=== PATIENT | male | born 1985 ===

== ENCOUNTER 2016-08-29 18:16 | Inpatient (IN) | payer OTHER ==
[2016-08-29 20:20] LABS: BASO % 0.2 % (0.0-2.0); EOS % 0.4 % (0.0-4.0); HEMATOCRIT 25.4 % (35.0-51.0); LYMPH # 1.7 K/uL (1.0-4.3); LYMPH % 28.3 % (20.0-40.0); MEAN CELL VOLUME 81.8 fL (80.0-94.0); MEAN CORPUSCULAR HEMOGLOBIN 28.4 pg (27.0-31.0); MEAN CORPUSCULAR HGB CONC 34.7 g/dL (33.0-37.0); MONO # 0.5 K/uL (0.0-0.8); MONO % 8.2 % (0.0-10.0); NRBC % 0.1 % (0.0-2.0); RED CELL DISTRIBUTION WIDTH 20.9 % (11.5-14.5); WHITE BLOOD COUNT 5.9 K/uL (4.8-10.8)
[2016-08-29 20:27] LABS: CHLORIDE 88 mmol/L (98-107); SODIUM 129 mmol/L (132-148)
[2016-08-29 20:30] LABS: ALB/GLOB RATIO 1.2 (1.0-2.1); ALKALINE PHOSPHATASE 67 U/L (38-126); AST/SGOT 24 U/L (17-59); BILIRUBIN,TOTAL 0.8 mg/dL (0.2-1.3); BLOOD UREA NITROGEN 15 mg/dL (9-20); CARBON DIOXIDE 28 mmol/L (22-30); GFR AFRICAN-AMERICAN > 60
[2016-08-29 20:31] LABS: ALT/SGPT 24 U/L (21-72); CALCIUM 7.4 mg/dl (8.6-10.4); GLUCOSE,RANDOM 86 mg/dL (75-110)
[2016-08-29 20:45] LABS: RBC URINE 2 /hpf (0-3); URINE BACTERIA RARE (<OCC); URINE BILIRUBIN NEGATIVE (NEGATIVE); URINE BLOOD NEGATIVE (NEGATIVE); URINE COLOR Yellow (YELLOW); URINE GLUCOSE (UA) 1+ mg/dL (Normal); URINE KETONE 1+ mg/dL (NEGATIVE); URINE LEUKOCYTE ESTERASE NEG Leu/uL (Negative); URINE PROTEIN 2+ mg/dL (NEGATIVE); WBC URINE 5 /hpf (0-5)
[2016-08-29] MEDS ORDERED: Sodium Chloride 0.9% 1,000 ML IV ONE ×2 (20:55→23:51)
--- NOTE | 2016-08-29 21:01 | C.PDOC ---
History Of Present Illness 31 y/o male, recently arrived [place] this country from [facility] 2 days ago, reports he is undergoing chemotherapy for metastatic stomach cancer which was diagnosed in April. Patient brings CT scan and upper endoscopy reports from [facility]. Patient reports significant weight loss from 195 to 130 lbs over the last 5 months. He states that he has been unable to eat or hold down any fluids/ foods, noting he also has difficulty speaking because it makes him nauseated. Patient states he was never offered surgery in [facility]. Denies fever, chills, chest pain, SOB, vomiting, or diarrhea. Time Seen by Provider: 08/29/16 20:44 Chief Complaint (Nursing): GI Problem History Per: Patient History/Exam Limitations: no limitations Onset/Duration Of Symptoms: Days, Persistent Current Symptoms Are (Timing): Still Present Reports Recently: Treated By A Physician (in [facility]) Recent travel outside of the [place]: Yes Additional History Per: Prior Records (brought by patient, records of diagnostic studies from [facility]) Past Medical History Reviewed: Historical Data, Nursing Documentation, Vital Signs Vital Signs: Last Vital Signs Temp 98.2 F 08/29/16 22:16 Pulse 87 08/29/16 22:16 Resp 20 08/29/16 22:16 BP 113/76 08/29/16 22:16 Pulse Ox 99 08/30/16 00:03 - Medical History PMH: Malignancy (metastatic stomach cancer) Family History: States: Unknown Family Hx - Social History Hx Alcohol Use: No Hx Substance Use: No - Immunization History Hx Tetanus Toxoid Vaccination: No Hx Influenza Vaccination: No Hx Pneumococcal Vaccination: No Review Of Systems Except As Marked, All Systems Reviewed And Found Negative. Constitutional: Positive for: Weight loss, Other (decreaed appetite). Negative for: Fever, Chills Cardiovascular: Negative for: Chest Pain Respiratory: Negative for: Cough, Shortness of Breath, Wheezing Gastrointestinal: Positive for: Nausea. Negative for: Vomiting, Abdominal Pain , Diarrhea Skin: Negative for: Rash Neurological: Negative for: Headache, Dizziness Physical Exam - Physical Exam Appears: Chronically Ill, Other (emaciated, pallid, bitemporal wasting, thin) Skin: Warm, Dry Head: Atraumatic, Normacephalic Eye(s): bilateral: Normal Inspection Oral Mucosa: Moist Throat: Normal, No Erythema, No Exudate, No Drooling Neck: Normal ROM, Supple Chest: Symmetrical Cardiovascular: Rhythm Regular Respiratory: No Rales, No Rhonchi, No Wheezing Gastrointestinal/Abdominal: Soft, No Tenderness, No Distention, No Guarding, No Rebound Back: No CVA Tenderness Extremity: Normal ROM, Capillary Refill (< 2 sec. ) Neurological/Psych: Oriented x3, Normal Speech, Normal Cognition ED Course And Treatment - Laboratory Results Result Diagrams: 08/29/16 20:11 08/29/16 20:11 Lab Interpretation: Abnormal (anemia, hypokalemia, hyponatremia, hypochloremia) ECG: Interpreted By Sc ECG Rhythm: Sinus Rhythm ECG Interpretation: Normal Rate From EC O2 Sat by Pulse Oximetry: 99 (RA) Pulse Ox Interpretation: Normal - Radiology CXR: Interpreted by Sc CXR Interpretation: Yes: No Acute Disease - CT Scan/US CT Chest Abd Pelvis Other Rad Studies (CT/US): Read By Radiologist, Radiology Report Reviewed CT/US Interpretation: IMPRESSION: 1. There is extensive mucosal thickening in the appendix which measures 1.1 cm in diameter. Findings are worrisome for acute appendicitis. 2. Mediastinal and hilar lymphadenopathy which is worrisome for metastatic disease. 3. Free fluid in the abdomen and pelvis. There is some encapsulation of the fluid in the pelvis which. is worrisome for abscess. 4. There is extensive mucosal thickening in the stomach with an area of thickened mucosa along the. minor curvature. 5. Lymphadenopathy in the gastrohepatic and retroperitoneal chains which may be reactive or due to. metastatic disease. Progress Note: CT Angio chest/abdomen, EKG, bloodwork ordered. Treated with Pepcid, Toradol, Zofran, and IVFs. Reevaluation Time: 23:39 Reassessment Condition: Improved (re-eval of abd; NO tenderness to RLQ, NEGATIVE MCBURNEY'S SIGN) - Physician Consult Information Outcome Of Conversation: [id number]: d/w Hospitalists- Elda Moser- ok to med/surg obs. 233: d/w Dr. Garcia- Surgeon Cloth Finisher- will eval for ? AP noted on CT. Surg Tono paged. Medical Decision Making Medical Decision Making: Widely metastatic gastric CA with ANTONIO in Mediastinum and Abd/retroperitoneal spaces GI and Oncology Consults in AM Dehydration: prob due to poor PO intake chronically normal BUN/Creat Continue hydration PPI/Zofran HGB 8.8 Anemia ? of chronic dz vs chronic GI bleeding from stomach CA guaiac exam pending by Surgery blood transfusions ordered follow CBC K+ 3.0 Hypokalemia, chronic loss: normal EKG without flattened T^'s repleat and follow EKG Avoid aggressive K+ repleation as K+ tends to rise naturally in blood Tx's. LOW susp of AP as noted on CT: normal wbc count and no RLQ pain- Surgical consult pending and probably NOT surgical now. Consider loculated fluid in pelvis- Zosyn started empirically Consier laparascopic exploration when pt stabilized. Disposition Doctor Will See Patient In The: Hospital Counseled Patient/Family Regarding: Studies Performed, Diagnosis - Disposition Disposition: HOSPITALIZED Disposition Time: 23:46 Condition: GOOD - Clinical Impression Clinical Impression: Late gastric cancer, Anemia, Dehydration, Hypokalemia - Scribe Statement The provider has reviewed the documentation as recorded by the Troy Hua Provider Scribe Attestation: All medical record entries made by the Troy were at my direction and personally dictated by me. I have reviewed the chart and agree that the record accurately reflects my personal performance of the history, physical exam, medical decision making, and the department course for this patient. I have also personally directed, reviewed, and agree with the discharge instructions and disposition.
[2016-08-29 21:34] LABS: INR 1.4
[2016-08-29] MEDS ORDERED: Iohexol 300 100 ML IJ ONE (21:43)
[2016-08-29] MEDS ORDERED: Piperacillin/Tazobact 3.375 gm 100 ML IV STA (23:52)
[2016-08-30] MEDS ORDERED: Sodium Chloride 0.9% 1,000 ML ONE (00:15)
--- NOTE | 2016-08-30 00:40 | CP.PCM.HP ---
<Miles Malik - Last Filed: 08/30/16 01:30> History of Present Illness - History of Present Illness History of Present Illness: CC: "Abdominal pain, nausea/vomiting" 31 M with PMH of gastric adenocarcinoma presents to [facility] ED for complaint of abdominal pain and nausea/vomiting. Patient was diagnosed with gastric CA in [facility], April 2016. He has been receiving chemotherapy every 21 days since the diagnosis. Patient states that he has had these symptoms intermittently throughout his treatment. The symptoms have been worse the last few days. He has been vomiting 4-5 times per day, normally non-bilious but occasionally are dark. He rates the abdominal pain as 4/10 in severity. He described it as constant and sharp, located on the left side of his abdomen without radiation. Patient denies any exacerbating or alleviating factors. During this same period, he admits to decreased appetite and weight loss. He is able to tolerate small amounts of liquid and bread at times. He also admits to having dark stool, numbness/tingling, weakness, and fatigue. Denies Headache, blurred vision, CP, SOB, palpitations, cough, incontinence, syncope, dizziness/ lightheadedness, urinary symptoms. PMD: NONE PMH: Gastric CA Meds: chemotherapy Allergy: NKDA PSH: Left knee surgery Hosp: denies FH: denies Social: denies ETOH/tobacco/illicit drug use Present on Admission - Present on Admission Any Indicators Present on Admission: No History of DVT/PE: No History of Uncontrolled Diabetes: No Urinary Catheter: No Decubitus Ulcer Present: No Review of Systems - Constitutional Constitutional: Anorexia, Weight Loss, Weakness. absent: Chills, Fever, Headache, Increased Appetite - EENT Eyes: absent: Blurred Vision, Change in Vision, Discharge Nose/Mouth/Throat: absent: Nasal Congestion, Nasal Discharge, Nasal Trauma, Post Nasal Drip, Sinus Pressure - Cardiovascular Cardiovascular: absent: Acrocyanosis, Chest Pain, Chest Pain at Rest, Chest Pain with Activity, Claudication, Diaphoresis, Dyspnea, Dyspnea on Exertion, Palpitations, Syncope - Respiratory Respiratory: absent: Dyspnea, Hemoptysis, Dyspnea on Exertion - Gastrointestinal Gastrointestinal: Abdominal Pain, Nausea, Vomiting. absent: Constipation, Diarrhea, Fecal Incontinence - Genitourinary Genitourinary: absent: Change in Urinary Stream, Difficulty Urinating, Dysuria, Urinary Incontinence - Musculoskeletal Musculoskeletal: absent: Abnormal Gait, Arthralgias, Atrophy, Back Pain - Integumentary Integumentary: absent: Change in Hair, Lesions, New Lesions - Neurological Neurological: Numbness, Paresthesias, Tingling, Weakness. absent: Dizziness, Headaches, Syncope - Psychiatric Psychiatric: absent: Homicidal Ideation, Suicidal Ideation - Endocrine Endocrine: Fatigue. absent: Palpitations, Polydipsia, Polyphagia, Polyuria - Hematologic/Lymphatic Hematologic: absent: Easy Bleeding, Easy Bruising, Lymphadenopathy Past Patient History - Past Social History Smoking Status: Never Smoked - HEMATOLOGICAL/ONCOLOGICAL Hx Cancer: Yes (Stomach) - PSYCHIATRIC Hx Substance Use: No Meds Allergies/Adverse Reactions: Allergies Allergy/AdvReac Type Severity Reaction Status Date / Time No Known Allergies Allergy Verified 08/29/16 19:45 Physical Exam - Constitutional Appears: No Acute Distress, Older Than Stated Age, Cachectic - Head Exam Head Exam: ATRAUMATIC, NORMOCEPHALIC - Eye Exam Eye Exam: EOMI, Normal appearance Pupil Exam: PERRL - ENT Exam ENT Exam: Mucous Membranes Dry - Neck Exam Neck exam: Positive for: Normal Inspection - Respiratory Exam Respiratory Exam: Clear to Auscultation Bilateral, NORMAL BREATHING PATTERN - Cardiovascular Exam Cardiovascular Exam: REGULAR RHYTHM, +S1, +S2 - GI/Abdominal Exam GI & Abdominal Exam: Normal Bowel Sounds, Soft. absent: Distended, Firm, Guarding, Rebound, Tenderness - Extremities Exam Extremities exam: Positive for: normal capillary refill, pedal pulses present. Negative for: calf tenderness, tenderness - Back Exam Back exam: absent: CVA tenderness (L), CVA tenderness (R) - Neurological Exam Neurological exam: Alert, CN II-XII Intact, Motor Sensory Deficit (unable to dorsiflex either foot), Oriented x3 - Psychiatric Exam Psychiatric exam: Normal Affect, Normal Mood - Skin Skin Exam: Dry, Intact, Pallor Results - Vital Signs Recent Vital Signs: Last Vital Signs Temp 98.2 F 08/29/16 22:16 Pulse 87 08/29/16 22:16 Resp 20 08/29/16 22:16 BP 113/76 08/29/16 22:16 Pulse Ox 99 08/30/16 00:05 - Labs Result Diagrams: 08/29/16 20:11 08/29/16 20:11 Assessment & Plan - Assessment and Plan (Free Text) Plan: 1. Gastric CA Telemetry General surgery consult, Dr. Ham, helpappreciated GI consult, Dr. Mares, help appreciated Heme/Onc consult, Dr. Mesa, help appreciated CT chest/abd/pelvis: (preliminary read) mucosal thickening of appendix, mediastinal and hilar lymphadenopathy, free fluid in abdomen and pelvis - worrisome for abscess, extensive mucosal thickening in stomach, lymphadenopathy in gastrohepatic and retroperitoneal chains (see full report) Morphine 1 mg Q4H PRN NPO D5NS 100 cc/hr Zofran 4 mg IVP Q6H PRN Zosyn 3.375 gm IVPB Q8H Consider IR consult for possible abscess drainage Stool occult positive 2. Nausea/vomiting NPO GI consult, Dr. Mares, help appreciated D5NS 100 cc/hr Zofran 4 mg IVP Q6H PRN 3. Anemia hgb 8.8 Heme/Onc consult, Dr. Mesa, help appreciated Monitor Hgb 4. Hyponatremia Na 129 D5NS 100 cc/hr Monitor Na 5. Prophylactic measures Chemical anticoagulation contraindicated due to Anemia SCDs Protonix 40 mg IVP daily PT/OT <Chad Schroeder - Last Filed: 08/30/16 06:03> Results - Vital Signs Recent Vital Signs: Last Vital Signs Temp 98.3 F 08/30/16 04:31 Pulse 74 08/30/16 04:31 Resp 20 08/30/16 04:31 BP 111/77 08/30/16 04:31 Pulse Ox 100 08/30/16 01:36 - Labs Result Diagrams: 08/29/16 20:11 08/29/16 20:11 Labs: Laboratory Results - last 24 hr 08/30/16 08/30/16 00:24 00:43 Stool Occult Blood Positive H Blood Type B POSITIVE Blood Type Confirm B POSITIVE Antibody Screen Negative Assessment & Plan - Date & Time Date: 08/30/16 (I have seen and examined the patient. I agree with the findings and plan of care as documented by Dr. Malik. Patient with gastric cancer and nausea/vomiting. Follow up official CT read. Consult to surgery. Consult to GI and heme/onc. Symptomatic treatment. Also with anemia. Denies GI bleed. Continue to monitor H/H. Also with hyponatremia. D5 NS IVF. Monitor BMP. Monitor for acute changes.) Time: 06:01 Attending/Attestation - Attestation I have personally seen and examined this patient.: Yes I have fully participated in the care of the patient.: Yes I have reviewed all pertinent clinical information: Yes
[2016-08-30] MEDS ORDERED: Piperacillin/Tazobact 3.375 gm 100 ML IVPB ONE (00:43)
--- NOTE | 2016-08-30 00:58 | CP.PCM.CON ---
<Crow Montgomery - Last Filed: 08/30/16 00:49> History of Present Illness - History of Present Illness History of Present Illness: Surgery: Dr. Ham CC: Abd pain HPI: 31M recently dx w. gastric adenocarcinoma in [facility] back in April 2016 , presents to ED w. abd pain. Pt has been receiving chemo in [facility] since April every 21 days. Pt states that his abd pain is constant, described as poking sensation, most prominent on L side. Pt denies any alleviating or aggravating factors. Pt states that he has decreased appetite and has been eating very little. He is able to tolerate small amounts of broth and toast. He has frequent nausea and vomiting. Occasionally vomit is coffee ground/black. Pt states that he is having BM which are at times black as well. Pt denies DORSEY/ blurred vision, no CP/palpitiations, no SOB/cough, he does have decreased sensation over the distal anterior aspect of his legs B/L. He states that he is unable to dorsiflex and has difficulty walking 2/[address] was done in ED which showed gastric mass w. mets, questionable appendicitis, and questionable fluid collection in pelvis for which surgery has been consulted PMH: Gastric CA PSH: none Meds: chemo NKDA Social: No ETOH/tobacco/drugs Fhx: No family hx gastric CA Review of Systems - Review of Systems All systems: reviewed and no additional remarkable complaints except (HPI) Past Patient History - Past Social History Smoking Status: Never Smoked - HEMATOLOGICAL/ONCOLOGICAL Hx Cancer: Yes (Stomach) - PSYCHIATRIC Hx Substance Use: No Meds Allergies/Adverse Reactions: Allergies Allergy/AdvReac Type Severity Reaction Status Date / Time No Known Allergies Allergy Verified 08/29/16 19:45 - Medications Medications: Current Medications Potassium Chloride (Potassium Chloride 20 Meq/100 Ml) 20 meq in 100 mls @ 50 mls/hr IVPB ONCE ONE Stop: 08/30/16 01:49 Last Admin: 08/30/16 00:20 Dose: 50 mls/hr Sodium Chloride (Sodium Chloride 0.9%) 1,000 mls @ 1,000 mls/hr IV .Q1H ONE Stop: 08/30/16 00:50 Last Admin: 08/30/16 00:19 Dose: 1,000 mls/hr Physical Exam - Constitutional Appears: Non-toxic, No Acute Distress, Cachectic - Head Exam Head Exam: ATRAUMATIC, NORMOCEPHALIC - Eye Exam Eye Exam: EOMI - ENT Exam ENT Exam: Mucous Membranes Dry, Normal External Ear Exam - Neck Exam Neck exam: Positive for: Full Rom - Respiratory Exam Respiratory Exam: NORMAL BREATHING PATTERN. absent: Accessory Muscle Use, Respiratory Distress - GI/Abdominal Exam GI & Abdominal Exam: Soft. absent: Distended, Firm, Guarding, Rebound, Rigid, Tenderness Additional comments: no psoas or obturator sign - Rectal Exam Rectal Exam: NORMAL INSPECTION. absent: Black Stool, Bloody Stool, Hemorrhoids , Fecal Impaction - Extremities Exam Extremities exam: Negative for: calf tenderness, pedal edema Additional comments: plantar felxion 5/5 B/L, 0/5 dorsiflexion B/L - Neurological Exam Neurological exam: Alert, Oriented x3 - Psychiatric Exam Psychiatric exam: Normal Affect, Normal Mood - Skin Skin Exam: Dry, Normal Color, Warm Results - Vital Signs Recent Vital Signs: Last Vital Signs Temp 98.2 F 08/29/16 22:16 Pulse 87 08/29/16 22:16 Resp 20 08/29/16 22:16 BP 113/76 08/29/16 22:16 Pulse Ox 99 08/30/16 00:05 - Labs Result Diagrams: 08/29/16 20:11 08/29/16 20:11 - Imaging and Cardiology CT scan - abdomen Status: Image reviewed by me, Report reviewed by me Assessment & Plan - Assessment and Plan (Free Text) Assessment: 31M w. gastric CA and R/O appendicitis -appendicitis unlikely, pt does not have exam findings consistent w. appendicitis -abx and recommend IR consult for abscess/fluid collection in pelvis -f/u stool guiac -f/u on GI -decreased sensation and motor fxn LE likely 2/2 peripheral neuropathy from inadequate nutritional intake -recommend dietary consult for poor nutritional status -will continue to follow -d/w attending Ulises PGY2 <Moisés Ham - Last Filed: 08/31/16 22:06> Meds - Medications Medications: Current Medications Piperacillin Sod/Tazobactam (Sod 3.375 gm/ Sodium Chloride) 100 mls @ 200 mls/ hr IVPB Q8H [facility] Last Admin: 08/31/16 17:31 Dose: 200 mls/hr Sodium Chloride (Sodium Chloride 0.9%) 1,000 mls @ 100 mls/hr IV .Q10H [facility] Last Admin: 08/31/16 13:54 Dose: 100 mls/hr Magnesium Sulfate/Dextrose (Magnesium Sulfate 1 Gm/100 Ml D5w) 1 gm in 100 mls @ 200 mls/hr IVPB ONCE ONE Stop: 08/31/16 22:26 Morphine Sulfate (Morphine) 1 mg IVP Q4H PRN PRN Reason: Pain, moderate (4-7) Ondansetron HCl (Zofran Inj) 4 mg IVP Q6 PRN PRN Reason: Nausea/Vomiting Last Admin: 08/31/16 07:52 Dose: 4 mg Pantoprazole Sodium (Protonix Inj) 40 mg IVP DAILY [facility] Last Admin: 08/31/16 09:11 Dose: 40 mg Pneumococcal Polyvalent Vaccine (Pneumovax 23 Vaccine) 0.5 ml IM .ONCE ONE Stop: 09/02/16 14:01 Results - Vital Signs Recent Vital Signs: Last Vital Signs Temp 98.1 F 08/31/16 15:13 Pulse 76 08/31/16 16:00 Resp 20 08/31/16 15:13 BP 125/86 08/31/16 15:13 Pulse Ox 100 08/31/16 15:13 - Labs Result Diagrams: 08/31/16 06:25 08/31/16 06:25 Labs: Laboratory Results - last 24 hr 08/30/16 08/31/16 08/31/16 11:56 06:25 06:25 WBC 5.1 RBC 3.27 L Hgb 9.2 L Hct 27.0 L MCV 82.6 MCH 28.1 MCHC 34.0 RDW 20.5 H Plt Count 116 L MPV 7.1 L Neut % (Auto) 68.3 Lymph % (Auto) 24.7 [place] % (Auto) 6.2 Eos % (Auto) 0.7 Baso % (Auto) 0.1 Neut # 3.5 Lymph # 1.3 [place] # 0.3 Eos # 0.0 Baso # 0.0 PT INR Sodium 128 L Potassium 3.1 L Chloride 95 L Carbon Dioxide 25 Anion Gap 11 BUN 6 L Creatinine 1.0 Est GFR ( Amer) > 60 Est GFR (Non-Af Amer) > 60 Random Glucose 74 L Calcium 6.4 L Phosphorus 3.6 Magnesium 0.4 L* Iron TIBC % Saturation Transferrin Ferritin 181.0 Total Bilirubin 0.5 AST 21 ALT 27 Alkaline Phosphatase 54 Total Protein 5.6 L Albumin 2.6 L Globulin 3.0 Albumin/Globulin Ratio 0.9 L Carcinoembryonic Ag 0.9 Vitamin B12 439 Folate 8.8 HIV 1&2 Ag/Ab, 4th Gen Nonreactive 08/31/16 08/31/16 08/31/16 06:25 06:25 06:25 WBC RBC Hgb Hct MCV MCH MCHC RDW Plt Count MPV Neut % (Auto) Lymph % (Auto) [place] % (Auto) Eos % (Auto) Baso % (Auto) Neut # Lymph # [place] # Eos # Baso # PT 16.3 H INR 1.4 Sodium Potassium Chloride Carbon Dioxide Anion Gap BUN Creatinine Est GFR ( Amer) Est GFR (Non-Af Amer) Random Glucose Calcium Phosphorus Magnesium Iron 39 L TIBC 232 L % Saturation 17 L Transferrin 172.14 L Ferritin Total Bilirubin AST ALT Alkaline Phosphatase Total Protein Albumin Globulin Albumin/Globulin Ratio Carcinoembryonic Ag Vitamin B12 Folate HIV 1&2 Ag/Ab, 4th Gen Attending/Attestation - Attestation I have personally seen and examined this patient.: Yes I have fully participated in the care of the patient.: Yes I have reviewed all pertinent clinical information: Yes Notes (Text): 08/31/16 22:04 Pt was seen and examined at bedside on 08/30/16 Agree with above note and assessment. Pt with Stage 4 Gastric CA No evidence of appendicitis Pt has no abdominal pain and Pt is tolerating diet Oncology referral No acute surgical intervention required at present. We will f.u
[2016-08-30] MEDS ORDERED: Dextrose 5%/0.9% NS 1,000 ML IV SCH (01:00)
[2016-08-30] MEDS ORDERED: Sodium Chloride 0.9% 1,000 ML IV SCH (01:00)
[2016-08-30] MEDS: Piperacillin/Tazobact 3.375 GM in Sodium Chloride 100 ML IVPB SCH ×2 (08:01→16:13)
--- NOTE | 2016-08-30 09:29 | CP.PCM.CON ---
<Hortencia Del Cid - Last Filed: 08/30/16 09:19> History of Present Illness - History of Present Illness History of Present Illness: Gastroenterology Fellow/PGY4 Consult Note 31 year old male with history of Gastric cancer diagnosed in [facility] 04/2016 on chemotherapy every twenty-one days presenting with nausea and vomiting. Patient and family at bedside describe history prior to gastric cancer diagnosis of abdominal pain, unintentional weight loss (195 lbs to 130lbs) leading to endoscopic evaluation and diagnosis of gastric cancer. Since April , the patient notes continued weight loss, dehydration, nausea, recurrent vomiting, loss of appetite, decreased ability to move his feet and sensation of ankles to feet. It was decided by his family [place] the [place] past [place] for further care. He is currently residing with his sister with note of four to five episodes of dark vomitus on Monday followed by clear vomitus on Monday. Patient notes he ate a salad with salmon yesterday without nausea or vomiting. At present denies abdominal pain, nausea, vomiting, dysphagia, odynophagia, heartburn, indigestion, bloating, heartburn, acid reflux, food/ liquid regurgitation, diarrhea, contipation, hematemesis, melena, hematochezia. Notes since admission, improvement in dehydration, weakness, and mobility of arms and legs. Prior EGD with gastric cancer diagnosis. No prior colonoscopy. Plans to stay in the [place] available [place] 10 years with re-evaluation in February on clearance for continued extension per family. Family in process of establishing health insurance and establish care. Family- mother and maternal grandmother- breast cancer; denies stomach or colon cancer Social- denies tobacco, alcohol, or illicit drug use Surgery-none Review of Systems - Review of Systems Review of Systems: A 12-point review of systems negative except for as above Past Patient History - Past Medical History & Family History Past Medical History?: Yes - Past Social History Smoking Status: Never Smoked - CARDIAC Hx Cardiac Disorders: No - PULMONARY Hx Respiratory Disorders: No - NEUROLOGICAL Hx Neurological Disorder: No - HEENT Hx HEENT Problems: No - RENAL Hx Chronic Kidney Disease: No - ENDOCRINE/METABOLIC Hx Endocrine Disorders: No - HEMATOLOGICAL/ONCOLOGICAL Hx Cancer: Yes (Stomach) - INTEGUMENTARY Hx Dermatological Problems: No - MUSCULOSKELETAL/RHEUMATOLOGICAL Hx Musculoskeletal Disorders: Yes Hx Falls: Yes - GASTROINTESTINAL Hx Gastrointestinal Disorders: No - GENITOURINARY/GYNECOLOGICAL Hx Genitourinary Disorders: No - PSYCHIATRIC Hx Substance Use: No - SURGICAL HISTORY Hx Surgeries: Yes Other/Comment: L Knee surgery after a fall - ANESTHESIA Hx Anesthesia: Yes Hx Anesthesia Reactions: No Hx Malignant Hyperthermia: No Has any member of the family had a problem w/ anesthesia?: No Meds Allergies/Adverse Reactions: Allergies Allergy/AdvReac Type Severity Reaction Status Date / Time No Known Allergies Allergy Verified 08/29/16 19:45 - Medications Medications: Current Medications Dextrose/Sodium Chloride (Dextrose 5%/0.9% Ns 1000 Ml) 1,000 mls @ 100 mls/hr IV CONT [facility] Piperacillin Sod/Tazobactam (Sod 3.375 gm/ Sodium Chloride) 100 mls @ 200 mls/ hr IVPB Q8H [facility] Last Admin: 08/30/16 08:01 Dose: 200 mls/hr Morphine Sulfate (Morphine) 1 mg IVP Q4H PRN PRN Reason: Pain, moderate (4-7) Ondansetron HCl (Zofran Inj) 4 mg IVP Q6 PRN PRN Reason: Nausea/Vomiting Pantoprazole Sodium (Protonix Inj) 40 mg IVP DAILY [facility] Pneumococcal Polyvalent Vaccine (Pneumovax 23 Vaccine) 0.5 ml IM .ONCE ONE Stop: 09/02/16 14:01 Physical Exam - Constitutional Appears: Non-toxic, No Acute Distress, Cachectic, Chronically Ill - Head Exam Head Exam: ATRAUMATIC, NORMOCEPHALIC - Eye Exam Eye Exam: EOMI, PERRL Pupil Exam: PERRL. absent: Miosis, Mydriatic - ENT Exam ENT Exam: Mucous Membranes Moist, Normal Oropharynx - Neck Exam Neck exam: Positive for: Full Rom, Normal Inspection - Respiratory Exam Respiratory Exam: Clear to Auscultation Bilateral. absent: Rales, Rhonchi, Wheezes - Cardiovascular Exam Cardiovascular Exam: RRR, +S1, +S2. absent: Gallop, Rubs - GI/Abdominal Exam GI & Abdominal Exam: Normal Bowel Sounds, Soft. absent: Distended, Firm, Guarding, Organomegaly, Rebound, Rigid, Tenderness - Extremities Exam Extremities exam: Positive for: normal inspection. Negative for: pedal edema - Neurological Exam Neurological exam: Alert, Motor Sensory Deficit Additional comments: motor sensory deficit B/L ankle to feet - Psychiatric Exam Psychiatric exam: Normal Affect, Normal Mood - Skin Skin Exam: Dry, Intact, Normal Color, Warm Results - Vital Signs Recent Vital Signs: Last Vital Signs Temp 97.6 F 08/30/16 07:09 Pulse 69 08/30/16 07:09 Resp 100 H 08/30/16 07:09 BP 110/74 08/30/16 07:09 Pulse Ox 100 08/30/16 01:36 - Labs Result Diagrams: 08/29/16 20:11 08/29/16 20:11 Labs: Laboratory Results - last 24 hr 08/30/16 08/30/16 00:24 00:43 Stool Occult Blood Positive H Blood Type B POSITIVE Blood Type Confirm B POSITIVE Antibody Screen Negative Assessment & Plan - Assessment and Plan (Free Text) Assessment: 31 year old male with history of Gastric cancer diagnosed in [facility] 04/2016 on chemotherapy every twenty-one days presenting with poor appetite, nausea, and vomiting. Prior EGD with gastric cancer diagnosis. No prior colonoscopy. Plan: >tolerated regular diet at home prior to ER presentation >advance to clear liquids >supportive care: antiemetics, PPI, IVFs >pending final read of CT chest/abdomen/pelvis >evaluate extent of disease with concern for metastases on imaging to delineate further intervention >Hem/Onc consulted- appreciate recommendations >surgery managing- abdominopelvic fluid collection, on Zosyn, appreciate recommendation >evaluate fluid collection for possible infection prior to consideration of endoscopic evaluation >patient and family discussion required once clinical workup and staging of disease established to delineate further care >review prior medical records >will require establishing health insurance for ongoing care outpatient >family in process of establishing health insurance >further recommendations based on clinical course <Anthony Mares Y - Last Filed: 08/30/16 09:49> Meds - Medications Medications: Current Medications Dextrose/Sodium Chloride (Dextrose 5%/0.9% Ns 1000 Ml) 1,000 mls @ 100 mls/hr IV CONT [facility] Piperacillin Sod/Tazobactam (Sod 3.375 gm/ Sodium Chloride) 100 mls @ 200 mls/ hr IVPB Q8H [facility] Last Admin: 08/30/16 08:01 Dose: 200 mls/hr Morphine Sulfate (Morphine) 1 mg IVP Q4H PRN PRN Reason: Pain, moderate (4-7) Ondansetron HCl (Zofran Inj) 4 mg IVP Q6 PRN PRN Reason: Nausea/Vomiting Pantoprazole Sodium (Protonix Inj) 40 mg IVP DAILY [facility] Last Admin: 08/30/16 09:41 Dose: 40 mg Pneumococcal Polyvalent Vaccine (Pneumovax 23 Vaccine) 0.5 ml IM .ONCE ONE Stop: 09/02/16 14:01 Results - Vital Signs Recent Vital Signs: Last Vital Signs Temp 97.6 F 08/30/16 07:09 Pulse 69 08/30/16 07:09 Resp 100 H 08/30/16 07:09 BP 110/74 08/30/16 07:09 Pulse Ox 100 08/30/16 01:36 - Labs Result Diagrams: 08/29/16 20:11 08/29/16 20:11 Labs: Laboratory Results - last 24 hr 08/30/16 08/30/16 08/30/16 00:24 00:43 09:20 Stool Occult Blood Positive H Influenza Typ A,B (EIA) Negative for flu a/b Blood Type B POSITIVE Blood Type Confirm B POSITIVE Antibody Screen Negative Attending/Attestation - Attestation I have personally seen and examined this patient.: Yes I have fully participated in the care of the patient.: Yes I have reviewed all pertinent clinical information: Yes Notes (Text): 08/30/16 09:43 I have seen and examined patient with GI fellow. Agree with above documentation with the following additions. In brief, this is a 31 year old male with history of recently diagnosed gastric cancer in April 2016 while in [facility]. His initial presentation leading to diagnosis was abdominal pain with unexplained weight loss. He was initiated chemotherapy (regimen unknown) which he completed for 3 weeks, though he decided to come to the [place] for ongoing medical care since he felt that therapy in [facility] was not effective. Since arriving 4 days ago he describes ongoing nausea with intermittent vomiting, though he was able to tolerate a salad with salmon pieces for lunch yesterday. He is currently seen resting in bed and appears comfortable. He denies abdominal pain, recurrent vomiting, fever/chills, or change in bowel habits. Unexplained weight loss, recently diagnosed gastric cancer in [facility] - Clear liquid diet as tolerated - CT imaging of chest/abdomen/pelvis taken, awaiting results - Oncology and surgical evaluations requested, follow up recommendations - Further management including potential endoscopy for tissue diagnosis pending results of imaging - Review prior medical records - Will continue to monitor patient clinical course
[2016-08-30] MEDS: Sodium Chloride 0.9% 1,000 ML IV SCH ×2 (10:15→22:16)
--- NOTE | 2016-08-30 11:47 | CP.PCM.PN ---
<UmeshkelyBobo mauricio - Last Filed: 08/30/16 18:53> Subjective - Date & Time of Evaluation Date of Evaluation: 08/30/16 Time of Evaluation: 10:24 - Subjective Subjective: Pt seen and examined. Pt reports that he is feeling better today and his abdominal pain has resolved. Pt reports that his appetite has improved. Pt denies fever, chills, chest pain, shortness of breath, nausea, and vomiting. Objective - Vital Signs/Intake and Output Vital Signs (last 24 hours): Temp Pulse Resp BP Pulse Ox 97.6 F 69 100 H 110/74 100 08/30/16 07:09 08/30/16 07:09 08/30/16 07:09 08/30/16 07:09 08/30/16 01:36 Intake and Output: 08/30/16 08/30/16 06:59 18:59 Intake Total 100 Balance 100 - Medications Medications: Current Medications Piperacillin Sod/Tazobactam (Sod 3.375 gm/ Sodium Chloride) 100 mls @ 200 mls/ hr IVPB Q8H [facility] Last Admin: 08/30/16 08:01 Dose: 200 mls/hr Sodium Chloride (Sodium Chloride 0.9%) 1,000 mls @ 100 mls/hr IV .Q10H [facility] Last Admin: 08/30/16 10:15 Dose: 100 mls/hr Morphine Sulfate (Morphine) 1 mg IVP Q4H PRN PRN Reason: Pain, moderate (4-7) Ondansetron HCl (Zofran Inj) 4 mg IVP Q6 PRN PRN Reason: Nausea/Vomiting Pantoprazole Sodium (Protonix Inj) 40 mg IVP DAILY [facility] Last Admin: 08/30/16 09:41 Dose: 40 mg Pneumococcal Polyvalent Vaccine (Pneumovax 23 Vaccine) 0.5 ml IM .ONCE ONE Stop: 09/02/16 14:01 - Labs Labs: PT 16.0 SECONDS (9.7-12.2) H 08/29/16 21:20 INR 1.4 08/29/16 21:20 APTT 26 SECONDS (21-34) 08/29/16 21:20 - Constitutional Appears: Cachectic - Head Exam Head Exam: ATRAUMATIC, NORMOCEPHALIC - Eye Exam Eye Exam: EOMI, PERRL - ENT Exam ENT Exam: Mucous Membranes Moist. absent: Mucous Membranes Dry - Respiratory Exam Respiratory Exam: Clear to Ausculation Bilateral. absent: Rales, Rhonchi, Wheezes - Cardiovascular Exam Cardiovascular Exam: +S1, +S2. absent: Gallop, Rubs - GI/Abdominal Exam GI & Abdominal Exam: Soft. absent: Distended, Tenderness - Extremities Exam Extremities Exam: Full ROM. absent: Pedal Edema - Neurological Exam Neurological Exam: Alert, Awake, Oriented x3 - Psychiatric Exam Psychiatric exam: Normal Affect, Normal Mood - Skin Skin Exam: Pallor, Warm Assessment and Plan - Assessment and Plan (Free Text) Assessment: Gastric Cancer: Stool occult blood positive GI, Dr. Mares, consulted. Help appreciated. Pt likely will need endoscopic evaluation. CT Chest/Abd/Pelvis - extensive mucosal thickening of the stomach; free fluid in the abdomen and pelvis; enapsulation of fluid in the pelvis which is worrisome for abscess; sclerotic lesion within left pelvis, metastatic disease not excluded; enlarged prostate gland, mediastinal and hilar adenopathy; mucosal thickening of the appendix (please see full report) General surgery, Dr. Ham, consulted. Help appreciated. Heme/onc, Dr. Mckoy, consulted. Help appreciated. Zosyn 3.375 gm IV q8h Morphine prn for pain Zofran prn for nausea Electrolyte Imbalance: K+ 3.2 Na+ 129 NS IVF 100 cc/hr KCl given in ED Anemia: H/H: 8.4/24.8 Iron, folate B12 studies pending NS IVF 100 cc/hr Prophylactic Measures: DVT: SCDs, chemical anticoagulation held due to anemia and positive stool occult blood GI: Protonix 40 mg IV qd <Beto Sage - Last Filed: 08/31/16 16:50> Objective - Vital Signs/Intake and Output Vital Signs (last 24 hours): Temp Pulse Resp BP Pulse Ox 98.1 F 83 20 125/86 100 08/31/16 15:13 08/31/16 15:13 08/31/16 15:13 08/31/16 15:13 08/31/16 15:13 Intake and Output: 08/31/16 08/31/16 06:59 18:59 Intake Total 800 1200 Balance 800 1200 - Medications Medications: Current Medications Piperacillin Sod/Tazobactam (Sod 3.375 gm/ Sodium Chloride) 100 mls @ 200 mls/ hr IVPB Q8H [facility] Last Admin: 08/31/16 07:52 Dose: 200 mls/hr Sodium Chloride (Sodium Chloride 0.9%) 1,000 mls @ 100 mls/hr IV .Q10H [facility] Last Admin: 08/31/16 13:54 Dose: 100 mls/hr Morphine Sulfate (Morphine) 1 mg IVP Q4H PRN PRN Reason: Pain, moderate (4-7) Ondansetron HCl (Zofran Inj) 4 mg IVP Q6 PRN PRN Reason: Nausea/Vomiting Last Admin: 08/31/16 07:52 Dose: 4 mg Pantoprazole Sodium (Protonix Inj) 40 mg IVP DAILY [facility] Last Admin: 08/31/16 09:11 Dose: 40 mg Pneumococcal Polyvalent Vaccine (Pneumovax 23 Vaccine) 0.5 ml IM .ONCE ONE Stop: 09/02/16 14:01 - Labs Labs: 08/31/16 06:25 08/31/16 06:25 PT 16.3 SECONDS (9.7-12.2) H 08/31/16 06:25 INR 1.4 08/31/16 06:25 APTT 26 SECONDS (21-34) 08/29/16 21:20 Attending/Attestation - Attestation I have personally seen and examined this patient.: Yes I have fully participated in the care of the patient.: Yes I have reviewed all pertinent clinical information, including history, physical exam and plan: Yes Notes (Text): 08/31/16 16:49 Patient was seen and examined at bedside with the resident and patient appears comfortable Continue current management Follow-up recommendations of GI and hematology/oncology I discussed the plan of care with the resident and agree with the above history and physical and assessment/plan by the resident.
--- NOTE | 2016-08-30 13:07 | CT ---
CT chest, abdomen, and pelvis with IV contrast Indication: Gastric cancer,? Mets Technique: Contiguous axial images of the chest, abdomen, and pelvis. Coronal and Sagittal reformats generated and reviewed. This CT exam was performed using 1 or more of the following dose reduction techniques: Automated exposure control, adjustment of the MAA and/or kV according to patient size, and/or use of iterative reconstruction technique. Oral contrast was not administered. 75 mL Omnipaque 300 administered intravenously. Radiation dose: Total exam DLP = 383.37 MGy-cm. Comparison: None available Findings: Visualized portions of the inferior thyroid gland appear unremarkable. Heart size appears within normal limits. No significant pericardial effusion. Mediastinal and hilar adenopathy. Sub cm mediastinal lymph nodes. 10 mm precarinal lymph node. Prevascular lymph node measures approximately 8 mm in short axis. Trace bilateral pleural effusions. Minimal basilar atelectasis. No focal consolidation. No pneumothorax. No suspicious pulmonary nodules measuring greater than 5 mm. Hypoattenuation of the liver compatible with hepatic steatosis. The spleen, kidneys, pancreas, adrenal glands, and gallbladder appear unremarkable. Gastrohepatic and hilar lymphadenopathy may be reactive, however metastatic disease must be considered. The stomach is nondistended. Extensive mucosal thickening of the stomach with the region of thickened mucosa along the minor curvature. Lack of oral contrast limits evaluation for bowel pathology. The bowel loops appear within normal limits of caliber without evidence of intestinal obstruction. There is no definite free air. Extensive mucosal thickening of the appendix which measures approximately 1.1 cm in diameter. The prostate gland measures approximately 3.4 x 5.2 cm. The urinary bladder appears unremarkable. Free fluid in the abdomen and pelvis. Encapsulation of the fluid in the pelvis which is worrisome for abscess. 12 mm sclerotic left ilium. Degenerative changes. Impression: Extensive mucosal thickening of the stomach with the region of thickened mucosa along the minor curvature. Extensive mucosal thickening of the appendix which measures approximately 1.1 cm in diameter. Appearance concerning for acute appendicitis. Correlate clinically. Free fluid in the abdomen and pelvis. Encapsulation of the fluid in the pelvis which is worrisome for abscess. 12 mm sclerotic lesion within the left ilium; metastatic disease is not excluded. Additional follow-up as warranted. Enlarged prostate gland. Recommend correlation with PSA. Mediastinal and hilar adenopathy. Sub cm mediastinal lymph nodes. 10 mm precarinal lymph node. Prevascular lymph node measures approximately 8 mm in short axis. Gastrohepatic and hilar lymphadenopathy may be reactive, however metastatic disease must be considered. Trace bilateral pleural effusions. Minimal basilar atelectasis. Hepatic steatosis. Preliminary impression was provided by virtual radiologic. Study has been marked for PA review.
[2016-08-30 13:09] LABS: BASO % 0.2 % (0.0-2.0); EOS % 0.5 % (0.0-4.0); HEMATOCRIT 24.8 % (35.0-51.0); LYMPH % 21.4 % (20.0-40.0); MEAN CELL VOLUME 82.8 fL (80.0-94.0); MEAN CORPUSCULAR HGB CONC 33.8 g/dL (33.0-37.0); MEAN PLATELET VOLUME 7.1 fL (7.2-11.7); MONO # 0.3 K/uL (0.0-0.8); MONO % 6.7 % (0.0-10.0); RED CELL DISTRIBUTION WIDTH 19.5 % (11.5-14.5); WHITE BLOOD COUNT 4.8 K/uL (4.8-10.8)
[2016-08-30 13:28] LABS: CHLORIDE 97 mmol/L (98-107); POTASSIUM 3.2 mmol/L (3.6-5.2); SODIUM 129 mmol/L (132-148)
[2016-08-30 13:30] LABS: GFR AFRICAN-AMERICAN > 60
[2016-08-30 13:31] LABS: ALB/GLOB RATIO 0.9 (1.0-2.1); ALKALINE PHOSPHATASE 54 U/L (38-126); ALT/SGPT 29 U/L (21-72); AST/SGOT 20 U/L (17-59); BILIRUBIN,TOTAL 0.6 mg/dL (0.2-1.3); BLOOD UREA NITROGEN 11 mg/dL (9-20); CALCIUM 6.3 mg/dl (8.6-10.4); CARBON DIOXIDE 25 mmol/L (22-30); GLUCOSE,RANDOM 71 mg/dL (75-110); TOTAL PROTEIN 5.5 g/dL (6.3-8.3)
[2016-08-30] MEDS ORDERED: Potassium Chloride 10 mEq ER Tab PO ONE (13:52)
[2016-08-31] MEDS: Piperacillin/Tazobact 3.375 GM in Sodium Chloride 100 ML IVPB SCH ×3 (00:24→17:31)
[2016-08-31 06:39] LABS: BASO % 0.1 % (0.0-2.0); EOS % 0.7 % (0.0-4.0); LYMPH # 1.3 K/uL (1.0-4.3); LYMPH % 24.7 % (20.0-40.0); MEAN CELL VOLUME 82.6 fL (80.0-94.0); MEAN CORPUSCULAR HEMOGLOBIN 28.1 pg (27.0-31.0); MEAN PLATELET VOLUME 7.1 fL (7.2-11.7); MONO # 0.3 K/uL (0.0-0.8); MONO % 6.2 % (0.0-10.0); NRBC % 0.1 % (0.0-2.0); RED CELL DISTRIBUTION WIDTH 20.5 % (11.5-14.5); WHITE BLOOD COUNT 5.1 K/uL (4.8-10.8)
[2016-08-31 06:43] LABS: INR 1.4
[2016-08-31 07:23] LABS: CHLORIDE 95 mmol/L (98-107); POTASSIUM 3.1 mmol/L (3.6-5.2); SODIUM 128 mmol/L (132-148)
[2016-08-31 07:24] LABS: IRON 39 ug/dL (49-181)
[2016-08-31 07:25] LABS: AST/SGOT 21 U/L (17-59); BILIRUBIN,TOTAL 0.5 mg/dL (0.2-1.3); CARBON DIOXIDE 25 mmol/L (22-30); GFR AFRICAN-AMERICAN > 60; TOTAL PROTEIN 5.6 g/dL (6.3-8.3)
[2016-08-31 07:26] LABS: ALKALINE PHOSPHATASE 54 U/L (38-126); ALT/SGPT 27 U/L (21-72); BLOOD UREA NITROGEN 6 mg/dL (9-20); CALCIUM 6.4 mg/dl (8.6-10.4); GLUCOSE,RANDOM 74 mg/dL (75-110); PHOSPHOROUS 3.6 mg/dL (2.5-4.5)
[2016-08-31 07:30] LABS: ALB/GLOB RATIO 0.9 (1.0-2.1)
[2016-08-31 08:28] LABS: MAGNESIUM 0.4 mg/dL (1.6-2.3)
[2016-08-31] MEDS: Magnesium Sulfate 1 gm in D5W 1 GM/100 ML BAG IVPB SCH ×4 (09:11→13:55)
[2016-08-31 09:38] LABS: CARCINOEMBRYONIC ANTIGEN 0.9 ng/mL (0-3.0); FOLATE 8.8 ng/mL
[2016-08-31] MEDS ORDERED: Potassium Chloride 20 mEq ER Tab PO STA ×2 (09:56→22:17)
--- NOTE | 2016-08-31 11:55 | CP.PCM.PN ---
<NehemiasHortencia - Last Filed: 08/31/16 11:52> Subjective - Date & Time of Evaluation Date of Evaluation: 08/31/16 Time of Evaluation: 11:52 - Subjective Subjective: Gastroenterology Fellow/PGY4 Progress Note Patient feels much better today. He states his energy level is better and notes improved sensation and movement of his feet. He tolerated clear liquids. States he had small amount of nausea and liquid reflux yesterday and this morning. Notes one formed bowel movement today. A 12-point review of systems negative except for as above. Objective - Vital Signs/Intake and Output Vital Signs (last 24 hours): Temp Pulse Resp BP Pulse Ox 98.4 F 79 20 116/77 100 08/31/16 07:00 08/31/16 07:00 08/31/16 07:00 08/31/16 07:00 08/31/16 07:00 Intake and Output: 08/31/16 08/31/16 06:59 18:59 Intake Total 800 Balance 800 - Medications Medications: Current Medications Piperacillin Sod/Tazobactam (Sod 3.375 gm/ Sodium Chloride) 100 mls @ 200 mls/ hr IVPB Q8H [facility] Last Admin: 08/31/16 07:52 Dose: 200 mls/hr Sodium Chloride (Sodium Chloride 0.9%) 1,000 mls @ 100 mls/hr IV .Q10H [facility] Last Admin: 08/30/16 22:16 Dose: 100 mls/hr Magnesium Sulfate/Dextrose (Magnesium Sulfate 1 Gm/100 Ml D5w) 1 gm in 100 mls @ 100 mls/hr IVPB Q1H [facility] Stop: 08/31/16 11:59 Morphine Sulfate (Morphine) 1 mg IVP Q4H PRN PRN Reason: Pain, moderate (4-7) Ondansetron HCl (Zofran Inj) 4 mg IVP Q6 PRN PRN Reason: Nausea/Vomiting Last Admin: 08/31/16 07:52 Dose: 4 mg Pantoprazole Sodium (Protonix Inj) 40 mg IVP DAILY [facility] Last Admin: 08/31/16 09:11 Dose: 40 mg Pneumococcal Polyvalent Vaccine (Pneumovax 23 Vaccine) 0.5 ml IM .ONCE ONE Stop: 09/02/16 14:01 - Labs Labs: 08/31/16 06:25 08/31/16 06:25 PT 16.3 SECONDS (9.7-12.2) H 08/31/16 06:25 INR 1.4 08/31/16 06:25 APTT 26 SECONDS (21-34) 08/29/16 21:20 - Constitutional Appears: Non-toxic, No Acute Distress - Head Exam Head Exam: ATRAUMATIC, NORMOCEPHALIC - Eye Exam Eye Exam: EOMI, PERRL Pupil Exam: PERRL. absent: Miosis, Mydriatic - ENT Exam ENT Exam: Mucous Membranes Moist, Normal Oropharynx - Neck Exam Neck Exam: Full ROM, Normal Inspection - Respiratory Exam Respiratory Exam: Clear to Ausculation Bilateral. absent: Rales, Rhonchi, Wheezes - Cardiovascular Exam Cardiovascular Exam: RRR, +S1, +S2. absent: Gallop, Rubs - GI/Abdominal Exam GI & Abdominal Exam: Soft, Normal Bowel Sounds. absent: Distended, Firm, Guarding, Rigid, Tenderness, Organomegaly, Rebound - Extremities Exam Extremities Exam: Normal Inspection. absent: Pedal Edema - Neurological Exam Neurological Exam: Alert, Awake - Psychiatric Exam Psychiatric exam: Normal Affect, Normal Mood - Skin Skin Exam: Dry, Intact, Normal Color, Warm Assessment and Plan - Assessment and Plan (Free Text) Assessment: 31 year old male with history of Gastric cancer diagnosed April 2016 in [facility] previously on chemotherapy every twenty-one days since diagnosis in [facility] presenting with poor appetite, nausea, and vomiting. Prior EGD with gastric carcinoma diagnosis. No prior colonoscopy. Plan: >tolerated regular diet at home prior to ER presentation >advance to full liquids >supportive care: antiemetics, PPI, IVFs > CT chest/abdomen/pelvis- thickened gastric wall, mediastinal/hilar/ gastrohepatic, retroperitoneal lymphadenopathy - pelvic encapsulated fluid collection >on Zosyn >IR consulted for fluid collection >family to bring in medical records today >follow up Surgery and Hem/Onc recommendations >potential endoscopic evaluation after fluid collection workup and multidisciplinary team recommendations >further recommendations based on clinical course <Star Gaona - Last Filed: 08/31/16 12:22> Objective - Vital Signs/Intake and Output Vital Signs (last 24 hours): Temp Pulse Resp BP Pulse Ox 98.4 F 79 20 116/77 100 08/31/16 07:00 08/31/16 07:00 08/31/16 07:00 08/31/16 07:00 08/31/16 07:00 Intake and Output: 08/31/16 08/31/16 06:59 18:59 Intake Total 800 Balance 800 - Medications Medications: Current Medications Piperacillin Sod/Tazobactam (Sod 3.375 gm/ Sodium Chloride) 100 mls @ 200 mls/ hr IVPB Q8H [facility] Last Admin: 08/31/16 07:52 Dose: 200 mls/hr Sodium Chloride (Sodium Chloride 0.9%) 1,000 mls @ 100 mls/hr IV .Q10H [facility] Last Admin: 08/30/16 22:16 Dose: 100 mls/hr Morphine Sulfate (Morphine) 1 mg IVP Q4H PRN PRN Reason: Pain, moderate (4-7) Ondansetron HCl (Zofran Inj) 4 mg IVP Q6 PRN PRN Reason: Nausea/Vomiting Last Admin: 08/31/16 07:52 Dose: 4 mg Pantoprazole Sodium (Protonix Inj) 40 mg IVP DAILY [facility] Last Admin: 08/31/16 09:11 Dose: 40 mg Pneumococcal Polyvalent Vaccine (Pneumovax 23 Vaccine) 0.5 ml IM .ONCE ONE Stop: 09/02/16 14:01 - Labs Labs: 08/31/16 06:25 08/31/16 06:25 PT 16.3 SECONDS (9.7-12.2) H 08/31/16 06:25 INR 1.4 08/31/16 06:25 APTT 26 SECONDS (21-34) 08/29/16 21:20 Attending/Attestation - Attestation I have personally seen and examined this patient.: Yes I have fully participated in the care of the patient.: Yes I have reviewed all pertinent clinical information, including history, physical exam and plan: Yes Notes (Text): Patient seen and examined with GI fellow. Agree with her note as documented above with the following additions/exceptions. This is a 31 year old male with recently diagnosed gastric ca on chemotherapy admitted with pain, nausea, and vomiting. CT with gastric wall thickening, thickened appendix and possible pelvic fluid collection. He reports mild nausea with small emesis this morning , but feels improved. Continue supportive care, follow up IR/hematology recommendations. Await prior medical records. Continue antibiotic therapy as per primary team. Continue pain control/antiemetic therapy as needed, advance diet slowly as tolerated. 08/31/16 12:20
--- NOTE | 2016-08-31 13:28 | PCM.SURG1 ---
Surgeon's Initial Post Op Note - Surgeon's Notes Surgeon: Cal Wang MD Political Science Professor: None Type of Anesthesia: Local Pre-Operative Diagnosis: Ascites, gastric cancer Operative Findings: US showed a small amount of ascites Post-Operative Diagnosis: Ascites, gastric cancer Operation Performed: US guided paracentesis Specimen/Specimens Removed: 800 cc of yellow fluid Estimated Blood Loss: EBL {In ML}: 0 Blood Products Given: N/A Drains Used: No Drains Post-Op Condition: Fair Date of Surgery/Procedure: 08/31/16 Time of Surgery/Procedure: 13:20
[2016-08-31] MEDS: Sodium Chloride 0.9% 1,000 ML IV SCH (13:54)
--- NOTE | 2016-08-31 14:42 | US ---
Date of Procedure: 08/31/2016 PROCEDURE: Ultrasound-guided paracentesis, CPT 93500 Medications:cc 1% Lidocaine HISTORY: Ascites, gastric cancer TECHNIQUE: Following informed consent , the patient was placed supine on the stretcher and the site was marked. A limited abdominal ultrasound was performed that showed a small amount of intra-abdominal fluid. Procedural time out was called and the Pt's abdomen was marked and prepped and draped in the usual sterile fashion. Ultrasound-guided large volume paracentesis performed. A total of 800 cc of straw colored fluid was removed without complication. Fluid specimen was sent for cytology. IMPRESSION: Ultrasound-guided paracentesis.
--- NOTE | 2016-08-31 17:04 | CP.PCM.CON ---
History of Present Illness - History of Present Illness History of Present Illness: Palliative consult requested by Chu RASHID Reason: Goals of care discussion Patient is a 31 yo male admitted with abdominal pain, nausea and vomiting 4-5 days a day. Pain was reported to Left lower quadrant, 08/01. Patient is S/P paracentesis today and reports improvement in pain level. The CT abdomen was significant for for possible pelvic abscess.Patient came from [facility] just last weekend and stays with his sister. Patient was diagnosed with gastric CA in April of this year and has been under the chemo therapy Q 21 days ever since. Patient reports weight loss of 70 lb/ 6 months. PMH: denied Soc. hx: , came to [facility] to get cure for his disease Fam. Hx: Unknown Review of Systems - Constitutional Constitutional: Weight Loss - EENT Eyes: absent: As Per HPI, Blind Spots, Blurred Vision, Change in Vision, Decreased Night Vision, Diplopia, Discharge, Dry Eye, Exophthalmos, Floaters, Irritation, Itchy Eyes, Loss of Peripheral Vision, Pain, Photophobia, Requires Corrective Lenses, Sees Flashes, Spots in Vision, Tunnel Vision, Other Visual Disturbances, Loss of Vision, Other Ears: absent: As Per HPI, Decreased Hearing, Ear Discharge, Ear Pain, Tinnitus, Abnormal Hearing, Disequilibrium, Dizziness, Other Nose/Mouth/Throat: absent: As Per HPI, Epistaxis, Nasal Congestion, Nasal Discharge, Nasal Obstruction, Nasal Trauma, Nose Pain, Post Nasal Drip, Sinus Pain, Sinus Pressure, Bleeding Gums, Change in Voice, Dental Pain, Dry Mouth, Dysphagia, Halitosis, Hoarsness, Lip Swelling, Mouth Lesions, Mouth Pain, Odynophagia, Sore Throat, Throat Swelling, Tongue Swelling, Facial Pain, Neck Pain, Neck Mass, Other - Cardiovascular Cardiovascular: absent: As Per HPI, Acrocyanosis, Chest Pain, Chest Pain at Rest , Chest Pain with Activity, Claudication, Diaphoresis, Dyspnea, Dyspnea on Exertion, Edema, Irregular Heart Rhythm, Pain Radiating to Arm/Neck/Jaw, Leg Edema, Leg Ulcers, Lightheadedness, Orthopnea, Palpitations, Paroxysmal Nocturnal Dyspnea, Pedal Edema, Radiating Pain, Rapid Heart Rate, Slow Heart Rate, Syncope, Other - Respiratory Respiratory: absent: As Per HPI, Cough, Dyspnea, Hemoptysis, Dyspnea on Exertion , Wheezing, Snoring, Stridor, Pain on Inspiration, Chest Congestion, Excessive Mucous Production, Change in Mucous Color, Pain with Coughing, Other - Gastrointestinal Gastrointestinal: Nausea, Vomiting - Genitourinary Genitourinary: absent: As Per HPI, Change in Urinary Stream, Difficulty Urinating, Dysuria, Flank Pain, Hematuria, Pyuria, Nocturia, Urinary Incontinence, Urinary Frequency, Urinary Hesitance, Urinary Urgency, Voiding Freq/Small Amts, Freq UTI, Hx Renal/Bladder Calculi, Hx /Renal Surgery, Bladder Distension, Other - Reproductive: Male Reproductive:Male: As Per HPI, Prepubesant, Dyspareunia, Genital Lesions, Genital Pruritis, Pelvic Pain, Sexual Dysfunction, Penile Discharge, Genital Odor, Impotence, On ED Medications, Penile Implant, Other - Musculoskeletal Musculoskeletal: absent: As Per HPI, Abnormal Gait, Arthralgias, Atrophy, Back Pain, Deformity, Joint Swelling, Limited Range of Motion, Loss of Height, Muscle Cramps, Muscle Weakness, Myalgias, Neck Pain, Numbness, Radiating Pain into Limb, Stiffness, Tingling, Other - Integumentary Integumentary: absent: As Per HPI, Acne, Alopecia, Bleeding Lesions, Change in Hair, Change in Nails, Change in Pigmentation, Changing Lesions, Dry Skin, Erythema, Furuncle, Hirsutism, Lesions, New Lesions, Non-Healing Lesions, Photosensitivity, Pruritus, Rash, Skin Pain, Skin Ulcer, Sores, Striae, Swelling , Unusual Bruising, Wounds, Jaundice, Other - Neurological Neurological: absent: As Per HPI, Abnormal Gait, Abnormal Hearing, Abnormal Movements, Abnormal Speech, Behavioral Changes, Burning Sensations, Confusion, Convulsions, Disequilibrium, Dizziness, Numbness, Focal Weakness, Frequent Falls , Headaches, Lack of Coordination, Loss of Vision, Memory Loss, Paresthesias, Radicular Pain, Restless Legs, Sensory Deficit, Syncope, Tingling, Tremor, Vertigo, Weakness, Other Visual Disturbances, Other - Psychiatric Psychiatric: absent: As Per HPI, Abnormal Sleep Pattern, Anhedonia, Anxiety, Auditory Hallucinations, Behavioral Changes, Change in Appetite, Change in Libido, Confusion, Depression, Difficulty Concentrating, Hallucinations, Homicidal Ideation, Hopelessness, Irritability, Memory Loss, Mood Swings, Panic Attacks, Paranoia, Suicidal Ideation, Visual Hallucinations, Tactile Hallucinations, Other - Endocrine Endocrine: absent: As Per HPI, Change in Body Appearance, Change in Libido, Cold Intolorance, Deepening of Voice, Excessive Sweating, Fatigue, Flushing, Heat Intolorance, Increase in Ring/Shoe/Hat Size, Palpitations, Polydipsia, Polyphagia, Polyuria, Other - Hematologic/Lymphatic Hematologic: absent: As Per HPI, Easy Bleeding, Easy Bruising, Lymphadenopathy, Other Past Patient History - Past Medical History & Family History Past Medical History?: Yes - Past Social History Smoking Status: Never Smoked - CARDIAC Hx Cardiac Disorders: No - PULMONARY Hx Respiratory Disorders: No - NEUROLOGICAL Hx Neurological Disorder: No - HEENT Hx HEENT Problems: No - RENAL Hx Chronic Kidney Disease: No - ENDOCRINE/METABOLIC Hx Endocrine Disorders: No - HEMATOLOGICAL/ONCOLOGICAL Hx Cancer: Yes (Stomach) - INTEGUMENTARY Hx Dermatological Problems: No - MUSCULOSKELETAL/RHEUMATOLOGICAL Hx Musculoskeletal Disorders: Yes Hx Falls: Yes - GASTROINTESTINAL Hx Gastrointestinal Disorders: No - GENITOURINARY/GYNECOLOGICAL Hx Genitourinary Disorders: No - PSYCHIATRIC Hx Substance Use: No - SURGICAL HISTORY Hx Surgeries: Yes Other/Comment: L Knee surgery after a fall - ANESTHESIA Hx Anesthesia: Yes Hx Anesthesia Reactions: No Hx Malignant Hyperthermia: No Has any member of the family had a problem w/ anesthesia?: No Meds Allergies/Adverse Reactions: Allergies Allergy/AdvReac Type Severity Reaction Status Date / Time No Known Allergies Allergy Verified 08/29/16 19:45 - Medications Medications: Current Medications Piperacillin Sod/Tazobactam (Sod 3.375 gm/ Sodium Chloride) 100 mls @ 200 mls/ hr IVPB Q8H [facility] Last Admin: 08/31/16 07:52 Dose: 200 mls/hr Sodium Chloride (Sodium Chloride 0.9%) 1,000 mls @ 100 mls/hr IV .Q10H [facility] Last Admin: 08/31/16 13:54 Dose: 100 mls/hr Morphine Sulfate (Morphine) 1 mg IVP Q4H PRN PRN Reason: Pain, moderate (4-7) Ondansetron HCl (Zofran Inj) 4 mg IVP Q6 PRN PRN Reason: Nausea/Vomiting Last Admin: 08/31/16 07:52 Dose: 4 mg Pantoprazole Sodium (Protonix Inj) 40 mg IVP DAILY [facility] Last Admin: 08/31/16 09:11 Dose: 40 mg Pneumococcal Polyvalent Vaccine (Pneumovax 23 Vaccine) 0.5 ml IM .ONCE ONE Stop: 09/02/16 14:01 Physical Exam - Constitutional Appears: Chronically Ill - Head Exam Head Exam: ATRAUMATIC, NORMAL INSPECTION, NORMOCEPHALIC - Eye Exam Eye Exam: EOMI, Normal appearance, PERRL Pupil Exam: NORMAL ACCOMODATION, PERRL - ENT Exam Additional comments: Excessive saliva production - Neck Exam Neck exam: Positive for: Normal Inspection - Respiratory Exam Respiratory Exam: Clear to Auscultation Bilateral, NORMAL BREATHING PATTERN - Cardiovascular Exam Cardiovascular Exam: REGULAR RHYTHM, +S1, +S2 - GI/Abdominal Exam GI & Abdominal Exam: Normal Bowel Sounds Additional comments: S/P paracentesis - Rectal Exam Rectal Exam: Deferred - Extremities Exam Extremities exam: Positive for: normal inspection - Back Exam Back exam: NORMAL INSPECTION - Neurological Exam Neurological exam: Alert, Oriented x3 - Psychiatric Exam Psychiatric exam: Normal Affect, Normal Mood - Skin Skin Exam: Normal Color, Warm Results - Vital Signs Recent Vital Signs: Last Vital Signs Temp 98.1 F 08/31/16 15:13 Pulse 83 08/31/16 15:13 Resp 20 08/31/16 15:13 BP 125/86 08/31/16 15:13 Pulse Ox 100 08/31/16 15:13 - Labs Result Diagrams: 08/31/16 06:25 08/31/16 06:25 Labs: Laboratory Results - last 24 hr 08/30/16 08/31/16 08/31/16 11:56 06:25 06:25 WBC 5.1 RBC 3.27 L Hgb 9.2 L Hct 27.0 L MCV 82.6 MCH 28.1 MCHC 34.0 RDW 20.5 H Plt Count 116 L MPV 7.1 L Neut % (Auto) 68.3 Lymph % (Auto) 24.7 [place] % (Auto) 6.2 Eos % (Auto) 0.7 Baso % (Auto) 0.1 Neut # 3.5 Lymph # 1.3 [place] # 0.3 Eos # 0.0 Baso # 0.0 PT INR Sodium 128 L Potassium 3.1 L Chloride 95 L Carbon Dioxide 25 Anion Gap 11 BUN 6 L Creatinine 1.0 Est GFR ( Amer) > 60 Est GFR (Non-Af Amer) > 60 Random Glucose 74 L Calcium 6.4 L Phosphorus 3.6 Magnesium 0.4 L* Iron TIBC % Saturation Transferrin Ferritin 181.0 Total Bilirubin 0.5 AST 21 ALT 27 Alkaline Phosphatase 54 Total Protein 5.6 L Albumin 2.6 L Globulin 3.0 Albumin/Globulin Ratio 0.9 L Carcinoembryonic Ag 0.9 Vitamin B12 439 Folate 8.8 HIV 1&2 Ag/Ab, 4th Gen Nonreactive 08/31/16 08/31/16 08/31/16 06:25 06:25 06:25 WBC RBC Hgb Hct MCV MCH MCHC RDW Plt Count MPV Neut % (Auto) Lymph % (Auto) [place] % (Auto) Eos % (Auto) Baso % (Auto) Neut # Lymph # [place] # Eos # Baso # PT 16.3 H INR 1.4 Sodium Potassium Chloride Carbon Dioxide Anion Gap BUN Creatinine Est GFR ( Amer) Est GFR (Non-Af Amer) Random Glucose Calcium Phosphorus Magnesium Iron 39 L TIBC 232 L % Saturation 17 L Transferrin 172.14 L Ferritin Total Bilirubin AST ALT Alkaline Phosphatase Total Protein Albumin Globulin Albumin/Globulin Ratio Carcinoembryonic Ag Vitamin B12 Folate HIV 1&2 Ag/Ab, 4th Gen Assessment & Plan - Assessment and Plan (Free Text) Assessment: Palliative consult Code status Full Code, no advance directive on the chart, PPS 70% Charts and diagnostic studies reviewed, patient examined in bed and interviewed using Joinery Machinist [employer] system. Goals of care discussed. Patient is alert, oriented X 3 , Bolivian speaking only in no acute distress. Patient is S/P paracentesis, denies abdominal pain and complains of excessive saliva production. Patient is spitting it up very often. Patient was given clear liquids diet and denied nausea/ vomiting. Patient was seen by Vishnu RASHID for GI and oncology consult was called. I discussed with the patient his expectations of this hospitalization. Patient is aware of gastric CA diagnosis . Patient is ready to undergo any necessary diagnostic or surgical procedure that is expected to assist him in cure of gastric cancer. Patient is looking forward continuing with Chemo if recommended by the Oncologist. If patient loses his ability to make health related medical decisions, patient would want his sister Elias Ramirez to be his decision making surrogate. I assisted him with completing the POLST assigning his sister as a surrogate. Impression * This is a patient newly diagnosed with gastric CA * Patient came from [facility] seeking the cure for his disease * Patient appears to be in good spirit and ready to fight the disease. * Patient named his sister Ashley Griffin a surrogate decision maker * Patient would of want all necessary interventions to be applied in supporting his recovery Suggestion * Full Code, POLST on chart * Fallow recommendations from GI and Onco * Patient is Bolivian speaking, use computational mathematician in communicating Palliative care will fallow up with patient on as needed basis. Thank you for consulting Palliative Care
[2016-08-31] MEDS ORDERED: Magnesium Sulfate 1 gm in D5W 1 GM/100 ML BAG IVPB ONE (21:57)
--- NOTE | 2016-08-31 22:08 | CP.PCM.PN ---
<Bobo Marie - Last Filed: 08/31/16 22:06> Subjective - Date & Time of Evaluation Date of Evaluation: 08/31/16 Time of Evaluation: 07:18 - Subjective Subjective: Pt seen and examined. Pt resting in bed comfortably. Pt reports that he is feeling well today. Pt denies abdominal pain, fever, chills, chest pain, shortness of breath, nausea, and vomiting. Objective - Vital Signs/Intake and Output Vital Signs (last 24 hours): Temp Pulse Resp BP Pulse Ox 98.1 F 76 20 125/86 100 08/31/16 15:13 08/31/16 16:00 08/31/16 15:13 08/31/16 15:13 08/31/16 15:13 Intake and Output: 08/31/16 09/01/16 18:59 06:59 Intake Total 1200 Balance 1200 - Medications Medications: Current Medications Piperacillin Sod/Tazobactam (Sod 3.375 gm/ Sodium Chloride) 100 mls @ 200 mls/ hr IVPB Q8H [facility] Last Admin: 08/31/16 17:31 Dose: 200 mls/hr Sodium Chloride (Sodium Chloride 0.9%) 1,000 mls @ 100 mls/hr IV .Q10H [facility] Last Admin: 08/31/16 13:54 Dose: 100 mls/hr Magnesium Sulfate/Dextrose (Magnesium Sulfate 1 Gm/100 Ml D5w) 1 gm in 100 mls @ 200 mls/hr IVPB ONCE ONE Stop: 08/31/16 22:26 Morphine Sulfate (Morphine) 1 mg IVP Q4H PRN PRN Reason: Pain, moderate (4-7) Multivitamins (Hexavitamin) 1 tab PO DAILY [facility] Ondansetron HCl (Zofran Inj) 4 mg IVP Q6 PRN PRN Reason: Nausea/Vomiting Last Admin: 08/31/16 07:52 Dose: 4 mg Pantoprazole Sodium (Protonix Inj) 40 mg IVP DAILY [facility] Last Admin: 08/31/16 09:11 Dose: 40 mg Pneumococcal Polyvalent Vaccine (Pneumovax 23 Vaccine) 0.5 ml IM .ONCE ONE Stop: 09/02/16 14:01 - Labs Labs: 08/31/16 06:25 08/31/16 06:25 PT 16.3 SECONDS (9.7-12.2) H 08/31/16 06:25 INR 1.4 08/31/16 06:25 APTT 26 SECONDS (21-34) 08/29/16 21:20 - Constitutional Appears: No Acute Distress, Cachectic, Chronically Ill - Head Exam Head Exam: NORMOCEPHALIC - Eye Exam Eye Exam: PERRL - ENT Exam ENT Exam: Mucous Membranes Moist. absent: Mucous Membranes Dry - Respiratory Exam Respiratory Exam: Clear to Ausculation Bilateral. absent: Rales, Rhonchi, Wheezes - Cardiovascular Exam Cardiovascular Exam: +S1, +S2 - GI/Abdominal Exam GI & Abdominal Exam: Soft. absent: Tenderness - Extremities Exam Extremities Exam: Full ROM. absent: Pedal Edema - Neurological Exam Neurological Exam: Alert, Awake, Oriented x3 - Psychiatric Exam Psychiatric exam: Normal Affect, Normal Mood - Skin Skin Exam: Pallor Assessment and Plan - Assessment and Plan (Free Text) Assessment: Gastric Cancer: Stool occult blood positive GI, Dr. Mares, consulted. Help appreciated. Pt likely will need endoscopic evaluation. CT Chest/Abd/Pelvis - extensive mucosal thickening of the stomach; free fluid in the abdomen and pelvis; enapsulation of fluid in the pelvis which is worrisome for abscess; sclerotic lesion within left pelvis, metastatic disease not excluded; enlarged prostate gland, mediastinal and hilar adenopathy; mucosal thickening of the appendix (please see full report) General surgery, Dr. Ham, consulted. Help appreciated. Heme/onc, Dr. Mckoy, consulted. Help appreciated. Zosyn 3.375 gm IV q8h Morphine prn for pain Zofran prn for nausea Pt to go for paracentesis today with IR, Dr. Wang. Fluid analysis to be sent. Pt to go for EGD in am NPO after midnight Electrolyte Imbalance: K+ 3.1 Na+ 128 Mg 0.4 NS IVF 100 cc/hr KCl given in ED 1 gm Mg x 3 bags given K-dur 60 meq total given Anemia: H/H stable Iron, TIBC low NS IVF 100 cc/hr Prophylactic Measures: DVT: SCDs, chemical anticoagulation held due to anemia and positive stool occult blood GI: Protonix 40 mg IV qd <Beto Sage - Last Filed: 09/01/16 14:56> Objective - Vital Signs/Intake and Output Vital Signs (last 24 hours): Temp Pulse Resp BP Pulse Ox 98.5 F 70 20 117/77 97 09/01/16 07:02 09/01/16 12:30 09/01/16 07:02 09/01/16 07:02 09/01/16 07:02 Intake and Output: 09/01/16 09/01/16 06:59 18:59 Intake Total 700 Balance 700 - Medications Medications: Current Medications Ferrous Sulfate (Feosol) 325 mg PO DAILY [facility] Piperacillin Sod/Tazobactam (Sod 3.375 gm/ Sodium Chloride) 100 mls @ 200 mls/ hr IVPB Q8H [facility] Last Admin: 09/01/16 09:20 Dose: 200 mls/hr Sodium Chloride (Sodium Chloride 0.9%) 1,000 mls @ 100 mls/hr IV .Q10H [facility] Last Admin: 09/01/16 12:57 Dose: Not Given Morphine Sulfate (Morphine) 1 mg IVP Q4H PRN PRN Reason: Pain, moderate (4-7) Multivitamins (Hexavitamin) 1 tab PO DAILY [facility] Last Admin: 09/01/16 10:11 Dose: 1 tab Ondansetron HCl (Zofran Inj) 4 mg IVP Q6 PRN PRN Reason: Nausea/Vomiting Last Admin: 09/01/16 07:48 Dose: 4 mg Pantoprazole Sodium (Protonix Inj) 40 mg IVP DAILY [facility] Last Admin: 09/01/16 10:11 Dose: 40 mg Pneumococcal Polyvalent Vaccine (Pneumovax 23 Vaccine) 0.5 ml IM .ONCE ONE Stop: 09/02/16 14:01 Potassium Chloride (Klor-Con 10) 40 meq PO BRK [facility] Last Admin: 09/01/16 07:46 Dose: 40 meq - Labs Labs: 09/01/16 08:09 09/01/16 08:09 PT 16.3 SECONDS (9.7-12.2) H 08/31/16 06:25 INR 1.4 08/31/16 06:25 APTT 26 SECONDS (21-34) 08/29/16 21:20 Attending/Attestation - Attestation I have personally seen and examined this patient.: Yes I have fully participated in the care of the patient.: Yes I have reviewed all pertinent clinical information, including history, physical exam and plan: Yes Notes (Text): 09/01/16 14:55 Patient was seen and examined at bedside States abdominal pain is improving Patient is able to tolerate some liquid diet Workup is in progress. Follow-up recommendations of GI and the oncology. I discussed the plan of care with the resident and agree with the above history and physical and assessment/plan by the resident.
[2016-08-31 22:56] LABS: CHLORIDE 94 mmol/L (98-107); SODIUM 128 mmol/L (132-148)
[2016-08-31 22:58] LABS: GFR AFRICAN-AMERICAN > 60
[2016-08-31 22:59] LABS: BLOOD UREA NITROGEN 5 mg/dL (9-20); CALCIUM 6.4 mg/dl (8.6-10.4); CARBON DIOXIDE 25 mmol/L (22-30); GLUCOSE,RANDOM 93 mg/dL (75-110); MAGNESIUM 1.2 mg/dL (1.6-2.3)
[2016-09-01] MEDS: Piperacillin/Tazobact 3.375 GM in Sodium Chloride 100 ML IVPB SCH ×3 (00:01→16:27)
[2016-09-01] MEDS: Sodium Chloride 0.9% 1,000 ML IV SCH ×3 (05:01→22:06)
[2016-09-01] MEDS ORDERED: Magnesium Sulfate 1 gm in D5W 1 GM/100 ML BAG IVPB SCH ×2 (06:30→09:15)
[2016-09-01] MEDS ORDERED: Potassium Chloride 20 mEq ER Tab PO STA (07:07)
[2016-09-01] MEDS: Potassium Chloride 10 mEq ER Tab PO SCH (07:46)
[2016-09-01] MEDS: Magnesium Sulfate 1 gm in D5W 1 GM/100 ML BAG IVPB SCH ×2 (07:48→08:33)
[2016-09-01 08:44] LABS: BASO % 0.1 % (0.0-2.0); EOS # 0.1 K/uL (0.0-0.7); HEMATOCRIT 29.3 % (35.0-51.0); LYMPH # 1.3 K/uL (1.0-4.3); LYMPH % 23.8 % (20.0-40.0); MEAN CELL VOLUME 82.3 fL (80.0-94.0); MEAN CORPUSCULAR HEMOGLOBIN 27.9 pg (27.0-31.0); MEAN CORPUSCULAR HGB CONC 33.9 g/dL (33.0-37.0); MONO # 0.3 K/uL (0.0-0.8); RED CELL DISTRIBUTION WIDTH 20.7 % (11.5-14.5); WHITE BLOOD COUNT 5.3 K/uL (4.8-10.8)
[2016-09-01 08:51] LABS: CHLORIDE 95 mmol/L (98-107); POTASSIUM 3.3 mmol/L (3.6-5.2); SODIUM 130 mmol/L (132-148)
[2016-09-01 08:52] LABS: BILIRUBIN,TOTAL 0.8 mg/dL (0.2-1.3); CARBON DIOXIDE 22 mmol/L (22-30); GFR AFRICAN-AMERICAN > 60
[2016-09-01 08:53] LABS: ALKALINE PHOSPHATASE 63 U/L (38-126); ALT/SGPT 17 U/L (21-72); AST/SGOT 22 U/L (17-59); BLOOD UREA NITROGEN 4 mg/dL (9-20); GLUCOSE,RANDOM 82 mg/dL (75-110); PHOSPHOROUS 3.1 mg/dL (2.5-4.5); TOTAL PROTEIN 6.1 g/dL (6.3-8.3)
[2016-09-01 08:54] LABS: CALCIUM 6.8 mg/dl (8.6-10.4); MAGNESIUM 1.1 mg/dL (1.6-2.3)
--- NOTE | 2016-09-01 09:28 | CP.PCM.PN ---
<NehemiasHortencia - Last Filed: 09/01/16 09:25> Subjective - Date & Time of Evaluation Date of Evaluation: 09/01/16 Time of Evaluation: 09:25 - Subjective Subjective: Gastroenterology Fellow/PGY4 Progress Note Patient sitting up in bed in good spirits. Denies nausea. Notes small amount of liquid vomitus and notes clear phlegm reflux. States he is hungry. Notes one formed bowel movement yesterday. A 12-point review of systems negative except for as above. Objective - Vital Signs/Intake and Output Vital Signs (last 24 hours): Temp Pulse Resp BP Pulse Ox 98.5 F 81 20 117/77 97 09/01/16 07:02 09/01/16 07:02 09/01/16 07:02 09/01/16 07:02 09/01/16 07:02 Intake and Output: 09/01/16 09/01/16 06:59 18:59 Intake Total 700 Balance 700 - Medications Medications: Current Medications Piperacillin Sod/Tazobactam (Sod 3.375 gm/ Sodium Chloride) 100 mls @ 200 mls/ hr IVPB Q8H [facility] Last Admin: 09/01/16 00:01 Dose: 200 mls/hr Sodium Chloride (Sodium Chloride 0.9%) 1,000 mls @ 100 mls/hr IV .Q10H [facility] Last Admin: 09/01/16 05:01 Dose: 100 mls/hr Morphine Sulfate (Morphine) 1 mg IVP Q4H PRN PRN Reason: Pain, moderate (4-7) Multivitamins (Hexavitamin) 1 tab PO DAILY [facility] Ondansetron HCl (Zofran Inj) 4 mg IVP Q6 PRN PRN Reason: Nausea/Vomiting Last Admin: 09/01/16 07:48 Dose: 4 mg Pantoprazole Sodium (Protonix Inj) 40 mg IVP DAILY [facility] Last Admin: 08/31/16 09:11 Dose: 40 mg Pneumococcal Polyvalent Vaccine (Pneumovax 23 Vaccine) 0.5 ml IM .ONCE ONE Stop: 09/02/16 14:01 Potassium Chloride (Klor-Con 10) 40 meq PO BRK [facility] Last Admin: 09/01/16 07:46 Dose: 40 meq - Labs Labs: 09/01/16 08:09 09/01/16 08:09 PT 16.3 SECONDS (9.7-12.2) H 08/31/16 06:25 INR 1.4 08/31/16 06:25 APTT 26 SECONDS (21-34) 08/29/16 21:20 - Constitutional Appears: Non-toxic, No Acute Distress - Head Exam Head Exam: ATRAUMATIC, NORMOCEPHALIC - Eye Exam Eye Exam: EOMI, PERRL Pupil Exam: PERRL. absent: Miosis, Mydriatic - ENT Exam ENT Exam: Mucous Membranes Moist, Normal Oropharynx - Neck Exam Neck Exam: Full ROM, Normal Inspection - Respiratory Exam Respiratory Exam: Clear to Ausculation Bilateral. absent: Rales, Rhonchi, Wheezes - Cardiovascular Exam Cardiovascular Exam: RRR, +S1, +S2. absent: Gallop, Rubs - GI/Abdominal Exam GI & Abdominal Exam: Soft, Normal Bowel Sounds. absent: Distended, Firm, Guarding, Rigid, Tenderness, Organomegaly, Rebound - Extremities Exam Extremities Exam: Full ROM. absent: Pedal Edema - Neurological Exam Neurological Exam: Alert, Awake - Psychiatric Exam Psychiatric exam: Normal Affect, Normal Mood - Skin Skin Exam: Dry, Intact, Normal Color, Warm Assessment and Plan - Assessment and Plan (Free Text) Assessment: 31 year old male with history of Gastric cancer diagnosed April 2016 in [facility] previously on chemotherapy every twenty-one days since diagnosis in [facility] presenting with poor appetite, nausea, and vomiting. CT chest/abdomen/ pelvis showed thickened gastric wall, mediastinal/hilar/gastrohepatic/ retroperitoneal lymphadenopathy, and pelvic encapsulated fluid collection. Prior EGD with gastric carcinoma diagnosis. No prior colonoscopy. Plan: >10 IR paracentesis- 800cc >cytology pending >on Zosyn >follow up Surgery and Hem/Onc recommendations >continue full liquids >supportive care: antiemetics, PPI >NPO after midnight >EGD Monday >if still inpatient, EUS at [facility] Monday >if discharged, EUS outpatient after establish [facility] <Anthony Mares - Last Filed: 09/01/16 11:44> Objective - Vital Signs/Intake and Output Vital Signs (last 24 hours): Temp Pulse Resp BP Pulse Ox 98.5 F 78 20 117/77 97 09/01/16 07:02 09/01/16 08:00 09/01/16 07:02 09/01/16 07:02 09/01/16 07:02 Intake and Output: 09/01/16 09/01/16 06:59 18:59 Intake Total 700 Balance 700 - Medications Medications: Current Medications Piperacillin Sod/Tazobactam (Sod 3.375 gm/ Sodium Chloride) 100 mls @ 200 mls/ hr IVPB Q8H [facility] Last Admin: 09/01/16 09:20 Dose: 200 mls/hr Sodium Chloride (Sodium Chloride 0.9%) 1,000 mls @ 100 mls/hr IV .Q10H [facility] Last Admin: 09/01/16 05:01 Dose: 100 mls/hr Morphine Sulfate (Morphine) 1 mg IVP Q4H PRN PRN Reason: Pain, moderate (4-7) Multivitamins (Hexavitamin) 1 tab PO DAILY [facility] Last Admin: 09/01/16 10:11 Dose: 1 tab Ondansetron HCl (Zofran Inj) 4 mg IVP Q6 PRN PRN Reason: Nausea/Vomiting Last Admin: 09/01/16 07:48 Dose: 4 mg Pantoprazole Sodium (Protonix Inj) 40 mg IVP DAILY [facility] Last Admin: 09/01/16 10:11 Dose: 40 mg Pneumococcal Polyvalent Vaccine (Pneumovax 23 Vaccine) 0.5 ml IM .ONCE ONE Stop: 09/02/16 14:01 Potassium Chloride (Klor-Con 10) 40 meq PO BRK [facility] Last Admin: 09/01/16 07:46 Dose: 40 meq - Labs Labs: 09/01/16 08:09 09/01/16 08:09 PT 16.3 SECONDS (9.7-12.2) H 08/31/16 06:25 INR 1.4 08/31/16 06:25 APTT 26 SECONDS (21-34) 08/29/16 21:20 Attending/Attestation - Attestation I have personally seen and examined this patient.: Yes I have fully participated in the care of the patient.: Yes I have reviewed all pertinent clinical information, including history, physical exam and plan: Yes Notes (Text): 09/01/16 11:41 I have seen and examined patient with GI fellow. No acute events overnight. He is seen sitting in bed, appears comfortable. He denies abdominal pain or vomiting. Tolerating PO liquids without difficulty, though endorses excessive salivation. Nausea, vomiting Recently diagnosed gastric cancer s/p initiation of chemotherapy in [facility] Weight loss - Liquid diet as tolerated - Follow up oncology and surgical recommendations - Will plan for EGD evaluation of gastric mass tomorrow. Depending on appearance, patient may require additional EUS examination for accurate staging. - Follow up ascitic fluid results, cytology - Will continue to monitor patient clinical course
[2016-09-01] MEDS: Multiple Vitamins Tab PO SCH (10:11)
--- NOTE | 2016-09-01 13:52 | CP.PCM.PN ---
<Tim Mariekan - Last Filed: 09/01/16 13:47> Subjective - Date & Time of Evaluation Date of Evaluation: 09/01/16 Time of Evaluation: 07:22 - Subjective Subjective: Pt seen and examined. Pt reports that he is producing copious amounts of saliva. Pt denies any abdominal pain, nausea, vomiting, diarrhea, fever, chills , chest pain, shortness of breath. Objective - Vital Signs/Intake and Output Vital Signs (last 24 hours): Temp Pulse Resp BP Pulse Ox 98.5 F 70 20 117/77 97 09/01/16 07:02 09/01/16 12:30 09/01/16 07:02 09/01/16 07:02 09/01/16 07:02 Intake and Output: 09/01/16 09/01/16 06:59 18:59 Intake Total 700 Balance 700 - Medications Medications: Current Medications Piperacillin Sod/Tazobactam (Sod 3.375 gm/ Sodium Chloride) 100 mls @ 200 mls/ hr IVPB Q8H [facility] Last Admin: 09/01/16 09:20 Dose: 200 mls/hr Sodium Chloride (Sodium Chloride 0.9%) 1,000 mls @ 100 mls/hr IV .Q10H [facility] Last Admin: 09/01/16 12:57 Dose: Not Given Morphine Sulfate (Morphine) 1 mg IVP Q4H PRN PRN Reason: Pain, moderate (4-7) Multivitamins (Hexavitamin) 1 tab PO DAILY [facility] Last Admin: 09/01/16 10:11 Dose: 1 tab Ondansetron HCl (Zofran Inj) 4 mg IVP Q6 PRN PRN Reason: Nausea/Vomiting Last Admin: 09/01/16 07:48 Dose: 4 mg Pantoprazole Sodium (Protonix Inj) 40 mg IVP DAILY [facility] Last Admin: 09/01/16 10:11 Dose: 40 mg Pneumococcal Polyvalent Vaccine (Pneumovax 23 Vaccine) 0.5 ml IM .ONCE ONE Stop: 09/02/16 14:01 Potassium Chloride (Klor-Con 10) 40 meq PO BRK [facility] Last Admin: 09/01/16 07:46 Dose: 40 meq - Labs Labs: 09/01/16 08:09 09/01/16 08:09 PT 16.3 SECONDS (9.7-12.2) H 08/31/16 06:25 INR 1.4 08/31/16 06:25 APTT 26 SECONDS (21-34) 08/29/16 21:20 - Constitutional Appears: No Acute Distress - Head Exam Head Exam: ATRAUMATIC, NORMOCEPHALIC - Eye Exam Eye Exam: EOMI, PERRL - ENT Exam ENT Exam: Mucous Membranes Moist. absent: Mucous Membranes Dry - Neck Exam Neck Exam: Full ROM. absent: Lymphadenopathy - Respiratory Exam Respiratory Exam: Clear to Ausculation Bilateral. absent: Rales, Rhonchi - Cardiovascular Exam Cardiovascular Exam: +S1, +S2. absent: Gallop, Rubs, Murmur - GI/Abdominal Exam GI & Abdominal Exam: Soft. absent: Distended, Rigid, Tenderness - Extremities Exam Extremities Exam: Full ROM. absent: Pedal Edema - Neurological Exam Neurological Exam: Alert, Awake, Oriented x3 - Psychiatric Exam Psychiatric exam: Normal Affect, Normal Mood - Skin Skin Exam: Pallor, Warm Assessment and Plan - Assessment and Plan (Free Text) Assessment: Gastric Cancer: Stool occult blood positive GI, Dr. Mares, consulted. Help appreciated. Pt likely will need endoscopic evaluation. CT Chest/Abd/Pelvis - extensive mucosal thickening of the stomach; free fluid in the abdomen and pelvis; enapsulation of fluid in the pelvis which is worrisome for abscess; sclerotic lesion within left pelvis, metastatic disease not excluded; enlarged prostate gland, mediastinal and hilar adenopathy; mucosal thickening of the appendix (please see full report) General surgery, Dr. Ham, consulted. Help appreciated. Heme/onc, Dr. Mckoy, consulted. Help appreciated. Zosyn 3.375 gm IV q8h Morphine prn for pain Zofran prn for nausea Pt day 1 s/p paracentesis with IR, Dr. Wang. Fluid cytology pending EGD rescheduled for oscar NPO after midnghit Electrolyte Imbalance: K+ 3.3 K-dur 40 meq Na+ 130 NS IVF 100 cc/hr Mg 1.1 1 gm MgS x 2 bags Anemia: H/H stable Iron, TIBC, %satuation, ferritin low Feosol 325 mg po qd Prophylactic Measures: DVT: SCDs, chemical anticoagulation held due to anemia and positive stool occult blood GI: Protonix 40 mg IV qd <Chu,Beto M - Last Filed: 09/01/16 17:15> Objective - Vital Signs/Intake and Output Vital Signs (last 24 hours): Temp Pulse Resp BP Pulse Ox 98.4 F 83 20 111/74 96 09/01/16 15:41 09/01/16 15:41 09/01/16 15:41 09/01/16 15:41 09/01/16 15:41 Intake and Output: 09/01/16 09/01/16 06:59 18:59 Intake Total 700 1100 Balance 700 1100 - Medications Medications: Current Medications Ferrous Sulfate (Feosol) 325 mg PO DAILY [facility] Piperacillin Sod/Tazobactam (Sod 3.375 gm/ Sodium Chloride) 100 mls @ 200 mls/ hr IVPB Q8H [facility] Last Admin: 09/01/16 16:27 Dose: 200 mls/hr Sodium Chloride (Sodium Chloride 0.9%) 1,000 mls @ 100 mls/hr IV .Q10H [facility] Last Admin: 09/01/16 12:57 Dose: Not Given Morphine Sulfate (Morphine) 1 mg IVP Q4H PRN PRN Reason: Pain, moderate (4-7) Multivitamins (Hexavitamin) 1 tab PO DAILY [facility] Last Admin: 09/01/16 10:11 Dose: 1 tab Ondansetron HCl (Zofran Inj) 4 mg IVP Q6 PRN PRN Reason: Nausea/Vomiting Last Admin: 09/01/16 07:48 Dose: 4 mg Pantoprazole Sodium (Protonix Inj) 40 mg IVP DAILY [facility] Last Admin: 09/01/16 10:11 Dose: 40 mg Pneumococcal Polyvalent Vaccine (Pneumovax 23 Vaccine) 0.5 ml IM .ONCE ONE Stop: 09/02/16 14:01 Potassium Chloride (Klor-Con 10) 40 meq PO BRK [facility] Last Admin: 09/01/16 07:46 Dose: 40 meq - Labs Labs: 09/01/16 08:09 09/01/16 08:09 PT 16.3 SECONDS (9.7-12.2) H 08/31/16 06:25 INR 1.4 08/31/16 06:25 APTT 26 SECONDS (21-34) 08/29/16 21:20 Attending/Attestation - Attestation I have personally seen and examined this patient.: Yes I have fully participated in the care of the patient.: Yes I have reviewed all pertinent clinical information, including history, physical exam and plan: Yes Notes (Text): 09/01/16 17:14 Patient was seen and examined at bedside with the resident Status post the paracentesis. Follow-up per cytology report Patient is scheduled for EGD tomorrow Follow-up recommendations of GI and oncology I discussed the plan of care with the resident and agree with the above history and physical and assessment/plan by the resident.
--- NOTE | 2016-09-01 17:40 | CP.PCM.CON ---
Past Patient History - Past Medical History & Family History Past Medical History?: Yes - Past Social History Smoking Status: Never Smoked - CARDIAC Hx Cardiac Disorders: No - PULMONARY Hx Respiratory Disorders: No - NEUROLOGICAL Hx Neurological Disorder: No - HEENT Hx HEENT Problems: No - RENAL Hx Chronic Kidney Disease: No - ENDOCRINE/METABOLIC Hx Endocrine Disorders: No - HEMATOLOGICAL/ONCOLOGICAL Hx Cancer: Yes (Stomach) - INTEGUMENTARY Hx Dermatological Problems: No - MUSCULOSKELETAL/RHEUMATOLOGICAL Hx Musculoskeletal Disorders: Yes Hx Falls: Yes - GASTROINTESTINAL Hx Gastrointestinal Disorders: No - GENITOURINARY/GYNECOLOGICAL Hx Genitourinary Disorders: No - PSYCHIATRIC Hx Substance Use: No - SURGICAL HISTORY Hx Surgeries: Yes Other/Comment: L Knee surgery after a fall - ANESTHESIA Hx Anesthesia: Yes Hx Anesthesia Reactions: No Hx Malignant Hyperthermia: No Has any member of the family had a problem w/ anesthesia?: No Meds Allergies/Adverse Reactions: Allergies Allergy/AdvReac Type Severity Reaction Status Date / Time No Known Allergies Allergy Verified 08/29/16 19:45 - Medications Medications: Current Medications Ferrous Sulfate (Feosol) 325 mg PO DAILY [facility] Piperacillin Sod/Tazobactam (Sod 3.375 gm/ Sodium Chloride) 100 mls @ 200 mls/ hr IVPB Q8H [facility] Last Admin: 09/01/16 16:27 Dose: 200 mls/hr Sodium Chloride (Sodium Chloride 0.9%) 1,000 mls @ 100 mls/hr IV .Q10H [facility] Last Admin: 09/01/16 12:57 Dose: Not Given Morphine Sulfate (Morphine) 1 mg IVP Q4H PRN PRN Reason: Pain, moderate (4-7) Multivitamins (Hexavitamin) 1 tab PO DAILY [facility] Last Admin: 09/01/16 10:11 Dose: 1 tab Ondansetron HCl (Zofran Inj) 4 mg IVP Q6 PRN PRN Reason: Nausea/Vomiting Last Admin: 09/01/16 07:48 Dose: 4 mg Pantoprazole Sodium (Protonix Inj) 40 mg IVP DAILY [facility] Last Admin: 09/01/16 10:11 Dose: 40 mg Pneumococcal Polyvalent Vaccine (Pneumovax 23 Vaccine) 0.5 ml IM .ONCE ONE Stop: 09/02/16 14:01 Potassium Chloride (Klor-Con 10) 40 meq PO BRK [facility] Last Admin: 09/01/16 07:46 Dose: 40 meq Results - Vital Signs Recent Vital Signs: Last Vital Signs Temp 98.4 F 09/01/16 15:41 Pulse 83 09/01/16 15:41 Resp 20 09/01/16 15:41 BP 111/74 09/01/16 15:41 Pulse Ox 96 09/01/16 15:41 - Labs Result Diagrams: 09/01/16 08:09 09/01/16 08:09 Labs: Laboratory Results - last 24 hr 08/31/16 09/01/16 09/01/16 22:40 08:09 08:09 WBC 5.3 RBC 3.56 L Hgb 9.9 L Hct 29.3 L MCV 82.3 MCH 27.9 MCHC 33.9 RDW 20.7 H Plt Count 139 MPV 7.0 L Neut % (Auto) 70.1 Lymph % (Auto) 23.8 [place] % (Auto) 5.0 Eos % (Auto) 1.0 Baso % (Auto) 0.1 Neut # 3.7 Lymph # 1.3 Ness # 0.3 Eos # 0.1 Baso # 0.0 Sodium 128 L 130 L Potassium 3.0 L 3.3 L Chloride 94 L 95 L Carbon Dioxide 25 22 Anion Gap 13 16 BUN 5 L 4 L Creatinine 0.9 0.9 Est GFR ( Amer) > 60 > 60 Est GFR (Non-Af Amer) > 60 > 60 Random Glucose 93 82 Calcium 6.4 L 6.8 L Phosphorus 3.1 Magnesium 1.2 L 1.1 L Total Bilirubin 0.8 AST 22 ALT 17 L D Alkaline Phosphatase 63 Total Protein 6.1 L Albumin 3.1 L Globulin 3.0 Albumin/Globulin Ratio 1.0
--- NOTE | 2016-09-01 17:52 | CP.PCM.CON ---
History of Present Illness - History of Present Illness History of Present Illness: 31 yo man admitted with generalized weakness, weight loss. He is from [facility], where he was diagnosed as per family with gastric cancer, was on chemo. He has continued to lose weight, with difficulty eating solid food, occasional vomiting and difficulty swaalowing saliva. He is extremely weak, is able to walk from the bed to the bathroom. C/O weight loss of around 70lbs in the past 6 months Past Patient History - Past Medical History & Family History Past Medical History?: Yes - Past Social History Smoking Status: Never Smoked - CARDIAC Hx Cardiac Disorders: No - PULMONARY Hx Respiratory Disorders: No - NEUROLOGICAL Hx Neurological Disorder: No - HEENT Hx HEENT Problems: No - RENAL Hx Chronic Kidney Disease: No - ENDOCRINE/METABOLIC Hx Endocrine Disorders: No - HEMATOLOGICAL/ONCOLOGICAL Hx Cancer: Yes (Stomach) - INTEGUMENTARY Hx Dermatological Problems: No - MUSCULOSKELETAL/RHEUMATOLOGICAL Hx Musculoskeletal Disorders: Yes Hx Falls: Yes - GASTROINTESTINAL Hx Gastrointestinal Disorders: No - GENITOURINARY/GYNECOLOGICAL Hx Genitourinary Disorders: No - PSYCHIATRIC Hx Substance Use: No - SURGICAL HISTORY Hx Surgeries: Yes Other/Comment: L Knee surgery after a fall - ANESTHESIA Hx Anesthesia: Yes Hx Anesthesia Reactions: No Hx Malignant Hyperthermia: No Has any member of the family had a problem w/ anesthesia?: No Meds Allergies/Adverse Reactions: Allergies Allergy/AdvReac Type Severity Reaction Status Date / Time No Known Allergies Allergy Verified 08/29/16 19:45 - Medications Medications: Current Medications Ferrous Sulfate (Feosol) 325 mg PO DAILY [facility] Piperacillin Sod/Tazobactam (Sod 3.375 gm/ Sodium Chloride) 100 mls @ 200 mls/ hr IVPB Q8H [facility] Last Admin: 09/01/16 16:27 Dose: 200 mls/hr Sodium Chloride (Sodium Chloride 0.9%) 1,000 mls @ 100 mls/hr IV .Q10H [facility] Last Admin: 09/01/16 12:57 Dose: Not Given Morphine Sulfate (Morphine) 1 mg IVP Q4H PRN PRN Reason: Pain, moderate (4-7) Multivitamins (Hexavitamin) 1 tab PO DAILY [facility] Last Admin: 09/01/16 10:11 Dose: 1 tab Ondansetron HCl (Zofran Inj) 4 mg IVP Q6 PRN PRN Reason: Nausea/Vomiting Last Admin: 09/01/16 07:48 Dose: 4 mg Pantoprazole Sodium (Protonix Inj) 40 mg IVP DAILY [facility] Last Admin: 09/01/16 10:11 Dose: 40 mg Pneumococcal Polyvalent Vaccine (Pneumovax 23 Vaccine) 0.5 ml IM .ONCE ONE Stop: 09/02/16 14:01 Potassium Chloride (Klor-Con 10) 40 meq PO BRK [facility] Last Admin: 09/01/16 07:46 Dose: 40 meq Results - Vital Signs Recent Vital Signs: Last Vital Signs Temp 98.4 F 09/01/16 15:41 Pulse 83 09/01/16 15:41 Resp 20 09/01/16 15:41 BP 111/74 09/01/16 15:41 Pulse Ox 96 09/01/16 15:41 - Labs Result Diagrams: 09/01/16 08:09 09/01/16 08:09 Labs: Laboratory Results - last 24 hr 08/31/16 09/01/16 09/01/16 22:40 08:09 08:09 WBC 5.3 RBC 3.56 L Hgb 9.9 L Hct 29.3 L MCV 82.3 MCH 27.9 MCHC 33.9 RDW 20.7 H Plt Count 139 MPV 7.0 L Neut % (Auto) 70.1 Lymph % (Auto) 23.8 [place] % (Auto) 5.0 Eos % (Auto) 1.0 Baso % (Auto) 0.1 Neut # 3.7 Lymph # 1.3 [place] # 0.3 Eos # 0.1 Baso # 0.0 Sodium 128 L 130 L Potassium 3.0 L 3.3 L Chloride 94 L 95 L Carbon Dioxide 25 22 Anion Gap 13 16 BUN 5 L 4 L Creatinine 0.9 0.9 Est GFR ( Amer) > 60 > 60 Est GFR (Non-Af Amer) > 60 > 60 Random Glucose 93 82 Calcium 6.4 L 6.8 L Phosphorus 3.1 Magnesium 1.2 L 1.1 L Total Bilirubin 0.8 AST 22 ALT 17 L D Alkaline Phosphatase 63 Total Protein 6.1 L Albumin 3.1 L Globulin 3.0 Albumin/Globulin Ratio 1.0 Assessment & Plan (1) Gastric malignant neoplasm Assessment and Plan: 31 yo man with history of ?? gastric malignancy..? adenoca ?GIST, ?carcinoid. Will need records from [facility]. Await results of ascitic fluid path, will need gastric biopsy with IHC stains to establish diagnosis and treatment plan. Have briefly discussed with family regarding possibilities, also the importance of making the diagnosis prior to treatment recommendations. Status: Acute
[2016-09-02] MEDS: Piperacillin/Tazobact 3.375 GM in Sodium Chloride 100 ML IVPB SCH ×4 (00:23→23:46)
[2016-09-02] MEDS: Magnesium Sulfate 1 gm in D5W 1 GM/100 ML BAG IVPB SCH ×2 (01:16→01:58)
[2016-09-02] MEDS ORDERED: Magnesium Sulfate 1 gm in D5W 1 GM/100 ML BAG IVPB ONE ×2 (01:49→09:11)
[2016-09-02 06:36] LABS: BASO % 0.1 % (0.0-2.0); EOS # 0.1 K/uL (0.0-0.7); EOS % 0.9 % (0.0-4.0); HEMATOCRIT 27.3 % (35.0-51.0); LYMPH # 1.6 K/uL (1.0-4.3); LYMPH % 24.9 % (20.0-40.0); MEAN CELL VOLUME 82.1 fL (80.0-94.0); MEAN CORPUSCULAR HGB CONC 34.1 g/dL (33.0-37.0); MEAN PLATELET VOLUME 7.1 fL (7.2-11.7); MONO # 0.4 K/uL (0.0-0.8); RED CELL DISTRIBUTION WIDTH 20.9 % (11.5-14.5); WHITE BLOOD COUNT 6.3 K/uL (4.8-10.8)
[2016-09-02 06:47] LABS: CHLORIDE 96 mmol/L (98-107); SODIUM 129 mmol/L (132-148)
[2016-09-02 06:48] LABS: POTASSIUM 3.3 mmol/L (3.6-5.2)
[2016-09-02 06:49] LABS: GFR AFRICAN-AMERICAN > 60
[2016-09-02 06:50] LABS: ALKALINE PHOSPHATASE 60 U/L (38-126); AST/SGOT 23 U/L (17-59); BILIRUBIN,TOTAL 0.7 mg/dL (0.2-1.3); BLOOD UREA NITROGEN 4 mg/dL (9-20); CARBON DIOXIDE 25 mmol/L (22-30); PHOSPHOROUS 3.1 mg/dL (2.5-4.5); TOTAL PROTEIN 5.8 g/dL (6.3-8.3)
[2016-09-02 06:51] LABS: CALCIUM 7.2 mg/dl (8.6-10.4); MAGNESIUM 1.5 mg/dL (1.6-2.3)
[2016-09-02 06:56] LABS: ALT/SGPT 22 U/L (21-72); GLUCOSE,RANDOM 81 mg/dL (75-110)
[2016-09-02] MEDS: Sodium Chloride 0.9% 1,000 ML IV SCH ×3 (08:00→22:22)
[2016-09-02] MEDS ORDERED: Potassium Chloride 20 mEq ER Tab PO ONE (09:15)
[2016-09-02] MEDS ORDERED: Lidocaine 4% (Laryng-O-Jet) Kit MM ONE ×2 (09:31→09:37)
[2016-09-02] MEDS: Potassium Chloride 10 mEq ER Tab PO SCH (11:00)
[2016-09-02] MEDS: Multiple Vitamins Tab PO SCH (11:00)
[2016-09-02] MEDS ORDERED: Pneumococcal 23-Valent Vaccine IM ONE (14:00)
--- NOTE | 2016-09-02 16:39 | CP.PCM.PN ---
<Bobo Marie - Last Filed: 09/02/16 18:09> Subjective - Date & Time of Evaluation Date of Evaluation: 09/02/16 Time of Evaluation: 08:14 - Subjective Subjective: Pt seen and examined. No acute events overnight reported. Pt resting comfortably. Pt denies fever, chills, chest pain, shortness of breath, nausea, and vomiting. Objective - Vital Signs/Intake and Output Vital Signs (last 24 hours): Temp Pulse Resp BP Pulse Ox 97.9 F 74 20 133/91 H 99 09/02/16 11:00 09/02/16 13:00 09/02/16 11:00 09/02/16 11:00 09/02/16 11:00 Intake and Output: 09/02/16 09/02/16 06:59 18:59 Intake Total 1550 650 Balance 1550 650 - Medications Medications: Current Medications Ferrous Sulfate (Feosol) 325 mg PO DAILY [facility] Last Admin: 09/02/16 11:00 Dose: 325 mg Piperacillin Sod/Tazobactam (Sod 3.375 gm/ Sodium Chloride) 100 mls @ 200 mls/ hr IVPB Q8H [facility] Last Admin: 09/02/16 08:35 Dose: 200 mls/hr Morphine Sulfate (Morphine) 1 mg IVP Q4H PRN PRN Reason: Pain, moderate (4-7) Multivitamins (Hexavitamin) 1 tab PO DAILY [facility] Last Admin: 09/02/16 11:00 Dose: 1 tab Ondansetron HCl (Zofran Inj) 4 mg IVP Q6 PRN PRN Reason: Nausea/Vomiting Last Admin: 09/02/16 14:53 Dose: 4 mg Pantoprazole Sodium (Protonix Inj) 40 mg IVP DAILY [facility] Last Admin: 09/02/16 11:00 Dose: 40 mg Pneumococcal Polyvalent Vaccine (Pneumovax 23 Vaccine) 0.5 ml IM .ONCE ONE Stop: 09/03/16 14:01 Potassium Chloride (Klor-Con 10) 40 meq PO BRK [facility] Last Admin: 09/02/16 11:00 Dose: 40 meq - Labs Labs: 09/02/16 06:23 09/02/16 06:23 PT 16.3 SECONDS (9.7-12.2) H 08/31/16 06:25 INR 1.4 08/31/16 06:25 APTT 26 SECONDS (21-34) 08/29/16 21:20 - Constitutional Appears: No Acute Distress, Older Than Stated Age, Cachectic - Head Exam Head Exam: ATRAUMATIC, NORMOCEPHALIC - Eye Exam Eye Exam: EOMI, PERRL - ENT Exam ENT Exam: Mucous Membranes Moist. absent: Mucous Membranes Dry - Respiratory Exam Respiratory Exam: Clear to Ausculation Bilateral. absent: Rales, Rhonchi, Wheezes - Cardiovascular Exam Cardiovascular Exam: +S1, +S2. absent: Gallop, Rubs - GI/Abdominal Exam GI & Abdominal Exam: Soft, Normal Bowel Sounds. absent: Distended, Rigid, Tenderness - Extremities Exam Extremities Exam: Full ROM. absent: Pedal Edema - Neurological Exam Neurological Exam: Alert, Awake, Oriented x3 - Psychiatric Exam Psychiatric exam: Normal Affect, Normal Mood - Skin Skin Exam: Pallor, Warm Assessment and Plan - Assessment and Plan (Free Text) Assessment: Gastric Cancer: Stool occult blood positive GI, Dr. Mares, consulted. Help appreciated. Pt likely will need endoscopic evaluation. CT Chest/Abd/Pelvis - extensive mucosal thickening of the stomach; free fluid in the abdomen and pelvis; enapsulation of fluid in the pelvis which is worrisome for abscess; sclerotic lesion within left pelvis, metastatic disease not excluded; enlarged prostate gland, mediastinal and hilar adenopathy; mucosal thickening of the appendix (please see full report) General surgery, Dr. Ham, consulted. Help appreciated. Heme/onc, Dr. Mckoy, consulted. Help appreciated. Zosyn 3.375 gm IV q8h Morphine prn for pain Zofran prn for nausea Pt day 2 s/p paracentesis with IR, Dr. Wang. Fluid cytology pending Day 0 s/p EGD with Dr. Cobian, EGD findings reveal malignant tumor on the gastric body (please see full report). As per heme/onc, gastric bx and fluid cytology needed to determine treatment plan Electrolyte Imbalance: K+ 3.3 K-dur 20 meq Na+ 130 NS IVF 100 cc/hr Mg 1.5 1 gm MgS x 1 bags Anemia: H/H stable Iron, TIBC, %satuation, ferritin low Feosol 325 mg po qd Prophylactic Measures: DVT: SCDs, chemical anticoagulation held due to anemia and positive stool occult blood GI: Protonix 40 mg IV q <Beto Sage - Last Filed: 09/03/16 16:06> Objective - Vital Signs/Intake and Output Vital Signs (last 24 hours): Temp Pulse Resp BP Pulse Ox 98.3 F 85 20 144/85 100 09/03/16 15:55 09/03/16 15:55 09/03/16 15:55 09/03/16 15:55 09/03/16 15:55 Intake and Output: 09/03/16 09/03/16 06:59 18:59 Intake Total 1820 Output Total 200 Balance 1620 - Medications Medications: Current Medications Ferrous Sulfate (Feosol) 325 mg PO DAILY [facility] Last Admin: 09/03/16 10:42 Dose: Not Given Piperacillin Sod/Tazobactam (Sod 3.375 gm/ Sodium Chloride) 100 mls @ 200 mls/ hr IVPB Q8H [facility] Last Admin: 09/03/16 06:59 Dose: 200 mls/hr Morphine Sulfate (Morphine) 2 mg IVP Q3H PRN PRN Reason: Pain, moderate (4-7) Multivitamins (Hexavitamin) 1 tab PO DAILY [facility] Last Admin: 09/03/16 10:04 Dose: 1 tab Ondansetron HCl (Zofran Inj) 4 mg IVP Q6 PRN PRN Reason: Nausea/Vomiting Last Admin: 09/03/16 03:02 Dose: 4 mg Pantoprazole Sodium (Protonix Inj) 40 mg IVP DAILY [facility] Last Admin: 09/03/16 09:55 Dose: 40 mg Potassium Chloride (Klor-Con 10) 40 meq PO BRK [facility] Last Admin: 09/03/16 08:30 Dose: Not Given - Labs Labs: 09/03/16 07:15 09/03/16 07:15 PT 16.3 SECONDS (9.7-12.2) H 08/31/16 06:25 INR 1.4 08/31/16 06:25 APTT 26 SECONDS (21-34) 08/29/16 21:20 Attending/Attestation - Attestation I have personally seen and examined this patient.: Yes I have fully participated in the care of the patient.: Yes I have reviewed all pertinent clinical information, including history, physical exam and plan: Yes Notes (Text): 09/03/16 16:04 Patient was seen and examined at bedside with the resident Status post EGD and paracentesis Results of pathology awaited Continue current management Discussed with gastroenterology I agree with the above history and physical and assessment/plan but the resident.
[2016-09-03] MEDS: Piperacillin/Tazobact 3.375 GM in Sodium Chloride 100 ML IVPB SCH ×3 (06:59→23:45)
[2016-09-03 07:29] LABS: BASO % 0.1 % (0.0-2.0); HEMATOCRIT 28.7 % (35.0-51.0); LYMPH # 1.1 K/uL (1.0-4.3); LYMPH % 15.6 % (20.0-40.0); MEAN CELL VOLUME 83.2 fL (80.0-94.0); MEAN CORPUSCULAR HEMOGLOBIN 28.2 pg (27.0-31.0); MEAN CORPUSCULAR HGB CONC 33.8 g/dL (33.0-37.0); MEAN PLATELET VOLUME 7.1 fL (7.2-11.7); MONO # 0.3 K/uL (0.0-0.8); MONO % 4.4 % (0.0-10.0); RED CELL DISTRIBUTION WIDTH 21.7 % (11.5-14.5)
--- NOTE | 2016-09-03 07:32 | CP.PCM.PN ---
<Hortencia Del Cid - Last Filed: 09/03/16 10:05> Subjective - Date & Time of Evaluation Date of Evaluation: 09/03/16 Time of Evaluation: 07:29 - Subjective Subjective: Gastroenterology Fellow/PGY4 Progress Note Patient denies abdominal pain. Tolerating soft diet. Denies nausea or vomiting. Nursing notes two episodes of vomiting overnight. One formed bowel movement yesterday. A 12-point review of systems negative except for as above. Objective - Vital Signs/Intake and Output Vital Signs (last 24 hours): Temp Pulse Resp BP Pulse Ox 99.3 F 85 20 128/83 96 09/03/16 07:12 09/03/16 07:12 09/03/16 07:12 09/03/16 07:12 09/03/16 07:12 Intake and Output: 09/03/16 09/03/16 06:59 18:59 Intake Total 1820 Output Total 200 Balance 1620 - Medications Medications: Current Medications Ferrous Sulfate (Feosol) 325 mg PO DAILY [facility] Last Admin: 09/02/16 11:00 Dose: 325 mg Piperacillin Sod/Tazobactam (Sod 3.375 gm/ Sodium Chloride) 100 mls @ 200 mls/ hr IVPB Q8H [facility] Last Admin: 09/03/16 06:59 Dose: 200 mls/hr Morphine Sulfate (Morphine) 1 mg IVP Q4H PRN PRN Reason: Pain, moderate (4-7) Multivitamins (Hexavitamin) 1 tab PO DAILY [facility] Last Admin: 09/02/16 11:00 Dose: 1 tab Ondansetron HCl (Zofran Inj) 4 mg IVP Q6 PRN PRN Reason: Nausea/Vomiting Last Admin: 09/03/16 03:02 Dose: 4 mg Pantoprazole Sodium (Protonix Inj) 40 mg IVP DAILY [facility] Last Admin: 09/02/16 11:00 Dose: 40 mg Pneumococcal Polyvalent Vaccine (Pneumovax 23 Vaccine) 0.5 ml IM .ONCE ONE Stop: 09/03/16 14:01 Potassium Chloride (Klor-Con 10) 40 meq PO BRK [facility] Last Admin: 09/02/16 11:00 Dose: 40 meq - Labs Labs: 09/02/16 06:23 09/02/16 06:23 PT 16.3 SECONDS (9.7-12.2) H 08/31/16 06:25 INR 1.4 08/31/16 06:25 APTT 26 SECONDS (21-34) 08/29/16 21:20 - Constitutional Appears: Non-toxic, No Acute Distress - Head Exam Head Exam: ATRAUMATIC, NORMOCEPHALIC - Eye Exam Eye Exam: EOMI, PERRL Pupil Exam: PERRL. absent: Miosis, Mydriatic - ENT Exam ENT Exam: Mucous Membranes Moist, Normal Oropharynx - Neck Exam Neck Exam: Full ROM, Normal Inspection - Respiratory Exam Respiratory Exam: Clear to Ausculation Bilateral. absent: Rales, Rhonchi, Wheezes - Cardiovascular Exam Cardiovascular Exam: RRR, +S1, +S2. absent: Gallop, Rubs - GI/Abdominal Exam GI & Abdominal Exam: Soft, Normal Bowel Sounds. absent: Distended, Firm, Guarding, Rigid, Tenderness, Organomegaly, Rebound - Extremities Exam Extremities Exam: Full ROM. absent: Pedal Edema - Neurological Exam Neurological Exam: Alert, Awake - Psychiatric Exam Psychiatric exam: Normal Affect, Normal Mood - Skin Skin Exam: Dry, Intact, Normal Color, Warm Assessment and Plan - Assessment and Plan (Free Text) Assessment: 31 year old male with history of Gastric cancer diagnosed April 2016 in [facility] previously on chemotherapy every twenty-one days since diagnosis in [facility] presenting with poor appetite, nausea, and vomiting. CT chest/abdomen/ pelvis showed thickened gastric wall, mediastinal/hilar/gastrohepatic/ retroperitoneal lymphadenopathy, and pelvic encapsulated fluid collection POD 3 (08/31) IR guided 800cc paracentesis. Prior EGD with gastric carcinoma diagnosis in [facility]. No prior colonoscopy. Plan: >POD1 EGD partially circumferential 50% luminal mass extending through body and greater/lesser curvature, stigmata of recent bleeding -severe erythematous gastric fundus and body, patchy moderate erythema of duodenal bulb >follow up pathology >08/31 IR paracentesis cytology pending >on Zosyn >soft diet >supportive care: antiemetics, PPI >follow up Surgery and Hem/Onc recommendations >requires case management assistance for insurance/cristina care for ongoing outpatient treatment >will follow clinical course <Narinder Cobian - Last Filed: 09/03/16 11:32> Objective - Vital Signs/Intake and Output Vital Signs (last 24 hours): Temp Pulse Resp BP Pulse Ox 99.3 F 115 H 20 128/83 96 09/03/16 07:12 09/03/16 07:45 09/03/16 07:12 09/03/16 07:12 09/03/16 07:12 Intake and Output: 09/03/16 09/03/16 06:59 18:59 Intake Total 1820 Output Total 200 Balance 1620 - Medications Medications: Current Medications Ferrous Sulfate (Feosol) 325 mg PO DAILY [facility] Last Admin: 09/03/16 10:04 Dose: 325 mg Piperacillin Sod/Tazobactam (Sod 3.375 gm/ Sodium Chloride) 100 mls @ 200 mls/ hr IVPB Q8H [facility] Last Admin: 09/03/16 06:59 Dose: 200 mls/hr Magnesium Sulfate/Dextrose (Magnesium Sulfate 1 Gm/100 Ml D5w) 1 gm in 100 mls @ 100 mls/hr IVPB Q1H [facility] Stop: 09/03/16 11:59 Last Admin: 09/03/16 09:51 Dose: 100 mls/hr Magnesium Sulfate/Dextrose (Magnesium Sulfate 1 Gm/100 Ml D5w) 1 gm in 100 mls @ 100 mls/hr IVPB Q1H [facility] Stop: 09/03/16 13:59 Morphine Sulfate (Morphine) 1 mg IVP Q4H PRN PRN Reason: Pain, moderate (4-7) Last Admin: 09/03/16 08:36 Dose: 1 mg Multivitamins (Hexavitamin) 1 tab PO DAILY [facility] Last Admin: 09/03/16 10:04 Dose: 1 tab Ondansetron HCl (Zofran Inj) 4 mg IVP Q6 PRN PRN Reason: Nausea/Vomiting Last Admin: 09/03/16 03:02 Dose: 4 mg Pantoprazole Sodium (Protonix Inj) 40 mg IVP DAILY [facility] Last Admin: 09/02/16 11:00 Dose: 40 mg Pneumococcal Polyvalent Vaccine (Pneumovax 23 Vaccine) 0.5 ml IM .ONCE ONE Stop: 09/03/16 14:01 Potassium Chloride (Klor-Con 10) 40 meq PO BRK [facility] Last Admin: 09/03/16 10:05 Dose: 40 meq - Labs Labs: 09/03/16 07:15 09/03/16 07:15 PT 16.3 SECONDS (9.7-12.2) H 08/31/16 06:25 INR 1.4 08/31/16 06:25 APTT 26 SECONDS (21-34) 08/29/16 21:20 Attending/Attestation - Attestation I have personally seen and examined this patient.: Yes I have fully participated in the care of the patient.: Yes I have reviewed all pertinent clinical information, including history, physical exam and plan: Yes Notes (Text): 09/03/16 11:26 31 year old male with advanced gastric cancer. 1. Gastric cancer Plan: -s/p EGD, partially obstructing large mass -soft diet/small frequent meals/nutritional supplements -await path -await cytology -malignant ascites would be suggestive of T4 disease -significant lymphadenopathy as well -appreciate oncology recommendations -needs social media specialist to help with insurance situation
[2016-09-03 08:09] LABS: CHLORIDE 94 mmol/L (98-107)
[2016-09-03 08:10] LABS: POTASSIUM 3.8 mmol/L (3.6-5.2); SODIUM 129 mmol/L (132-148)
[2016-09-03 08:12] LABS: ALKALINE PHOSPHATASE 57 U/L (38-126); ALT/SGPT 16 U/L (21-72); AST/SGOT 24 U/L (17-59); BILIRUBIN,TOTAL 0.7 mg/dL (0.2-1.3); BLOOD UREA NITROGEN 8 mg/dL (9-20); CARBON DIOXIDE 25 mmol/L (22-30); GFR AFRICAN-AMERICAN > 60; GLUCOSE,RANDOM 95 mg/dL (75-110)
[2016-09-03 08:13] LABS: CALCIUM 7.9 mg/dl (8.6-10.4)
[2016-09-03] MEDS: Potassium Chloride 10 mEq ER Tab PO SCH ×2 (08:30→10:05)
[2016-09-03 09:11] LABS: MAGNESIUM 0.9 mg/dL (1.6-2.3)
[2016-09-03] MEDS: Magnesium Sulfate 1 gm in D5W 1 GM/100 ML BAG IVPB SCH ×4 (09:51→13:26)
[2016-09-03] MEDS: Multiple Vitamins Tab PO SCH (10:04)
--- NOTE | 2016-09-03 11:44 | CP.PCM.PN ---
<July Allison - Last Filed: 09/03/16 11:41> Subjective - Date & Time of Evaluation Date of Evaluation: 09/03/16 Time of Evaluation: 08:00 - Subjective Subjective: Medicine Progress Note Patient seen and examined. Patient sitting upright in bed and holding his abdomen due to pain. When asked if patient would prefer increase in pain medications he states that he does not wish to increase his regimen at this time. Patient denies nausea, vomiting, or diarrhea. Patient did not eat his breakfast this morning yet. Denies chest pain and shortness of breath. Objective - Vital Signs/Intake and Output Vital Signs (last 24 hours): Temp Pulse Resp BP Pulse Ox 99.3 F 115 H 20 128/83 96 09/03/16 07:12 09/03/16 07:45 09/03/16 07:12 09/03/16 07:12 09/03/16 07:12 Intake and Output: 09/03/16 09/03/16 06:59 18:59 Intake Total 1820 Output Total 200 Balance 1620 - Medications Medications: Current Medications Ferrous Sulfate (Feosol) 325 mg PO DAILY [facility] Last Admin: 09/03/16 10:04 Dose: 325 mg Piperacillin Sod/Tazobactam (Sod 3.375 gm/ Sodium Chloride) 100 mls @ 200 mls/ hr IVPB Q8H [facility] Last Admin: 09/03/16 06:59 Dose: 200 mls/hr Magnesium Sulfate/Dextrose (Magnesium Sulfate 1 Gm/100 Ml D5w) 1 gm in 100 mls @ 100 mls/hr IVPB Q1H [facility] Stop: 09/03/16 11:59 Last Admin: 09/03/16 09:51 Dose: 100 mls/hr Magnesium Sulfate/Dextrose (Magnesium Sulfate 1 Gm/100 Ml D5w) 1 gm in 100 mls @ 100 mls/hr IVPB Q1H [facility] Stop: 09/03/16 13:59 Morphine Sulfate (Morphine) 1 mg IVP Q4H PRN PRN Reason: Pain, moderate (4-7) Last Admin: 09/03/16 08:36 Dose: 1 mg Multivitamins (Hexavitamin) 1 tab PO DAILY [facility] Last Admin: 09/03/16 10:04 Dose: 1 tab Ondansetron HCl (Zofran Inj) 4 mg IVP Q6 PRN PRN Reason: Nausea/Vomiting Last Admin: 09/03/16 03:02 Dose: 4 mg Pantoprazole Sodium (Protonix Inj) 40 mg IVP DAILY [facility] Last Admin: 09/02/16 11:00 Dose: 40 mg Pneumococcal Polyvalent Vaccine (Pneumovax 23 Vaccine) 0.5 ml IM .ONCE ONE Stop: 09/03/16 14:01 Potassium Chloride (Klor-Con 10) 40 meq PO BRK [facility] Last Admin: 09/03/16 10:05 Dose: 40 meq - Labs Labs: 09/03/16 07:15 09/03/16 07:15 PT 16.3 SECONDS (9.7-12.2) H 08/31/16 06:25 INR 1.4 08/31/16 06:25 APTT 26 SECONDS (21-34) 08/29/16 21:20 - Constitutional Appears: Non-toxic - Head Exam Head Exam: ATRAUMATIC, NORMOCEPHALIC - Eye Exam Eye Exam: EOMI, Normal appearance - ENT Exam ENT Exam: Mucous Membranes Moist - Respiratory Exam Respiratory Exam: Clear to Ausculation Bilateral, NORMAL BREATHING PATTERN. absent: Rhonchi, Wheezes, Respiratory Distress - Cardiovascular Exam Cardiovascular Exam: REGULAR RHYTHM, +S1, +S2. absent: Tachycardia - GI/Abdominal Exam GI & Abdominal Exam: Tenderness - Extremities Exam Extremities Exam: Normal Inspection. absent: Pedal Edema - Back Exam Back Exam: NORMAL INSPECTION - Neurological Exam Neurological Exam: Alert, Awake, CN II-XII Intact, Oriented x3 - Psychiatric Exam Psychiatric exam: Normal Affect, Normal Mood - Skin Skin Exam: Dry, Intact, Normal Color, Warm Assessment and Plan - Assessment and Plan (Free Text) Assessment: Gastric Cancer: Stool occult blood positive GI, Dr. Mares, consulted. Help appreciated. Pt likely will need endoscopic evaluation. CT Chest/Abd/Pelvis - extensive mucosal thickening of the stomach; free fluid in the abdomen and pelvis; enapsulation of fluid in the pelvis which is worrisome for abscess; sclerotic lesion within left pelvis, metastatic disease not excluded; enlarged prostate gland, mediastinal and hilar adenopathy; mucosal thickening of the appendix (please see full report) General surgery, Dr. Ham, consulted. Help appreciated. Heme/onc, Dr. Mckoy, consulted. Help appreciated. Zosyn 3.375 gm IV q8h Morphine prn for pain Zofran prn for nausea Pt day 2 s/p paracentesis with IR, Dr. Wang. Fluid cytology pending Day 1 s/p EGD with Dr. Cobian, EGD findings reveal malignant tumor on the gastric body (please see full report). As per heme/onc, gastric bx and fluid cytology needed to determine treatment plan Electrolyte Imbalance: K+ 3.8 Na+ 129 NS IVF 100 cc/hr Mg 0.9 this morning 1 gm MgS x 4 bags ordered recheck CMP, mag and phos in AM Anemia: H/H stable Iron, TIBC, %satuation, ferritin low Feosol 325 mg po qd Prophylactic Measures: DVT: SCDs, chemical anticoagulation held due to anemia and positive stool occult blood GI: Protonix 40 mg IV q <Beto Sage - Last Filed: 09/03/16 17:24> Objective - Vital Signs/Intake and Output Vital Signs (last 24 hours): Temp Pulse Resp BP Pulse Ox 98.3 F 85 20 144/85 100 09/03/16 15:55 09/03/16 15:55 09/03/16 15:55 09/03/16 15:55 09/03/16 15:55 Intake and Output: 09/03/16 09/03/16 06:59 18:59 Intake Total 1820 800 Output Total 200 50 Balance 1620 750 - Medications Medications: Current Medications Ferrous Sulfate (Feosol) 325 mg PO DAILY [facility] Last Admin: 09/03/16 10:42 Dose: Not Given Piperacillin Sod/Tazobactam (Sod 3.375 gm/ Sodium Chloride) 100 mls @ 200 mls/ hr IVPB Q8H [facility] Last Admin: 09/03/16 06:59 Dose: 200 mls/hr Morphine Sulfate (Morphine) 2 mg IVP Q3H PRN PRN Reason: Pain, moderate (4-7) Multivitamins (Hexavitamin) 1 tab PO DAILY [facility] Last Admin: 09/03/16 10:04 Dose: 1 tab Ondansetron HCl (Zofran Inj) 4 mg IVP Q6 PRN PRN Reason: Nausea/Vomiting Last Admin: 09/03/16 03:02 Dose: 4 mg Pantoprazole Sodium (Protonix Inj) 40 mg IVP DAILY [facility] Last Admin: 09/03/16 09:55 Dose: 40 mg Potassium Chloride (Klor-Con 10) 40 meq PO BRK [facility] Last Admin: 09/03/16 08:30 Dose: Not Given - Labs Labs: 09/03/16 07:15 09/03/16 07:15 PT 16.3 SECONDS (9.7-12.2) H 08/31/16 06:25 INR 1.4 08/31/16 06:25 APTT 26 SECONDS (21-34) 08/29/16 21:20 Attending/Attestation - Attestation I have personally seen and examined this patient.: Yes I have fully participated in the care of the patient.: Yes I have reviewed all pertinent clinical information, including history, physical exam and plan: Yes Notes (Text): 09/03/16 17:23 Patient was seen and examined at bedside. Still complains of abdominal pain We will give for pain medication as needed Follow-up results of for EGD/biopsy and the paracentesis cytology I agree with the above history and physical and assessment/plan by the resident.
[2016-09-03] MEDS ORDERED: Morphine 4 MG/ML VIAL IV STA (11:54)
[2016-09-03] MEDS: Sodium Chloride 0.9% 1,000 ML IV SCH (12:26)
[2016-09-03] MEDS ORDERED: Pneumococcal 23-Valent Vaccine IM ONE (14:00)
[2016-09-04] MEDS: Sodium Chloride 0.9% 1,000 ML IV SCH (02:00)
[2016-09-04 06:45] LABS: BASO % 0.2 % (0.0-2.0); EOS % 0.8 % (0.0-4.0); HEMATOCRIT 25.3 % (35.0-51.0); LYMPH # 1.1 K/uL (1.0-4.3); LYMPH % 22.1 % (20.0-40.0); MEAN CELL VOLUME 82.7 fL (80.0-94.0); MEAN CORPUSCULAR HEMOGLOBIN 28.1 pg (27.0-31.0); MEAN PLATELET VOLUME 6.8 fL (7.2-11.7); MONO # 0.3 K/uL (0.0-0.8); RED CELL DISTRIBUTION WIDTH 20.4 % (11.5-14.5); WHITE BLOOD COUNT 5.2 K/uL (4.8-10.8)
--- NOTE | 2016-09-04 07:00 | CP.PCM.PN ---
<Hortencia Del Cid - Last Filed: 09/04/16 08:12> Subjective - Date & Time of Evaluation Date of Evaluation: 09/04/16 Time of Evaluation: 06:57 - Subjective Subjective: Gastroenterology Fellow/PGY4 Progress Note Patient notes improvement of abdominal pain yesterday. Tolerating soft diet. Continues to have intermittent clear phlegm reflux. Nursing notes vomiting early yesterday. No vomiting overnight. Two formed bowel movements yesterday. A 12-point review of systems negative except for as above. Objective - Vital Signs/Intake and Output Vital Signs (last 24 hours): Temp Pulse Resp BP Pulse Ox 98.4 F 85 20 126/79 98 09/04/16 04:36 09/04/16 06:06 09/04/16 06:06 09/04/16 06:06 09/04/16 04:36 Intake and Output: 09/03/16 09/04/16 18:59 06:59 Intake Total 800 1790 Output Total 50 500 Balance 750 1290 - Medications Medications: Current Medications Ferrous Sulfate (Feosol) 325 mg PO DAILY [facility] Last Admin: 09/03/16 10:42 Dose: Not Given Piperacillin Sod/Tazobactam (Sod 3.375 gm/ Sodium Chloride) 100 mls @ 200 mls/ hr IVPB Q8H [facility] Last Admin: 09/03/16 23:45 Dose: 200 mls/hr Morphine Sulfate (Morphine) 2 mg IVP Q3H PRN PRN Reason: Pain, moderate (4-7) Last Admin: 09/04/16 06:08 Dose: 2 mg Multivitamins (Hexavitamin) 1 tab PO DAILY [facility] Last Admin: 09/03/16 10:04 Dose: 1 tab Ondansetron HCl (Zofran Inj) 4 mg IVP Q6 PRN PRN Reason: Nausea/Vomiting Last Admin: 09/03/16 19:46 Dose: 4 mg Pantoprazole Sodium (Protonix Inj) 40 mg IVP DAILY [facility] Last Admin: 09/03/16 09:55 Dose: 40 mg Potassium Chloride (Klor-Con 10) 40 meq PO BRK [facility] Last Admin: 09/03/16 08:30 Dose: Not Given - Labs Labs: 09/04/16 06:40 09/03/16 07:15 PT 16.3 SECONDS (9.7-12.2) H 08/31/16 06:25 INR 1.4 08/31/16 06:25 APTT 26 SECONDS (21-34) 08/29/16 21:20 - Constitutional Appears: Non-toxic, No Acute Distress - Head Exam Head Exam: ATRAUMATIC, NORMOCEPHALIC - Eye Exam Eye Exam: EOMI, PERRL Pupil Exam: PERRL. absent: Miosis, Mydriatic - ENT Exam ENT Exam: Mucous Membranes Moist, Normal Oropharynx - Neck Exam Neck Exam: Full ROM, Normal Inspection - Respiratory Exam Respiratory Exam: Clear to Ausculation Bilateral. absent: Rales, Rhonchi, Wheezes - Cardiovascular Exam Cardiovascular Exam: RRR, +S1, +S2. absent: Gallop, Rubs - GI/Abdominal Exam GI & Abdominal Exam: Soft, Normal Bowel Sounds. absent: Distended, Firm, Guarding, Rigid, Tenderness, Organomegaly, Rebound - Extremities Exam Extremities Exam: Full ROM. absent: Pedal Edema - Neurological Exam Neurological Exam: Alert, Awake - Psychiatric Exam Psychiatric exam: Normal Affect, Normal Mood - Skin Skin Exam: Dry, Intact, Normal Color, Warm Assessment and Plan - Assessment and Plan (Free Text) Assessment: 31 year old male with history of Gastric cancer diagnosed April 2016 in [facility] previously on chemotherapy every twenty-one days since diagnosis in [facility] presenting with poor appetite, nausea, and vomiting. CT chest/abdomen/ pelvis showed thickened gastric wall, mediastinal/hilar/gastrohepatic/ retroperitoneal lymphadenopathy, and pelvic encapsulated fluid collection POD4 ( 08/31) IR guided 800cc paracentesis wih cytology ordered. Prior EGD with gastric carcinoma diagnosis in [facility]. No prior colonoscopy. Plan: >PO2( 09/02) EGD partially circumferential 50% luminal mass extending through body and greater/lesser curvature, stigmata of recent bleeding -severe erythematous gastric fundus and body, patchy moderate erythema of duodenal bulb >follow up EGD pathology >08/31 IR paracentesis cytology ordered- contact pathology on Monday to confirm received >on Zosyn >soft diet >supportive care: antiemetics, PPI >follow up Surgery and Hem/Onc recommendations >requires case management assistance for insurance/cristina care for ongoing outpatient treatment >will follow clinical course <Narinder Cobian - Last Filed: 09/04/16 11:21> Objective - Vital Signs/Intake and Output Vital Signs (last 24 hours): Temp Pulse Resp BP Pulse Ox 98.4 F 85 20 126/79 98 09/04/16 04:36 09/04/16 06:06 09/04/16 06:06 09/04/16 06:06 09/04/16 04:36 Intake and Output: 09/04/16 09/04/16 06:59 18:59 Intake Total 1790 Output Total 500 Balance 1290 - Medications Medications: Current Medications Ferrous Sulfate (Feosol) 325 mg PO DAILY [facility] Last Admin: 09/04/16 09:58 Dose: 325 mg Piperacillin Sod/Tazobactam (Sod 3.375 gm/ Sodium Chloride) 100 mls @ 200 mls/ hr IVPB Q8H [facility] Last Admin: 09/04/16 08:55 Dose: 200 mls/hr Potassium Chloride (Potassium Chloride 20 Meq/100 Ml) 20 meq in 100 mls @ 50 mls/hr IVPB Q2H [facility] Stop: 09/04/16 12:44 Last Admin: 09/04/16 09:56 Dose: 50 mls/hr Magnesium Sulfate/Dextrose (Magnesium Sulfate 1 Gm/100 Ml D5w) 1 gm in 100 mls @ 100 mls/hr IVPB ONCE ONE Stop: 09/04/16 12:59 Potassium Chloride/Dextrose/Sod Cl (Potassium Chl 40 Meq In D5-1/2ns) 1,000 mls @ 100 mls/hr IV .Q10H [facility] Morphine Sulfate (Morphine) 2 mg IVP Q3H PRN PRN Reason: Pain, moderate (4-7) Last Admin: 09/04/16 06:08 Dose: 2 mg Multivitamins (Hexavitamin) 1 tab PO DAILY [facility] Last Admin: 09/04/16 09:58 Dose: 1 tab Ondansetron HCl (Zofran Inj) 4 mg IVP Q6 PRN PRN Reason: Nausea/Vomiting Last Admin: 09/03/16 19:46 Dose: 4 mg Pantoprazole Sodium (Protonix Inj) 40 mg IVP DAILY [facility] Last Admin: 09/03/16 09:55 Dose: 40 mg - Labs Labs: 09/04/16 06:40 09/04/16 06:40 PT 16.3 SECONDS (9.7-12.2) H 08/31/16 06:25 INR 1.4 08/31/16 06:25 APTT 26 SECONDS (21-34) 08/29/16 21:20 Attending/Attestation - Attestation I have personally seen and examined this patient.: Yes I have fully participated in the care of the patient.: Yes I have reviewed all pertinent clinical information, including history, physical exam and plan: Yes Notes (Text): 09/04/16 11:21 31 year old male with advanced gastric cancer. 1. Gastric cancer Plan: -s/p EGD, partially obstructing large mass -soft diet/small frequent meals/nutritional supplements -await path -await cytology -malignant ascites would be suggestive of T4 disease -significant lymphadenopathy as well -appreciate oncology recommendations -needs social group worker to help with insurance situation
[2016-09-04 07:11] LABS: CHLORIDE 94 mmol/L (98-107); POTASSIUM 3.2 mmol/L (3.6-5.2); SODIUM 126 mmol/L (132-148)
[2016-09-04 07:13] LABS: BILIRUBIN,TOTAL 0.3 mg/dL (0.2-1.3); CARBON DIOXIDE 26 mmol/L (22-30); GFR AFRICAN-AMERICAN > 60
[2016-09-04 07:14] LABS: ALB/GLOB RATIO 0.8 (1.0-2.1); ALKALINE PHOSPHATASE 55 U/L (38-126); ALT/SGPT 23 U/L (21-72); AST/SGOT 22 U/L (17-59); BLOOD UREA NITROGEN 6 mg/dL (9-20); CALCIUM 7.7 mg/dl (8.6-10.4); GLUCOSE,RANDOM 78 mg/dL (75-110); TOTAL PROTEIN 5.3 g/dL (6.3-8.3)
[2016-09-04] MEDS ORDERED: Sodium Chloride 0.9% 1,000 ML IV SCH (08:00)
[2016-09-04] MEDS: Potassium Chloride 10 mEq ER Tab PO SCH (08:30)
[2016-09-04] MEDS: Piperacillin/Tazobact 3.375 GM in Sodium Chloride 100 ML IVPB SCH ×2 (08:55→16:31)
[2016-09-04 08:56] LABS: PHOSPHOROUS 3.1 mg/dL (2.5-4.5)
[2016-09-04 08:57] LABS: MAGNESIUM 1.1 mg/dL (1.6-2.3)
[2016-09-04] MEDS: Potassium Chl 40 mEq in D5-1/2 1,000 ML IV SCH ×3 (09:45→19:45)
--- NOTE | 2016-09-04 09:49 | CP.PCM.PN ---
<July Allison - Last Filed: 09/04/16 09:45> Subjective - Date & Time of Evaluation Date of Evaluation: 09/04/16 Time of Evaluation: 09:45 - Subjective Subjective: Medicine Progress Note Patient seen and examined. Patient continues to be in distress due to abdominal pain. Pain medication increased yesterday. Per RN, the patient has not been eating much of his food. Denies fever, chest pain and shortness of breath. Patient encouraged to try eating and to get out of bed. Objective - Vital Signs/Intake and Output Vital Signs (last 24 hours): Temp Pulse Resp BP Pulse Ox 98.4 F 85 20 126/79 98 09/04/16 04:36 09/04/16 06:06 09/04/16 06:06 09/04/16 06:06 09/04/16 04:36 Intake and Output: 09/04/16 09/04/16 06:59 18:59 Intake Total 1790 Output Total 500 Balance 1290 - Medications Medications: Current Medications Ferrous Sulfate (Feosol) 325 mg PO DAILY [facility] Last Admin: 09/03/16 10:42 Dose: Not Given Piperacillin Sod/Tazobactam (Sod 3.375 gm/ Sodium Chloride) 100 mls @ 200 mls/ hr IVPB Q8H [facility] Last Admin: 09/04/16 08:55 Dose: 200 mls/hr Potassium Chloride (Potassium Chloride 20 Meq/100 Ml) 20 meq in 100 mls @ 50 mls/hr IVPB Q2H [facility] Stop: 09/04/16 12:44 Magnesium Sulfate/Dextrose (Magnesium Sulfate 1 Gm/100 Ml D5w) 1 gm in 100 mls @ 200 mls/hr IVPB ONCE ONE Stop: 09/04/16 12:29 Morphine Sulfate (Morphine) 2 mg IVP Q3H PRN PRN Reason: Pain, moderate (4-7) Last Admin: 09/04/16 06:08 Dose: 2 mg Multivitamins (Hexavitamin) 1 tab PO DAILY [facility] Last Admin: 09/03/16 10:04 Dose: 1 tab Ondansetron HCl (Zofran Inj) 4 mg IVP Q6 PRN PRN Reason: Nausea/Vomiting Last Admin: 09/03/16 19:46 Dose: 4 mg Pantoprazole Sodium (Protonix Inj) 40 mg IVP DAILY [facility] Last Admin: 09/03/16 09:55 Dose: 40 mg - Labs Labs: 09/04/16 06:40 09/04/16 06:40 PT 16.3 SECONDS (9.7-12.2) H 08/31/16 06:25 INR 1.4 08/31/16 06:25 APTT 26 SECONDS (21-34) 08/29/16 21:20 - Additional Findings Additional findings: - Constitutional Appears: Non-toxic - Head Exam Head Exam: ATRAUMATIC, NORMOCEPHALIC - Eye Exam Eye Exam: EOMI, Normal appearance - ENT Exam ENT Exam: Mucous Membranes Moist - Respiratory Exam Respiratory Exam: Clear to Ausculation Bilateral, NORMAL BREATHING PATTERN. absent: Rhonchi, Wheezes, Respiratory Distress - Cardiovascular Exam Cardiovascular Exam: REGULAR RHYTHM, +S1, +S2. absent: Tachycardia - GI/Abdominal Exam GI & Abdominal Exam: Tenderness - Extremities Exam Extremities Exam: Normal Inspection. absent: Pedal Edema - Back Exam Back Exam: NORMAL INSPECTION - Neurological Exam Neurological Exam: Alert, Awake, CN II-XII Intact, Oriented x3 - Psychiatric Exam Psychiatric exam: Normal Affect, Normal Mood - Skin Skin Exam: Dry, Intact, Normal Color, Warm Assessment and Plan - Assessment and Plan (Free Text) Assessment: Gastric Cancer: Stool occult blood positive GI, Dr. Mares, consulted. Help appreciated. CT Chest/Abd/Pelvis - extensive mucosal thickening of the stomach; free fluid in the abdomen and pelvis; enapsulation of fluid in the pelvis which is worrisome for abscess; sclerotic lesion within left pelvis, metastatic disease not excluded; enlarged prostate gland, mediastinal and hilar adenopathy; mucosal thickening of the appendix (please see full report) General surgery, Dr. Ham, consulted. Help appreciated. Heme/onc, Dr. Mckoy, consulted. Help appreciated. Morphine prn for pain Zofran prn for nausea s/p paracentesis with IR on 08/31, Dr. Wang. Fluid cytology pending. s/p EGD on 09/[address] Cobian, EGD findings reveal malignant tumor on the gastric body (please see full report). As per heme/onc, gastric bx and fluid cytology needed to determine treatment plan Electrolyte Imbalance: K+ and Mag repleted again today Started D5W/.5NS with KCl 40mEq @100cc/hr recheck CMP, mag and phos in AM Anemia: Hgb 8.6 today, trend daily FOBT + Iron, TIBC, %satuation, ferritin low Feosol 325 mg po qd GI on board Prophylactic Measures: DVT: SCDs, chemical anticoagulation held due to anemia and positive stool occult blood GI: Protonix 40 mg IV q <ChuRaul camposeloy Srivastava - Last Filed: 09/04/16 12:07> Objective - Vital Signs/Intake and Output Vital Signs (last 24 hours): Temp Pulse Resp BP Pulse Ox 98.4 F 67 20 126/79 98 09/04/16 04:36 09/04/16 07:45 09/04/16 06:06 09/04/16 06:06 09/04/16 04:36 Intake and Output: 09/04/16 09/04/16 06:59 18:59 Intake Total 1790 Output Total 500 Balance 1290 - Medications Medications: Current Medications Ferrous Sulfate (Feosol) 325 mg PO DAILY [facility] Last Admin: 09/04/16 09:58 Dose: 325 mg Piperacillin Sod/Tazobactam (Sod 3.375 gm/ Sodium Chloride) 100 mls @ 200 mls/ hr IVPB Q8H [facility] Last Admin: 09/04/16 08:55 Dose: 200 mls/hr Potassium Chloride (Potassium Chloride 20 Meq/100 Ml) 20 meq in 100 mls @ 50 mls/hr IVPB Q2H [facility] Stop: 09/04/16 12:44 Last Admin: 09/04/16 09:56 Dose: 50 mls/hr Magnesium Sulfate/Dextrose (Magnesium Sulfate 1 Gm/100 Ml D5w) 1 gm in 100 mls @ 100 mls/hr IVPB ONCE ONE Stop: 09/04/16 12:59 Potassium Chloride/Dextrose/Sod Cl (Potassium Chl 40 Meq In D5-1/2ns) 1,000 mls @ 100 mls/hr IV .Q10H [facility] Morphine Sulfate (Morphine) 2 mg IVP Q3H PRN PRN Reason: Pain, moderate (4-7) Last Admin: 09/04/16 06:08 Dose: 2 mg Multivitamins (Hexavitamin) 1 tab PO DAILY [facility] Last Admin: 09/04/16 09:58 Dose: 1 tab Ondansetron HCl (Zofran Inj) 4 mg IVP Q6 PRN PRN Reason: Nausea/Vomiting Last Admin: 09/03/16 19:46 Dose: 4 mg Pantoprazole Sodium (Protonix Inj) 40 mg IVP DAILY [facility] Last Admin: 09/03/16 09:55 Dose: 40 mg - Labs Labs: 09/04/16 06:40 09/04/16 06:40 PT 16.3 SECONDS (9.7-12.2) H 08/31/16 06:25 INR 1.4 08/31/16 06:25 APTT 26 SECONDS (21-34) 08/29/16 21:20 Attending/Attestation - Attestation I have personally seen and examined this patient.: Yes I have fully participated in the care of the patient.: Yes I have reviewed all pertinent clinical information, including history, physical exam and plan: Yes Notes (Text): 09/04/16 12:04 Patient was seen and examined at bedside. Denies any abdominal pain. However patient has difficulty swallowing. He is unable to eat any solid food. Brings up a lot of saliva. I discussed with gastroenterology Dr. Cobian. Patient will need some sort of insurance coverage for proper treatment. We will request social work or to work with the patient and the family for arranging health insurance coverage. We are awaiting the results of biopsy and paracentesis cytology/pathology further plan of care for the treatment of gastric carcinoma after the results are available. Continue supportive management. Replace lactulose as needed I discussed the plan of care with the resident and agree with the above history and physical and assessment/plan.
[2016-09-04] MEDS: Multiple Vitamins Tab PO SCH (09:58)
[2016-09-04] MEDS ORDERED: Magnesium Sulfate 1 gm in D5W 1 GM/100 ML BAG IVPB ONE (12:00)
[2016-09-05] MEDS: Piperacillin/Tazobact 3.375 GM in Sodium Chloride 100 ML IVPB SCH ×3 (00:12→16:12)
[2016-09-05] MEDS: Potassium Chl 40 mEq in D5-1/2 1,000 ML IV SCH (03:35)
[2016-09-05 06:17] LABS: BASO % 0.2 % (0.0-2.0); EOS # 0.1 K/uL (0.0-0.7); EOS % 1.1 % (0.0-4.0); HEMATOCRIT 25.1 % (35.0-51.0); LYMPH # 1.3 K/uL (1.0-4.3); LYMPH % 25.2 % (20.0-40.0); MEAN CELL VOLUME 82.5 fL (80.0-94.0); MEAN PLATELET VOLUME 6.7 fL (7.2-11.7); MONO # 0.4 K/uL (0.0-0.8); MONO % 7.7 % (0.0-10.0); RED CELL DISTRIBUTION WIDTH 20.8 % (11.5-14.5); WHITE BLOOD COUNT 5.2 K/uL (4.8-10.8)
[2016-09-05 06:31] LABS: CHLORIDE 92 mmol/L (98-107); POTASSIUM 3.6 mmol/L (3.6-5.2); SODIUM 126 mmol/L (132-148)
[2016-09-05 06:33] LABS: GFR AFRICAN-AMERICAN > 60
[2016-09-05 06:34] LABS: ALB/GLOB RATIO 0.9 (1.0-2.1); ALKALINE PHOSPHATASE 52 U/L (38-126); ALT/SGPT 15 U/L (21-72); AST/SGOT 24 U/L (17-59); BILIRUBIN,TOTAL 0.8 mg/dL (0.2-1.3); BLOOD UREA NITROGEN 7 mg/dL (9-20); CALCIUM 7.3 mg/dl (8.6-10.4); CARBON DIOXIDE 29 mmol/L (22-30); GLUCOSE,RANDOM 85 mg/dL (75-110); TOTAL PROTEIN 5.6 g/dL (6.3-8.3)
[2016-09-05 06:41] LABS: MAGNESIUM 0.7 mg/dL (1.6-2.3)
[2016-09-05] MEDS: Magnesium Sulfate 1 gm in D5W 1 GM/100 ML BAG IVPB SCH ×3 (06:55→22:50)
[2016-09-05] MEDS: Multiple Vitamins Tab PO SCH (09:19)
[2016-09-05] MEDS: Pantoprazole 40 mg EC Tab PO SCH (09:19)
[2016-09-05] MEDS ORDERED: Sodium Chloride 0.9% 1,000 ML IV SCH (10:45)
--- NOTE | 2016-09-05 15:24 | CP.PCM.PN ---
Subjective - Date & Time of Evaluation Date of Evaluation: 09/05/14 Time of Evaluation: 07:22 - Subjective Subjective: Pt seen and examined. Pt reports that he has a little bit of of abdominal pain. Pt reports that he is eating. Pt denies fever, chills, chest pain, shortness of breath, nausea, and vomiting. Objective - Vital Signs/Intake and Output Vital Signs (last 24 hours): Temp Pulse Resp BP Pulse Ox 99.0 F 82 18 131/89 100 09/05/16 07:46 09/05/16 07:46 09/05/16 07:46 09/05/16 07:46 09/05/16 07:46 Intake and Output: 09/05/16 09/05/16 06:59 18:59 Intake Total 1600 Output Total 800 Balance 800 - Medications Medications: Current Medications Ferrous Sulfate (Feosol) 325 mg PO DAILY [facility] Last Admin: 09/05/16 09:19 Dose: 325 mg Piperacillin Sod/Tazobactam (Sod 3.375 gm/ Sodium Chloride) 100 mls @ 200 mls/ hr IVPB Q8H [facility] Last Admin: 09/05/16 09:18 Dose: 200 mls/hr Potassium Chloride 40 meq/ (Sodium Chloride) 1,020 mls @ 100 mls/hr IV .[id number] [facility] Last Admin: 09/05/16 12:09 Dose: 100 mls/hr Morphine Sulfate (Morphine) 2 mg IVP Q3H PRN PRN Reason: Pain, moderate (4-7) Last Admin: 09/05/16 07:40 Dose: 2 mg Multivitamins (Hexavitamin) 1 tab PO DAILY [facility] Last Admin: 09/05/16 09:19 Dose: 1 tab Ondansetron HCl (Zofran Inj) 4 mg IVP Q6 PRN PRN Reason: Nausea/Vomiting Last Admin: 09/04/16 16:30 Dose: 4 mg Pantoprazole Sodium (Protonix Ec Tab) 40 mg PO DAILY [facility] Last Admin: 09/05/16 09:19 Dose: 40 mg - Labs Labs: 09/05/16 06:06 09/05/16 06:06 PT 16.3 SECONDS (9.7-12.2) H 08/31/16 06:25 INR 1.4 08/31/16 06:25 APTT 26 SECONDS (21-34) 08/29/16 21:20 - Constitutional Appears: No Acute Distress, Cachectic - Head Exam Head Exam: ATRAUMATIC, NORMOCEPHALIC - Eye Exam Eye Exam: EOMI, PERRL - ENT Exam ENT Exam: Mucous Membranes Moist. absent: Mucous Membranes Dry - Cardiovascular Exam Cardiovascular Exam: +S1, +S2 - GI/Abdominal Exam GI & Abdominal Exam: Soft. absent: Distended, Tenderness - Extremities Exam Extremities Exam: Full ROM. absent: Pedal Edema - Neurological Exam Neurological Exam: Alert, Awake, Oriented x3 - Psychiatric Exam Psychiatric exam: Normal Affect, Normal Mood - Skin Skin Exam: Pallor, Warm Assessment and Plan - Assessment and Plan (Free Text) Assessment: Gastric Cancer: Stool occult blood positive GI, Dr. Mares, consulted. Help appreciated. CT Chest/Abd/Pelvis - extensive mucosal thickening of the stomach; free fluid in the abdomen and pelvis; enapsulation of fluid in the pelvis which is worrisome for abscess; sclerotic lesion within left pelvis, metastatic disease not excluded; enlarged prostate gland, mediastinal and hilar adenopathy; mucosal thickening of the appendix (please see full report) General surgery, Dr. Ham, consulted. Help appreciated. Heme/onc, Dr. Mckoy, consulted. Help appreciated. Morphine prn for pain Zofran prn for nausea s/p paracentesis with IR on 08/31, Dr. Wang. Fluid cytology pending. s/p EGD on 09/[address] Cobian, EGD findings reveal malignant tumor on the gastric body (please see full report). As per heme/onc, gastric bx and fluid cytology needed to determine treatment plan Electrolyte Imbalance: Mg 0.7 today Mg 1 gm in D5 x [address] Ham regarding placement of J tube Anemia: Hgb 8.5 today, trend daily FOBT + Iron, TIBC, %satuation, ferritin low Feosol 325 mg po qd GI on board Prophylactic Measures: DVT: SCDs, chemical anticoagulation held due to anemia and positive stool occult blood GI: Protonix 40 mg IV q
--- NOTE | 2016-09-05 15:33 | CP.PCM.PN ---
Subjective - Date & Time of Evaluation Date of Evaluation: 09/05/16 Time of Evaluation: 09:00 - Subjective Subjective: Patient seen at bedside this am. Eating breakfast. Pale. Denies abdominal pain, nausea, vomiting Objective - Vital Signs/Intake and Output Vital Signs (last 24 hours): Temp Pulse Resp BP Pulse Ox 99.0 F 82 18 131/89 100 09/05/16 07:46 09/05/16 07:46 09/05/16 07:46 09/05/16 07:46 09/05/16 07:46 Intake and Output: 09/05/16 09/05/16 06:59 18:59 Intake Total 1600 Output Total 800 Balance 800 - Medications Medications: Current Medications Ferrous Sulfate (Feosol) 325 mg PO DAILY [facility] Last Admin: 09/05/16 09:19 Dose: 325 mg Piperacillin Sod/Tazobactam (Sod 3.375 gm/ Sodium Chloride) 100 mls @ 200 mls/ hr IVPB Q8H [facility] Last Admin: 09/05/16 09:18 Dose: 200 mls/hr Potassium Chloride 40 meq/ (Sodium Chloride) 1,020 mls @ 100 mls/hr IV .[id number] [facility] Last Admin: 09/05/16 12:09 Dose: 100 mls/hr Magnesium Sulfate/Dextrose (Magnesium Sulfate 1 Gm/100 Ml D5w) 1 gm in 100 mls @ 200 mls/hr IVPB ONCE ONE Stop: 09/05/16 15:57 Morphine Sulfate (Morphine) 2 mg IVP Q3H PRN PRN Reason: Pain, moderate (4-7) Last Admin: 09/05/16 07:40 Dose: 2 mg Multivitamins (Hexavitamin) 1 tab PO DAILY [facility] Last Admin: 09/05/16 09:19 Dose: 1 tab Ondansetron HCl (Zofran Inj) 4 mg IVP Q6 PRN PRN Reason: Nausea/Vomiting Last Admin: 09/04/16 16:30 Dose: 4 mg Pantoprazole Sodium (Protonix Ec Tab) 40 mg PO DAILY [facility] Last Admin: 09/05/16 09:19 Dose: 40 mg - Labs Labs: 09/05/16 06:06 09/05/16 06:06 PT 16.3 SECONDS (9.7-12.2) H 08/31/16 06:25 INR 1.4 08/31/16 06:25 APTT 26 SECONDS (21-34) 08/29/16 21:20 - Constitutional Appears: Non-toxic, Older Than Stated Age, Cachectic, Chronically Ill - Head Exam Head Exam: ATRAUMATIC, NORMAL INSPECTION, NORMOCEPHALIC - Eye Exam Eye Exam: EOMI, Normal appearance, PERRL - ENT Exam ENT Exam: Mucous Membranes Moist, Normal Exam - Neck Exam Neck Exam: Full ROM, Normal Inspection. absent: Lymphadenopathy - Respiratory Exam Respiratory Exam: Clear to Ausculation Bilateral, NORMAL BREATHING PATTERN - Cardiovascular Exam Cardiovascular Exam: REGULAR RHYTHM, +S1, +S2. absent: Murmur - GI/Abdominal Exam GI & Abdominal Exam: Soft, Normal Bowel Sounds. absent: Tenderness - Extremities Exam Extremities Exam: Full ROM, Normal Inspection - Neurological Exam Neurological Exam: Alert, Normal Gait, Oriented x3 - Psychiatric Exam Psychiatric exam: Normal Affect, Normal Mood - Skin Skin Exam: Dry, Intact, Warm Assessment and Plan - Assessment and Plan (Free Text) Assessment: 31 year old male with advanced gastric cancer and malignant ascites. 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
[2016-09-05] MEDS ORDERED: Magnesium Sulfate 1 gm in D5W 1 GM/100 ML BAG IVPB ONE (16:00)
--- NOTE | 2016-09-05 16:18 | CP.PCM.PN ---
<Crow Montgomery - Last Filed: 09/05/16 16:11> Subjective - Date & Time of Evaluation Date of Evaluation: 09/05/16 Time of Evaluation: 16:12 - Subjective Subjective: Surgery: Dr. Ham Pt seen and examined. No abd pain. Tolerating limited PO intake. +Nausea. Vomits clear phlegm about 5x / day. Objective - Vital Signs/Intake and Output Vital Signs (last 24 hours): Temp Pulse Resp BP Pulse Ox 99.0 F 82 18 131/89 100 09/05/16 07:46 09/05/16 07:46 09/05/16 07:46 09/05/16 07:46 09/05/16 07:46 Intake and Output: 09/05/16 09/05/16 06:59 18:59 Intake Total 1600 Output Total 800 Balance 800 - Medications Medications: Current Medications Ferrous Sulfate (Feosol) 325 mg PO DAILY [facility] Last Admin: 09/05/16 09:19 Dose: 325 mg Piperacillin Sod/Tazobactam (Sod 3.375 gm/ Sodium Chloride) 100 mls @ 200 mls/ hr IVPB Q8H [facility] Last Admin: 09/05/16 09:18 Dose: 200 mls/hr Potassium Chloride 40 meq/ (Sodium Chloride) 1,020 mls @ 100 mls/hr IV .[id number] [facility] Last Admin: 09/05/16 12:09 Dose: 100 mls/hr Magnesium Sulfate/Dextrose (Magnesium Sulfate 1 Gm/100 Ml D5w) 1 gm in 100 mls @ 200 mls/hr IVPB ONCE ONE Stop: 09/05/16 16:29 Morphine Sulfate (Morphine) 2 mg IVP Q3H PRN PRN Reason: Pain, moderate (4-7) Last Admin: 09/05/16 07:40 Dose: 2 mg Multivitamins (Hexavitamin) 1 tab PO DAILY [facility] Last Admin: 09/05/16 09:19 Dose: 1 tab Ondansetron HCl (Zofran Inj) 4 mg IVP Q6 PRN PRN Reason: Nausea/Vomiting Last Admin: 09/04/16 16:30 Dose: 4 mg Pantoprazole Sodium (Protonix Ec Tab) 40 mg PO DAILY [facility] Last Admin: 09/05/16 09:19 Dose: 40 mg - Labs Labs: 09/05/16 06:06 09/05/16 06:06 PT 16.3 SECONDS (9.7-12.2) H 08/31/16 06:25 INR 1.4 08/31/16 06:25 APTT 26 SECONDS (21-34) 08/29/16 21:20 - Constitutional Appears: Non-toxic, No Acute Distress - Head Exam Head Exam: ATRAUMATIC, NORMOCEPHALIC - Eye Exam Eye Exam: EOMI - ENT Exam ENT Exam: Mucous Membranes Moist - Respiratory Exam Respiratory Exam: NORMAL BREATHING PATTERN. absent: Accessory Muscle Use, Respiratory Distress - GI/Abdominal Exam GI & Abdominal Exam: Soft. absent: Distended, Firm, Guarding, Rigid, Tenderness - Extremities Exam Extremities Exam: absent: Calf Tenderness, Pedal Edema - Neurological Exam Neurological Exam: Alert, Awake, Oriented x3 Assessment and Plan - Assessment and Plan (Free Text) Assessment: 31M w. Metastatic Gastric CA -Discussed J-tube placement. Pt does not want tube at this time. He states that he is able to eat small amounts. It was discussed with the patient that despite this, his overall nutritional status is poor, and he would benefit from tube placement. -Pt advised to discuss tube placement with family -will f/u on pt decision -d/w attending [facility] PGY2 <Moisés Ham - Last Filed: 09/11/16 22:27> Objective - Vital Signs/Intake and Output Vital Signs (last 24 hours): Temp Pulse Resp BP Pulse Ox 98.6 F 109 H 20 138/94 H 95 09/11/16 16:44 09/11/16 16:44 09/11/16 16:44 09/11/16 16:44 09/11/16 16:44 - Medications Medications: Current Medications Benzocaine/Menthol (Cepacol Sore Throat) 1 [place]los [place] Q2 PRN PRN Reason: Sore Throat Enoxaparin Sodium (Lovenox) 40 mg SC DAILY [facility] Last Admin: 09/11/16 10:29 Dose: 40 mg Ferrous Sulfate (Feosol) 325 mg PO DAILY [facility] Last Admin: 09/11/16 09:44 Dose: Not Given Hydromorphone HCl (Dilaudid) 0.5 mg IVP Q4H PRN PRN Reason: Pain, severe (8-10) Last Admin: 09/11/16 21:43 Dose: 0.5 mg Piperacillin Sod/Tazobactam (Sod 3.375 gm/ Sodium Chloride) 100 mls @ 200 mls/ hr IVPB Q8H [facility] Last Admin: 09/10/16 16:49 Dose: 200 mls/hr Potassium Chloride 40 meq/ (Sodium Chloride) 1,020 mls @ 100 mls/hr IV .[id number] [facility] Last Admin: 09/11/16 19:30 Dose: Not Given Chromium/Copper/Manganese/ (Seleni/Zn 1 ml/ Amino Acids) 1,001 mls @ 42 mls/hr IV .[id number] [facility] Stop: 09/12/16 17:49 Last Admin: 09/11/16 18:10 Dose: 42 mls/hr Fat Emulsion Intravenous (Intralipid 20%) 250 mls @ 42 mls/hr IV TTS@1800 [facility] Stop: 09/15/16 23:58 Magnesium Oxide (Mag-Ox) 800 mg PO TID [facility] Last Admin: 09/11/16 17:45 Dose: Not Given Metoprolol Tartrate (Lopressor) 2.5 mg IVP Q15M PRN PRN Reason: elevated BP and tachycardia Last Admin: 09/07/16 16:40 Dose: 2.5 mg Multivitamins (Hexavitamin) 1 tab PO DAILY [facility] Last Admin: 09/11/16 10:58 Dose: Not Given Ondansetron HCl (Zofran Inj) 4 mg IVP Q4H PRN PRN Reason: Nausea/Vomiting Last Admin: 09/11/16 21:57 Dose: 4 mg Pantoprazole Sodium (Protonix Inj) 40 mg IVP DAILY [facility] Last Admin: 09/11/16 09:32 Dose: 40 mg Potassium Phos/Sodium Phos (Neutra-Phos) 1 pkt PO TID [facility] Last Admin: 09/11/16 17:44 Dose: Not Given Sodium Chloride (Sodium Chloride Tab) 1 gm PO DAILY [facility] Last Admin: 09/11/16 09:45 Dose: Not Given - Labs Labs: 09/11/16 07:33 09/11/16 07:33 PT 16.3 SECONDS (9.7-12.2) H 08/31/16 06:25 INR 1.4 08/31/16 06:25 APTT 26 SECONDS (21-34) 08/29/16 21:20 Attending/Attestation - Attestation I have personally seen and examined this patient.: Yes I have fully participated in the care of the patient.: Yes I have reviewed all pertinent clinical information, including history, physical exam and plan: Yes Notes (Text): 09/11/16 22:19 Pt was seen and examined at bedside on 09/05/16 Agree with above note and assessment Pt with Stage 4 Gastric Ca with dysphagia Pt would need J tube placement C/w current mx Plan d.w pt in detail Risk and benefit explained in detail.
--- NOTE | 2016-09-05 16:58 | CP.PCM.PN ---
Subjective - Subjective Subjective: Discussed with pathologist results of the paracentesis and the gastric biopsy. Both are showing are showing poorly differentiated adenocarcinoma of the stomach , [id number] status pending. Have left message with family to call me to discuss the diagnosis, prognosis and treatment options. Treatment options are limited in this frail patient with advanced gastric cancer with poor performance status. Treatment limited to palliative chemotherapy, Cisplatin, 5FU or Taxane based. Have also discussed with pillowcase folder regarding the possibility of insurance or [facility] care. Will also consider hospice, will need to talk to family first Objective - Vital Signs/Intake and Output Vital Signs (last 24 hours): Temp Pulse Resp BP Pulse Ox 99.5 F 89 18 131/93 H 99 09/05/16 15:00 09/05/16 15:00 09/05/16 15:00 09/05/16 15:00 09/05/16 15:00 Intake and Output: 09/05/16 09/05/16 06:59 18:59 Intake Total 1600 700 Output Total 800 Balance 800 700 - Medications Medications: Current Medications Ferrous Sulfate (Feosol) 325 mg PO DAILY [facility] Last Admin: 09/05/16 09:19 Dose: 325 mg Piperacillin Sod/Tazobactam (Sod 3.375 gm/ Sodium Chloride) 100 mls @ 200 mls/ hr IVPB Q8H [facility] Last Admin: 09/05/16 16:12 Dose: 200 mls/hr Potassium Chloride 40 meq/ (Sodium Chloride) 1,020 mls @ 100 mls/hr IV .[id number] [facility] Last Admin: 09/05/16 12:09 Dose: 100 mls/hr Morphine Sulfate (Morphine) 2 mg IVP Q3H PRN PRN Reason: Pain, moderate (4-7) Last Admin: 09/05/16 07:40 Dose: 2 mg Multivitamins (Hexavitamin) 1 tab PO DAILY [facility] Last Admin: 09/05/16 09:19 Dose: 1 tab Ondansetron HCl (Zofran Inj) 4 mg IVP Q6 PRN PRN Reason: Nausea/Vomiting Last Admin: 09/04/16 16:30 Dose: 4 mg Pantoprazole Sodium (Protonix Ec Tab) 40 mg PO DAILY [facility] Last Admin: 09/05/16 09:19 Dose: 40 mg - Labs Labs: 09/05/16 06:06 09/05/16 06:06 PT 16.3 SECONDS (9.7-12.2) H 08/31/16 06:25 INR 1.4 08/31/16 06:25 APTT 26 SECONDS (21-34) 08/29/16 21:20 Assessment and Plan (1) Gastric malignant neoplasm Status: Acute
[2016-09-06] MEDS: Magnesium Sulfate 1 gm in D5W 1 GM/100 ML BAG IVPB SCH ×5 (00:11→16:47)
[2016-09-06] MEDS: Piperacillin/Tazobact 3.375 GM in Sodium Chloride 100 ML IVPB SCH ×3 (01:00→18:24)
[2016-09-06 07:10] LABS: BASO % 0.2 % (0.0-2.0); EOS # 0.1 K/uL (0.0-0.7); HEMATOCRIT 25.9 % (35.0-51.0); LYMPH # 1.1 K/uL (1.0-4.3); LYMPH % 22.1 % (20.0-40.0); MEAN CORPUSCULAR HEMOGLOBIN 28.1 pg (27.0-31.0); MEAN CORPUSCULAR HGB CONC 34.2 g/dL (33.0-37.0); MEAN PLATELET VOLUME 6.7 fL (7.2-11.7); MONO # 0.4 K/uL (0.0-0.8); MONO % 8.4 % (0.0-10.0); RED CELL DISTRIBUTION WIDTH 20.7 % (11.5-14.5); WHITE BLOOD COUNT 5.1 K/uL (4.8-10.8)
[2016-09-06 07:35] LABS: CHLORIDE 92 mmol/L (98-107); SODIUM 126 mmol/L (132-148)
[2016-09-06 07:36] LABS: POTASSIUM 4.1 mmol/L (3.6-5.2)
[2016-09-06 07:37] LABS: GFR AFRICAN-AMERICAN > 60
[2016-09-06 07:38] LABS: ALB/GLOB RATIO 0.9 (1.0-2.1); ALKALINE PHOSPHATASE 61 U/L (38-126); ALT/SGPT 13 U/L (21-72); AST/SGOT 27 U/L (17-59); BILIRUBIN,TOTAL 0.8 mg/dL (0.2-1.3); BLOOD UREA NITROGEN 8 mg/dL (9-20); CARBON DIOXIDE 27 mmol/L (22-30); GLUCOSE,RANDOM 86 mg/dL (75-110); PHOSPHOROUS 3.1 mg/dL (2.5-4.5); TOTAL PROTEIN 5.8 g/dL (6.3-8.3)
[2016-09-06 07:39] LABS: CALCIUM 7.8 mg/dl (8.6-10.4); MAGNESIUM 1.5 mg/dL (1.6-2.3)
[2016-09-06] MEDS: Pantoprazole 40 mg EC Tab PO SCH (09:11)
[2016-09-06] MEDS: Multiple Vitamins Tab PO SCH (09:11)
--- NOTE | 2016-09-06 09:25 | CP.PCM.PN ---
Addendum entered and electronically signed by Chela Velazquez DO, DO 15:46: Upon further discussion in the afternoon, patient agreed for j-tube. Plan for OR tomorrow. Original Note: <Chela Velazquez DO - Last Filed: 09/06/16 09:19> Subjective - Date & Time of Evaluation Date of Evaluation: 09/06/16 Time of Evaluation: 09:19 - Subjective Subjective: PGY1 Progress Note for Dr. Ham: Patient seen and examined. Patient states he ate some mashed potatoes last night and denies vomiting. Patient states he does spit up mucous. Patient states he does not want j-tube and only wants to continue to try to eat food by mouth. Objective - Vital Signs/Intake and Output Vital Signs (last 24 hours): Temp Pulse Resp BP Pulse Ox 99.0 F 79 20 127/86 96 09/06/16 07:55 09/06/16 07:55 09/06/16 07:55 09/06/16 07:55 09/06/16 07:55 - Medications Medications: Current Medications Ferrous Sulfate (Feosol) 325 mg PO DAILY [facility] Last Admin: 09/06/16 09:11 Dose: 325 mg Piperacillin Sod/Tazobactam (Sod 3.375 gm/ Sodium Chloride) 100 mls @ 200 mls/ hr IVPB Q8H [facility] Last Admin: 09/06/16 07:50 Dose: 200 mls/hr Potassium Chloride 40 meq/ (Sodium Chloride) 1,020 mls @ 100 mls/hr IV .[id number] [facility] Last Admin: 09/06/16 07:54 Dose: Not Given Morphine Sulfate (Morphine) 2 mg IVP Q3H PRN PRN Reason: Pain, moderate (4-7) Last Admin: 09/05/16 18:57 Dose: 2 mg Multivitamins (Hexavitamin) 1 tab PO DAILY [facility] Last Admin: 09/06/16 09:11 Dose: 1 tab Ondansetron HCl (Zofran Inj) 4 mg IVP Q6 PRN PRN Reason: Nausea/Vomiting Last Admin: 09/04/16 16:30 Dose: 4 mg Pantoprazole Sodium (Protonix Ec Tab) 40 mg PO DAILY [facility] Last Admin: 09/06/16 09:11 Dose: 40 mg - Labs Labs: 09/06/16 06:57 09/06/16 06:57 PT 16.3 SECONDS (9.7-12.2) H 08/31/16 06:25 INR 1.4 08/31/16 06:25 APTT 26 SECONDS (21-34) 08/29/16 21:20 - Constitutional Appears: No Acute Distress, Cachectic, Chronically Ill - Head Exam Head Exam: ATRAUMATIC, NORMOCEPHALIC - Eye Exam Eye Exam: EOMI - ENT Exam ENT Exam: Mucous Membranes Moist - Respiratory Exam Respiratory Exam: NORMAL BREATHING PATTERN - GI/Abdominal Exam GI & Abdominal Exam: Soft. absent: Distended, Guarding - Neurological Exam Neurological Exam: Alert, Awake - Psychiatric Exam Psychiatric exam: Normal Affect - Skin Skin Exam: Warm Assessment and Plan - Assessment and Plan (Free Text) Assessment: 31 year old male with metastatic Gastric cancer -Discussed J-tube placement again with patient- he does not want tube at this time. Patient states he wants to continue to eat by mouth and would rather eat small amounts by mouth than have j-tube. We discussed with patient that he can still try to eat by mouth even with j-tube, but patient re-iterated he does not want j-tube at this time. We also discussed with patient that if he eventually cannot eat by mouth it may be necessary to have j-tube in future. -no surgical intervention at this time -further recs per Dr. Ham <Moisés Ham - Last Filed: 09/11/16 22:26> Objective - Vital Signs/Intake and Output Vital Signs (last 24 hours): Temp Pulse Resp BP Pulse Ox 98.6 F 109 H 20 138/94 H 95 09/11/16 16:44 09/11/16 16:44 09/11/16 16:44 09/11/16 16:44 09/11/16 16:44 - Medications Medications: Current Medications Benzocaine/Menthol (Cepacol Sore Throat) 1 carlos MT Q2 PRN PRN Reason: Sore Throat Enoxaparin Sodium (Lovenox) 40 mg SC DAILY [facility] Last Admin: 09/11/16 10:29 Dose: 40 mg Ferrous Sulfate (Feosol) 325 mg PO DAILY [facility] Last Admin: 09/11/16 09:44 Dose: Not Given Hydromorphone HCl (Dilaudid) 0.5 mg IVP Q4H PRN PRN Reason: Pain, severe (8-10) Last Admin: 09/11/16 21:43 Dose: 0.5 mg Piperacillin Sod/Tazobactam (Sod 3.375 gm/ Sodium Chloride) 100 mls @ 200 mls/ hr IVPB Q8H [facility] Last Admin: 09/10/16 16:49 Dose: 200 mls/hr Potassium Chloride 40 meq/ (Sodium Chloride) 1,020 mls @ 100 mls/hr IV .[id number] [facility] Last Admin: 09/11/16 19:30 Dose: Not Given Chromium/Copper/Manganese/ (Seleni/Zn 1 ml/ Amino Acids) 1,001 mls @ 42 mls/hr IV .[id number] ONE Stop: 09/12/16 17:49 Last Admin: 09/11/16 18:10 Dose: 42 mls/hr Fat Emulsion Intravenous (Intralipid 20%) 250 mls @ 42 mls/hr IV TTS@1800 [facility] Stop: 09/15/16 23:58 Magnesium Oxide (Mag-Ox) 800 mg PO TID [facility] Last Admin: 09/11/16 17:45 Dose: Not Given Metoprolol Tartrate (Lopressor) 2.5 mg IVP Q15M PRN PRN Reason: elevated BP and tachycardia Last Admin: 09/07/16 16:40 Dose: 2.5 mg Multivitamins (Hexavitamin) 1 tab PO DAILY [facility] Last Admin: 09/11/16 10:58 Dose: Not Given Ondansetron HCl (Zofran Inj) 4 mg IVP Q4H PRN PRN Reason: Nausea/Vomiting Last Admin: 09/11/16 21:57 Dose: 4 mg Pantoprazole Sodium (Protonix Inj) 40 mg IVP DAILY [facility] Last Admin: 09/11/16 09:32 Dose: 40 mg Potassium Phos/Sodium Phos (Neutra-Phos) 1 pkt PO TID [facility] Last Admin: 09/11/16 17:44 Dose: Not Given Sodium Chloride (Sodium Chloride Tab) 1 gm PO DAILY [facility] Last Admin: 09/11/16 09:45 Dose: Not Given - Labs Labs: 09/11/16 07:33 09/11/16 07:33 PT 16.3 SECONDS (9.7-12.2) H 08/31/16 06:25 INR 1.4 08/31/16 06:25 APTT 26 SECONDS (21-34) 08/29/16 21:20 Attending/Attestation - Attestation I have personally seen and examined this patient.: Yes I have fully participated in the care of the patient.: Yes I have reviewed all pertinent clinical information, including history, physical exam and plan: Yes Notes (Text): 09/11/16 22:26 Pt was seen and examined at bedside on 09/06/16 Agree with above note and assessment Pt with Stage 4 Gastric Ca with dysphagia OR for Exp Lap and J tube placement C/w current mx Consent Plan d.w pt in detail Risk and benefit explained in detail.
--- NOTE | 2016-09-06 15:12 | CP.PCM.PN ---
Subjective - Date & Time of Evaluation Date of Evaluation: 09/06/16 Time of Evaluation: 07:28 - Subjective Subjective: Pt seen and examined. Pt reports that he is continuing to produce a lot of sputum. Pt reports that he is prefers eating liquids. He also reports slight nausea. Pt denies fever, chills, chest pain, shortness of breath, diarrhea. Objective - Vital Signs/Intake and Output Vital Signs (last 24 hours): Temp Pulse Resp BP Pulse Ox 99.0 F 95 H 20 127/86 96 09/06/16 07:55 09/06/16 13:06 09/06/16 07:55 09/06/16 07:55 09/06/16 07:55 - Medications Medications: Current Medications Ferrous Sulfate (Feosol) 325 mg PO DAILY [facility] Last Admin: 09/06/16 09:11 Dose: 325 mg Piperacillin Sod/Tazobactam (Sod 3.375 gm/ Sodium Chloride) 100 mls @ 200 mls/ hr IVPB Q8H [facility] Last Admin: 09/06/16 07:50 Dose: 200 mls/hr Potassium Chloride 40 meq/ (Sodium Chloride) 1,020 mls @ 100 mls/hr IV .[id number] [facility] Last Admin: 09/06/16 07:54 Dose: Not Given Magnesium Sulfate/Dextrose (Magnesium Sulfate 1 Gm/100 Ml D5w) 1 gm in 100 mls @ 300 mls/hr IVPB Q30M [facility] Stop: 09/06/16 16:04 Morphine Sulfate (Morphine) 2 mg IVP Q3H PRN PRN Reason: Pain, moderate (4-7) Last Admin: 09/05/16 18:57 Dose: 2 mg Multivitamins (Hexavitamin) 1 tab PO DAILY [facility] Last Admin: 09/06/16 09:11 Dose: 1 tab Ondansetron HCl (Zofran Inj) 4 mg IVP Q6 PRN PRN Reason: Nausea/Vomiting Last Admin: 09/06/16 11:27 Dose: 4 mg Pantoprazole Sodium (Protonix Ec Tab) 40 mg PO DAILY [facility] Last Admin: 09/06/16 09:11 Dose: 40 mg - Labs Labs: 09/06/16 06:57 09/06/16 06:57 PT 16.3 SECONDS (9.7-12.2) H 08/31/16 06:25 INR 1.4 08/31/16 06:25 APTT 26 SECONDS (21-34) 08/29/16 21:20 - Constitutional Appears: Toxic, Cachectic - Head Exam Head Exam: ATRAUMATIC, NORMOCEPHALIC - Eye Exam Eye Exam: EOMI, PERRL - ENT Exam ENT Exam: Mucous Membranes Moist. absent: Mucous Membranes Dry - Respiratory Exam Respiratory Exam: Clear to Ausculation Bilateral. absent: Rales, Rhonchi, Wheezes - Cardiovascular Exam Cardiovascular Exam: +S1, +S2. absent: Gallop, Rubs - GI/Abdominal Exam GI & Abdominal Exam: Soft. absent: Distended, Guarding, Tenderness - Extremities Exam Extremities Exam: Full ROM. absent: Pedal Edema - Neurological Exam Neurological Exam: Alert, Awake, Oriented x3 - Psychiatric Exam Psychiatric exam: Normal Affect, Normal Mood - Skin Skin Exam: Pallor, Warm Assessment and Plan - Assessment and Plan (Free Text) Assessment: Gastric Cancer: Stool occult blood positive GI, Dr. Mares, consulted. Help appreciated. CT Chest/Abd/Pelvis - extensive mucosal thickening of the stomach; free fluid in the abdomen and pelvis; enapsulation of fluid in the pelvis which is worrisome for abscess; sclerotic lesion within left pelvis, metastatic disease not excluded; enlarged prostate gland, mediastinal and hilar adenopathy; mucosal thickening of the appendix (please see full report) General surgery, Dr. Ham, consulted. Help appreciated. Heme/onc, Dr. Mckoy, consulted. Help appreciated. Morphine prn for pain Zofran prn for nausea s/p paracentesis with IR on 08/31, Dr. Wang. Fluid cytology pending. s/p EGD on 09/[address] Cobian, EGD findings reveal malignant tumor on the gastric body (please see full report). 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 Despite advice to go for J tube placement, pt continues to refuse and would like to continue oral intake of diet Electrolyte Imbalance: Mg 1.5 today Mg 1 gm in D5 x 4 bags Mg 800 po tid Neutraphos 1 packet po tid Anemia: Hgb 8.9 today, trend daily FOBT + Iron, TIBC, %satuation, ferritin low Feosol 325 mg po qd GI on board Prophylactic Measures: DVT: SCDs, chemical anticoagulation held due to anemia and positive stool occult blood GI: Protonix 40 mg IV q
[2016-09-06] MEDS: Potassium & Sodium Phosphate PO SCH (18:24)
[2016-09-06] MEDS: Magnesium Oxide 400 mg Tab UD PO SCH (18:24)
[2016-09-07 06:54] LABS: BASO % 0.1 % (0.0-2.0); EOS # 0.1 K/uL (0.0-0.7); EOS % 1.5 % (0.0-4.0); HEMATOCRIT 22.6 % (35.0-51.0); LYMPH # 0.8 K/uL (1.0-4.3); LYMPH % 20.1 % (20.0-40.0); MEAN CELL VOLUME 82.3 fL (80.0-94.0); MEAN CORPUSCULAR HEMOGLOBIN 27.8 pg (27.0-31.0); MEAN CORPUSCULAR HGB CONC 33.8 g/dL (33.0-37.0); MEAN PLATELET VOLUME 6.8 fL (7.2-11.7); MONO # 0.4 K/uL (0.0-0.8); MONO % 8.5 % (0.0-10.0); RED CELL DISTRIBUTION WIDTH 21.2 % (11.5-14.5); WHITE BLOOD COUNT 4.2 K/uL (4.8-10.8)
[2016-09-07 07:24] LABS: CHLORIDE 94 mmol/L (98-107)
[2016-09-07 07:25] LABS: POTASSIUM 3.7 mmol/L (3.6-5.2); SODIUM 127 mmol/L (132-148)
[2016-09-07 07:27] LABS: ALB/GLOB RATIO 0.9 (1.0-2.1); AST/SGOT 24 U/L (17-59); BILIRUBIN,TOTAL 0.8 mg/dL (0.2-1.3); BLOOD UREA NITROGEN 11 mg/dL (9-20); CARBON DIOXIDE 25 mmol/L (22-30); GFR AFRICAN-AMERICAN > 60; TOTAL PROTEIN 5.5 g/dL (6.3-8.3)
[2016-09-07 07:28] LABS: ALKALINE PHOSPHATASE 59 U/L (38-126); ALT/SGPT 11 U/L (21-72); CALCIUM 7.5 mg/dl (8.6-10.4); GLUCOSE,RANDOM 90 mg/dL (75-110)
[2016-09-07 07:29] LABS: MAGNESIUM 1.3 mg/dL (1.6-2.3)
[2016-09-07] MEDS: Piperacillin/Tazobact 3.375 GM in Sodium Chloride 100 ML IVPB SCH ×3 (08:10→16:30)
[2016-09-07] MEDS: Potassium & Sodium Phosphate PO SCH ×3 (09:03→19:00)
[2016-09-07] MEDS: Multiple Vitamins Tab PO SCH (09:03)
[2016-09-07] MEDS: Magnesium Oxide 400 mg Tab UD PO SCH ×2 (09:03→19:00)
[2016-09-07] MEDS: Pantoprazole 40 mg EC Tab PO SCH (09:04)
[2016-09-07] MEDS: Magnesium Sulfate 1 gm in D5W 1 GM/100 ML BAG IVPB SCH ×4 (09:05→09:52)
[2016-09-07] MEDS ORDERED: Lidocaine 1% Inj (20ml) ONE (11:52)
[2016-09-07] MEDS ORDERED: Bupivacaine/Epi 0.25%-1:200,000 10 ml PF inj IJ ONE (11:52)
[2016-09-07] MEDS ORDERED: Midazolam 2 MG/2 ML VIAL ONE (12:53)
[2016-09-07] MEDS ORDERED: Propofol 10 mg/ml Inj (20 ML) ONE ×2 (12:53→13:20)
[2016-09-07] MEDS ORDERED: metroNIDAZOLE IV 500 mg/100 ml 500 MG/100 ML BAG ONE (12:54)
[2016-09-07] MEDS ORDERED: ceFAZolin IV 1 gm in Dextrose 1 GM/50 ML BAG IVPB ONE (12:54)
[2016-09-07] MEDS ORDERED: Succinylcholine Chloride 20 mg/ml Syr (5 ml) IV ONE (13:08)
[2016-09-07] MEDS ORDERED: Morphine 4 MG/ML VIAL ONE (13:40)
[2016-09-07] MEDS ORDERED: Neostigmine Methylsulfate 3mg/3ml Syringe IV ONE (13:42)
[2016-09-07] MEDS ORDERED: Lactated Ringer's 1,000 ML IV ONE (14:04)
--- NOTE | 2016-09-07 15:09 | PCM.SURG1 ---
Surgeon's Initial Post Op Note - Surgeon's Notes Surgeon: Jitendra Local [employer] Legislator: Ulises PGY2 Type of Anesthesia: General Endo Pre-Operative Diagnosis: Gastric CA Operative Findings: Ascities, gastric tumor, omental metastasis Post-Operative Diagnosis: same Operation Performed: ex-lap prabhu calixto J-tube Specimen/Specimens Removed: ascites Estimated Blood Loss: EBL {In ML}: 10 Blood Products Given: N/A Drains Used: No Drains Post-Op Condition: Good Date of Surgery/Procedure: 09/07/16 Time of Surgery/Procedure: 15:08
[2016-09-07] MEDS ORDERED: Morphine Monoject Barrel PCA 1mg/ml IV PRN ×2 (15:13→16:52)
[2016-09-07] MEDS: HYDROmorphone 0.5 mg/0.5 ml ISec IVP PRN ×2 (15:25→15:40)
[2016-09-07] MEDS ORDERED: Metoprolol 1 mg/ml Inj IVP ONE ×2 (16:38→17:15)
[2016-09-07] MEDS: Metoprolol 1 mg/ml Inj IVP PRN (16:40)
--- NOTE | 2016-09-07 19:07 | CP.PCM.PN ---
Subjective - Date & Time of Evaluation Date of Evaluation: 09/07/16 Time of Evaluation: 07:22 - Subjective Subjective: Pt seen and examined. Pt reports that he has slight abdominal pain, nausea, and one episode of vomiting of overnight. Pt denies fever, chills, chest pain, shortness of breath, diarrhea. Objective - Vital Signs/Intake and Output Vital Signs (last 24 hours): Temp Pulse Resp BP Pulse Ox 98.9 F 102 H 20 135/100 H 100 09/07/16 18:10 09/07/16 18:10 09/07/16 18:10 09/07/16 18:10 09/07/16 18:10 Intake and Output: 09/07/16 09/08/16 18:59 06:59 Intake Total 1850 Balance 1850 - Medications Medications: Current Medications Ferrous Sulfate (Feosol) 325 mg PO DAILY [facility] Last Admin: 09/07/16 09:03 Dose: Not Given Piperacillin Sod/Tazobactam (Sod 3.375 gm/ Sodium Chloride) 100 mls @ 200 mls/ hr IVPB Q8H [facility] Last Admin: 09/07/16 16:30 Dose: 100 mls Potassium Chloride 40 meq/ (Sodium Chloride) 1,020 mls @ 100 mls/hr IV .[id number] [facility] Last Admin: 09/07/16 14:35 Dose: Not Given Magnesium Oxide (Mag-Ox) 400 mg PO BID [facility] Last Admin: 09/07/16 09:03 Dose: Not Given Metoprolol Tartrate (Lopressor) 2.5 mg IVP Q15M PRN PRN Reason: elevated BP and tachycardia Last Admin: 09/07/16 16:40 Dose: 2.5 mg Morphine Sulfate/Sodium Chloride (Morphine Wire Bender Monoject Barrel) 0.5 mg IV Q4H PRN; Protocol PRN Reason: Pain, moderate (4-7) Multivitamins (Hexavitamin) 1 tab PO DAILY [facility] Last Admin: 09/07/16 09:03 Dose: Not Given Ondansetron HCl (Zofran Inj) 4 mg IVP Q8H PRN PRN Reason: Nausea/Vomiting Pantoprazole Sodium (Protonix Ec Tab) 40 mg PO DAILY [facility] Last Admin: 09/07/16 09:04 Dose: Not Given Potassium Phos/Sodium Phos (Neutra-Phos) 1 pkt PO TID [facility] Last Admin: 09/07/16 14:35 Dose: Not Given - Labs Labs: 09/07/16 06:16 09/07/16 06:16 PT 16.3 SECONDS (9.7-12.2) H 08/31/16 06:25 INR 1.4 08/31/16 06:25 APTT 26 SECONDS (21-34) 08/29/16 21:20 - Constitutional Appears: Toxic, Older Than Stated Age, Cachectic - Head Exam Head Exam: ATRAUMATIC, NORMOCEPHALIC - Eye Exam Eye Exam: EOMI, PERRL - ENT Exam ENT Exam: Mucous Membranes Moist. absent: Mucous Membranes Dry - Respiratory Exam Respiratory Exam: Clear to Ausculation Bilateral. absent: Rales, Rhonchi, Wheezes - Cardiovascular Exam Cardiovascular Exam: +S1, +S2. absent: Gallop, Rubs - GI/Abdominal Exam GI & Abdominal Exam: Soft, Normal Bowel Sounds. absent: Distended, Tenderness - Extremities Exam Extremities Exam: Full ROM. absent: Pedal Edema - Neurological Exam Neurological Exam: Alert, Awake, Oriented x3 - Psychiatric Exam Psychiatric exam: Normal Affect, Normal Mood - Skin Skin Exam: Pallor Assessment and Plan - Assessment and Plan (Free Text) Assessment: Gastric Cancer: Stool occult blood positive GI, Dr. Mares, consulted. Help appreciated. CT Chest/Abd/Pelvis - extensive mucosal thickening of the stomach; free fluid in the abdomen and pelvis; enapsulation of fluid in the pelvis which is worrisome for abscess; sclerotic lesion within left pelvis, metastatic disease not excluded; enlarged prostate gland, mediastinal and hilar adenopathy; mucosal thickening of the appendix (please see full report) General surgery, Dr. Ham, consulted. Help appreciated. Heme/onc, Dr. Mckoy, consulted. Help appreciated. Morphine prn for pain Zofran prn for nausea s/p paracentesis with IR on 08/31, Dr. Wang. Fluid cytology pending. s/p EGD on 09/[address] Cobian, EGD findings reveal malignant tumor on the gastric body (please see full report). 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
--- NOTE | 2016-09-07 21:02 | OP ---
PROCEDURE DATE: 09/07/2016 PREOPERATIVE DIAGNOSES: 1. Stage IV gastric cancer with dysphagia. 2. Failure to thrive. POSTOPERATIVE DIAGNOSES: 1. Stage IV gastric cancer with dysphagia. 2. Failure to thrive. PROCEDURE DONE: 1. Exploratory laparotomy. 2. J-tube placement. 3. Drainage of malignant ascites. SURGEON: Moisés Ham MD HVAC/R SERVICE TECHNICIAN: Crow Montgomery. ANESTHESIA: General endotracheal tube anesthesia. ESTIMATED BLOOD LOSS: Around 50 mL. DRAINS: None. PATHOLOGY: Ascitic fluid was sent for pathology. COMPLICATIONS: None. INTRAOPERATIVE FINDINGS: The patient had a very hard mass surrounding the stomach as well as omentum . The patient had a peritoneal seeding and the proximal small bowel was involved in the malignant pr ocess and the jejunum and the distal small bowel appeared to be normal and patient had approximately 3 liters of murky fluid. INTRAOPERATIVE STEPS: This is a 31-year-old male who was diagnosed with stage IV gastric cancer and patient was unable to swallow and patient had failure to thrive and patient was consented for the ope n J-tube placement. The patient was brought to the OR, placed supine on the operating table. After induction of the anesthesia, abdomen was prepped and draped in a usual sterile fashion and a midline laparotomy incision was made of approximately 10 cm. After incising skin and subcutaneous tissue, th e fascia was incised in the line of incision and the peritoneal cavity was entered. The patient was found to have extensive ascites and approximately 3 liters of whitish colored ascitic fluid was sucti oned out from all the quadrants and exploratory laparotomy was done. The patient found to have a lar ge tumor involving the stomach as well as surrounding omentum and there was peritoneum seeding of the upper abdomen and the proximal jejunum was involved and the mid jejunum as well as the distal part o f the small bowel was not involved and the pursestring suture was done sounding the jejunum and red r ubber catheter was placed and a whistle tunnel was created and the catheter was brought out through t he left upper quadrant incision and the jejunum at both ends was sutured to the anterior abdominal wa ll and after proper skin fixation of the red rubber catheter, the peritoneal cavity was examined for hemostasis and after proper hemostasis, abdomen was closed in 2 layers, the fascia with #1 looped PDS as well as with 0 Prolene interrupted suture and the skin with radhika and dry sterile dressing was applied. The patient tolerated the procedure well. Count of instruments was correct. There was no apparent complication. The patient was extubated in the OR, sent to the postanesthesia care in [facility] condition. Moisés Ham MD cc: [id number] TT: 09/07/2016 21:01:31 sav
[2016-09-08] MEDS ORDERED: Magnesium Sulfate 1 gm in D5W 1 GM/100 ML BAG IVPB ONE ×3 (12:16→21:00)
[2016-09-08] MEDS ORDERED: Potassium Chloride 20 mEq ER Tab PO ONE (18:28)
[2016-09-08] MEDS ORDERED: Oxycodone/Acetaminophen 5/325 mg Tab PO PRN (19:43)
[2016-09-08 21:28] LABS: ALB/GLOB RATIO 0.8 (1.0-2.1); ALKALINE PHOSPHATASE 59 U/L (38-126); ALT/SGPT 23 U/L (21-72); AST/SGOT 30 U/L (17-59); BILIRUBIN,TOTAL 0.6 mg/dL (0.2-1.3); BLOOD UREA NITROGEN 13 mg/dL (9-20); CALCIUM 7.7 mg/dl (8.6-10.4); CARBON DIOXIDE 27 mmol/L (22-30); CHLORIDE 91 mmol/L (98-107); GFR AFRICAN-AMERICAN > 60; GLUCOSE,RANDOM 116 mg/dL (75-110); MAGNESIUM 1.5 mg/dL (1.6-2.3); PHOSPHOROUS 3.4 mg/dL (2.5-4.5); POTASSIUM 3.8 mmol/L (3.6-5.2); SODIUM 126 mmol/L (132-148); TOTAL PROTEIN 5.4 g/dL (6.3-8.3)
[2016-09-08 21:30] LABS: HEMATOCRIT 24.4 % (35.0-51.0); MEAN CELL VOLUME 82.4 fL (80.0-94.0); MEAN CORPUSCULAR HEMOGLOBIN 27.9 pg (27.0-31.0); MEAN CORPUSCULAR HGB CONC 33.9 g/dL (33.0-37.0); MEAN PLATELET VOLUME 6.6 fL (7.2-11.7); RED CELL DISTRIBUTION WIDTH 21.3 % (11.5-14.5)
[2016-09-08] MEDS: HYDROmorphone 0.5 mg/0.5 ml ISec IVP PRN (22:11)
[2016-09-09] MEDS: Piperacillin/Tazobact 3.375 GM in Sodium Chloride 100 ML IVPB SCH ×3 (00:29→16:45)
[2016-09-09] MEDS: Oxycodone/Acetaminophen 5/325 mg Tab PO PRN ×2 (04:30→09:01)
[2016-09-09 06:46] LABS: CHLORIDE 90 mmol/L (98-107); SODIUM 126 mmol/L (132-148)
[2016-09-09 06:47] LABS: POTASSIUM 4.1 mmol/L (3.6-5.2)
[2016-09-09 06:48] LABS: GFR AFRICAN-AMERICAN > 60
[2016-09-09 06:49] LABS: ALB/GLOB RATIO 0.9 (1.0-2.1); ALKALINE PHOSPHATASE 61 U/L (38-126); ALT/SGPT 15 U/L (21-72); AST/SGOT 32 U/L (17-59); BILIRUBIN,TOTAL 0.7 mg/dL (0.2-1.3); BLOOD UREA NITROGEN 13 mg/dL (9-20); CARBON DIOXIDE 28 mmol/L (22-30); GLUCOSE,RANDOM 106 mg/dL (75-110); PHOSPHOROUS 3.6 mg/dL (2.5-4.5); TOTAL PROTEIN 5.5 g/dL (6.3-8.3)
[2016-09-09 06:50] LABS: CALCIUM 7.5 mg/dl (8.6-10.4); MAGNESIUM 1.2 mg/dL (1.6-2.3)
[2016-09-09 06:58] LABS: BASO % 0.1 % (0.0-2.0); EOS % 0.3 % (0.0-4.0); HEMATOCRIT 24.4 % (35.0-51.0); LYMPH # 0.7 K/uL (1.0-4.3); LYMPH % 10.7 % (20.0-40.0); MEAN CELL VOLUME 82.4 fL (80.0-94.0); MEAN CORPUSCULAR HEMOGLOBIN 28.7 pg (27.0-31.0); MEAN CORPUSCULAR HGB CONC 34.8 g/dL (33.0-37.0); MEAN PLATELET VOLUME 6.7 fL (7.2-11.7); MONO # 0.5 K/uL (0.0-0.8); MONO % 7.6 % (0.0-10.0); WHITE BLOOD COUNT 6.3 K/uL (4.8-10.8)
[2016-09-09] MEDS: Magnesium Sulfate 1 gm in D5W 1 GM/100 ML BAG IVPB SCH ×2 (09:01→10:10)
[2016-09-09] MEDS: Pantoprazole 40 mg EC Tab PO SCH (09:02)
[2016-09-09] MEDS: Magnesium Oxide 400 mg Tab UD PO SCH ×3 (09:03→18:00)
[2016-09-09] MEDS: Potassium & Sodium Phosphate PO SCH ×3 (09:03→18:00)
[2016-09-09] MEDS: Multiple Vitamins Tab PO SCH (09:03)
[2016-09-09] MEDS: Enoxaparin 40 mg Syringe SC SCH (10:13)
--- NOTE | 2016-09-09 10:49 | CP.PCM.PN ---
<Crow Montgomery - Last Filed: 09/09/16 10:46> Subjective - Date & Time of Evaluation Date of Evaluation: 09/09/16 Time of Evaluation: 10:46 - Subjective Subjective: Surgery: Dr. Ham Pt seen and examined. Has mild abd pain. Continues to have N/V. J-Tube is not functioning the AM, unable to flush. Objective - Vital Signs/Intake and Output Vital Signs (last 24 hours): Temp Pulse Resp BP Pulse Ox 98.5 F 102 H 20 143/103 H 99 09/09/16 08:24 09/09/16 08:24 09/09/16 08:24 09/09/16 08:24 09/09/16 08:24 Intake and Output: 09/09/16 09/09/16 06:59 18:59 Intake Total 900 Balance 900 - Medications Medications: Current Medications Benzocaine/Menthol (Cepacol Sore Throat) 1 carlos MT Q2 PRN PRN Reason: Sore Throat Enoxaparin Sodium (Lovenox) 40 mg SC DAILY [facility] Last Admin: 09/09/16 10:13 Dose: 40 mg Ferrous Sulfate (Feosol) 325 mg PO DAILY [facility] Last Admin: 09/09/16 09:03 Dose: 325 mg Hydromorphone HCl (Dilaudid) 0.5 mg IVP Q4H PRN PRN Reason: Pain, severe (8-10) Last Admin: 09/08/16 22:11 Dose: 0.5 mg Piperacillin Sod/Tazobactam (Sod 3.375 gm/ Sodium Chloride) 100 mls @ 200 mls/ hr IVPB Q8H [facility] Last Admin: 09/09/16 07:40 Dose: 200 mls/hr Magnesium Oxide (Mag-Ox) 800 mg PO TID [facility] Metoprolol Tartrate (Lopressor) 2.5 mg IVP Q15M PRN PRN Reason: elevated BP and tachycardia Last Admin: 09/07/16 16:40 Dose: 2.5 mg Multivitamins (Hexavitamin) 1 tab PO DAILY [facility] Last Admin: 09/09/16 09:03 Dose: 1 tab Ondansetron HCl (Zofran Inj) 4 mg IVP Q8H PRN PRN Reason: Nausea/Vomiting Last Admin: 09/09/16 07:40 Dose: 4 mg Oxycodone/Acetaminophen (Percocet 5/325 Mg Tab) 1 tab PO Q4H PRN PRN Reason: Pain, moderate (4-7) Stop: 09/11/16 19:44 Last Admin: 09/08/16 20:06 Dose: 1 tab Oxycodone/Acetaminophen (Percocet 5/325 Mg Tab) 2 tab PO Q4H PRN PRN Reason: Pain, severe (8-10) Stop: 09/11/16 21:47 Last Admin: 09/09/16 09:01 Dose: 2 tab Pantoprazole Sodium (Protonix Ec Tab) 40 mg PO DAILY [facility] Last Admin: 09/09/16 09:02 Dose: 40 mg Potassium Phos/Sodium Phos (Neutra-Phos) 1 pkt PO TID [facility] Last Admin: 09/09/16 09:03 Dose: 1 pkt - Labs Labs: 09/09/16 06:16 09/09/16 06:16 PT 16.3 SECONDS (9.7-12.2) H 08/31/16 06:25 INR 1.4 08/31/16 06:25 APTT 26 SECONDS (21-34) 08/29/16 21:20 - Constitutional Appears: Non-toxic, No Acute Distress - Head Exam Head Exam: ATRAUMATIC, NORMOCEPHALIC - Eye Exam Eye Exam: EOMI. absent: Scleral icterus - ENT Exam ENT Exam: Mucous Membranes Moist - Neck Exam Neck Exam: Full ROM - Respiratory Exam Respiratory Exam: NORMAL BREATHING PATTERN. absent: Accessory Muscle Use, Respiratory Distress - GI/Abdominal Exam GI & Abdominal Exam: Soft, Tenderness (mild). absent: Distended, Firm, Guarding , Rigid Additional comments: midline incision, dressing in place, C/D/I, L side J-tube in place - Neurological Exam Neurological Exam: Alert, Awake, Oriented x3 Assessment and Plan - Assessment and Plan (Free Text) Assessment: 31M w. gastric CA, s/p ex-lap w. witzle J-tube placement, POD#2 -J-tube not functioning -several attempts made at flushing -will reassess w/ attending later today [employer] PGY2 <Moisés Ham - Last Filed: 09/11/16 22:35> Objective - Vital Signs/Intake and Output Vital Signs (last 24 hours): Temp Pulse Resp BP Pulse Ox 98.6 F 109 H 20 138/94 H 95 09/11/16 16:44 09/11/16 16:44 09/11/16 16:44 09/11/16 16:44 09/11/16 16:44 - Medications Medications: Current Medications Benzocaine/Menthol (Cepacol Sore Throat) 1 carlos MT Q2 PRN PRN Reason: Sore Throat Enoxaparin Sodium (Lovenox) 40 mg SC DAILY [facility] Last Admin: 09/11/16 10:29 Dose: 40 mg Ferrous Sulfate (Feosol) 325 mg PO DAILY [facility] Last Admin: 09/11/16 09:44 Dose: Not Given Hydromorphone HCl (Dilaudid) 0.5 mg IVP Q4H PRN PRN Reason: Pain, severe (8-10) Last Admin: 09/11/16 21:43 Dose: 0.5 mg Piperacillin Sod/Tazobactam (Sod 3.375 gm/ Sodium Chloride) 100 mls @ 200 mls/ hr IVPB Q8H [facility] Last Admin: 09/10/16 16:49 Dose: 200 mls/hr Potassium Chloride 40 meq/ (Sodium Chloride) 1,020 mls @ 100 mls/hr IV .[id number] [facility] Last Admin: 09/11/16 19:30 Dose: Not Given Chromium/Copper/Manganese/ (Seleni/Zn 1 ml/ Amino Acids) 1,001 mls @ 42 mls/hr IV .[id number] ONE Stop: 09/12/16 17:49 Last Admin: 09/11/16 18:10 Dose: 42 mls/hr Fat Emulsion Intravenous (Intralipid 20%) 250 mls @ 42 mls/hr IV TTS@1800 [facility] Stop: 09/15/16 23:58 Magnesium Oxide (Mag-Ox) 800 mg PO TID [facility] Last Admin: 09/11/16 17:45 Dose: Not Given Metoprolol Tartrate (Lopressor) 2.5 mg IVP Q15M PRN PRN Reason: elevated BP and tachycardia Last Admin: 09/07/16 16:40 Dose: 2.5 mg Multivitamins (Hexavitamin) 1 tab PO DAILY [facility] Last Admin: 09/11/16 10:58 Dose: Not Given Ondansetron HCl (Zofran Inj) 4 mg IVP Q4H PRN PRN Reason: Nausea/Vomiting Last Admin: 09/11/16 21:57 Dose: 4 mg Pantoprazole Sodium (Protonix Inj) 40 mg IVP DAILY [facility] Last Admin: 09/11/16 09:32 Dose: 40 mg Potassium Phos/Sodium Phos (Neutra-Phos) 1 pkt PO TID [facility] Last Admin: 09/11/16 17:44 Dose: Not Given Sodium Chloride (Sodium Chloride Tab) 1 gm PO DAILY [facility] Last Admin: 09/11/16 09:45 Dose: Not Given - Labs Labs: 09/11/16 07:33 09/11/16 07:33 PT 16.3 SECONDS (9.7-12.2) H 08/31/16 06:25 INR 1.4 08/31/16 06:25 APTT 26 SECONDS (21-34) 08/29/16 21:20 Attending/Attestation - Attestation I have personally seen and examined this patient.: Yes I have fully participated in the care of the patient.: Yes I have reviewed all pertinent clinical information, including history, physical exam and plan: Yes Notes (Text): 09/11/16 22:34 Pt was seen and examined at bedside on 09/09/16 Agree with above note and assessment Repositioning of J tube in OR under sedation on Monday C/w PPN Plan d.w pt in detail Risk and benefit explained in detail.
[2016-09-09] MEDS ORDERED: Lidocaine 1% Inj (20ml) INFIL ONE (16:53)
--- NOTE | 2016-09-09 17:36 | CP.PCM.PN ---
Subjective - Date & Time of Evaluation Date of Evaluation: 09/09/16 Time of Evaluation: 07:38 - Subjective Subjective: Pt seen and examined. Pt reports that he had an episode of bilious vomiting overnight. Pt reports that he has slight nausea and abdominal pain. Pt denies fever, chills, chest pain, shortness of breath, diarrhea. Objective - Vital Signs/Intake and Output Vital Signs (last 24 hours): Temp Pulse Resp BP Pulse Ox 98.8 F 83 20 140/100 H 97 09/09/16 15:15 09/09/16 15:15 09/09/16 15:15 09/09/16 15:15 09/09/16 15:15 Intake and Output: 09/09/16 09/09/16 06:59 18:59 Intake Total 900 Balance 900 - Medications Medications: Current Medications Benzocaine/Menthol (Cepacol Sore Throat) 1 carlos MT Q2 PRN PRN Reason: Sore Throat Enoxaparin Sodium (Lovenox) 40 mg SC DAILY [facility] Last Admin: 09/09/16 10:13 Dose: 40 mg Ferrous Sulfate (Feosol) 325 mg PO DAILY [facility] Last Admin: 09/09/16 09:03 Dose: 325 mg Hydromorphone HCl (Dilaudid) 0.5 mg IVP Q4H PRN PRN Reason: Pain, severe (8-10) Last Admin: 09/08/16 22:11 Dose: 0.5 mg Piperacillin Sod/Tazobactam (Sod 3.375 gm/ Sodium Chloride) 100 mls @ 200 mls/ hr IVPB Q8H [facility] Last Admin: 09/09/16 16:45 Dose: 200 mls/hr Magnesium Oxide (Mag-Ox) 800 mg PO TID [facility] Last Admin: 09/09/16 13:29 Dose: 800 mg Metoprolol Tartrate (Lopressor) 2.5 mg IVP Q15M PRN PRN Reason: elevated BP and tachycardia Last Admin: 09/07/16 16:40 Dose: 2.5 mg Multivitamins (Hexavitamin) 1 tab PO DAILY [facility] Last Admin: 09/09/16 09:03 Dose: 1 tab Ondansetron HCl (Zofran Inj) 4 mg IVP Q8H PRN PRN Reason: Nausea/Vomiting Last Admin: 09/09/16 16:24 Dose: 4 mg Oxycodone/Acetaminophen (Percocet 5/325 Mg Tab) 1 tab PO Q4H PRN PRN Reason: Pain, moderate (4-7) Stop: 09/11/16 19:44 Last Admin: 09/08/16 20:06 Dose: 1 tab Oxycodone/Acetaminophen (Percocet 5/325 Mg Tab) 2 tab PO Q4H PRN PRN Reason: Pain, severe (8-10) Stop: 09/11/16 21:47 Last Admin: 09/09/16 09:01 Dose: 2 tab Pantoprazole Sodium (Protonix Ec Tab) 40 mg PO DAILY [facility] Last Admin: 09/09/16 09:02 Dose: 40 mg Potassium Phos/Sodium Phos (Neutra-Phos) 1 pkt PO TID [facility] Last Admin: 09/09/16 13:30 Dose: 1 pkt Sodium Chloride (Sodium Chloride Tab) 1 gm PO DAILY [facility] Last Admin: 09/09/16 13:56 Dose: 1 gm - Labs Labs: 09/09/16 06:16 09/09/16 06:16 PT 16.3 SECONDS (9.7-12.2) H 08/31/16 06:25 INR 1.4 08/31/16 06:25 APTT 26 SECONDS (21-34) 08/29/16 21:20 - Constitutional Appears: Toxic, Cachectic - Head Exam Head Exam: ATRAUMATIC, NORMOCEPHALIC - Eye Exam Eye Exam: EOMI, PERRL - ENT Exam ENT Exam: Mucous Membranes Moist. absent: Mucous Membranes Dry - Neck Exam Neck Exam: Full ROM. absent: Lymphadenopathy - Respiratory Exam Respiratory Exam: Clear to Ausculation Bilateral. absent: Rales, Rhonchi, Wheezes - Cardiovascular Exam Cardiovascular Exam: +S1, +S2. absent: Gallop, Rubs - GI/Abdominal Exam GI & Abdominal Exam: Soft, Tenderness, Normal Bowel Sounds. absent: Distended - Extremities Exam Extremities Exam: Full ROM. absent: Pedal Edema - Neurological Exam Neurological Exam: Alert, Awake, Oriented x3 - Psychiatric Exam Psychiatric exam: Normal Affect, Normal Mood - Skin Skin Exam: Normal Color, Warm Assessment and Plan - Assessment and Plan (Free Text) Assessment: Gastric Cancer: Stool occult blood positive GI, Dr. Mares, consulted. Help appreciated. CT Chest/Abd/Pelvis - extensive mucosal thickening of the stomach; free fluid in the abdomen and pelvis; enapsulation of fluid in the pelvis which is worrisome for abscess; sclerotic lesion within left pelvis, metastatic disease not excluded; enlarged prostate gland, mediastinal and hilar adenopathy; mucosal thickening of the appendix (please see full report) General surgery, Dr. Ham, consulted. Help appreciated. Heme/onc, Dr. Mckoy, consulted. Help appreciated. Morphine prn for pain Zofran prn for nausea s/p paracentesis with IR on 08/31, Dr. Wang. Fluid cytology pending. s/p EGD on 09/[address] Cobian, EGD findings reveal malignant tumor on the gastric body (please see full report). 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
[2016-09-09] MEDS: HYDROmorphone 0.5 mg/0.5 ml ISec IVP PRN ×2 (18:07→22:06)
[2016-09-09] MEDS: Sodium Chloride 0.9% 1,000 ML IV SCH (22:07)
[2016-09-10] MEDS: Piperacillin/Tazobact 3.375 GM in Sodium Chloride 100 ML IVPB SCH ×3 (00:39→16:49)
[2016-09-10] MEDS: HYDROmorphone 0.5 mg/0.5 ml ISec IVP PRN ×4 (02:09→17:51)
[2016-09-10 06:25] LABS: BASO % 0.2 % (0.0-2.0); EOS % 0.1 % (0.0-4.0); HEMATOCRIT 24.3 % (35.0-51.0); LYMPH # 0.8 K/uL (1.0-4.3); LYMPH % 13.3 % (20.0-40.0); MEAN CELL VOLUME 82.8 fL (80.0-94.0); MEAN CORPUSCULAR HEMOGLOBIN 28.3 pg (27.0-31.0); MEAN CORPUSCULAR HGB CONC 34.1 g/dL (33.0-37.0); MEAN PLATELET VOLUME 6.8 fL (7.2-11.7); MONO # 0.4 K/uL (0.0-0.8); RED CELL DISTRIBUTION WIDTH 21.3 % (11.5-14.5); WHITE BLOOD COUNT 6.2 K/uL (4.8-10.8)
[2016-09-10 06:32] LABS: CHLORIDE 92 mmol/L (98-107)
[2016-09-10 06:33] LABS: POTASSIUM 3.7 mmol/L (3.6-5.2); SODIUM 130 mmol/L (132-148)
[2016-09-10 06:35] LABS: ALB/GLOB RATIO 0.8 (1.0-2.1); ALKALINE PHOSPHATASE 71 U/L (38-126); ALT/SGPT 9 U/L (21-72); AST/SGOT 31 U/L (17-59); BILIRUBIN,TOTAL 0.7 mg/dL (0.2-1.3); BLOOD UREA NITROGEN 15 mg/dL (9-20); CARBON DIOXIDE 27 mmol/L (22-30); GFR AFRICAN-AMERICAN > 60; GLUCOSE,RANDOM 102 mg/dL (75-110); TOTAL PROTEIN 5.9 g/dL (6.3-8.3)
[2016-09-10 06:36] LABS: CALCIUM 8.1 mg/dl (8.6-10.4); MAGNESIUM 1.2 mg/dL (1.6-2.3); PHOSPHOROUS 3.4 mg/dL (2.5-4.5)
[2016-09-10] MEDS: Magnesium Sulfate 1 gm in D5W 1 GM/100 ML BAG IVPB SCH ×2 (08:28→09:48)
[2016-09-10] MEDS: Sodium Chloride 0.9% 1,000 ML IV SCH (09:50)
[2016-09-10] MEDS: Enoxaparin 40 mg Syringe SC SCH (10:19)
[2016-09-10] MEDS: Pantoprazole 40 mg EC Tab PO SCH ×2 (10:19→10:35)
[2016-09-10] MEDS: Magnesium Oxide 400 mg Tab UD PO SCH ×4 (10:19→18:29)
[2016-09-10] MEDS: Potassium & Sodium Phosphate PO SCH ×3 (10:20→18:29)
[2016-09-10] MEDS: Multiple Vitamins Tab PO SCH ×2 (10:27→10:34)
--- NOTE | 2016-09-10 11:36 | CP.PCM.PN ---
Subjective - Date & Time of Evaluation Date of Evaluation: 09/10/16 Time of Evaluation: 08:20 - Subjective Subjective: SURGERY NOTE FOR DR. RYDER 31M seen and examined at bedside. Patient resting comfortably. Non functioning J -tube. Complain of nausea and spit-up. Mild abdominal pain. Objective - Vital Signs/Intake and Output Vital Signs (last 24 hours): Temp Pulse Resp BP Pulse Ox 99.0 F 109 H 18 141/89 95 09/10/16 07:00 09/10/16 08:00 09/10/16 07:00 09/10/16 07:00 09/10/16 07:00 Intake and Output: 09/10/16 09/10/16 06:59 18:59 Intake Total 1000 Output Total 750 Balance 250 - Medications Medications: Current Medications Benzocaine/Menthol (Cepacol Sore Throat) 1 carlos MT Q2 PRN PRN Reason: Sore Throat Enoxaparin Sodium (Lovenox) 40 mg SC DAILY [facility] Last Admin: 09/10/16 10:19 Dose: 40 mg Ferrous Sulfate (Feosol) 325 mg PO DAILY [facility] Last Admin: 09/10/16 10:36 Dose: Not Given Hydromorphone HCl (Dilaudid) 0.5 mg IVP Q4H PRN PRN Reason: Pain, severe (8-10) Last Admin: 09/10/16 08:06 Dose: 0.5 mg Piperacillin Sod/Tazobactam (Sod 3.375 gm/ Sodium Chloride) 100 mls @ 200 mls/ hr IVPB Q8H [facility] Last Admin: 09/10/16 07:40 Dose: 200 mls/hr Sodium Chloride (Sodium Chloride 0.9%) 1,000 mls @ 100 mls/hr IV .Q10H [facility] Last Admin: 09/10/16 09:50 Dose: 100 mls/hr Magnesium Oxide (Mag-Ox) 800 mg PO TID [facility] Last Admin: 09/10/16 10:36 Dose: Not Given Metoprolol Tartrate (Lopressor) 2.5 mg IVP Q15M PRN PRN Reason: elevated BP and tachycardia Last Admin: 09/07/16 16:40 Dose: 2.5 mg Multivitamins (Hexavitamin) 1 tab PO DAILY [facility] Last Admin: 09/10/16 10:34 Dose: Not Given Ondansetron HCl (Zofran Inj) 4 mg IVP Q4H PRN PRN Reason: Nausea/Vomiting Oxycodone/Acetaminophen (Percocet 5/325 Mg Tab) 1 tab PO Q4H PRN PRN Reason: Pain, moderate (4-7) Stop: 09/11/16 19:44 Last Admin: 09/08/16 20:06 Dose: 1 tab Oxycodone/Acetaminophen (Percocet 5/325 Mg Tab) 2 tab PO Q4H PRN PRN Reason: Pain, severe (8-10) Stop: 09/11/16 21:47 Last Admin: 09/09/16 09:01 Dose: 2 tab Pantoprazole Sodium (Protonix Ec Tab) 40 mg PO DAILY [facility] Last Admin: 09/10/16 10:35 Dose: Not Given Potassium Phos/Sodium Phos (Neutra-Phos) 1 pkt PO TID [facility] Last Admin: 09/10/16 10:20 Dose: 1 pkt Sodium Chloride (Sodium Chloride Tab) 1 gm PO DAILY [facility] Last Admin: 09/10/16 10:36 Dose: Not Given - Labs Labs: 09/10/16 06:13 09/10/16 06:13 PT 16.3 SECONDS (9.7-12.2) H 08/31/16 06:25 INR 1.4 08/31/16 06:25 APTT 26 SECONDS (21-34) 08/29/16 21:20 - Constitutional Appears: Non-toxic, No Acute Distress - Respiratory Exam Respiratory Exam: Clear to Ausculation Bilateral, NORMAL BREATHING PATTERN - Cardiovascular Exam Cardiovascular Exam: REGULAR RHYTHM, +S1, +S2 - GI/Abdominal Exam GI & Abdominal Exam: Soft. absent: Distended, Firm, Guarding, Rigid, Rebound Additional comments: j-tube in place. nonfunctioning, no signs of infection - Neurological Exam Neurological Exam: Alert, Awake Assessment and Plan - Assessment and Plan (Free Text) Assessment: 31M w. gastric CA, s/p ex-lap w. durga J-tube placement, POD#3 -J-tube not functioning -Possible OR monday for revision Further recs discuss with Dr. Jitendra Shaikh, PGY1
--- NOTE | 2016-09-10 15:27 | CP.PCM.PN ---
Subjective - Date & Time of Evaluation Date of Evaluation: 09/10/16 Time of Evaluation: 07:38 - Subjective Subjective: Pt seen and examined. Pt reports that he has abdominal pain, which he rates as a 7 out of 10. He also reports that he is nauseous and has not been able to tolerate oral intake. Pt denies fever, chills, chest pain, shortness of breath. Objective - Vital Signs/Intake and Output Vital Signs (last 24 hours): Temp Pulse Resp BP Pulse Ox 98.4 F 113 H 20 150/119 H 96 09/10/16 15:16 09/10/16 15:16 09/10/16 15:16 09/10/16 15:16 09/10/16 15:16 Intake and Output: 09/10/16 09/10/16 06:59 18:59 Intake Total 1000 Output Total 750 Balance 250 - Medications Medications: Current Medications Benzocaine/Menthol (Cepacol Sore Throat) 1 carlos MT Q2 PRN PRN Reason: Sore Throat Enoxaparin Sodium (Lovenox) 40 mg SC DAILY [facility] Last Admin: 09/10/16 10:19 Dose: 40 mg Ferrous Sulfate (Feosol) 325 mg PO DAILY [facility] Last Admin: 09/10/16 10:36 Dose: Not Given Hydromorphone HCl (Dilaudid) 0.5 mg IVP Q4H PRN PRN Reason: Pain, severe (8-10) Last Admin: 09/10/16 13:02 Dose: 0.5 mg Piperacillin Sod/Tazobactam (Sod 3.375 gm/ Sodium Chloride) 100 mls @ 200 mls/ hr IVPB Q8H [facility] Last Admin: 09/10/16 07:40 Dose: 200 mls/hr Sodium Chloride (Sodium Chloride 0.9%) 1,000 mls @ 100 mls/hr IV .Q10H [facility] Last Admin: 09/10/16 09:50 Dose: 100 mls/hr Multivitamins/Vitamin C 10 ml/Chromium/Copper/Manganese/Seleni/Zn 1 ml/ Amino Acids 1,011 mls @ 42 mls/hr IV .Q24H [facility] Stop: 09/11/16 17:59 Fat Emulsion Intravenous (Intralipid 20%) 250 mls @ 42 mls/hr IV TTS@1800 [facility] Stop: 09/16/16 18:01 Magnesium Oxide (Mag-Ox) 800 mg PO TID [facility] Last Admin: 09/10/16 13:51 Dose: Not Given Metoprolol Tartrate (Lopressor) 2.5 mg IVP Q15M PRN PRN Reason: elevated BP and tachycardia Last Admin: 09/07/16 16:40 Dose: 2.5 mg Multivitamins (Hexavitamin) 1 tab PO DAILY [facility] Last Admin: 09/10/16 10:34 Dose: Not Given Ondansetron HCl (Zofran Inj) 4 mg IVP Q4H PRN PRN Reason: Nausea/Vomiting Last Admin: 09/10/16 13:02 Dose: 4 mg Oxycodone/Acetaminophen (Percocet 5/325 Mg Tab) 1 tab PO Q4H PRN PRN Reason: Pain, moderate (4-7) Stop: 09/11/16 19:44 Last Admin: 09/08/16 20:06 Dose: 1 tab Oxycodone/Acetaminophen (Percocet 5/325 Mg Tab) 2 tab PO Q4H PRN PRN Reason: Pain, severe (8-10) Stop: 09/11/16 21:47 Last Admin: 09/09/16 09:01 Dose: 2 tab Pantoprazole Sodium (Protonix Ec Tab) 40 mg PO DAILY [facility] Last Admin: 09/10/16 10:35 Dose: Not Given Potassium Phos/Sodium Phos (Neutra-Phos) 1 pkt PO TID [facility] Last Admin: 09/10/16 13:52 Dose: Not Given Sodium Chloride (Sodium Chloride Tab) 1 gm PO DAILY [facility] Last Admin: 09/10/16 10:36 Dose: Not Given - Labs Labs: 09/10/16 06:13 09/10/16 06:13 PT 16.3 SECONDS (9.7-12.2) H 08/31/16 06:25 INR 1.4 08/31/16 06:25 APTT 26 SECONDS (21-34) 08/29/16 21:20 - Constitutional Appears: Toxic, Older Than Stated Age, Cachectic - Head Exam Head Exam: ATRAUMATIC, NORMOCEPHALIC - Eye Exam Eye Exam: EOMI, PERRL - ENT Exam ENT Exam: Mucous Membranes Moist. absent: Mucous Membranes Dry - Respiratory Exam Respiratory Exam: Clear to Ausculation Bilateral. absent: Rhonchi, Wheezes - Cardiovascular Exam Cardiovascular Exam: +S1, +S2. absent: Gallop, Rubs, Murmur - GI/Abdominal Exam GI & Abdominal Exam: Soft, Tenderness. absent: Distended, Guarding - Extremities Exam Extremities Exam: absent: Pedal Edema - Neurological Exam Neurological Exam: Alert, Awake, Oriented x3 - Psychiatric Exam Psychiatric exam: Normal Affect, Normal Mood - Skin Skin Exam: Normal Color, Warm Assessment and Plan - Assessment and Plan (Free Text) Assessment: Gastric Cancer: Stool occult blood positive GI, Dr. Mares, consulted. Help appreciated. CT Chest/Abd/Pelvis - extensive mucosal thickening of the stomach; free fluid in the abdomen and pelvis; enapsulation of fluid in the pelvis which is worrisome for abscess; sclerotic lesion within left pelvis, metastatic disease not excluded; enlarged prostate gland, mediastinal and hilar adenopathy; mucosal thickening of the appendix (please see full report) General surgery, Dr. Ham, consulted. Help appreciated. Heme/onc, Dr. Mckoy, consulted. Help appreciated. Morphine prn for pain Zofran prn for nausea s/p paracentesis with IR on 08/31, Dr. Wang. s/p EGD on 09/[address] Cobian, EGD findings reveal malignant tumor on the gastric body (please see full report). 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 Ham on 09/12 Pt started on PPN with lipid infusion at standard infusion rate Electrolyte Imbalance: Mg 1.2 today00 Mg 1 gm in D5 x 2 bags Mg 800 po tid Neutraphos 1 packet po tid Pt day 2 s/p J tube placement - J tube not working properly, surgery informed, will follow surgery plans Pt started on PPN with lipid infusion at standard infusion rate Anemia: Hgb 8.3 today, trend daily FOBT + Iron, TIBC, %satuation, ferritin low Feosol 325 mg po qd Prophylactic Measures: DVT: SCDs, chemical anticoagulation held due to anemia and positive stool occult blood GI: Protonix 40 mg IV qd
[2016-09-10] MEDS ORDERED: PPN #1 IV SCH (18:00)
[2016-09-10] MEDS ORDERED: Fat Emulsion 20% IV 250 ML IV SCH (18:00)
--- NOTE | 2016-09-11 00:21 | CP.PCM.PN ---
Subjective - Date & Time of Evaluation Date of Evaluation: 09/11/16 Time of Evaluation: 00:18 - Subjective Subjective: SURGERY NOTE FOR DR. RYDER 31M seen and examined at bedside. Continues to complain of abd pain, j-tube is currently malfunctioned. N/V improving. Objective - Vital Signs/Intake and Output Vital Signs (last 24 hours): Temp Pulse Resp BP Pulse Ox 98.4 F 114 H 20 150/119 H 96 09/10/16 15:16 09/10/16 16:00 09/10/16 15:16 09/10/16 15:16 09/10/16 15:16 Intake and Output: 09/10/16 09/11/16 18:59 06:59 Intake Total 720 Balance 720 - Medications Medications: Current Medications Benzocaine/Menthol (Cepacol Sore Throat) 1 carlos MT Q2 PRN PRN Reason: Sore Throat Enoxaparin Sodium (Lovenox) 40 mg SC DAILY [facility] Last Admin: 09/10/16 10:19 Dose: 40 mg Ferrous Sulfate (Feosol) 325 mg PO DAILY [facility] Last Admin: 09/10/16 10:36 Dose: Not Given Hydromorphone HCl (Dilaudid) 0.5 mg IVP Q4H PRN PRN Reason: Pain, severe (8-10) Last Admin: 09/10/16 17:51 Dose: 0.5 mg Piperacillin Sod/Tazobactam (Sod 3.375 gm/ Sodium Chloride) 100 mls @ 200 mls/ hr IVPB Q8H [facility] Last Admin: 09/10/16 16:49 Dose: 200 mls/hr Multivitamins/Vitamin C 10 ml/Chromium/Copper/Manganese/Seleni/Zn 1 ml/ Amino Acids 1,011 mls @ 42 mls/hr IV .Q24H [facility] Stop: 09/11/16 17:59 Last Admin: 09/10/16 18:10 Dose: 42 mls/hr Fat Emulsion Intravenous (Intralipid 20%) 250 mls @ 42 mls/hr IV TTS@1800 [facility] Stop: 09/16/16 18:01 Last Admin: 09/10/16 18:10 Dose: 42 mls/hr Magnesium Oxide (Mag-Ox) 800 mg PO TID [facility] Last Admin: 09/10/16 18:29 Dose: Not Given Metoprolol Tartrate (Lopressor) 2.5 mg IVP Q15M PRN PRN Reason: elevated BP and tachycardia Last Admin: 09/07/16 16:40 Dose: 2.5 mg Multivitamins (Hexavitamin) 1 tab PO DAILY [facility] Last Admin: 09/10/16 10:34 Dose: Not Given Ondansetron HCl (Zofran Inj) 4 mg IVP Q4H PRN PRN Reason: Nausea/Vomiting Last Admin: 09/10/16 17:52 Dose: 4 mg Oxycodone/Acetaminophen (Percocet 5/325 Mg Tab) 1 tab PO Q4H PRN PRN Reason: Pain, moderate (4-7) Stop: 09/11/16 19:44 Last Admin: 09/08/16 20:06 Dose: 1 tab Oxycodone/Acetaminophen (Percocet 5/325 Mg Tab) 2 tab PO Q4H PRN PRN Reason: Pain, severe (8-10) Stop: 09/11/16 21:47 Last Admin: 09/09/16 09:01 Dose: 2 tab Pantoprazole Sodium (Protonix Ec Tab) 40 mg PO DAILY [facility] Last Admin: 09/10/16 10:35 Dose: Not Given Potassium Phos/Sodium Phos (Neutra-Phos) 1 pkt PO TID [facility] Last Admin: 09/10/16 18:29 Dose: Not Given Sodium Chloride (Sodium Chloride Tab) 1 gm PO DAILY [facility] Last Admin: 09/10/16 10:36 Dose: Not Given - Labs Labs: 09/10/16 06:13 09/10/16 06:13 PT 16.3 SECONDS (9.7-12.2) H 08/31/16 06:25 INR 1.4 08/31/16 06:25 APTT 26 SECONDS (21-34) 08/29/16 21:20 - Constitutional Appears: Non-toxic, No Acute Distress - Respiratory Exam Respiratory Exam: Clear to Ausculation Bilateral, NORMAL BREATHING PATTERN - Cardiovascular Exam Cardiovascular Exam: REGULAR RHYTHM, +S1, +S2 - GI/Abdominal Exam GI & Abdominal Exam: Soft, Tenderness. absent: Distended, Firm, Guarding, Rigid , Rebound Additional comments: j-tube in place, no signs of infection, no erythema - Neurological Exam Neurological Exam: Alert, Awake Assessment and Plan - Assessment and Plan (Free Text) Assessment: 31M w. gastric CA, s/p ex-lap w. witheavenlye J-tube placement, POD#4 -J-tube not functioning -OR monday for revision Further recs discuss with Dr. Jitendra Shaikh, PGY1
[2016-09-11] MEDS: HYDROmorphone 0.5 mg/0.5 ml ISec IVP PRN ×3 (00:41→21:43)
[2016-09-11 07:43] LABS: BASO % 0.1 % (0.0-2.0); EOS % 0.6 % (0.0-4.0); HEMATOCRIT 22.7 % (35.0-51.0); LYMPH % 15.2 % (20.0-40.0); MEAN CELL VOLUME 82.7 fL (80.0-94.0); MEAN CORPUSCULAR HEMOGLOBIN 28.5 pg (27.0-31.0); MEAN CORPUSCULAR HGB CONC 34.5 g/dL (33.0-37.0); MEAN PLATELET VOLUME 6.5 fL (7.2-11.7); MONO # 0.3 K/uL (0.0-0.8); MONO % 4.8 % (0.0-10.0); RED CELL DISTRIBUTION WIDTH 21.3 % (11.5-14.5); WHITE BLOOD COUNT 6.6 K/uL (4.8-10.8)
[2016-09-11 08:04] LABS: CHLORIDE 90 mmol/L (98-107)
[2016-09-11 08:05] LABS: POTASSIUM 3.1 mmol/L (3.6-5.2); SODIUM 128 mmol/L (132-148)
[2016-09-11 08:07] LABS: AST/SGOT 28 U/L (17-59); BILIRUBIN,TOTAL 0.7 mg/dL (0.2-1.3); CARBON DIOXIDE 29 mmol/L (22-30); GFR AFRICAN-AMERICAN > 60
[2016-09-11 08:08] LABS: ALB/GLOB RATIO 0.9 (1.0-2.1); ALKALINE PHOSPHATASE 62 U/L (38-126); ALT/SGPT 17 U/L (21-72); BLOOD UREA NITROGEN 18 mg/dL (9-20); CALCIUM 7.9 mg/dl (8.6-10.4); GLUCOSE,RANDOM 108 mg/dL (75-110); MAGNESIUM 1.3 mg/dL (1.6-2.3); PHOSPHOROUS 2.4 mg/dL (2.5-4.5); TOTAL PROTEIN 5.8 g/dL (6.3-8.3)
[2016-09-11] MEDS ORDERED: Sodium Chloride 0.9% 1,000 ML IV SCH (09:15)
[2016-09-11] MEDS: Magnesium Sulfate 1 gm in D5W 1 GM/100 ML BAG IVPB SCH ×2 (09:32→10:32)
[2016-09-11] MEDS: Potassium & Sodium Phosphate PO SCH ×3 (09:45→17:44)
[2016-09-11] MEDS: Magnesium Oxide 400 mg Tab UD PO SCH ×3 (09:45→17:45)
[2016-09-11] MEDS: Enoxaparin 40 mg Syringe SC SCH (10:29)
[2016-09-11] MEDS: Multiple Vitamins Tab PO SCH (10:58)
[2016-09-11] MEDS ORDERED: PPN #1 IV ONE (14:30)
[2016-09-11] MEDS ORDERED: PPN #2 IV ONE ×2 (18:00)
--- NOTE | 2016-09-11 23:34 | CP.PCM.PN ---
Subjective - Date & Time of Evaluation Date of Evaluation: 09/11/16 Time of Evaluation: 07:22 - Subjective Subjective: Pt seen and examined. Pt reports that he feels nauseous and has had one episode of vomiting. Pt reports that he has pain sight pain in the abdomen. Pt denies fever, chills, chest pain, shortness of breath. Objective - Vital Signs/Intake and Output Vital Signs (last 24 hours): Temp Pulse Resp BP Pulse Ox 98.6 F 109 H 20 138/94 H 95 09/11/16 16:44 09/11/16 16:44 09/11/16 16:44 09/11/16 16:44 09/11/16 16:44 Intake and Output: 09/11/16 09/12/16 18:59 06:59 Intake Total 1136 Balance 1136 - Medications Medications: Current Medications Benzocaine/Menthol (Cepacol Sore Throat) 1 carlos MT Q2 PRN PRN Reason: Sore Throat Enoxaparin Sodium (Lovenox) 40 mg SC DAILY [facility] Last Admin: 09/11/16 10:29 Dose: 40 mg Ferrous Sulfate (Feosol) 325 mg PO DAILY [facility] Last Admin: 09/11/16 09:44 Dose: Not Given Hydromorphone HCl (Dilaudid) 0.5 mg IVP Q4H PRN PRN Reason: Pain, severe (8-10) Last Admin: 09/11/16 21:43 Dose: 0.5 mg Piperacillin Sod/Tazobactam (Sod 3.375 gm/ Sodium Chloride) 100 mls @ 200 mls/ hr IVPB Q8H [facility] Last Admin: 09/10/16 16:49 Dose: 200 mls/hr Potassium Chloride 40 meq/ (Sodium Chloride) 1,020 mls @ 100 mls/hr IV .[id number] [facility] Last Admin: 09/11/16 19:30 Dose: Not Given Chromium/Copper/Manganese/ (Seleni/Zn 1 ml/ Amino Acids) 1,001 mls @ 42 mls/hr IV .[id number] [facility] Stop: 09/12/16 17:49 Last Admin: 09/11/16 18:10 Dose: 42 mls/hr Fat Emulsion Intravenous (Intralipid 20%) 250 mls @ 42 mls/hr IV TTS@1800 [facility] Stop: 09/15/16 23:58 Magnesium Oxide (Mag-Ox) 800 mg PO TID [facility] Last Admin: 09/11/16 17:45 Dose: Not Given Metoprolol Tartrate (Lopressor) 2.5 mg IVP Q15M PRN PRN Reason: elevated BP and tachycardia Last Admin: 09/07/16 16:40 Dose: 2.5 mg Multivitamins (Hexavitamin) 1 tab PO DAILY [facility] Last Admin: 09/11/16 10:58 Dose: Not Given Ondansetron HCl (Zofran Inj) 4 mg IVP Q4H PRN PRN Reason: Nausea/Vomiting Last Admin: 09/11/16 21:57 Dose: 4 mg Pantoprazole Sodium (Protonix Inj) 40 mg IVP DAILY [facility] Last Admin: 09/11/16 09:32 Dose: 40 mg Potassium Phos/Sodium Phos (Neutra-Phos) 1 pkt PO TID [facility] Last Admin: 09/11/16 17:44 Dose: Not Given Sodium Chloride (Sodium Chloride Tab) 1 gm PO DAILY [facility] Last Admin: 09/11/16 09:45 Dose: Not Given - Labs Labs: 09/11/16 07:33 09/11/16 07:33 PT 16.3 SECONDS (9.7-12.2) H 08/31/16 06:25 INR 1.4 08/31/16 06:25 APTT 26 SECONDS (21-34) 08/29/16 21:20 - Constitutional Appears: Toxic, Older Than Stated Age, Cachectic - Head Exam Head Exam: ATRAUMATIC, NORMOCEPHALIC - Eye Exam Eye Exam: EOMI, PERRL - ENT Exam ENT Exam: Mucous Membranes Moist. absent: Mucous Membranes Dry - Respiratory Exam Respiratory Exam: Clear to Ausculation Bilateral. absent: Rales, Rhonchi, Wheezes - Cardiovascular Exam Cardiovascular Exam: +S1, +S2 - GI/Abdominal Exam GI & Abdominal Exam: Soft, Tenderness. absent: Distended - Extremities Exam Extremities Exam: Full ROM. absent: Pedal Edema - Neurological Exam Neurological Exam: Alert, Awake, Oriented x3 - Psychiatric Exam Psychiatric exam: Normal Affect, Normal Mood - Skin Skin Exam: Pallor Assessment and Plan - Assessment and Plan (Free Text) Assessment: Gastric Cancer: Stool occult blood positive GI, Dr. Mares, consulted. Help appreciated. CT Chest/Abd/Pelvis - extensive mucosal thickening of the stomach; free fluid in the abdomen and pelvis; enapsulation of fluid in the pelvis which is worrisome for abscess; sclerotic lesion within left pelvis, metastatic disease not excluded; enlarged prostate gland, mediastinal and hilar adenopathy; mucosal thickening of the appendix (please see full report) General surgery, Dr. Ham, consulted. Help appreciated. Heme/onc, Dr. Mckoy, consulted. Help appreciated. Morphine prn for pain Zofran prn for nausea s/p paracentesis with IR on 08/31, Dr. Wang. s/p EGD on 09/[address] Cobian, EGD findings reveal malignant tumor on the gastric body (please see full report). 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 Ham on 09/12 Pt started on PPN with lipid infusion at standard infusion rate Pt not tolerating oral medications NPO for OR oscar for revision o fJ tube SIRS: Febrile overnight, Tmax 100.7 Zosyn restarted Electrolyte Imbalance: Mg 1.3 Mg 1 gm in D5 x 2 bags Mg 800 po tid Neutraphos 1 packet po tid Pt day 2 s/p J tube placement - J tube not working properly, surgery informed, will follow surgery plans Pt started on PPN with lipid infusion at standard infusion rate Pt not tolerating oral medications NPO for OR oscar for revision o fJ tube Anemia: Hgb 7.8 today, trend daily FOBT + Iron, TIBC, %satuation, ferritin low Feosol 325 mg po qd Prophylactic Measures: DVT: SCDs, chemical anticoagulation held due to anemia and positive stool occult blood GI: Protonix 40 mg IV qd
[2016-09-12] MEDS: HYDROmorphone 0.5 mg/0.5 ml ISec IVP PRN (05:45)
[2016-09-12 07:14] LABS: INR 1.1
[2016-09-12 07:15] LABS: HEMATOCRIT 20.2 % (35.0-51.0); MEAN CELL VOLUME 83.1 fL (80.0-94.0); MEAN CORPUSCULAR HEMOGLOBIN 28.4 pg (27.0-31.0); MEAN CORPUSCULAR HGB CONC 34.2 g/dL (33.0-37.0); MEAN PLATELET VOLUME 6.8 fL (7.2-11.7); RED CELL DISTRIBUTION WIDTH 21.2 % (11.5-14.5); WHITE BLOOD COUNT 6.5 K/uL (4.8-10.8)
[2016-09-12 07:23] LABS: CHLORIDE 93 mmol/L (98-107); POTASSIUM 3.5 mmol/L (3.6-5.2); SODIUM 128 mmol/L (132-148)
[2016-09-12 07:25] LABS: ALB/GLOB RATIO 0.9 (1.0-2.1); ALKALINE PHOSPHATASE 56 U/L (38-126); AST/SGOT 30 U/L (17-59); BILIRUBIN,TOTAL 0.6 mg/dL (0.2-1.3); CARBON DIOXIDE 30 mmol/L (22-30); GFR AFRICAN-AMERICAN > 60; TOTAL PROTEIN 5.3 g/dL (6.3-8.3)
[2016-09-12 07:26] LABS: ALT/SGPT 11 U/L (21-72); BLOOD UREA NITROGEN 18 mg/dL (9-20); CALCIUM 7.5 mg/dl (8.6-10.4); GLUCOSE,RANDOM 94 mg/dL (75-110)
[2016-09-12] MEDS ORDERED: Potassium Chloride 20 mEq ER Tab PO ONE (08:40)
[2016-09-12 09:07] LABS: MAGNESIUM 1.1 mg/dL (1.6-2.3)
[2016-09-12] MEDS: Magnesium Oxide 400 mg Tab UD PO SCH ×3 (09:43→18:24)
[2016-09-12] MEDS: Potassium & Sodium Phosphate PO SCH ×3 (09:43→18:24)
[2016-09-12] MEDS: Multiple Vitamins Tab PO SCH (09:43)
[2016-09-12] MEDS: Magnesium Sulfate 1 gm in D5W 1 GM/100 ML BAG IVPB SCH ×4 (10:53→13:10)
--- NOTE | 2016-09-12 14:19 | CP.PCM.PN ---
<AubreyDanika - Last Filed: 09/12/16 14:27> Subjective - Date & Time of Evaluation Date of Evaluation: 09/12/16 Time of Evaluation: 07:35 - Subjective Subjective: Pt seen and examined. Pt reports that he feels nauseous and has had two episode of vomiting saliva overnight. Pt reports that he has pain sight pain in the abdomen that is about a 3/10 in nature. Pt denies fever, chills, chest pain, shortness of breath. He is for the OR today for revision of G tube. Objective - Vital Signs/Intake and Output Vital Signs (last 24 hours): Temp Pulse Resp BP Pulse Ox 99.1 F 96 H 18 144/96 H 100 09/12/16 13:22 09/12/16 13:22 09/12/16 13:22 09/12/16 13:09/12/16 08:00 Intake and Output: 09/12/16 09/12/16 06:59 18:59 Intake Total 2272 375 Output Total 325 Balance 1947 375 - Medications Medications: Current Medications Benzocaine/Menthol (Cepacol Sore Throat) 1 carlos MT Q2 PRN PRN Reason: Sore Throat Enoxaparin Sodium (Lovenox) 40 mg SC DAILY [facility] Last Admin: 09/11/16 10:29 Dose: 40 mg Ferrous Sulfate (Feosol) 325 mg PO DAILY [facility] Last Admin: 09/12/16 09:43 Dose: Not Given Hydromorphone HCl (Dilaudid) 0.5 mg IVP Q4H PRN PRN Reason: Pain, severe (8-10) Last Admin: 09/12/16 05:45 Dose: 0.5 mg Piperacillin Sod/Tazobactam (Sod 3.375 gm/ Sodium Chloride) 100 mls @ 200 mls/ hr IVPB Q8H [facility] Last Admin: 09/10/16 16:49 Dose: 200 mls/hr Potassium Chloride 40 meq/ (Sodium Chloride) 1,020 mls @ 100 mls/hr IV .[id number] [facility] Last Admin: 09/12/16 13:12 Dose: 100 mls/hr Chromium/Copper/Manganese/ (Seleni/Zn 1 ml/ Amino Acids) 1,001 mls @ 42 mls/hr IV .[id number] ONE Stop: 09/12/16 17:49 Last Admin: 09/11/16 18:10 Dose: 42 mls/hr Fat Emulsion Intravenous (Intralipid 20%) 250 mls @ 42 mls/hr IV TTS@1800 [facility] Stop: 09/15/16 23:58 Chromium/Copper/Manganese/Zinc 1 ml/ Multivitamins/Vitamin C 10 ml/ Amino Acids 1,011 mls @ 42 mls/hr IV .Q24H ONE Stop: 09/13/16 17:59 Magnesium Oxide (Mag-Ox) 800 mg PO TID [facility] Last Admin: 09/12/16 13:26 Dose: Not Given Metoprolol Tartrate (Lopressor) 2.5 mg IVP Q15M PRN PRN Reason: elevated BP and tachycardia Last Admin: 09/07/16 16:40 Dose: 2.5 mg Multivitamins (Hexavitamin) 1 tab PO DAILY [facility] Last Admin: 09/12/16 09:43 Dose: Not Given Ondansetron HCl (Zofran Inj) 4 mg IVP Q4H PRN PRN Reason: Nausea/Vomiting Last Admin: 09/12/16 09:48 Dose: 4 mg Pantoprazole Sodium (Protonix Inj) 40 mg IVP DAILY [facility] Last Admin: 09/12/16 09:43 Dose: 40 mg Potassium Phos/Sodium Phos (Neutra-Phos) 1 pkt PO TID [facility] Last Admin: 09/12/16 13:27 Dose: Not Given Sodium Chloride (Sodium Chloride Tab) 1 gm PO DAILY [facility] Last Admin: 09/12/16 09:44 Dose: Not Given - Labs Labs: 09/12/16 06:56 09/12/16 06:56 PT 12.2 SECONDS (9.7-12.2) 09/12/16 06:56 INR 1.1 09/12/16 06:56 APTT 27 SECONDS (21-34) 09/12/16 06:56 - Constitutional Appears: Non-toxic, No Acute Distress, Chronically Ill - Head Exam Head Exam: ATRAUMATIC, NORMAL INSPECTION - Eye Exam Eye Exam: EOMI, Normal appearance, PERRL Pupil Exam: NORMAL ACCOMODATION - ENT Exam ENT Exam: Mucous Membranes Moist - Respiratory Exam Respiratory Exam: Clear to Ausculation Bilateral, NORMAL BREATHING PATTERN. absent: Accessory Muscle Use, Rales, Wheezes, Respiratory Distress - Cardiovascular Exam Cardiovascular Exam: REGULAR RHYTHM, +S1, +S2 - GI/Abdominal Exam GI & Abdominal Exam: Soft, Tenderness, Normal Bowel Sounds. absent: Distended, Firm, Guarding - Extremities Exam Extremities Exam: Normal Inspection. absent: Calf Tenderness, Pedal Edema - Back Exam Back Exam: NORMAL INSPECTION. absent: CVA tenderness (L), CVA tenderness (R), paraspinal tenderness - Neurological Exam Neurological Exam: Alert, Awake, Oriented x3 - Psychiatric Exam Psychiatric exam: Normal Affect, Normal Mood - Skin Skin Exam: Dry, Intact, Normal Color, Warm Assessment and Plan - Assessment and Plan (Free Text) Assessment: 31 year old male with gastric cancer and SIRS on admission: Plan: Gastric Cancer: For OR today for revision of G tube Stool occult blood positive GI, Dr. Mares, consulted. Help appreciated. CT Chest/Abd/Pelvis - extensive mucosal thickening of the stomach; free fluid in the abdomen and pelvis; enapsulation of fluid in the pelvis which is worrisome for abscess; sclerotic lesion within left pelvis, metastatic disease not excluded; enlarged prostate gland, mediastinal and hilar adenopathy; mucosal thickening of the appendix (please see full report) General surgery, Dr. Ham, consulted. Help appreciated. Heme/onc, Dr. Mckoy, consulted. Help appreciated. Morphine prn for pain Zofran prn for nausea s/p paracentesis with IR on 08/31, Dr. Wang. s/p EGD on 09/[address] Cobian, EGD findings reveal malignant tumor on the gastric body (please see full report). 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 Ham on 09/12 Pt started on PPN with lipid infusion at standard infusion rate Pt not tolerating oral medications NPO for OR oscar for revision o fJ tube SIRS: Resolving Afebrile for 24 hours Zosyn restarted Blood cultures negative after 24 hours WBC wnl Electrolyte Imbalance: Mg 1.1 Mg 1 gm in D5 x 2 bags - will follow up repeat labs Mg 800 po tid Neutraphos 1 packet po tid Pt day 2 s/p J tube placement - J tube not working properly, surgery informed, will follow surgery plans Pt started on PPN with lipid infusion at standard infusion rate Pt not tolerating oral medications Anemia: Hgb 6.9 today from 7.8 today, trend daily Will recieve 2 Units PRBC today f/u repeat CBC FOBT + Iron, TIBC, %satuation, ferritin low Feosol 325 mg po qd Prophylactic Measures: DVT: SCDs, chemical anticoagulation held due to anemia and positive stool occult blood GI: Protonix 40 mg IV qd <Beto Sage M - Last Filed: 09/12/16 16:56> Objective - Vital Signs/Intake and Output Vital Signs (last 24 hours): Temp Pulse Resp BP Pulse Ox 99.1 F 96 H 18 144/96 H 100 09/12/16 13:22 09/12/16 13:22 09/12/16 13:22 09/12/16 13:22 09/12/16 08:00 Intake and Output: 09/12/16 09/12/16 06:59 18:59 Intake Total 2272 375 Output Total 325 Balance 1947 375 - Medications Medications: Current Medications Benzocaine/Menthol (Cepacol Sore Throat) 1 carlos MT Q2 PRN PRN Reason: Sore Throat Enoxaparin Sodium (Lovenox) 40 mg SC DAILY [facility] Last Admin: 09/11/16 10:29 Dose: 40 mg Ferrous Sulfate (Feosol) 325 mg PO DAILY [facility] Last Admin: 09/12/16 09:43 Dose: Not Given Hydromorphone HCl (Dilaudid) 0.5 mg IVP Q4H PRN PRN Reason: Pain, severe (8-10) Last Admin: 09/12/16 05:45 Dose: 0.5 mg Piperacillin Sod/Tazobactam (Sod 3.375 gm/ Sodium Chloride) 100 mls @ 200 mls/ hr IVPB Q8H [facility] Last Admin: 09/10/16 16:49 Dose: 200 mls/hr Potassium Chloride 40 meq/ (Sodium Chloride) 1,020 mls @ 100 mls/hr IV .[id number] [facility] Last Admin: 09/12/16 13:12 Dose: 100 mls/hr Chromium/Copper/Manganese/ (Seleni/Zn 1 ml/ Amino Acids) 1,001 mls @ 42 mls/hr IV .[id number] ONE Stop: 09/12/16 17:49 Last Admin: 09/11/16 18:10 Dose: 42 mls/hr Fat Emulsion Intravenous (Intralipid 20%) 250 mls @ 42 mls/hr IV TTS@1800 [facility] Stop: 09/15/16 23:58 Chromium/Copper/Manganese/Zinc 1 ml/ Multivitamins/Vitamin C 10 ml/ Amino Acids 1,011 mls @ 42 mls/hr IV .Q24H ONE Stop: 09/13/16 17:59 Magnesium Oxide (Mag-Ox) 800 mg PO TID [facility] Last Admin: 09/12/16 13:26 Dose: Not Given Metoprolol Tartrate (Lopressor) 2.5 mg IVP Q15M PRN PRN Reason: elevated BP and tachycardia Last Admin: 09/07/16 16:40 Dose: 2.5 mg Multivitamins (Hexavitamin) 1 tab PO DAILY [facility] Last Admin: 09/12/16 09:43 Dose: Not Given Ondansetron HCl (Zofran Inj) 4 mg IVP Q4H PRN PRN Reason: Nausea/Vomiting Last Admin: 09/12/16 09:48 Dose: 4 mg Pantoprazole Sodium (Protonix Inj) 40 mg IVP DAILY [facility] Last Admin: 09/12/16 09:43 Dose: 40 mg Potassium Phos/Sodium Phos (Neutra-Phos) 1 pkt PO TID [facility] Last Admin: 09/12/16 13:27 Dose: Not Given Sodium Chloride (Sodium Chloride Tab) 1 gm PO DAILY [facility] Last Admin: 09/12/16 09:44 Dose: Not Given - Labs Labs: 09/12/16 06:56 09/12/16 06:56 PT 12.2 SECONDS (9.7-12.2) 09/12/16 06:56 INR 1.1 09/12/16 06:56 APTT 27 SECONDS (21-34) 09/12/16 06:56 Attending/Attestation - Attestation I have personally seen and examined this patient.: Yes I have fully participated in the care of the patient.: Yes I have reviewed all pertinent clinical information, including history, physical exam and plan: Yes Notes (Text): 09/12/16 16:53 Patient was seen and examined at bedside. Plan for revision of G-tube today. Patient is not tolerating any oral feeding. Continue IV fluids. Continue pain management as needed. We will discuss with oncology regarding the plan for treatment of gastric carcinoma. Discussed the plan of care with the resident and agree with the above history and physical and assessment/plan by the resident.
[2016-09-12] MEDS ORDERED: ceFAZolin IV 1 gm in Dextrose 1 GM/50 ML BAG IVPB ONE (15:28)
[2016-09-12] MEDS ORDERED: metroNIDAZOLE IV 500 mg/100 ml 500 MG/100 ML BAG ONE (15:28)
[2016-09-12] MEDS ORDERED: Lidocaine Hydrochloride 5 ML INJ ONE (15:32)
[2016-09-12] MEDS ORDERED: Midazolam 2 MG/2 ML VIAL ONE (15:32)
[2016-09-12] MEDS ORDERED: Succinylcholine Chloride 20 mg/ml Syr (5 ml) IV ONE (15:32)
[2016-09-12] MEDS ORDERED: Propofol 10 mg/ml Inj (20 ML) ONE (15:39)
[2016-09-12] MEDS ORDERED: Iohexol 240 (50 ml) ONE (15:57)
[2016-09-12] MEDS ORDERED: Rocuronium 10 mg/ml (10 ml) ONE (16:21)
[2016-09-12] MEDS ORDERED: Morphine 4 MG/ML VIAL ONE (16:24)
[2016-09-12] MEDS ORDERED: Neostigmine Methylsulfate 3mg/3ml Syringe IV ONE (16:57)
--- NOTE | 2016-09-12 17:38 | PCM.SURG1 ---
Surgeon's Initial Post Op Note - Surgeon's Notes Surgeon: Jitendra Computer Clerk: Ulises PGY2 Type of Anesthesia: General Endo Pre-Operative Diagnosis: Gastric CA w. J-tube malfunction Operative Findings: kinked J-tube, large amount of ascites Post-Operative Diagnosis: same Operation Performed: revision of J-tube Specimen/Specimens Removed: none Estimated Blood Loss: EBL {In ML}: 10 Blood Products Given: N/A Drains Used: No Drains Post-Op Condition: Good Date of Surgery/Procedure: 09/12/16 Time of Surgery/Procedure: 17:38
[2016-09-12] MEDS: HYDROmorphone 1 mg/ml ISec IVP PRN ×2 (17:52→18:23)
[2016-09-12] MEDS ORDERED: PPN#3 IV ONE (18:00)
[2016-09-12] MEDS: Lactated Ringer's 1,000 ML IV SCH (19:29)
[2016-09-12] MEDS: Metoprolol 1 mg/ml Inj IVP PRN (20:59)
[2016-09-12 21:20] LABS: BASO % 0.2 % (0.0-2.0); EOS # 0.2 K/uL (0.0-0.7); EOS % 2.9 % (0.0-4.0); LYMPH # 1.4 K/uL (1.0-4.3); LYMPH % 19.5 % (20.0-40.0); MEAN CELL VOLUME 82.4 fL (80.0-94.0); MEAN CORPUSCULAR HEMOGLOBIN 28.6 pg (27.0-31.0); MEAN CORPUSCULAR HGB CONC 34.7 g/dL (33.0-37.0); MEAN PLATELET VOLUME 6.8 fL (7.2-11.7); MONO # 0.3 K/uL (0.0-0.8); MONO % 4.1 % (0.0-10.0); NRBC % 0.1 % (0.0-2.0); RED CELL DISTRIBUTION WIDTH 18.3 % (11.5-14.5)
[2016-09-12 21:30] LABS: MAGNESIUM 1.3 mg/dL (1.6-2.3)
[2016-09-13] MEDS: Lactated Ringer's 1,000 ML IV SCH ×6 (00:40→21:18)
[2016-09-13] MEDS: HYDROmorphone 0.5 mg/0.5 ml ISec IVP PRN ×2 (01:12→10:08)
--- NOTE | 2016-09-13 03:27 | OP ---
PROCEDURE DATE: 09/12/2016 PREOPERATIVE DIAGNOSES: 1. Nonfunctioning J-tube. 2. Stage IV gastric cancer with ascites. POSTOPERATIVE DIAGNOSES: 1. Nonfunctioning J-tube. 2. Stage IV gastric cancer with ascites. PROCEDURE DONE: 1. Revision and replacement of the J-tube. 2. Drainage of malignant ascites. 3. Intraoperative fluoroscopy for confirmation of proper J tube function. SURGEON: Moisés Ham MD DIRECTOR OF PULMONARY UNIT: [facility] ANESTHESIA: General endotracheal tube anesthesia. ESTIMATED BLOOD LOSS: Around 20 mL. DRAINS: None. PATHOLOGY: None. COMPLICATIONS: None. INTRAOPERATIVE FINDINGS: The patient had kinked J-tube and Malignant ascites. INTRAOPERATIVE STEPS: This 31-year-old male who was diagnosed with nonfunctioning J-tube and patient was consented for revision of the J-tube with the intraoperative fluoroscopy and patient was brought to the OR, placed supine on the operating table. After induction of the anesthesia, abdomen was prepped and draped in the usual sterile fashion. Intraoperative fluoroscopy was done after placing the guide wire and the J-tube was tried unkink and, after unsuccessful attempt, exploratory laparotomy incision was opened up and the fascial sutures were taken down. The peritoneal cavity was entered and the fixation sutures were taken down and red rubber catheter was taken down from the original insertion site to new most lateral insertion site and the whiztle tunnel part of the J-tube was transfixed to the anterior abdominal wall nearby insertion site. Now, again, intraoperative fluoroscopy was done to confirm proper functioning of the J-tube and, after that drainage bag was applied to the tube and wound and the peritoneal cavity was irrigated and wound was closed in 2 layers, the fascia with #1 looped PDS, as well as with #1 Prolene interrupted sutures and skin with the radhika and dry sterile dressing was applied. The patient tolerated the procedure well. Count of instruments and gauze was correct. There were no apparent complications. Moisés Ham MD cc: [id number] TT: 09/13/2016 03:26:01 ak NAILA
[2016-09-13 06:33] LABS: BASO # 0.1 K/uL (0.0-0.2); BASO % 0.9 % (0.0-2.0); EOS # 0.1 K/uL (0.0-0.7); EOS % 0.7 % (0.0-4.0); HEMATOCRIT 36.8 % (35.0-51.0); LYMPH # 0.8 K/uL (1.0-4.3); LYMPH % 8.8 % (20.0-40.0); MEAN CELL VOLUME 82.6 fL (80.0-94.0); MEAN CORPUSCULAR HEMOGLOBIN 28.1 pg (27.0-31.0); MEAN PLATELET VOLUME 6.8 fL (7.2-11.7); MONO # 0.4 K/uL (0.0-0.8); MONO % 4.2 % (0.0-10.0); PLATELET COUNT 201 K/uL (130-400); RED CELL DISTRIBUTION WIDTH 18.3 % (11.5-14.5); WHITE BLOOD COUNT 9.5 K/uL (4.8-10.8)
[2016-09-13 06:40] LABS: CHLORIDE 96 mmol/L (98-107)
[2016-09-13 06:41] LABS: POTASSIUM 3.9 mmol/L (3.6-5.2); SODIUM 128 mmol/L (132-148)
[2016-09-13 06:43] LABS: ALB/GLOB RATIO 0.8 (1.0-2.1); ALKALINE PHOSPHATASE 64 U/L (38-126); AST/SGOT 32 U/L (17-59); BILIRUBIN,TOTAL 0.9 mg/dL (0.2-1.3); BLOOD UREA NITROGEN 17 mg/dL (9-20); CARBON DIOXIDE 24 mmol/L (22-30); GFR AFRICAN-AMERICAN > 60; GLUCOSE,RANDOM 89 mg/dL (75-110); TOTAL PROTEIN 4.9 g/dL (6.3-8.3)
[2016-09-13 06:44] LABS: ALT/SGPT 19 U/L (21-72); CALCIUM 7.6 mg/dl (8.6-10.4); PHOSPHOROUS 3.7 mg/dL (2.5-4.5)
[2016-09-13 07:05] LABS: THYROID STIMULATING HORMONE 3.76 mIU/L (0.46-4.68)
[2016-09-13 07:19] LABS: MAGNESIUM 0.9 mg/dL (1.6-2.3)
[2016-09-13] MEDS: Magnesium Sulfate 1 gm in D5W 1 GM/100 ML BAG IVPB SCH ×4 (07:36→11:12)
[2016-09-13 08:41] LABS: EOSINOPHIL 1 % (0-4); NEUTROPHIL 89 % (50-75); TOTAL CELLS COUNTED 100
[2016-09-13] MEDS: Potassium & Sodium Phosphate PO SCH ×3 (09:17→17:42)
[2016-09-13] MEDS: Multiple Vitamins Tab PO SCH (09:17)
[2016-09-13] MEDS: Magnesium Oxide 400 mg Tab UD PO SCH ×3 (09:18→17:41)
[2016-09-13] MEDS ORDERED: Metoprolol Succinate 12.5 mg XL PO SCH (10:00)
--- NOTE | 2016-09-13 10:48 | CP.PCM.PN ---
<Crow Montgomery - Last Filed: 09/13/16 10:43> Subjective - Date & Time of Evaluation Date of Evaluation: 09/13/16 Time of Evaluation: 10:43 - Subjective Subjective: Surgery: Dr. Ham Pt seen and examined. Resting comfortably in bed. Pain controlled w. HISTOLOGY AIDE. Decreased appetite. J-Tube is functioning. Objective - Vital Signs/Intake and Output Vital Signs (last 24 hours): Temp Pulse Resp BP Pulse Ox 97.5 F L 138 H 20 130/97 H 98 09/12/16 23:00 09/13/16 08:00 09/12/16 23:00 09/12/16 23:00 09/12/16 23:00 Intake and Output: 09/13/16 09/13/16 06:59 18:59 Intake Total 1450 Balance 1450 - Medications Medications: Current Medications Benzocaine/Menthol (Cepacol Sore Throat) 1 carlos MT Q2 PRN PRN Reason: Sore Throat Enoxaparin Sodium (Lovenox) 40 mg SC DAILY [facility] Last Admin: 09/11/16 10:29 Dose: 40 mg Ferrous Sulfate (Feosol) 325 mg PO DAILY [facility] Last Admin: 09/13/16 09:16 Dose: 325 mg Hydromorphone HCl (Dilaudid) 0.5 mg IVP Q4H PRN PRN Reason: Pain, severe (8-10) Last Admin: 09/13/16 10:08 Dose: 0.5 mg Hydromorphone/Sodium Chloride (Dilaudid [employer]) 6 mg IV Q4H PRN; Protocol PRN Reason: Pain, moderate (4-7) Last Admin: 09/13/16 08:48 Dose: 6 mg Piperacillin Sod/Tazobactam (Sod 3.375 gm/ Sodium Chloride) 100 mls @ 200 mls/ hr IVPB Q8H [facility] Last Admin: 09/10/16 16:49 Dose: 200 mls/hr Chromium/Copper/Manganese/Zinc 1 ml/ Multivitamins/Vitamin C 10 ml/ Amino Acids 1,011 mls @ 42 mls/hr IV .Q24H ONE Stop: 09/13/16 17:59 Last Admin: 09/12/16 19:29 Dose: 42 mls/hr Lactated Ringer's (Lactated Ringer's) 1,000 mls @ 150 mls/hr IV .Q6H40M [facility] Last Admin: 09/13/16 09:01 Dose: 150 mls/hr Magnesium Sulfate/Dextrose (Magnesium Sulfate 1 Gm/100 Ml D5w) 1 gm in 100 mls @ 100 mls/hr IVPB Q1H [facility] Stop: 09/13/16 11:29 Last Admin: 09/13/16 10:08 Dose: 100 mls/hr Magnesium Oxide (Mag-Ox) 800 mg PO TID [facility] Last Admin: 09/13/16 09:18 Dose: 800 mg Metoprolol Succinate (Toprol Xl) 12.5 mg PO BID [facility] Last Admin: 09/13/16 10:14 Dose: Not Given Multivitamins (Hexavitamin) 1 tab PO DAILY [facility] Last Admin: 09/13/16 09:17 Dose: 1 tab Ondansetron HCl (Zofran Inj) 4 mg IVP Q4H PRN PRN Reason: Nausea/Vomiting Last Admin: 09/13/16 07:38 Dose: 4 mg Pantoprazole Sodium (Protonix Inj) 40 mg IVP DAILY [facility] Last Admin: 09/13/16 09:18 Dose: 40 mg Potassium Phos/Sodium Phos (Neutra-Phos) 1 pkt PO TID [facility] Last Admin: 09/13/16 09:17 Dose: 1 pkt Sodium Chloride (Sodium Chloride Tab) 1 gm PO DAILY [facility] Last Admin: 09/13/16 09:18 Dose: 1 gm - Labs Labs: 09/13/16 06:15 09/13/16 06:15 PT 12.2 SECONDS (9.7-12.2) 09/12/16 06:56 INR 1.1 09/12/16 06:56 APTT 27 SECONDS (21-34) 09/12/16 06:56 - Constitutional Appears: No Acute Distress, Cachectic - Head Exam Head Exam: ATRAUMATIC, NORMOCEPHALIC - Eye Exam Eye Exam: EOMI - ENT Exam ENT Exam: Mucous Membranes Moist - Neck Exam Neck Exam: Full ROM - Respiratory Exam Respiratory Exam: absent: Accessory Muscle Use, Respiratory Distress, NORMAL BREATHING PATTERN - GI/Abdominal Exam GI & Abdominal Exam: Soft, Tenderness (porsche-incisional ). absent: Distended, Firm, Guarding, Rigid, Rebound Additional comments: L mid-abd J-Tube output Dressing in place, C/D/I - Extremities Exam Extremities Exam: absent: Calf Tenderness, Pedal Edema - Neurological Exam Neurological Exam: Alert, Awake, Oriented x3 Assessment and Plan - Assessment and Plan (Free Text) Assessment: 31M w. gastric CA, w. J-tube placement and revision, POD#1 -Ok to use J-tube -c/w pain management -monitor incision -d/w attending Ulises PGY2 <Moisés Ham B - Last Filed: 09/13/16 21:50> Objective - Vital Signs/Intake and Output Vital Signs (last 24 hours): Temp Pulse Resp BP Pulse Ox 98.2 F 137 H 20 136/95 H 98 09/13/16 15:00 09/13/16 16:00 09/13/16 15:00 09/13/16 15:00 09/13/16 15:00 Intake and Output: 09/13/16 09/14/16 18:59 06:59 Intake Total 1280 Output Total 1010 Balance 270 - Medications Medications: Current Medications Benzocaine/Menthol (Cepacol Sore Throat) 1 carlos MT Q2 PRN PRN Reason: Sore Throat Enoxaparin Sodium (Lovenox) 40 mg SC DAILY [facility] Last Admin: 09/11/16 10:29 Dose: 40 mg Ferrous Sulfate (Feosol) 325 mg PO DAILY [facility] Last Admin: 09/13/16 09:16 Dose: 325 mg Hydromorphone HCl (Dilaudid) 0.5 mg IVP Q4H PRN PRN Reason: Pain, severe (8-10) Last Admin: 09/13/16 10:08 Dose: 0.5 mg Hydromorphone/Sodium Chloride (Dilaudid [employer]) 6 mg IV Q4H PRN; Protocol PRN Reason: Pain, moderate (4-7) Last Admin: 09/13/16 21:15 Dose: 6 mg Piperacillin Sod/Tazobactam (Sod 3.375 gm/ Sodium Chloride) 100 mls @ 200 mls/ hr IVPB Q8H [facility] Last Admin: 09/10/16 16:49 Dose: 200 mls/hr Lactated Ringer's (Lactated Ringer's) 1,000 mls @ 150 mls/hr IV .Q6H40M [facility] Last Admin: 09/13/16 21:18 Dose: 150 mls/hr Chromium/Copper/Manganese/Zinc 1 ml/ Multivitamins/Vitamin C 10 ml/ Amino Acids 1,011 mls @ 42 mls/hr IV .Q24H ONE Stop: 09/14/16 17:59 Last Admin: 09/13/16 17:36 Dose: 42 mls/hr Magnesium Oxide (Mag-Ox) 800 mg PO TID [facility] Last Admin: 09/13/16 17:41 Dose: 800 mg Multivitamins (Hexavitamin) 1 tab PO DAILY [facility] Last Admin: 09/13/16 09:17 Dose: 1 tab Ondansetron HCl (Zofran Inj) 4 mg IVP Q4H PRN PRN Reason: Nausea/Vomiting Last Admin: 09/13/16 20:45 Dose: 4 mg Pantoprazole Sodium (Protonix Inj) 40 mg IVP DAILY [facility] Last Admin: 09/13/16 09:18 Dose: 40 mg Potassium Phos/Sodium Phos (Neutra-Phos) 1 pkt PO TID [facility] Last Admin: 09/13/16 17:42 Dose: 1 pkt Sodium Chloride (Sodium Chloride Tab) 1 gm PO DAILY [facility] Last Admin: 09/13/16 09:18 Dose: 1 gm - Labs Labs: 09/13/16 06:15 09/13/16 06:15 PT 12.2 SECONDS (9.7-12.2) 09/12/16 06:56 INR 1.1 09/12/16 06:56 APTT 27 SECONDS (21-34) 09/12/16 06:56 Attending/Attestation - Attestation I have personally seen and examined this patient.: Yes I have fully participated in the care of the patient.: Yes I have reviewed all pertinent clinical information, including history, physical exam and plan: Yes Notes (Text): 09/13/16 21:50 Pt was seen and examined at bedside on 09/13/16 Agree with above note and assessment
--- NOTE | 2016-09-13 12:01 | RAD ---
PROCEDURE: Intraoperative Fluoroscopy. HISTORY: GASTRIC CA FINDINGS: Fluoroscopic assistance was provided Please refer to the operative
--- NOTE | 2016-09-13 12:37 | CP.PCM.PN ---
<Danika Burgos - Last Filed: 09/13/16 12:41> Subjective - Date & Time of Evaluation Date of Evaluation: 09/13/16 Time of Evaluation: 07:10 - Subjective Subjective: Pt seen and examined. Pt reports that he feels nauseous and has had two episode of vomiting saliva overnight. Pt reports that he has pain in the abdomen. He is on GUE[employer] RE[employer] RUNNER pump post OR revision of J tube yesterday. Pt denies fever, chills, chest pain, shortness of breath. He can't tolerate anything PO. Objective - Vital Signs/Intake and Output Vital Signs (last 24 hours): Temp Pulse Resp BP Pulse Ox 97.7 F 138 H 18 134/90 97 09/13/16 07:30 09/13/16 08:00 09/13/16 07:30 09/13/16 07:30 09/13/16 07:30 Intake and Output: 09/13/16 09/13/16 06:59 18:59 Intake Total 1450 Balance 1450 - Medications Medications: Current Medications Benzocaine/Menthol (Cepacol Sore Throat) 1 carlos MT Q2 PRN PRN Reason: Sore Throat Enoxaparin Sodium (Lovenox) 40 mg SC DAILY [facility] Last Admin: 09/11/16 10:29 Dose: 40 mg Ferrous Sulfate (Feosol) 325 mg PO DAILY [facility] Last Admin: 09/13/16 09:16 Dose: 325 mg Hydromorphone HCl (Dilaudid) 0.5 mg IVP Q4H PRN PRN Reason: Pain, severe (8-10) Last Admin: 09/13/16 10:08 Dose: 0.5 mg Hydromorphone/Sodium Chloride (Dilaudid Boat Assembler) 6 mg IV Q4H PRN; Protocol PRN Reason: Pain, moderate (4-7) Last Admin: 09/13/16 08:48 Dose: 6 mg Piperacillin Sod/Tazobactam (Sod 3.375 gm/ Sodium Chloride) 100 mls @ 200 mls/ hr IVPB Q8H [facility] Last Admin: 09/10/16 16:49 Dose: 200 mls/hr Chromium/Copper/Manganese/Zinc 1 ml/ Multivitamins/Vitamin C 10 ml/ Amino Acids 1,011 mls @ 42 mls/hr IV .Q24H ONE Stop: 09/13/16 17:59 Last Admin: 09/12/16 19:29 Dose: 42 mls/hr Lactated Ringer's (Lactated Ringer's) 1,000 mls @ 150 mls/hr IV .Q6H40M [facility] Last Admin: 09/13/16 09:01 Dose: 150 mls/hr Chromium/Copper/Manganese/Zinc 1 ml/ Multivitamins/Vitamin C 10 ml/ Amino Acids 1,011 mls @ 42 mls/hr IV .Q24H ONE Stop: 09/14/16 17:59 Magnesium Oxide (Mag-Ox) 800 mg PO TID [facility] Last Admin: 09/13/16 09:18 Dose: 800 mg Multivitamins (Hexavitamin) 1 tab PO DAILY [facility] Last Admin: 09/13/16 09:17 Dose: 1 tab Ondansetron HCl (Zofran Inj) 4 mg IVP Q4H PRN PRN Reason: Nausea/Vomiting Last Admin: 09/13/16 07:38 Dose: 4 mg Pantoprazole Sodium (Protonix Inj) 40 mg IVP DAILY [facility] Last Admin: 09/13/16 09:18 Dose: 40 mg Potassium Phos/Sodium Phos (Neutra-Phos) 1 pkt PO TID [facility] Last Admin: 09/13/16 09:17 Dose: 1 pkt Sodium Chloride (Sodium Chloride Tab) 1 gm PO DAILY [facility] Last Admin: 09/13/16 09:18 Dose: 1 gm - Labs Labs: 09/13/16 06:15 09/13/16 06:15 PT 12.2 SECONDS (9.7-12.2) 09/12/16 06:56 INR 1.1 09/12/16 06:56 APTT 27 SECONDS (21-34) 09/12/16 06:56 - Constitutional Appears: Non-toxic, No Acute Distress, Chronically Ill - Head Exam Head Exam: ATRAUMATIC, NORMAL INSPECTION - Eye Exam Eye Exam: EOMI, Normal appearance, PERRL Pupil Exam: NORMAL ACCOMODATION - ENT Exam ENT Exam: Mucous Membranes Moist - Respiratory Exam Respiratory Exam: Clear to Ausculation Bilateral, NORMAL BREATHING PATTERN. absent: Accessory Muscle Use, Chest Wall Tenderness, Rales, Wheezes, Respiratory Distress - Cardiovascular Exam Cardiovascular Exam: Tachycardia, REGULAR RHYTHM, +S1, +S2 - GI/Abdominal Exam GI & Abdominal Exam: Soft, Tenderness, Normal Bowel Sounds. absent: Distended, Firm, Guarding - Extremities Exam Extremities Exam: Normal Inspection. absent: Calf Tenderness, Pedal Edema - Back Exam Back Exam: absent: CVA tenderness (L), CVA tenderness (R), NORMAL INSPECTION, paraspinal tenderness - Neurological Exam Neurological Exam: Alert, Awake, Oriented x3 - Psychiatric Exam Psychiatric exam: Anxious, Normal Affect, Normal Mood - Skin Skin Exam: Dry, Intact, Normal Color, Warm Assessment and Plan - Assessment and Plan (Free Text) Assessment: Gastric Cancer: S/p OR revision of J tube on 09/12, on G[employer]NER pump for pain with Diluadid for breakthrough pain Patient tachycardic likely due to pain, EKG wnl (denies CP, palpitations) Stool occult blood positive GI, Dr. Mares, consulted. Help appreciated. CT Chest/Abd/Pelvis - extensive mucosal thickening of the stomach; free fluid in the abdomen and pelvis; enapsulation of fluid in the pelvis which is worrisome for abscess; sclerotic lesion within left pelvis, metastatic disease not excluded; enlarged prostate gland, mediastinal and hilar adenopathy; mucosal thickening of the appendix (please see full report) General surgery, Dr. Ham, consulted. Help appreciated. Heme/onc, Dr. Mckoy, consulted. Help appreciated. Zofran prn for nausea s/p paracentesis with IR on 08/31, Dr. Wang. s/p EGD on 09/[address] Cobian, EGD findings reveal malignant tumor on the gastric body (please see full report). 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, pending treatment plan after discussion with family Pt started on PPN with lipid infusion at standard infusion rate Pt not tolerating oral medications Electrolyte Imbalance: Mg 0.0 Mg 1 gm in D5 x 4 bags - will follow up repeat labs Mg 800 po tid Neutraphos 1 packet po tid Pt started on PPN with lipid infusion at standard infusion rate Pt not tolerating oral medications Anemia: Hgb 12.5 today from 6.9 yesterday s/p 2 Units PRBC on 09/12 FOBT + Iron, TIBC, %satuation, ferritin low Feosol 325 mg po qd SIRS: Resolved Afebrile for 24 hours Zosyn restarted Blood cultures negative after 24 hours WBC wnl Prophylactic Measures: DVT: SCDs, chemical anticoagulation held due to anemia and positive stool occult blood GI: Protonix 40 mg IV qd Will need to discuss with Heme/Onc and case management goals of further care such as treatment options etc. <ChuBeto M - Last Filed: 09/13/16 14:54> Objective - Vital Signs/Intake and Output Vital Signs (last 24 hours): Temp Pulse Resp BP Pulse Ox 97.7 F 140 H 18 134/90 97 09/13/16 07:30 09/13/16 12:24 09/13/16 07:30 09/13/16 07:30 09/13/16 07:30 Intake and Output: 09/13/16 09/13/16 06:59 18:59 Intake Total 1450 1280 Output Total 1000 Balance 1450 280 - Medications Medications: Current Medications Benzocaine/Menthol (Cepacol Sore Throat) 1 carlos MT Q2 PRN PRN Reason: Sore Throat Enoxaparin Sodium (Lovenox) 40 mg SC DAILY [facility] Last Admin: 09/11/16 10:29 Dose: 40 mg Ferrous Sulfate (Feosol) 325 mg PO DAILY [facility] Last Admin: 09/13/16 09:16 Dose: 325 mg Hydromorphone HCl (Dilaudid) 0.5 mg IVP Q4H PRN PRN Reason: Pain, severe (8-10) Last Admin: 09/13/16 10:08 Dose: 0.5 mg Hydromorphone/Sodium Chloride (Dilaudid Boat Assembler) 6 mg IV Q4H PRN; Protocol PRN Reason: Pain, moderate (4-7) Last Admin: 09/13/16 08:48 Dose: 6 mg Piperacillin Sod/Tazobactam (Sod 3.375 gm/ Sodium Chloride) 100 mls @ 200 mls/ hr IVPB Q8H [facility] Last Admin: 09/10/16 16:49 Dose: 200 mls/hr Chromium/Copper/Manganese/Zinc 1 ml/ Multivitamins/Vitamin C 10 ml/ Amino Acids 1,011 mls @ 42 mls/hr IV .Q24H ONE Stop: 09/13/16 17:59 Last Admin: 09/12/16 19:29 Dose: 42 mls/hr Lactated Ringer's (Lactated Ringer's) 1,000 mls @ 150 mls/hr IV .Q6H40M [facility] Last Admin: 09/13/16 09:01 Dose: 150 mls/hr Chromium/Copper/Manganese/Zinc 1 ml/ Multivitamins/Vitamin C 10 ml/ Amino Acids 1,011 mls @ 42 mls/hr IV .Q24H ONE Stop: 09/14/16 17:59 Magnesium Oxide (Mag-Ox) 800 mg PO TID [facility] Last Admin: 09/13/16 14:02 Dose: 800 mg Multivitamins (Hexavitamin) 1 tab PO DAILY [facility] Last Admin: 09/13/16 09:17 Dose: 1 tab Ondansetron HCl (Zofran Inj) 4 mg IVP Q4H PRN PRN Reason: Nausea/Vomiting Last Admin: 09/13/16 14:08 Dose: 4 mg Pantoprazole Sodium (Protonix Inj) 40 mg IVP DAILY [facility] Last Admin: 09/13/16 09:18 Dose: 40 mg Potassium Phos/Sodium Phos (Neutra-Phos) 1 pkt PO TID [facility] Last Admin: 09/13/16 14:02 Dose: 1 pkt Sodium Chloride (Sodium Chloride Tab) 1 gm PO DAILY [facility] Last Admin: 09/13/16 09:18 Dose: 1 gm - Labs Labs: 09/13/16 06:15 09/13/16 06:15 PT 12.2 SECONDS (9.7-12.2) 09/12/16 06:56 INR 1.1 09/12/16 06:56 APTT 27 SECONDS (21-34) 09/12/16 06:56 Attending/Attestation - Attestation I have personally seen and examined this patient.: Yes I have fully participated in the care of the patient.: Yes I have reviewed all pertinent clinical information, including history, physical exam and plan: Yes Notes (Text): 09/13/16 14:52 Patient was seen and examined at bedside with the resident Complains of for abdominal pain. Tube feeding has been restarted by surgery last night. Continue monitor the patient tolerates the feeding. Plan of care to be discussed with the oncology and with the family. I discussed the plan of care with the resident and agree with the above history and physical and assessment/plan by the resident.
[2016-09-13] MEDS ORDERED: Fat Emulsion 20% IV 250 ML IV SCH (18:00)
[2016-09-13] MEDS ORDERED: PPN#4 IV ONE (18:00)
[2016-09-13] MEDS ORDERED: Metoprolol 1 mg/ml Inj IVP ONE (23:06)
[2016-09-14] MEDS: Lactated Ringer's 1,000 ML IV SCH ×3 (04:33→22:19)
[2016-09-14 06:20] LABS: BASO % 0.1 % (0.0-2.0); EOS % 0.1 % (0.0-4.0); HEMATOCRIT 33.7 % (35.0-51.0); LYMPH # 0.9 K/uL (1.0-4.3); LYMPH % 13.4 % (20.0-40.0); MEAN CELL VOLUME 82.9 fL (80.0-94.0); MEAN CORPUSCULAR HEMOGLOBIN 27.8 pg (27.0-31.0); MEAN CORPUSCULAR HGB CONC 33.5 g/dL (33.0-37.0); MEAN PLATELET VOLUME 7.2 fL (7.2-11.7); MONO # 0.3 K/uL (0.0-0.8); MONO % 4.9 % (0.0-10.0); RED CELL DISTRIBUTION WIDTH 19.2 % (11.5-14.5)
[2016-09-14 06:24] LABS: CHLORIDE 93 mmol/L (98-107); POTASSIUM 4.1 mmol/L (3.6-5.2); SODIUM 129 mmol/L (132-148)
[2016-09-14 06:26] LABS: ALB/GLOB RATIO 0.8 (1.0-2.1); ALKALINE PHOSPHATASE 88 U/L (38-126); ALT/SGPT 18 U/L (21-72); AST/SGOT 33 U/L (17-59); BILIRUBIN,TOTAL 0.8 mg/dL (0.2-1.3); BLOOD UREA NITROGEN 20 mg/dL (9-20); CARBON DIOXIDE 28 mmol/L (22-30); GFR AFRICAN-AMERICAN > 60; GLUCOSE,RANDOM 126 mg/dL (75-110); TOTAL PROTEIN 5.4 g/dL (6.3-8.3)
[2016-09-14 06:27] LABS: CALCIUM 7.9 mg/dl (8.6-10.4); MAGNESIUM 1.4 mg/dL (1.6-2.3); PHOSPHOROUS 4.1 mg/dL (2.5-4.5)
[2016-09-14] MEDS: Magnesium Sulfate 1 gm in D5W 1 GM/100 ML BAG IVPB SCH ×2 (07:38→08:41)
[2016-09-14] MEDS ORDERED: Metoprolol Succinate 12.5 mg XL PO SCH (08:10)
--- NOTE | 2016-09-14 08:46 | CARD ---
APPROVED REPORT EKG Measurement Heart [id number] <Conclusion> Sinus tachycardia Otherwise normal ECG
--- NOTE | 2016-09-14 09:20 | RAD ---
HISTORY: tachy, febrile COMPARISON: No prior. FINDINGS: LUNGS: Moderate venous congestion. Patchy airspace opacities in the mid to lower lung zones. Linear atelectasis in the right midlung. Tubing projects over the right lisa thorax medially. PLEURA: As above. CARDIOVASCULAR: Cardiomegaly. Tortuous aorta. OSSEOUS STRUCTURES: No significant abnormalities. VISUALIZED UPPER ABDOMEN: Few distended loops of small bowel in the upper abdomen. OTHER FINDINGS: None. IMPRESSION: Moderate venous congestion. Patchy airspace opacities in the mid to lower lung zones. Linear atelectasis in the right midlung. Tubing projects over the right lisa thorax medially.
[2016-09-14 09:28] LABS: RBC URINE 5 /hpf (0-3); URINE BILIRUBIN NEGATIVE (NEGATIVE); URINE BLOOD 1+ (NEGATIVE); URINE COLOR Yellow (YELLOW); URINE GLUCOSE (UA) NORMAL (Normal); URINE KETONE NEGATIVE (NEGATIVE); URINE LEUKOCYTE ESTERASE NEG Leu/uL (Negative); URINE PROTEIN NEGATIVE (NEGATIVE); URINE UROBILINOGEN NORMAL mg/dL (0.2-1.0); WBC URINE 3 /hpf (0-5)
[2016-09-14] MEDS: Multiple Vitamins Tab PO SCH (10:30)
[2016-09-14] MEDS: Potassium & Sodium Phosphate PO SCH ×3 (10:30→18:27)
[2016-09-14] MEDS: Magnesium Oxide 400 mg Tab UD PO SCH ×3 (10:32→18:27)
[2016-09-14] MEDS ORDERED: Oxycodone/Acetaminophen 5/325 mg Tab PO PRN (10:36)
--- NOTE | 2016-09-14 14:23 | CP.PCM.PN ---
<Danika Burgos - Last Filed: 09/14/16 14:31> Subjective - Date & Time of Evaluation Date of Evaluation: 09/14/16 Time of Evaluation: 07:30 - Subjective Subjective: Pt seen and examined. Pt reports that he feels nauseous but no vomiting. Pt reports that he has pain in the abdomen but it is now very controlled with medication. He is s/p OR revision of J tube on Monday. Pt denies fever, chills , chest pain, palpitations, shortness of breath. He can't tolerate anything PO. Minimal BMs. Per nursing patient spiked a low grade temp this morning He was also tachycardic. Objective - Vital Signs/Intake and Output Vital Signs (last 24 hours): Temp Pulse Resp BP Pulse Ox 99.2 F 132 H 15 139/103 H 97 09/14/16 12:46 09/14/16 12:46 09/14/16 12:46 09/14/16 12:46 09/14/16 12:46 Intake and Output: 09/14/16 09/14/16 06:59 18:59 Output Total 100 Balance -100 - Medications Medications: Current Medications Benzocaine/Menthol (Cepacol Sore Throat) 1 carlos MT Q2 PRN PRN Reason: Sore Throat Enoxaparin Sodium (Lovenox) 40 mg SC DAILY [facility] Last Admin: 09/11/16 10:29 Dose: 40 mg Enoxaparin Sodium (Lovenox) 40 mg SC DAILY [facility] Ferrous Sulfate (Feosol) 325 mg PO DAILY [facility] Last Admin: 09/14/16 10:32 Dose: Not Given Hydromorphone HCl (Dilaudid) 0.5 mg IVP Q4H PRN PRN Reason: Pain, severe (8-10) Last Admin: 09/13/16 10:08 Dose: 0.5 mg Piperacillin Sod/Tazobactam (Sod 3.375 gm/ Sodium Chloride) 100 mls @ 200 mls/ hr IVPB Q8H [facility] Last Admin: 09/10/16 16:49 Dose: 200 mls/hr Chromium/Copper/Manganese/Zinc 1 ml/ Multivitamins/Vitamin C 10 ml/ Amino Acids 1,011 mls @ 42 mls/hr IV .Q24H ONE Stop: 09/14/16 17:59 Last Admin: 09/13/16 17:36 Dose: 42 mls/hr Chromium/Copper/Manganese/Zinc 1 ml/ Multivitamins/Vitamin C 10 ml/ Amino Acids 1,011 mls @ 42 mls/hr IV .Q24H ONE Stop: 09/15/16 17:59 Lactated Ringer's (Lactated Ringer's) 1,000 mls @ 100 mls/hr IV .Q10H [facility] Last Admin: 09/14/16 14:01 Dose: 100 mls/hr Magnesium Oxide (Mag-Ox) 800 mg PO TID [facility] Last Admin: 09/14/16 13:06 Dose: Not Given Metoprolol Tartrate (Lopressor) 12.5 mg PO BID [facility] Last Admin: 09/14/16 09:39 Dose: 12.5 mg Multivitamins (Hexavitamin) 1 tab PO DAILY [facility] Last Admin: 09/13/16 09:17 Dose: 1 tab Ondansetron HCl (Zofran Inj) 4 mg IVP Q4H PRN PRN Reason: Nausea/Vomiting Last Admin: 09/14/16 09:39 Dose: 4 mg Oxycodone/Acetaminophen (Percocet 5/325 Mg Tab) 1 tab PO Q4H PRN PRN Reason: Pain, moderate (4-7) Stop: 09/17/16 10:37 Pantoprazole Sodium (Protonix Inj) 40 mg IVP DAILY [facility] Last Admin: 09/14/16 09:15 Dose: 40 mg Potassium Phos/Sodium Phos (Neutra-Phos) 1 pkt PO TID [facility] Last Admin: 09/14/16 13:20 Dose: 1 pkt Sodium Chloride (Sodium Chloride Tab) 1 gm PO DAILY [facility] Last Admin: 09/14/16 10:32 Dose: Not Given - Labs Labs: 09/14/16 06:03 09/14/16 06:03 PT 12.2 SECONDS (9.7-12.2) 09/12/16 06:56 INR 1.1 09/12/16 06:56 APTT 27 SECONDS (21-34) 09/12/16 06:56 - Constitutional Appears: Non-toxic, No Acute Distress, Chronically Ill - Head Exam Head Exam: ATRAUMATIC, NORMAL INSPECTION - Eye Exam Eye Exam: EOMI, Normal appearance, PERRL Pupil Exam: NORMAL ACCOMODATION - ENT Exam ENT Exam: Mucous Membranes Moist - Respiratory Exam Respiratory Exam: Clear to Ausculation Bilateral, NORMAL BREATHING PATTERN. absent: Accessory Muscle Use, Chest Wall Tenderness, Wheezes, Respiratory Distress - Cardiovascular Exam Cardiovascular Exam: REGULAR RHYTHM, +S1, +S2 - GI/Abdominal Exam GI & Abdominal Exam: Soft, Tenderness, Normal Bowel Sounds. absent: Distended, Firm, Guarding - Extremities Exam Extremities Exam: Normal Inspection. absent: Calf Tenderness, Pedal Edema - Back Exam Back Exam: NORMAL INSPECTION. absent: CVA tenderness (L), CVA tenderness (R), paraspinal tenderness - Neurological Exam Neurological Exam: Alert, Awake, CN II-XII Intact, Oriented x3 - Psychiatric Exam Psychiatric exam: Normal Affect, Normal Mood - Skin Skin Exam: Dry, Intact, Normal Color, Warm Assessment and Plan - Assessment and Plan (Free Text) Assessment: Gastric Cancer: S/p OR revision of J tube on 09/12, on FOR[employer] pump for pain with Diluadid for breakthrough pain Patient tachycardic likely due to pain, EKG wnl (denies CP, palpitations) Stool occult blood positive GI, Dr. Mares, consulted. Help appreciated. CT Chest/Abd/Pelvis - extensive mucosal thickening of the stomach; free fluid in the abdomen and pelvis; enapsulation of fluid in the pelvis which is worrisome for abscess; sclerotic lesion within left pelvis, metastatic disease not excluded; enlarged prostate gland, mediastinal and hilar adenopathy; mucosal thickening of the appendix (please see full report) General surgery, Dr. Ham, consulted. Help appreciated. Heme/onc, Dr. Mckoy, consulted. Help appreciated. Zofran prn for nausea s/p paracentesis with IR on 08/31, Dr. Wang. s/p EGD on 09/[address] Cobian, EGD findings reveal malignant tumor on the gastric body (please see full report). 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, pending treatment plan after discussion with family Pt started on PPN with lipid infusion at standard infusion rate Pt not tolerating oral medications Electrolyte Imbalance: Mg 1.4 Mg 1 gm in D5 x 2 bags Mg 800 po tid - patient refusing the oral med Neutraphos 1 packet po tid Pt started on PPN with lipid infusion at standard infusion rate Pt not tolerating oral medications Anemia: Hgb 11.3 today from 12.5 yesterday s/p 2 Units PRBC on 09/12 FOBT + Iron, TIBC, %satuation, ferritin low Feosol 325 mg po qd SIRS: Resolved, but then spiked fever Tmax 100.9 this am f/u repeat BC UA negative f/u chest X ray Zosyn restarted Blood cultures negative after 24 hours WBC wnl Tachycardia: EKG normal asymptomatic Start Metoprolol 12.5 mg PO BID Yeast in Urine Start Diflucan 100mg IVPB daily Prophylactic Measures: DVT: SCDs, Lovenox 40mg SC daily (patient is hypercoagulable to cancer and immobility) GI: Protonix 40 mg IV qd Will need to discuss with Heme/Onc and case management goals of further care such as treatment options etc. <Beto Sage - Last Filed: 09/14/16 15:44> Objective - Vital Signs/Intake and Output Vital Signs (last 24 hours): Temp Pulse Resp BP Pulse Ox 98.8 F 119 H 20 133/100 H 97 09/14/16 15:34 09/14/16 15:34 09/14/16 15:34 09/14/16 15:34 09/14/16 15:34 Intake and Output: 09/14/16 09/14/16 06:59 18:59 Output Total 100 Balance -100 - Medications Medications: Current Medications Benzocaine/Menthol (Cepacol Sore Throat) 1 carlos MT Q2 PRN PRN Reason: Sore Throat Enoxaparin Sodium (Lovenox) 40 mg SC DAILY [facility] Last Admin: 09/11/16 10:29 Dose: 40 mg Enoxaparin Sodium (Lovenox) 40 mg SC DAILY [facility] Ferrous Sulfate (Feosol) 325 mg PO DAILY [facility] Last Admin: 09/14/16 10:32 Dose: Not Given Hydromorphone HCl (Dilaudid) 0.5 mg IVP Q4H PRN PRN Reason: Pain, severe (8-10) Last Admin: 09/14/16 15:18 Dose: 0.5 mg Piperacillin Sod/Tazobactam (Sod 3.375 gm/ Sodium Chloride) 100 mls @ 200 mls/ hr IVPB Q8H [facility] Last Admin: 09/10/16 16:49 Dose: 200 mls/hr Chromium/Copper/Manganese/Zinc 1 ml/ Multivitamins/Vitamin C 10 ml/ Amino Acids 1,011 mls @ 42 mls/hr IV .Q24H ONE Stop: 09/14/16 17:59 Last Admin: 09/13/16 17:36 Dose: 42 mls/hr Chromium/Copper/Manganese/Zinc 1 ml/ Multivitamins/Vitamin C 10 ml/ Amino Acids 1,011 mls @ 42 mls/hr IV .Q24H ONE Stop: 09/15/16 17:59 Lactated Ringer's (Lactated Ringer's) 1,000 mls @ 100 mls/hr IV .Q10H [facility] Last Admin: 09/14/16 14:01 Dose: 100 mls/hr Fluconazole (Diflucan Iv 100 Mg/50 Ml Ns) 50 mls @ 100 mls/hr IVPB Q24H [facility] Magnesium Oxide (Mag-Ox) 800 mg PO TID [facility] Last Admin: 09/14/16 13:06 Dose: Not Given Metoprolol Tartrate (Lopressor) 12.5 mg PO BID [facility] Last Admin: 09/14/16 09:39 Dose: 12.5 mg Multivitamins (Hexavitamin) 1 tab PO DAILY [facility] Last Admin: 09/13/16 09:17 Dose: 1 tab Ondansetron HCl (Zofran Inj) 4 mg IVP Q4H PRN PRN Reason: Nausea/Vomiting Last Admin: 09/14/16 14:23 Dose: 4 mg Oxycodone/Acetaminophen (Percocet 5/325 Mg Tab) 1 tab PO Q4H PRN PRN Reason: Pain, moderate (4-7) Stop: 09/17/16 10:37 Pantoprazole Sodium (Protonix Inj) 40 mg IVP DAILY [facility] Last Admin: 09/14/16 09:15 Dose: 40 mg Potassium Phos/Sodium Phos (Neutra-Phos) 1 pkt PO TID [facility] Last Admin: 09/14/16 13:20 Dose: 1 pkt Sodium Chloride (Sodium Chloride Tab) 1 gm PO DAILY [facility] Last Admin: 09/14/16 10:32 Dose: Not Given - Labs Labs: 09/14/16 06:03 09/14/16 06:03 PT 12.2 SECONDS (9.7-12.2) 09/12/16 06:56 INR 1.1 09/12/16 06:56 APTT 27 SECONDS (21-34) 09/12/16 06:56 Attending/Attestation - Attestation I have personally seen and examined this patient.: Yes I have fully participated in the care of the patient.: Yes I have reviewed all pertinent clinical information, including history, physical exam and plan: Yes Notes (Text): 09/14/16 15:42 Patient was seen and examined at bedside Continue feeding via PEG. Patient tolerating feeding. Will discuss with Oncology regarding further plan of care I discussed with the resident and agree with above history and physical and assessment/plan by the resident
[2016-09-14] MEDS: HYDROmorphone 0.5 mg/0.5 ml ISec IVP PRN ×3 (15:18→22:12)
[2016-09-14] MEDS: Enoxaparin 40 mg Syringe SC SCH (15:56)
[2016-09-14] MEDS: Fluconazole IV 100mg/50 ml NS 50 ML IVPB SCH (16:18)
[2016-09-14] MEDS ORDERED: PPN#5 IV ONE (18:00)
[2016-09-14] MEDS: Piperacillin/Tazobact 3.375 GM in Sodium Chloride 100 ML IVPB SCH (18:11)
--- NOTE | 2016-09-14 18:32 | CARD ---
APPROVED REPORT EKG Measurement Heart [id number] <Conclusion> Sinus tachycardia Nonspecific T wave abnormality Abnormal ECG
[2016-09-15] MEDS: Piperacillin/Tazobact 3.375 GM in Sodium Chloride 100 ML IVPB SCH ×3 (00:17→17:00)
[2016-09-15 06:23] LABS: BASO % 0.2 % (0.0-2.0); EOS % 0.2 % (0.0-4.0); HEMATOCRIT 29.4 % (35.0-51.0); LYMPH # 0.3 K/uL (1.0-4.3); LYMPH % 7.1 % (20.0-40.0); MEAN CELL VOLUME 82.8 fL (80.0-94.0); MEAN CORPUSCULAR HEMOGLOBIN 27.9 pg (27.0-31.0); MEAN CORPUSCULAR HGB CONC 33.7 g/dL (33.0-37.0); MONO # 0.2 K/uL (0.0-0.8); MONO % 3.9 % (0.0-10.0); PLATELET COUNT 181 K/uL (130-400); WHITE BLOOD COUNT 4.4 K/uL (4.8-10.8)
[2016-09-15 06:42] LABS: CHLORIDE 91 mmol/L (98-107); POTASSIUM 3.3 mmol/L (3.6-5.2); SODIUM 128 mmol/L (132-148)
[2016-09-15 06:44] LABS: BILIRUBIN,TOTAL 0.9 mg/dL (0.2-1.3); GFR AFRICAN-AMERICAN > 60
[2016-09-15 06:45] LABS: ALB/GLOB RATIO 0.8 (1.0-2.1); ALKALINE PHOSPHATASE 81 U/L (38-126); ALT/SGPT 15 U/L (21-72); AST/SGOT 33 U/L (17-59); BLOOD UREA NITROGEN 24 mg/dL (9-20); CARBON DIOXIDE 28 mmol/L (22-30); GLUCOSE,RANDOM 122 mg/dL (75-110); PHOSPHOROUS 3.7 mg/dL (2.5-4.5); TOTAL PROTEIN 5.3 g/dL (6.3-8.3)
[2016-09-15 06:46] LABS: CALCIUM 8.2 mg/dl (8.6-10.4); MAGNESIUM 1.3 mg/dL (1.6-2.3)
[2016-09-15] MEDS: Magnesium Sulfate 1 gm in D5W 1 GM/100 ML BAG IVPB SCH ×5 (07:23→19:25)
[2016-09-15 08:12] LABS: BASOPHIL 1 % (0-2); NEUTROPHIL 78 % (50-75); TOTAL CELLS COUNTED 100
--- NOTE | 2016-09-15 09:14 | CP.PCM.PN ---
<AubreyDanika - Last Filed: 09/15/16 10:01> Subjective - Date & Time of Evaluation Date of Evaluation: 09/15/16 Time of Evaluation: 07:10 - Subjective Subjective: Patient seen and examined. Pt reports that he feels nauseous but no vomiting. He reports that he has pain in the abdomen but it is now very controlled with medication. He is s/p OR revision of J tube on Monday. Patient denies fever, chills, chest pain, palpitations, shortness of breath. He can't tolerate anything PO. He reports having a BM yesterday. Objective - Vital Signs/Intake and Output Vital Signs (last 24 hours): Temp Pulse Resp BP Pulse Ox 99.3 F 110 H 20 133/97 H 97 09/15/16 07:00 09/15/16 07:00 09/15/16 07:00 09/15/16 07:00 09/15/16 07:00 - Medications Medications: Current Medications Benzocaine/Menthol (Cepacol Sore Throat) 1 carlos MT Q2 PRN PRN Reason: Sore Throat Enoxaparin Sodium (Lovenox) 40 mg SC DAILY [facility] Last Admin: 09/11/16 10:29 Dose: 40 mg Enoxaparin Sodium (Lovenox) 40 mg SC DAILY [facility] Last Admin: 09/14/16 15:56 Dose: 40 mg Ferrous Sulfate (Feosol) 325 mg PO DAILY [facility] Last Admin: 09/14/16 10:32 Dose: Not Given Hydromorphone HCl (Dilaudid) 0.5 mg IVP Q3H PRN PRN Reason: Pain, severe (8-10) Last Admin: 09/14/16 22:12 Dose: 0.5 mg Piperacillin Sod/Tazobactam (Sod 3.375 gm/ Sodium Chloride) 100 mls @ 200 mls/ hr IVPB Q8H [facility] Last Admin: 09/15/16 00:17 Dose: 200 mls/hr Chromium/Copper/Manganese/Zinc 1 ml/ Multivitamins/Vitamin C 10 ml/ Amino Acids 1,011 mls @ 42 mls/hr IV .Q24H ONE Stop: 09/15/16 17:59 Last Admin: 09/14/16 18:10 Dose: 42 mls/hr Lactated Ringer's (Lactated Ringer's) 1,000 mls @ 100 mls/hr IV .Q10H [facility] Last Admin: 09/14/16 22:19 Dose: 100 mls/hr Fluconazole (Diflucan Iv 100 Mg/50 Ml Ns) 50 mls @ 100 mls/hr IVPB Q24H [facility] Last Admin: 09/14/16 16:18 Dose: 100 mls/hr Magnesium Sulfate/Dextrose (Magnesium Sulfate 1 Gm/100 Ml D5w) 1 gm in 100 mls @ 300 mls/hr IVPB Q1 [facility] Stop: 09/15/16 09:19 Last Admin: 09/15/16 08:48 Dose: 300 mls/hr Chromium/Copper/Manganese/Zinc 1 ml/ Multivitamins/Vitamin C 10 ml/ Amino Acids 1,011 mls @ 42 mls/hr IV .Q24H ONE Stop: 09/16/16 17:59 Magnesium Oxide (Mag-Ox) 800 mg PO TID [facility] Last Admin: 09/14/16 18:27 Dose: Not Given Metoprolol Tartrate (Lopressor) 12.5 mg PO BID [facility] Last Admin: 09/14/16 18:10 Dose: 12.5 mg Multivitamins (Hexavitamin) 1 tab PO DAILY [facility] Last Admin: 09/14/16 10:30 Dose: Not Given Ondansetron HCl (Zofran Inj) 4 mg IVP Q4H PRN PRN Reason: Nausea/Vomiting Last Admin: 09/15/16 06:47 Dose: 4 mg Oxycodone/Acetaminophen (Percocet 5/325 Mg Tab) 1 tab PO Q4H PRN PRN Reason: Pain, moderate (4-7) Stop: 09/17/16 10:37 Pantoprazole Sodium (Protonix Inj) 40 mg IVP DAILY [facility] Last Admin: 09/14/16 09:15 Dose: 40 mg Potassium Chloride (Potassium Chloride Oral Soln) 40 meq PO ONCE ONE Stop: 09/15/16 10:01 Potassium Phos/Sodium Phos (Neutra-Phos) 1 pkt PO TID [facility] Last Admin: 09/14/16 18:27 Dose: Not Given Sodium Chloride (Sodium Chloride Tab) 1 gm PO DAILY [facility] Last Admin: 09/14/16 10:32 Dose: Not Given - Labs Labs: 09/15/16 06:14 09/15/16 06:14 PT 12.2 SECONDS (9.7-12.2) 09/12/16 06:56 INR 1.1 09/12/16 06:56 APTT 27 SECONDS (21-34) 09/12/16 06:56 - Constitutional Appears: Non-toxic, No Acute Distress, Chronically Ill - Head Exam Head Exam: NORMAL INSPECTION - Eye Exam Eye Exam: EOMI Pupil Exam: NORMAL ACCOMODATION - ENT Exam ENT Exam: Mucous Membranes Dry - Respiratory Exam Respiratory Exam: Decreased Breath Sounds, Clear to Ausculation Bilateral, NORMAL BREATHING PATTERN. absent: Respiratory Distress - Cardiovascular Exam Cardiovascular Exam: Tachycardia, REGULAR RHYTHM, +S1, +S2 - GI/Abdominal Exam GI & Abdominal Exam: Soft, Tenderness, Hypoactive Bowel Sounds. absent: Distended, Firm, Guarding - Extremities Exam Extremities Exam: Normal Inspection. absent: Calf Tenderness, Pedal Edema - Back Exam Back Exam: NORMAL INSPECTION. absent: CVA tenderness (L), CVA tenderness (R), paraspinal tenderness - Neurological Exam Neurological Exam: Alert, Awake, Oriented x3 - Psychiatric Exam Psychiatric exam: Normal Affect, Normal Mood - Skin Skin Exam: Dry, Intact, Normal Color, Warm Assessment and Plan - Assessment and Plan (Free Text) Assessment: Gastric Cancer: Dr. Najera, heme/once, consulted - will need to have a family meeting about goals of care with the patient S/p OR revision of J tube on 09/12, on CNC GRINDER pump for pain with Diluadid for breakthrough pain Patient tachycardic likely due to pain, EKG wnl (denies CP, palpitations) Stool occult blood positive GI, Dr. Mares, consulted. Help appreciated. CT Chest/Abd/Pelvis - extensive mucosal thickening of the stomach; free fluid in the abdomen and pelvis; enapsulation of fluid in the pelvis which is worrisome for abscess; sclerotic lesion within left pelvis, metastatic disease not excluded; enlarged prostate gland, mediastinal and hilar adenopathy; mucosal thickening of the appendix (please see full report) General surgery, Dr. Ham, consulted. Help appreciated. Heme/onc, Dr. Mckoy, consulted. Help appreciated. Zofran prn for nausea s/p paracentesis with IR on 08/31, Dr. Wang. s/p EGD on 5/[address] Cobian, EGD findings reveal malignant tumor on the gastric body (please see full report). 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 Hunter, nephrology, consulted, help appreciated Anemia: Hgb 9.9 today from 11.3 yesterday s/p 2 Units PRBC on 09/12 FOBT + Iron, TIBC, %satuation, ferritin low Feosol 325 mg po qd SIRS: Resolved, but then spiked fever Tmax 100.9 yesterday AM, now afebrile for 24 hours f/u repeat BC UA negative f/u chest X ray Zosyn restarted Blood cultures negative after 24 hours WBC wnl Tachycardia: Improving but still tachycardic EKG normal asymptomatic Metoprolol 12.5 mg PO BID Yeast in Urine Diflucan 100mg IVPB daily Prophylactic Measures: DVT: SCDs, Lovenox 40mg SC daily (patient is hypercoagulable to cancer and immobility) GI: Protonix 40 mg IV qd PT/OT <Beto Sage - Last Filed: 09/15/16 17:03> Objective - Vital Signs/Intake and Output Vital Signs (last 24 hours): Temp Pulse Resp BP Pulse Ox 99.2 F 107 H 18 137/101 H 95 09/15/16 15:46 09/15/16 16:00 09/15/16 15:46 09/15/16 15:46 09/15/16 15:46 - Medications Medications: Current Medications Benzocaine/Menthol (Cepacol Sore Throat) 1 carlos MT Q2 PRN PRN Reason: Sore Throat Enoxaparin Sodium (Lovenox) 40 mg SC DAILY [facility] Last Admin: 09/11/16 10:29 Dose: 40 mg Enoxaparin Sodium (Lovenox) 40 mg SC DAILY [facility] Last Admin: 09/14/16 15:56 Dose: 40 mg Ferrous Sulfate (Feosol) 325 mg PO DAILY [facility] Last Admin: 09/14/16 10:32 Dose: Not Given Hydromorphone HCl (Dilaudid) 0.5 mg IVP Q3H PRN PRN Reason: Pain, severe (8-10) Last Admin: 09/15/16 16:09 Dose: 0.5 mg Piperacillin Sod/Tazobactam (Sod 3.375 gm/ Sodium Chloride) 100 mls @ 200 mls/ hr IVPB Q8H [facility] Last Admin: 09/15/16 10:39 Dose: 200 mls/hr Chromium/Copper/Manganese/Zinc 1 ml/ Multivitamins/Vitamin C 10 ml/ Amino Acids 1,011 mls @ 42 mls/hr IV .Q24H ONE Stop: 09/15/16 17:59 Last Admin: 09/14/16 18:10 Dose: 42 mls/hr Fluconazole (Diflucan Iv 100 Mg/50 Ml Ns) 50 mls @ 100 mls/hr IVPB Q24H [facility] Last Admin: 09/15/16 16:09 Dose: 100 mls/hr Chromium/Copper/Manganese/Zinc 1 ml/ Multivitamins/Vitamin C 10 ml/ Amino Acids 1,011 mls @ 42 mls/hr IV .Q24H ONE Stop: 09/16/16 17:59 Fat Emulsion Intravenous (Intralipid 20%) 250 mls @ 42 mls/hr IV TTS@1800 [facility] Stop: 09/15/16 23:58 Lactated Ringer's (Lactated Ringer's) 1,000 mls @ 75 mls/hr IV .[id number] [facility] Magnesium Oxide (Mag-Ox) 800 mg PO TID [facility] Last Admin: 09/14/16 18:27 Dose: Not Given Metoprolol Tartrate (Lopressor) 12.5 mg PO BID [facility] Last Admin: 09/14/16 18:10 Dose: 12.5 mg Multivitamins (Hexavitamin) 1 tab PO DAILY [facility] Last Admin: 09/14/16 10:30 Dose: Not Given Ondansetron HCl (Zofran Inj) 4 mg IVP Q4H PRN PRN Reason: Nausea/Vomiting Last Admin: 09/15/16 16:08 Dose: 4 mg Oxycodone/Acetaminophen (Percocet 5/325 Mg Tab) 1 tab PO Q4H PRN PRN Reason: Pain, moderate (4-7) Stop: 09/17/16 10:37 Pantoprazole Sodium (Protonix Inj) 40 mg IVP DAILY [facility] Last Admin: 09/14/16 09:15 Dose: 40 mg Potassium Phos/Sodium Phos (Neutra-Phos) 1 pkt PO TID [facility] Last Admin: 09/14/16 18:27 Dose: Not Given Sodium Chloride (Sodium Chloride Tab) 1 gm PO DAILY [facility] Last Admin: 09/14/16 10:32 Dose: Not Given - Labs Labs: 09/15/16 06:14 09/15/16 06:14 PT 12.2 SECONDS (9.7-12.2) 09/12/16 06:56 INR 1.1 09/12/16 06:56 APTT 27 SECONDS (21-34) 09/12/16 06:56 Attending/Attestation - Attestation I have personally seen and examined this patient.: Yes I have fully participated in the care of the patient.: Yes I have reviewed all pertinent clinical information, including history, physical exam and plan: Yes Notes (Text): 09/15/16 17:01 Patient was seen and examined at bedside with the resident. Continue feeding via G-tube and also patient is on PPN Replace electrolytes aggressively Discussed with oncology Dr. Mckoy. Patient is extremely poor prognosis. We will arrange a family meeting tomorrow and discuss tubal of care with the family. We will also request a palliative care consult. I discussed the plan of care with the resident and agree with the above history and physical and assessment/plan by the resident.
[2016-09-15] MEDS: Lactated Ringer's 1,000 ML IV SCH (09:45)
[2016-09-15] MEDS ORDERED: Potassium Chloride 20 mEq/15 ml LIQ UD PO ONE (10:00)
[2016-09-15] MEDS: Magnesium Oxide 400 mg Tab UD PO SCH ×3 (10:30→18:03)
[2016-09-15] MEDS: Potassium & Sodium Phosphate PO SCH ×3 (10:30→18:03)
[2016-09-15] MEDS: Multiple Vitamins Tab PO SCH (10:56)
[2016-09-15] MEDS: Enoxaparin 40 mg Syringe SC SCH (14:30)
--- NOTE | 2016-09-15 14:53 | PCM.SURG1 ---
Surgeon's Initial Post Op Note - Surgeon's Notes Surgeon: Cal Wang MD Insole And Outsole Preparer: NONE Type of Anesthesia: Local Pre-Operative Diagnosis: Poor venous access Operative Findings: Patent left basilic vein. Post-Operative Diagnosis: Poor venous access Operation Performed: Single lumen picc placement left basilic vein, 39 cm. Tip in SVC. Specimen/Specimens Removed: None Estimated Blood Loss: EBL {In ML}: 0 Blood Products Given: N/A Drains Used: No Drains Post-Op Condition: Fair Date of Surgery/Procedure: 09/15/16 Time of Surgery/Procedure: 14:50
--- NOTE | 2016-09-15 15:11 | US ---
Date of procedure: 09/15/2016 Procedure: Ultrasound guidance for vascular access HISTORY: Poor venous access TECHNIQUE: Following informed consent and procedure time-out, the patient placed supine on the interventional table and the left arm prepped and draped in the usual sterile fashion. Ultrasound showed a patent and compressible left basilic vein. After the skin was anesthetized with lidocaine, the basilic vein was accessed with micro micropuncture technique using ultrasound guidance. An image documenting ultrasound guidance for vascular access was permanently saved. IMPRESSION: Ultrasound guidance for vascular access for placement of PICC.
--- NOTE | 2016-09-15 15:13 | RAD ---
PROCEDURE: Date of procedure: 09/15/2016 Procedure: 1. Placement of a left arm PICC with ultrasound and fluoroscopic guidance, CPT 96455 2. PICC tip confirmation with spot radiograph and is in the superior vena cava Medications: 1 percent lidocaine Total Fluoro time: 9.5 seconds Radiation: 3.5 MGy EBL: 2 cc HISTORY: Poor venous access TECHNIQUE: Following informed consent and procedure time-out, the patient placed supine on the interventional table and the left arm prepped and draped in the usual sterile fashion. Ultrasound showed a patent and compressible left basilic vein. After the skin was anesthetized with lidocaine, the basilic vein was accessed with micro micropuncture technique using ultrasound guidance. A guidewire was then advanced under fluoroscopic guidance into the superior vena cava. An image documenting ultrasound guidance for vascular access was permanently saved. The length of a single-lumen 5 [place] PICC was trimmed to 39 cm and advanced through a peel-away sheath. The PICC was position with tip of PICC confirm a spot radiograph the superior vena cava. The PICC was secured to the patient's skin. The PICC was flushed. A biopatch and sterile dressing was applied. IMPRESSION: Placement of a single-lumen 5 Danish PICC left basilic vein trimmed to 39 cm. The tip of the PICC is confirmed with spot radiograph and is in the superior vena cava.
[2016-09-15] MEDS: HYDROmorphone 0.5 mg/0.5 ml ISec IVP PRN ×2 (16:09→21:14)
[2016-09-15] MEDS: Fluconazole IV 100mg/50 ml NS 50 ML IVPB SCH (16:09)
[2016-09-15] MEDS ORDERED: Fat Emulsion 20% IV 250 ML IV SCH (18:00)
[2016-09-15] MEDS ORDERED: PPN #6 IV ONE (18:00)
--- NOTE | 2016-09-15 21:29 | CP.PCM.CON ---
History of Present Illness - History of Present Illness History of Present Illness: nephrology consultation 31-year-old male with past mpresented to ED with complaint of abdomina and nausea vomiting, patient diagnosed with gas in [facility] in April 2016 and had been receivingchemotherapy every 21 days since diagnosis; patient subsequently admitted secondary to electrolyte imbalances and failure to thrive; nephrology service being consul for the electrolyte imbalances; Patient underwent replacement and revision of J-tube 3 days ago; not able to take by mouth intake; J-tube not currently bein due to what appears to be some blockage; patient also had PICC line placed earlier todayfor TPN, previous IV lines were malfunctioning; Patient reports small volumes of diarrhea as many as 5 times today also with nausea that is alleviated with medications; history somewhat limited as patient finds it very difficult to sp due to pain when speaking and he points to his neck; patient otherwise has been ambulating to the bathroom and reports urinating well without any issues; PMH: as above Social hx: denies smoking FH: none Review of Systems - Constitutional Constitutional: Weight Loss, Weakness - EENT Eyes: absent: Change in Vision Ears: absent: Abnormal Hearing Nose/Mouth/Throat: Odynophagia - Cardiovascular Cardiovascular: Leg Edema - Respiratory Respiratory: absent: Dyspnea on Exertion - Gastrointestinal Gastrointestinal: Abdominal Pain, Loose Stools, Vomiting - Genitourinary Genitourinary: absent: Difficulty Urinating, Dysuria - Integumentary Integumentary: Pruritus. absent: Rash - Hematologic/Lymphatic Hematologic: absent: Easy Bleeding Past Patient History - Past Medical History & Family History Past Medical History?: Yes - Past Social History Smoking Status: Never Smoked - CARDIAC Hx Cardiac Disorders: No - PULMONARY Hx Respiratory Disorders: No - NEUROLOGICAL Hx Neurological Disorder: No - HEENT Hx HEENT Problems: No - RENAL Hx Chronic Kidney Disease: No - ENDOCRINE/METABOLIC Hx Endocrine Disorders: No - HEMATOLOGICAL/ONCOLOGICAL Hx Cancer: Yes (Stomach) - INTEGUMENTARY Hx Dermatological Problems: No - MUSCULOSKELETAL/RHEUMATOLOGICAL Hx Musculoskeletal Disorders: Yes Hx Falls: Yes - GASTROINTESTINAL Hx Gastrointestinal Disorders: No - GENITOURINARY/GYNECOLOGICAL Hx Genitourinary Disorders: No - PSYCHIATRIC Hx Substance Use: No - SURGICAL HISTORY Hx Surgeries: Yes Other/Comment: L Knee surgery after a fall - ANESTHESIA Hx Anesthesia: Yes Hx Anesthesia Reactions: No Hx Malignant Hyperthermia: No Has any member of the family had a problem w/ anesthesia?: No Meds Allergies/Adverse Reactions: Allergies Allergy/AdvReac Type Severity Reaction Status Date / Time No Known Allergies Allergy Verified 08/29/16 19:45 - Medications Medications: Current Medications Benzocaine/Menthol (Cepacol Sore Throat) 1 carlos MT Q2 PRN PRN Reason: Sore Throat Enoxaparin Sodium (Lovenox) 40 mg SC DAILY [facility] Last Admin: 09/11/16 10:29 Dose: 40 mg Enoxaparin Sodium (Lovenox) 40 mg SC DAILY [facility] Last Admin: 09/14/16 15:56 Dose: 40 mg Ferrous Sulfate (Feosol) 325 mg PO DAILY [facility] Last Admin: 09/15/16 10:28 Dose: Not Given Hydromorphone HCl (Dilaudid) 0.5 mg IVP Q3H PRN PRN Reason: Pain, severe (8-10) Last Admin: 09/15/16 21:14 Dose: 0.5 mg Piperacillin Sod/Tazobactam (Sod 3.375 gm/ Sodium Chloride) 100 mls @ 200 mls/ hr IVPB Q8H [facility] Last Admin: 09/15/16 17:00 Dose: 200 mls/hr Fluconazole (Diflucan Iv 100 Mg/50 Ml Ns) 50 mls @ 100 mls/hr IVPB Q24H [facility] Last Admin: 09/15/16 16:09 Dose: 100 mls/hr Chromium/Copper/Manganese/Zinc 1 ml/ Multivitamins/Vitamin C 10 ml/ Amino Acids 1,011 mls @ 42 mls/hr IV .Q24H ONE Stop: 09/16/16 17:59 Last Admin: 09/15/16 18:46 Dose: 42 mls/hr Fat Emulsion Intravenous (Intralipid 20%) 250 mls @ 42 mls/hr IV TTS@1800 [facility] Stop: 09/15/16 23:58 Last Admin: 09/15/16 18:46 Dose: 42 mls/hr Lactated Ringer's (Lactated Ringer's) 1,000 mls @ 75 mls/hr IV .[id number] [facility] Last Admin: 09/15/16 09:45 Dose: Not Given Potassium Chloride (Potassium Chloride 20 Meq/100 Ml) 20 meq in 100 mls @ 50 mls/hr IVPB ONCE ONE Stop: 09/15/16 22:29 Magnesium Oxide (Mag-Ox) 800 mg PO TID [facility] Last Admin: 09/15/16 18:03 Dose: Not Given Metoprolol Tartrate (Lopressor) 12.5 mg PO BID [facility] Last Admin: 09/15/16 17:00 Dose: 12.5 mg Multivitamins (Hexavitamin) 1 tab PO DAILY [facility] Last Admin: 09/15/16 10:56 Dose: Not Given Ondansetron HCl (Zofran Inj) 4 mg IVP Q4H PRN PRN Reason: Nausea/Vomiting Last Admin: 09/15/16 21:14 Dose: 4 mg Oxycodone/Acetaminophen (Percocet 5/325 Mg Tab) 1 tab PO Q4H PRN PRN Reason: Pain, moderate (4-7) Stop: 09/17/16 10:37 Pantoprazole Sodium (Protonix Inj) 40 mg IVP DAILY [facility] Last Admin: 09/15/16 10:03 Dose: 40 mg Potassium Phos/Sodium Phos (Neutra-Phos) 1 pkt PO TID [facility] Last Admin: 09/15/16 18:03 Dose: Not Given Sodium Chloride (Sodium Chloride Tab) 1 gm PO DAILY [facility] Last Admin: 09/15/16 10:03 Dose: Not Given Physical Exam - Constitutional Appears: Non-toxic, No Acute Distress - Head Exam Head Exam: NORMAL INSPECTION - Eye Exam Eye Exam: Normal appearance. absent: Scleral icterus - ENT Exam ENT Exam: Mucous Membranes Moist - Neck Exam Neck exam: Positive for: Normal Inspection - Respiratory Exam Respiratory Exam: Clear to Auscultation Bilateral, NORMAL BREATHING PATTERN - Cardiovascular Exam Cardiovascular Exam: REGULAR RHYTHM, +S1, +S2 - GI/Abdominal Exam GI & Abdominal Exam: Distended, Soft, Tenderness - Extremities Exam Additional comments: bilateral mild lower leg edema; - Neurological Exam Neurological exam: Alert Additional comments: 4+/5 bilateral UE and LE motor; - Psychiatric Exam Additional comments: Somewhat depressed mood; - Skin Skin Exam: Normal Color, Warm Results - Vital Signs Recent Vital Signs: Last Vital Signs Temp 99.2 F 09/15/16 15:46 Pulse 107 H 09/15/16 16:00 Resp 18 09/15/16 15:46 BP 137/101 H 09/15/16 15:46 Pulse Ox 95 09/15/16 15:46 - Labs Result Diagrams: 09/16/16 11:38 09/16/16 11:38 Labs: Laboratory Results - last 24 hr 09/15/16 09/15/16 06:14 06:14 WBC 4.4 L RBC 3.56 L Hgb 9.9 L Hct 29.4 L MCV 82.8 MCH 27.9 MCHC 33.7 RDW 19.0 H Plt Count 181 MPV 7.0 L Neut % (Auto) 88.6 H Lymph % (Auto) 7.1 L [place] % (Auto) 3.9 Eos % (Auto) 0.2 Baso % (Auto) 0.2 Neut # 3.9 Lymph # 0.3 L [place] # 0.2 Eos # 0.0 Baso # 0.0 Neutrophils % (Manual) 78 H Band Neutrophils % 8 H Lymphocytes % (Manual) 9 L Monocytes % (Manual) 4 Basophils % (Manual) 1 Platelet Estimate Normal Hypochromasia (manual) Slight Poikilocytosis (manual Slight Anisocytosis (manual) Moderate Target Cells Slight Ovalocytes Slight Sodium 128 L Potassium 3.3 L Chloride 91 L Carbon Dioxide 28 Anion Gap 12 BUN 24 H Creatinine 0.9 Est GFR ( Amer) > 60 Est GFR (Non-Af Amer) > 60 Random Glucose 122 H Calcium 8.2 L Phosphorus 3.7 Magnesium 1.3 L Total Bilirubin 0.9 AST 33 ALT 15 L Alkaline Phosphatase 81 Total Protein 5.3 L Albumin 2.3 L Globulin 3.0 Albumin/Globulin Ratio 0.8 L Assessment & Plan (1) Electrolyte imbalance Assessment and Plan: Overall secondary to decreased intake (currently off tube feeds due to J-tube dysfunction) and previously with malfunctioning IV line (now s/p PICC line); should improve once on regular feeds and with peripheral nutrition; will obtain workup to look for renal wasting of electrolytes (Mg, K), however, likely just needs better intake; -f/u Ur Na, Mag, K, creat, osm Status: Acute (2) Pain Assessment and Plan: Possibly causing some degree of SIADH; seems to be getting adequate relief with opiates; continue same; Status: Acute (3) Volume depletion Assessment and Plan: Very likely given history of lack of adequate intake and perhaps masked by elevated BP due to pain; getting IVF with more reliable IV access, should improve; Status: Acute (4) Hyponatremia Assessment and Plan: Likely due to hypovolemia and component of SIADH from pain; urine osm likely high; need to see response to adequate volume repletion, continue LR at 75 cc/hr ; Status: Acute
[2016-09-16] MEDS: Piperacillin/Tazobact 3.375 GM in Sodium Chloride 100 ML IVPB SCH ×4 (00:20→23:55)
[2016-09-16] MEDS: HYDROmorphone 0.5 mg/0.5 ml ISec IVP PRN (03:25)
[2016-09-16] MEDS: Potassium & Sodium Phosphate PO SCH ×3 (10:01→19:00)
[2016-09-16] MEDS: Multiple Vitamins Tab PO SCH (10:01)
[2016-09-16] MEDS: Magnesium Oxide 400 mg Tab UD PO SCH ×3 (10:01→19:00)
[2016-09-16] MEDS: Enoxaparin 40 mg Syringe SC SCH (10:03)
[2016-09-16 10:04] LABS: CREATININE, RANDOM URINE 70.4 mg/dL
--- NOTE | 2016-09-16 10:21 | CP.PCM.PN ---
<AubreyDanika - Last Filed: 09/16/16 16:35> Subjective - Date & Time of Evaluation Date of Evaluation: 09/16/16 Time of Evaluation: 07:15 - Subjective Subjective: Patient seen and examined. Patient denies nausea/vomiting, although during the day yesterday he was nauseous and has a couple episodes of vomiting. He reports that he has pain in the abdomen but it is now very controlled with medication. He is s/p OR revision of J tube on Monday. He has drainage from this area yesterday. Surgery was at bedside changing the dressing. Patient denies fever, chills, chest pain, palpitations, shortness of breath. He can't tolerate anything PO. He reports having multiple small soft BMs yesterday. Objective - Vital Signs/Intake and Output Vital Signs (last 24 hours): Temp Pulse Resp BP Pulse Ox 98.8 F 117 H 18 130/88 95 09/16/16 07:00 09/16/16 08:00 09/16/16 07:00 09/16/16 07:00 09/16/16 07:00 Intake and Output: 09/16/16 09/16/16 06:59 18:59 Intake Total 1217 Output Total 300 Balance 917 - Medications Medications: Current Medications Benzocaine/Menthol (Cepacol Sore Throat) 1 carlos MT Q2 PRN PRN Reason: Sore Throat Enoxaparin Sodium (Lovenox) 40 mg SC DAILY [facility] Last Admin: 09/16/16 10:03 Dose: 40 mg Ferrous Sulfate (Feosol) 325 mg PO DAILY [facility] Last Admin: 09/16/16 10:01 Dose: Not Given Hydromorphone HCl (Dilaudid) 0.5 mg IVP Q3H PRN PRN Reason: Pain, severe (8-10) Last Admin: 09/16/16 03:25 Dose: 0.5 mg Piperacillin Sod/Tazobactam (Sod 3.375 gm/ Sodium Chloride) 100 mls @ 200 mls/ hr IVPB Q8H [facility] Last Admin: 09/16/16 08:04 Dose: 200 mls/hr Fluconazole (Diflucan Iv 100 Mg/50 Ml Ns) 50 mls @ 100 mls/hr IVPB Q24H [facility] Last Admin: 09/15/16 16:09 Dose: 100 mls/hr Chromium/Copper/Manganese/Zinc 1 ml/ Multivitamins/Vitamin C 10 ml/ Amino Acids 1,011 mls @ 42 mls/hr IV .Q24H ONE Stop: 09/16/16 17:59 Last Admin: 09/15/16 18:46 Dose: 42 mls/hr Lactated Ringer's (Lactated Ringer's) 1,000 mls @ 75 mls/hr IV .[id number] [facility] Last Admin: 09/15/16 09:45 Dose: Not Given Potassium Chloride 40 meq/Magnesium Sulfate 8 meq/Multivitamins/Vitamin C 10 ml/ Amino Acids 1,031.9704 mls @ 42 mls/hr IV .Q24H ONE Stop: 09/17/16 17:59 Magnesium Oxide (Mag-Ox) 800 mg PO TID [facility] Last Admin: 09/16/16 10:01 Dose: Not Given Metoprolol Tartrate (Lopressor) 12.5 mg PO BID [facility] Last Admin: 09/16/16 10:00 Dose: 12.5 mg Multivitamins (Hexavitamin) 1 tab PO DAILY [facility] Last Admin: 09/16/16 10:01 Dose: Not Given Ondansetron HCl (Zofran Inj) 4 mg IVP Q4H PRN PRN Reason: Nausea/Vomiting Last Admin: 09/16/16 03:25 Dose: 4 mg Oxycodone/Acetaminophen (Percocet 5/325 Mg Tab) 1 tab PO Q4H PRN PRN Reason: Pain, moderate (4-7) Stop: 09/17/16 10:37 Pantoprazole Sodium (Protonix Inj) 40 mg IVP DAILY [facility] Last Admin: 09/16/16 10:03 Dose: 40 mg Potassium Phos/Sodium Phos (Neutra-Phos) 1 pkt PO TID [facility] Last Admin: 09/16/16 10:01 Dose: Not Given Sodium Chloride (Sodium Chloride Tab) 1 gm PO DAILY [facility] Last Admin: 09/16/16 10:01 Dose: Not Given - Labs Labs: 09/15/16 06:14 09/15/16 06:14 PT 12.2 SECONDS (9.7-12.2) 09/12/16 06:56 INR 1.1 09/12/16 06:56 APTT 27 SECONDS (21-34) 09/12/16 06:56 - Constitutional Appears: Non-toxic, No Acute Distress, Cachectic, Chronically Ill - Head Exam Head Exam: ATRAUMATIC, NORMAL INSPECTION - Eye Exam Eye Exam: EOMI - ENT Exam ENT Exam: Mucous Membranes Moist - Respiratory Exam Respiratory Exam: Decreased Breath Sounds, Clear to Ausculation Bilateral, NORMAL BREATHING PATTERN. absent: Respiratory Distress - Cardiovascular Exam Cardiovascular Exam: Tachycardia, REGULAR RHYTHM, +S1, +S2 - GI/Abdominal Exam GI & Abdominal Exam: Soft, Normal Bowel Sounds. absent: Distended, Firm, Guarding, Tenderness - Extremities Exam Extremities Exam: Normal Inspection Additional comments: 1+ edema lower ext b/l - Back Exam Back Exam: NORMAL INSPECTION. absent: CVA tenderness (L), CVA tenderness (R), paraspinal tenderness - Neurological Exam Neurological Exam: Alert, Awake, Oriented x3 - Psychiatric Exam Psychiatric exam: Normal Affect, Normal Mood - Skin Skin Exam: Dry, Intact, Normal Color, Warm Assessment and Plan - Assessment and Plan (Free Text) Assessment: Gastric Cancer: Will need to have a family meeting about goals of care with the patient J tube not functioning - IR, Dr. Wang to asses function this afternoon TPN ordered to start tomorrow S/p OR revision of J tube on 09/12 GI, Dr. Mares, consulted. Help appreciated. CT Chest/Abd/Pelvis - extensive mucosal thickening of the stomach; free fluid in the abdomen and pelvis; enapsulation of fluid in the pelvis which is worrisome for abscess; sclerotic lesion within left pelvis, metastatic disease not excluded; enlarged prostate gland, mediastinal and hilar adenopathy; mucosal thickening of the appendix (please see full report) General surgery, Dr. Ham, consulted. Help appreciated. Heme/onc, Dr. Mckoy, consulted. Help appreciated. Zofran prn for nausea s/p paracentesis with IR on 08/31, Dr. Wang. s/p EGD on 09/[address] Cobian, EGD findings reveal malignant tumor on the gastric body (please see full report). 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 Hunter, nephrology, consulted, help appreciated - likely SIADH component Anemia: Hgb 9.7 s/p 2 Units PRBC on 09/12 FOBT + Iron, TIBC, %satuation, ferritin low Feosol 325 mg po qd SIRS: Last fever on 09/14 17 bands today BC 09/14 negative UA negative chest X ray - negative for pneumonia Zosyn restarted WBC wnl Tachycardia: Improving but still tachycardic EKG normal asymptomatic Metoprolol 12.5 mg PO BID Yeast in Urine Diflucan 100mg IVPB daily Prophylactic Measures: DVT: SCDs, Lovenox 40mg SC daily (patient is hypercoagulable to cancer and immobility) GI: Protonix 40 mg IV qd PT/OT TPN to be started tomorrow with added electrolytes Palliative care requested. Asked the family to come to the hospital to have a family meeting to discuss further goals of care. Family is not wanting the patient to know the severity of his disease. Will discuss with the patient and family today. Per Dr. Mckoy, prognosis is very poor. <Beto Sage - Last Filed: 09/17/16 14:43> Objective - Vital Signs/Intake and Output Vital Signs (last 24 hours): Temp Pulse Resp BP Pulse Ox 97.7 F 94 H 20 126/90 96 09/17/16 07:00 09/17/16 07:00 09/17/16 07:00 09/17/16 07:00 09/17/16 07:00 Intake and Output: 09/17/16 09/17/16 06:59 18:59 Intake Total 2749.5 Output Total 350 Balance 2399.5 - Medications Medications: Current Medications Benzocaine/Menthol (Cepacol Sore Throat) 1 carlos MT Q2 PRN PRN Reason: Sore Throat Enoxaparin Sodium (Lovenox) 40 mg SC DAILY [facility] Last Admin: 09/17/16 10:35 Dose: 40 mg Ferrous Sulfate (Feosol) 325 mg PO DAILY [facility] Last Admin: 09/17/16 10:39 Dose: 325 mg Hydromorphone HCl (Dilaudid) 0.5 mg IVP Q3H PRN PRN Reason: Pain, severe (8-10) Last Admin: 09/17/16 03:31 Dose: 0.5 mg Piperacillin Sod/Tazobactam (Sod 3.375 gm/ Sodium Chloride) 100 mls @ 200 mls/ hr IVPB Q8H [facility] Last Admin: 09/17/16 09:00 Dose: 200 mls/hr Fluconazole (Diflucan Iv 100 Mg/50 Ml Ns) 50 mls @ 100 mls/hr IVPB Q24H [facility] Last Admin: 09/17/16 14:01 Dose: 100 mls/hr Potassium Chloride 40 meq/Magnesium Sulfate 8 meq/Multivitamins/Vitamin C 10 ml/ Amino Acids 1,031.9704 mls @ 42 mls/hr IV .Q24H ONE Stop: 09/17/16 17:59 Last Admin: 09/16/16 19:00 Dose: 42 mls/hr Potassium Chloride 60 meq/Magnesium Sulfate 16.24 meq/Multivitamins/Vitamin C 10 ml/Chromium/Copper/Manganese/Zinc 1 ml/ Heparin Sodium ( Porcine) 1,000 units / Amino Acids 1,046 mls @ 42 mls/hr IV .Q24H ONE Stop: 09/18/16 17:59 Fat Emulsion Intravenous (Intralipid 20%) 500 mls @ 42 mls/hr IV DAILY@1800 [facility] Magnesium Oxide (Mag-Ox) 800 mg PO TID [facility] Last Admin: 09/17/16 13:57 Dose: Not Given Metoprolol Tartrate (Lopressor) 12.5 mg PO BID [facility] Last Admin: 09/17/16 10:39 Dose: 12.5 mg Multivitamins (Hexavitamin) 1 tab PO DAILY [facility] Last Admin: 09/17/16 10:43 Dose: 1 tab Ondansetron HCl (Zofran Inj) 4 mg IVP Q4H PRN PRN Reason: Nausea/Vomiting Last Admin: 09/17/16 13:59 Dose: 4 mg Pantoprazole Sodium (Protonix Inj) 40 mg IVP DAILY [facility] Last Admin: 09/17/16 10:35 Dose: 40 mg Potassium Phos/Sodium Phos (Neutra-Phos) 1 pkt PO TID [facility] Last Admin: 09/17/16 13:56 Dose: 1 pkt Sodium Chloride (Sodium Chloride Tab) 1 gm PO DAILY [facility] Last Admin: 09/17/16 10:43 Dose: 1 gm - Labs Labs: 09/17/16 07:13 09/17/16 07:13 PT 12.2 SECONDS (9.7-12.2) 09/12/16 06:56 INR 1.1 09/12/16 06:56 APTT 27 SECONDS (21-34) 09/12/16 06:56 Attending/Attestation - Attestation I have personally seen and examined this patient.: Yes I have fully participated in the care of the patient.: Yes I have reviewed all pertinent clinical information, including history, physical exam and plan: Yes Notes (Text): 09/17/16 14:39 Patient seen and examined at bedside with the resident Start the patient on TPN. We will reevaluate the G-tube after the weekend. Discharge planning to home once the G-tube has been evaluated. I had a detailed discussion with the family and with the patient yesterday. Explained to them the poor prognosis and the lack of any effective treatment for the patient's cancer as per my discussion with the oncologist Dr. Mckoy. Dr. Mckoy had already explained this to the family in her office when the family visited her in the office Patient and the family verbalized understanding and they want to be discharged to home for the patient can spend the rest of the time with his family. We will also request hospice to see the patient prior to discharge. I discussed the plan of care with the resident and agree with the above history and physical and assessment/plan but the resident.
--- NOTE | 2016-09-16 11:13 | CP.PCM.PN ---
<Crow Montgomery - Last Filed: 09/16/16 11:08> Subjective - Date & Time of Evaluation Date of Evaluation: 09/16/16 Time of Evaluation: 11:08 - Subjective Subjective: Surgery: Dr. Ham Pt seen and examined. Has mild abd pain. Intermittent nausea and vomiting. J- tube is not functioning again. Several attempts were made to flush it. Objective - Vital Signs/Intake and Output Vital Signs (last 24 hours): Temp Pulse Resp BP Pulse Ox 98.8 F 117 H 18 130/88 95 09/16/16 07:00 09/16/16 08:00 09/16/16 07:00 09/16/16 07:00 09/16/16 07:00 Intake and Output: 09/16/16 09/16/16 06:59 18:59 Intake Total 1217 Output Total 300 Balance 917 - Medications Medications: Current Medications Benzocaine/Menthol (Cepacol Sore Throat) 1 carlos MT Q2 PRN PRN Reason: Sore Throat Enoxaparin Sodium (Lovenox) 40 mg SC DAILY [facility] Last Admin: 09/16/16 10:03 Dose: 40 mg Ferrous Sulfate (Feosol) 325 mg PO DAILY [facility] Last Admin: 09/16/16 10:01 Dose: Not Given Hydromorphone HCl (Dilaudid) 0.5 mg IVP Q3H PRN PRN Reason: Pain, severe (8-10) Last Admin: 09/16/16 03:25 Dose: 0.5 mg Piperacillin Sod/Tazobactam (Sod 3.375 gm/ Sodium Chloride) 100 mls @ 200 mls/ hr IVPB Q8H [facility] Last Admin: 09/16/16 08:04 Dose: 200 mls/hr Fluconazole (Diflucan Iv 100 Mg/50 Ml Ns) 50 mls @ 100 mls/hr IVPB Q24H [facility] Last Admin: 09/15/16 16:09 Dose: 100 mls/hr Chromium/Copper/Manganese/Zinc 1 ml/ Multivitamins/Vitamin C 10 ml/ Amino Acids 1,011 mls @ 42 mls/hr IV .Q24H ONE Stop: 09/16/16 17:59 Last Admin: 09/15/16 18:46 Dose: 42 mls/hr Lactated Ringer's (Lactated Ringer's) 1,000 mls @ 75 mls/hr IV .[id number] [facility] Last Admin: 09/15/16 09:45 Dose: Not Given Potassium Chloride 40 meq/Magnesium Sulfate 8 meq/Multivitamins/Vitamin C 10 ml/ Amino Acids 1,031.9704 mls @ 42 mls/hr IV .Q24H ONE Stop: 09/17/16 17:59 Magnesium Oxide (Mag-Ox) 800 mg PO TID [facility] Last Admin: 09/16/16 10:01 Dose: Not Given Metoprolol Tartrate (Lopressor) 12.5 mg PO BID [facility] Last Admin: 09/16/16 10:00 Dose: 12.5 mg Multivitamins (Hexavitamin) 1 tab PO DAILY [facility] Last Admin: 09/16/16 10:01 Dose: Not Given Ondansetron HCl (Zofran Inj) 4 mg IVP Q4H PRN PRN Reason: Nausea/Vomiting Last Admin: 09/16/16 03:25 Dose: 4 mg Oxycodone/Acetaminophen (Percocet 5/325 Mg Tab) 1 tab PO Q4H PRN PRN Reason: Pain, moderate (4-7) Stop: 09/17/16 10:37 Pantoprazole Sodium (Protonix Inj) 40 mg IVP DAILY [facility] Last Admin: 09/16/16 10:03 Dose: 40 mg Potassium Phos/Sodium Phos (Neutra-Phos) 1 pkt PO TID [facility] Last Admin: 09/16/16 10:01 Dose: Not Given Sodium Chloride (Sodium Chloride Tab) 1 gm PO DAILY [facility] Last Admin: 09/16/16 10:01 Dose: Not Given - Labs Labs: 09/15/16 06:14 09/15/16 06:14 PT 12.2 SECONDS (9.7-12.2) 09/12/16 06:56 INR 1.1 09/12/16 06:56 APTT 27 SECONDS (21-34) 09/12/16 06:56 - Constitutional Appears: Non-toxic, No Acute Distress, Cachectic - Head Exam Head Exam: ATRAUMATIC, NORMOCEPHALIC - Eye Exam Eye Exam: EOMI - ENT Exam ENT Exam: Mucous Membranes Moist - Respiratory Exam Respiratory Exam: NORMAL BREATHING PATTERN. absent: Accessory Muscle Use, Respiratory Distress - GI/Abdominal Exam GI & Abdominal Exam: Soft, Tenderness (incisional and at J-tube). absent: Distended, Firm, Guarding, Rigid, Rebound - Extremities Exam Extremities Exam: absent: Calf Tenderness, Pedal Edema - Neurological Exam Neurological Exam: Alert, Awake, Oriented x3 Assessment and Plan - Assessment and Plan (Free Text) Assessment: 31M w. gastric CA, s/p witzle J-tube on 09/07 w. revision on 09/12. J-tube is not functioning again -Message left w. Dr. Wang's office IR, to see if anything can be done from interventional standpoint to fix tube -Do no recommend repeat surgery -d/w attending Ulisse PGY2 <Moisés Ham - Last Filed: 09/19/16 18:31> Objective - Vital Signs/Intake and Output Vital Signs (last 24 hours): Temp Pulse Resp BP Pulse Ox 98.5 F 109 H 20 125/87 97 09/19/16 16:00 09/19/16 16:00 09/19/16 16:00 09/19/16 16:00 09/19/16 16:00 Intake and Output: 09/19/16 09/19/16 06:59 18:59 Output Total 200 Balance -200 - Medications Medications: Current Medications Benzocaine/Menthol (Cepacol Sore Throat) 1 carlos MT Q2 PRN PRN Reason: Sore Throat Last Admin: 09/19/16 14:00 Dose: 1 carlos Enoxaparin Sodium (Lovenox) 40 mg SC DAILY [facility] Last Admin: 09/19/16 09:58 Dose: 40 mg Ferrous Sulfate (Feosol) 325 mg PO Q12H [facility] Last Admin: 09/19/16 10:00 Dose: 325 mg Hydromorphone HCl (Dilaudid) 0.5 mg IVP Q3H PRN PRN Reason: Pain, severe (8-10) Last Admin: 09/19/16 02:04 Dose: 0.5 mg Piperacillin Sod/Tazobactam (Sod 3.375 gm/ Sodium Chloride) 100 mls @ 200 mls/ hr IVPB Q8H [facility] Last Admin: 09/19/16 15:15 Dose: 200 mls/hr Fluconazole (Diflucan Iv 100 Mg/50 Ml Ns) 50 mls @ 100 mls/hr IVPB Q24H [facility] Last Admin: 09/19/16 14:00 Dose: 100 mls/hr Potassium Chloride 40 meq/Magnesium Sulfate 16.24 meq/Heparin Sodium (Porcine) 1 ,000 units/ Multivitamins/Vitamin C 10 ml/ Amino Acids 1,035 mls @ 42 mls/hr IV .Q24H [facility] Last Admin: 09/19/16 17:53 Dose: 42 mls/hr Potassium Chloride 40 meq/ (Sodium Chloride) 1,020 mls @ 160 mls/hr IV .Q6H23M [facility] Magnesium Sulfate/Dextrose (Magnesium Sulfate 1 Gm/100 Ml D5w) 1 gm in 100 mls @ 100 mls/hr IVPB Q1H [facility] Last Admin: 09/19/16 17:45 Dose: 100 mls/hr Loperamide HCl (Imodium) 2 mg PO Q12H PRN PRN Reason: Diarrhea Magnesium Oxide (Mag-Ox) 800 mg PO TID [facility] Last Admin: 09/19/16 17:47 Dose: 800 mg Metoprolol Tartrate (Lopressor) 12.5 mg PO BID [facility] Last Admin: 09/19/16 17:47 Dose: 12.5 mg Multivitamins (Hexavitamin) 1 tab PO DAILY [facility] Last Admin: 09/19/16 10:00 Dose: 1 tab Ondansetron HCl (Zofran Inj) 4 mg IVP Q4H PRN PRN Reason: Nausea/Vomiting Last Admin: 09/19/16 01:33 Dose: 4 mg Pantoprazole Sodium (Protonix Inj) 40 mg IVP DAILY [facility] Last Admin: 09/19/16 09:58 Dose: 40 mg Potassium Chloride (K-Dur 20 Meq Er Tab) 20 meq PO DAILY [facility] Last Admin: 09/19/16 16:39 Dose: 20 meq Potassium Phos/Sodium Phos (Neutra-Phos) 1 pkt PO TID [facility] Last Admin: 09/19/16 17:48 Dose: 1 pkt Sodium Chloride (Sodium Chloride Tab) 1 gm PO DAILY [facility] Last Admin: 09/19/16 10:00 Dose: 1 gm - Labs Labs: 09/19/16 07:07 09/19/16 07:07 PT 12.2 SECONDS (9.7-12.2) 09/12/16 06:56 INR 1.1 09/12/16 06:56 APTT 27 SECONDS (21-34) 09/12/16 06:56 Attending/Attestation - Attestation I have personally seen and examined this patient.: Yes I have fully participated in the care of the patient.: Yes I have reviewed all pertinent clinical information, including history, physical exam and plan: Yes Notes (Text): 09/19/16 18:29 Pt was seen and examined at bedside on 09/16/16 Agree with above note and assessment 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 No surgical intervention indicated at present Hospice care Plan florentino pt and Primary team Tammiew current mx
[2016-09-16 11:41] LABS: BASO % 0.2 % (0.0-2.0); EOS % 0.2 % (0.0-4.0); HEMATOCRIT 28.8 % (35.0-51.0); LYMPH # 0.7 K/uL (1.0-4.3); LYMPH % 9.1 % (20.0-40.0); MEAN CELL VOLUME 83.2 fL (80.0-94.0); MEAN CORPUSCULAR HGB CONC 33.7 g/dL (33.0-37.0); MEAN PLATELET VOLUME 7.6 fL (7.2-11.7); MONO # 0.4 K/uL (0.0-0.8); MONO % 4.9 % (0.0-10.0); NRBC % 0.1 % (0.0-2.0); PLATELET COUNT 213 K/uL (130-400); RED CELL DISTRIBUTION WIDTH 19.1 % (11.5-14.5)
[2016-09-16 11:42] LABS: WHITE BLOOD COUNT 7.3 K/uL (4.8-10.8)
[2016-09-16 11:48] LABS: CHLORIDE 91 mmol/L (98-107)
[2016-09-16 11:49] LABS: POTASSIUM 3.1 mmol/L (3.6-5.2); SODIUM 129 mmol/L (132-148)
[2016-09-16 11:51] LABS: ALB/GLOB RATIO 0.8 (1.0-2.1); BILIRUBIN,TOTAL 0.7 mg/dL (0.2-1.3); CARBON DIOXIDE 26 mmol/L (22-30); GFR AFRICAN-AMERICAN > 60; TOTAL PROTEIN 5.6 g/dL (6.3-8.3)
[2016-09-16 11:52] LABS: ALKALINE PHOSPHATASE 81 U/L (38-126); ALT/SGPT 21 U/L (21-72); AST/SGOT 34 U/L (17-59); BLOOD UREA NITROGEN 24 mg/dL (9-20); CALCIUM 7.8 mg/dl (8.6-10.4); GLUCOSE,RANDOM 87 mg/dL (75-110); PHOSPHOROUS 3.4 mg/dL (2.5-4.5)
[2016-09-16 11:53] LABS: MAGNESIUM 1.5 mg/dL (1.6-2.3)
[2016-09-16 12:10] LABS: NEUTROPHIL 69 % (50-75); TOTAL CELLS COUNTED 100
[2016-09-16] MEDS: Magnesium Sulfate 1 gm in D5W 1 GM/100 ML BAG IVPB SCH ×2 (12:30→13:29)
[2016-09-16] MEDS: Lactated Ringer's 1,000 ML IV SCH ×2 (13:31→19:45)
[2016-09-16] MEDS: Fluconazole IV 100mg/50 ml NS 50 ML IVPB SCH (14:45)
[2016-09-16] MEDS ORDERED: PPN#7 IV ONE (18:00)
--- NOTE | 2016-09-16 20:34 | PN ---
DATE: 09/16/2016 A 31-year-old male with past medical history of gastric cancer admitted with abdominal pain, nausea a nd vomiting as well as failure to thrive. Nephrology service consulted for electrolyte imbalances. The patient reports pain is improved. Nausea is improved. Still unable to receive tube feeds throug h the malfunctioning J-tube. PHYSICAL EXAMINATION: VITAL SIGNS: Blood pressure this afternoon 132/95, heart rate 106, respirations 20, temperature 99.8 , O2 sat 96% on room air. GENERAL: No acute distress, lying comfortably in bed, using only hand gestures to answer questions. HEENT: Moist mucous membranes. Nonicteric. CHEST: Clear to auscultation bilaterally, although decreased air movement. HEART: S1, S2 normal, no murmurs, no gallops, no rubs. ABDOMEN: Soft, tender. EXTREMITIES: Mild bilateral lower leg edema. SKIN: Warm. No cyanosis. PSYCHIATRIC: Somewhat depressed mood. LABORATORY DATA: This morning, CBC: WBC 7.3, hemoglobin 9.7, hematocrit 28.8 with platelet count 21 3, 17% band neutrophils in the differential. Chemistry panel: Sodium 129, potassium 3.1, chloride 9 1, bicarbonate 26, BUN 24, creatinine 0.8, calcium 7.8, phosphorus 3.4, magnesium 1.5, albumin 2.5. Urine electrolytes obtained this morning, urine osmolality 644, creatinine 70.4, sodium 23, potassium 64.7, urea 1057 and magnesium 57.1. ASSESSMENT: 1. Hypokalemia. Urine electrolytes showing trans-tubular potassium gradient as being elevated, whic h is consistent with renal wasting of potassium and likely due to some degree of secondary hyperaldos teronism in the setting of volume depletion. Besides replenishing potassium more aggressive intravas cular volume replenishment should stop impetus for elevated aldosterone level and will help reduce th e hypokalemia. 2. Hypomagnesemia. Fractional excretion of magnesium actually is low, which is consistent with a no n-renal wasting magnesium likely gastrointestinal secondary to diarrhea. Recommend when replenishing magnesium, to do so at a slow rate to avoid renal wasting of magnesium when high plasma levels are t ransiently seen. 3. Hyponatremia. Also likely secondary to volume depletion with elevated urine osmolality, may also have underlying syndrome of inappropriate antidiuretic hormone secretion, possibly secondary to pain . Nevertheless need to ensure that the volume deficit is corrected before returning to syndrome of i nappropriate antidiuretic hormone. Increase LR to 125 mL per hour. 4. Pain. Again this is a stimulus for syndrome of inappropriate antidiuretic hormone secretion, rep orts getting adequate relief with current pain regimen. Continue the same. Ye Hunter MD cc: [id number] TT: 09/16/2016 20:34:11 Confirmation # [id number] Dictation # [id number]
[2016-09-17] MEDS: Lactated Ringer's 1,000 ML IV SCH (02:06)
[2016-09-17] MEDS: HYDROmorphone 0.5 mg/0.5 ml ISec IVP PRN ×2 (03:31→23:02)
[2016-09-17 07:34] LABS: BASO % 0.1 % (0.0-2.0); EOS % 0.3 % (0.0-4.0); HEMATOCRIT 25.9 % (35.0-51.0); LYMPH # 0.8 K/uL (1.0-4.3); LYMPH % 9.6 % (20.0-40.0); MEAN CELL VOLUME 83.3 fL (80.0-94.0); MEAN CORPUSCULAR HEMOGLOBIN 28.3 pg (27.0-31.0); MEAN PLATELET VOLUME 7.6 fL (7.2-11.7); MONO # 0.4 K/uL (0.0-0.8); PLATELET COUNT 176 K/uL (130-400); RED CELL DISTRIBUTION WIDTH 18.8 % (11.5-14.5); WHITE BLOOD COUNT 8.2 K/uL (4.8-10.8)
[2016-09-17 07:57] LABS: CHLORIDE 92 mmol/L (98-107); POTASSIUM 2.8 mmol/L (3.6-5.2); SODIUM 127 mmol/L (132-148)
[2016-09-17 07:59] LABS: ALB/GLOB RATIO 0.7 (1.0-2.1); AST/SGOT 34 U/L (17-59); BILIRUBIN,TOTAL 0.7 mg/dL (0.2-1.3); CARBON DIOXIDE 28 mmol/L (22-30); GFR AFRICAN-AMERICAN > 60; TOTAL PROTEIN 4.7 g/dL (6.3-8.3)
[2016-09-17 08:00] LABS: ALKALINE PHOSPHATASE 74 U/L (38-126); ALT/SGPT 15 U/L (21-72); BLOOD UREA NITROGEN 19 mg/dL (9-20); CALCIUM 7.2 mg/dl (8.6-10.4); GLUCOSE,RANDOM 86 mg/dL (75-110); MAGNESIUM 1.3 mg/dL (1.6-2.3); PHOSPHOROUS 3.5 mg/dL (2.5-4.5)
[2016-09-17] MEDS: Piperacillin/Tazobact 3.375 GM in Sodium Chloride 100 ML IVPB SCH ×2 (09:00→15:31)
[2016-09-17 10:33] LABS: NEUTROPHIL 83 % (50-75); TOTAL CELLS COUNTED 100
[2016-09-17 10:35] LABS: GIANT PLATELETS PRESENT; LARGE PLATELETS PRESENT
[2016-09-17] MEDS: Potassium & Sodium Phosphate PO SCH ×3 (10:35→17:44)
[2016-09-17] MEDS: Enoxaparin 40 mg Syringe SC SCH (10:35)
[2016-09-17] MEDS: Magnesium Oxide 400 mg Tab UD PO SCH ×3 (10:39→17:44)
[2016-09-17] MEDS: Multiple Vitamins Tab PO SCH (10:43)
--- NOTE | 2016-09-17 13:46 | CP.PCM.PN ---
<Jackie Owens - Last Filed: 09/17/16 19:41> Subjective - Date & Time of Evaluation Date of Evaluation: 09/17/16 Time of Evaluation: 08:00 - Subjective Subjective: Medicine Progress Note- Dr. Sage's service: Patient seen and examined at bedside this AM. He admits to feeling "so so". Denies abdominal pain this AM. Patient is not eating or drinking. No complaints this AM. No acute events overnight. Objective - Vital Signs/Intake and Output Vital Signs (last 24 hours): Temp Pulse Resp BP Pulse Ox 97.7 F 94 H 20 126/90 96 09/17/16 07:00 09/17/16 07:00 09/17/16 07:00 09/17/16 07:00 09/17/16 07:00 Intake and Output: 09/17/16 09/17/16 06:59 18:59 Intake Total 2749.5 Output Total 350 Balance 2399.5 - Medications Medications: Current Medications Benzocaine/Menthol (Cepacol Sore Throat) 1 carlos MT Q2 PRN PRN Reason: Sore Throat Enoxaparin Sodium (Lovenox) 40 mg SC DAILY [facility] Last Admin: 09/17/16 10:35 Dose: 40 mg Ferrous Sulfate (Feosol) 325 mg PO DAILY [facility] Last Admin: 09/17/16 10:39 Dose: 325 mg Hydromorphone HCl (Dilaudid) 0.5 mg IVP Q3H PRN PRN Reason: Pain, severe (8-10) Last Admin: 09/17/16 03:31 Dose: 0.5 mg Piperacillin Sod/Tazobactam (Sod 3.375 gm/ Sodium Chloride) 100 mls @ 200 mls/ hr IVPB Q8H [facility] Last Admin: 09/17/16 09:00 Dose: 200 mls/hr Fluconazole (Diflucan Iv 100 Mg/50 Ml Ns) 50 mls @ 100 mls/hr IVPB Q24H [facility] Last Admin: 09/16/16 14:45 Dose: 100 mls/hr Potassium Chloride 40 meq/Magnesium Sulfate 8 meq/Multivitamins/Vitamin C 10 ml/ Amino Acids 1,031.9704 mls @ 42 mls/hr IV .Q24H ONE Stop: 09/17/16 17:59 Last Admin: 09/16/16 19:00 Dose: 42 mls/hr Potassium Chloride 60 meq/Magnesium Sulfate 16.24 meq/Multivitamins/Vitamin C 10 ml/Chromium/Copper/Manganese/Zinc 1 ml/ Heparin Sodium ( Porcine) 1,000 units / Amino Acids 1,046 mls @ 42 mls/hr IV .Q24H ONE Stop: 09/18/16 17:59 Fat Emulsion Intravenous (Intralipid 20%) 500 mls @ 42 mls/hr IV DAILY@1800 [facility] Magnesium Oxide (Mag-Ox) 800 mg PO TID [facility] Last Admin: 09/17/16 10:39 Dose: 800 mg Metoprolol Tartrate (Lopressor) 12.5 mg PO BID [facility] Last Admin: 09/17/16 10:39 Dose: 12.5 mg Multivitamins (Hexavitamin) 1 tab PO DAILY [facility] Last Admin: 09/17/16 10:43 Dose: 1 tab Ondansetron HCl (Zofran Inj) 4 mg IVP Q4H PRN PRN Reason: Nausea/Vomiting Last Admin: 09/17/16 03:30 Dose: 4 mg Pantoprazole Sodium (Protonix Inj) 40 mg IVP DAILY [facility] Last Admin: 09/17/16 10:35 Dose: 40 mg Potassium Phos/Sodium Phos (Neutra-Phos) 1 pkt PO TID [facility] Last Admin: 09/17/16 10:35 Dose: 1 pkt Sodium Chloride (Sodium Chloride Tab) 1 gm PO DAILY [facility] Last Admin: 09/17/16 10:43 Dose: 1 gm - Labs Labs: 09/17/16 07:13 09/17/16 07:13 PT 12.2 SECONDS (9.7-12.2) 09/12/16 06:56 INR 1.1 09/12/16 06:56 APTT 27 SECONDS (21-34) 09/12/16 06:56 - Constitutional Appears: No Acute Distress, Chronically Ill - Head Exam Head Exam: NORMAL INSPECTION, NORMOCEPHALIC - Eye Exam Eye Exam: EOMI, Normal appearance - ENT Exam ENT Exam: Mucous Membranes Dry - Neck Exam Neck Exam: Normal Inspection - Respiratory Exam Respiratory Exam: Clear to Ausculation Bilateral, NORMAL BREATHING PATTERN - Cardiovascular Exam Cardiovascular Exam: REGULAR RHYTHM, +S1, +S2 - GI/Abdominal Exam GI & Abdominal Exam: Firm, Tenderness, Hypoactive Bowel Sounds. absent: Soft - Extremities Exam Extremities Exam: Normal Inspection. absent: Pedal Edema - Neurological Exam Neurological Exam: Alert, Awake, Oriented x3 - Psychiatric Exam Psychiatric exam: Normal Affect, Normal Mood - Skin Skin Exam: Normal Color, Warm Assessment and Plan - Assessment and Plan (Free Text) Assessment: Gastric Cancer: Will need to have a family meeting about goals of care with the patient Heme/onc, Dr. Mckoy, consulted. Help appreciated. 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 Wang to asses GI, Dr. Mares, consulted. Help appreciated. s/p paracentesis with IR on 08/31, Dr. Wang. s/p EGD on 09/[address] Cobian, EGD findings reveal malignant tumor on the gastric body (please see full report) CT Chest/Abd/Pelvis - extensive mucosal thickening of the stomach; free fluid in the abdomen and pelvis; enapsulation of fluid in the pelvis which is worrisome for abscess; sclerotic lesion within left pelvis, metastatic disease not excluded; enlarged prostate gland, mediastinal and hilar adenopathy; mucosal thickening of the appendix (please see full report) General surgery, Dr. Ham, consulted. Help appreciated. S/P OR revision of J tube on 09/12 Zofran prn for nausea Electrolyte Imbalance: Dr. Hunter, nephrology, consulted, help appreciated - likely SIADH component Mg 800 po tid - patient refusing the oral med Neutraphos 1 packet po tid TPN started 09/17/16 - added Mg (2gm) and K (60meq) Pt not tolerating oral medications Anemia: Hgb 8.8 this AM s/p 2 Units PRBC on 09/12 FOBT + Iron, TIBC, %satuation, ferritin low Feosol 325 mg po qd s/p EGD on 09/[address] Cobian, EGD findings reveal malignant tumor on the gastric body (please see full report) SIRS: Last fever on 09/14 No bands today Blood Cx 09/14 negative UA negative chest X ray - negative for pneumonia Zosyn restarted WBC wnl Tachycardia: Improving but still tachycardic EKG normal asymptomatic Metoprolol 12.5 mg PO BID Yeast in Urine Diflucan 100mg IVPB daily Prophylactic Measures: DVT: SCDs, Lovenox 40mg SC daily (patient is hypercoagulable to cancer and immobility) GI: Protonix 40 mg IV qd PT/OT TPN started with added electrolytes Palliative care requested. Asked the family to come to the hospital to have a family meeting to discuss further goals of care. Per Dr. Mckoy, prognosis is very poor. <Beto Sage M - Last Filed: 09/18/16 08:44> Objective - Vital Signs/Intake and Output Vital Signs (last 24 hours): Temp Pulse Resp BP Pulse Ox 99.5 F 18 L 96 H 128/86 95 09/18/16 07:10 09/18/16 07:10 09/18/16 07:10 09/18/16 07:10 09/18/16 04:30 Intake and Output: 09/18/16 09/18/16 06:59 18:59 Intake Total 609 Output Total 400 Balance 209 - Medications Medications: Current Medications Benzocaine/Menthol (Cepacol Sore Throat) 1 carlos MT Q2 PRN PRN Reason: Sore Throat Enoxaparin Sodium (Lovenox) 40 mg SC DAILY [facility] Last Admin: 09/17/16 10:35 Dose: 40 mg Ferrous Sulfate (Feosol) 325 mg PO DAILY [facility] Last Admin: 09/17/16 10:39 Dose: 325 mg Hydromorphone HCl (Dilaudid) 0.5 mg IVP Q3H PRN PRN Reason: Pain, severe (8-10) Last Admin: 09/17/16 23:02 Dose: 0.5 mg Piperacillin Sod/Tazobactam (Sod 3.375 gm/ Sodium Chloride) 100 mls @ 200 mls/ hr IVPB Q8H [facility] Last Admin: 09/18/16 08:09 Dose: 200 mls/hr Fluconazole (Diflucan Iv 100 Mg/50 Ml Ns) 50 mls @ 100 mls/hr IVPB Q24H [facility] Last Admin: 09/17/16 14:01 Dose: 100 mls/hr Potassium Chloride 60 meq/Magnesium Sulfate 16.24 meq/Multivitamins/Vitamin C 10 ml/Chromium/Copper/Manganese/Zinc 1 ml/ Heparin Sodium ( Porcine) 1,000 units / Amino Acids 1,046 mls @ 42 mls/hr IV .Q24H ONE Stop: 09/18/16 17:59 Last Admin: 09/17/16 17:43 Dose: 42 mls/hr Fat Emulsion Intravenous (Intralipid 20%) 500 mls @ 42 mls/hr IV DAILY@1800 [facility] Last Admin: 09/17/16 17:43 Dose: 42 mls/hr Magnesium Oxide (Mag-Ox) 800 mg PO TID [facility] Last Admin: 09/17/16 17:44 Dose: 800 mg Metoprolol Tartrate (Lopressor) 12.5 mg PO BID [facility] Last Admin: 09/17/16 17:44 Dose: 12.5 mg Multivitamins (Hexavitamin) 1 tab PO DAILY [facility] Last Admin: 09/17/16 10:43 Dose: 1 tab Ondansetron HCl (Zofran Inj) 4 mg IVP Q4H PRN PRN Reason: Nausea/Vomiting Last Admin: 09/17/16 22:57 Dose: 4 mg Pantoprazole Sodium (Protonix Inj) 40 mg IVP DAILY [facility] Last Admin: 09/17/16 10:35 Dose: 40 mg Potassium Phos/Sodium Phos (Neutra-Phos) 1 pkt PO TID [facility] Last Admin: 09/17/16 17:44 Dose: 1 pkt Sodium Chloride (Sodium Chloride Tab) 1 gm PO DAILY [facility] Last Admin: 09/17/16 10:43 Dose: 1 gm - Labs Labs: 09/18/16 07:24 09/18/16 07:24 PT 12.2 SECONDS (9.7-12.2) 09/12/16 06:56 INR 1.1 09/12/16 06:56 APTT 27 SECONDS (21-34) 09/12/16 06:56 Attending/Attestation - Attestation I have personally seen and examined this patient.: Yes I have fully participated in the care of the patient.: Yes I have reviewed all pertinent clinical information, including history, physical exam and plan: Yes Notes (Text): 09/18/16 08:43 Patient was seen and examined at bedside Patient is started on TPN G Tube to evaluated by interventional radiology. I reviewed the chart, labs, imaging studies, outside solar sales consultant notes and I discussed the plan of care with the resident and I agree with above history and physical and assessment/plan by the resident.
[2016-09-17] MEDS: Fluconazole IV 100mg/50 ml NS 50 ML IVPB SCH (14:01)
[2016-09-17] MEDS ORDERED: Potassium Chloride 20 mEq ER Tab PO ONE (17:31)
[2016-09-17] MEDS: Fat Emulsion 20% IV 500 ML IV SCH (17:43)
[2016-09-17] MEDS ORDERED: [UNRECOGNIZED DRUG - OTHER] IV ONE (18:00)
[2016-09-17] MEDS ORDERED: MAGNESIUM SULFATE IV ONE (18:00)
[2016-09-17] MEDS ORDERED: *** TPN # 1 IV ONE (18:00)
[2016-09-17] MEDS ORDERED: POTASSIUM CHLORIDE IV ONE (18:00)
--- NOTE | 2016-09-17 18:25 | CP.PCM.PN ---
Subjective - Date & Time of Evaluation Date of Evaluation: 09/17/16 Time of Evaluation: 17:30 - Subjective Subjective: Patient denying abd pain or nausea, had 8 episodes of diarrhea today; Objective - Vital Signs/Intake and Output Vital Signs (last 24 hours): Temp Pulse Resp BP Pulse Ox 98.8 F 106 H 18 129/84 96 09/17/16 15:10 09/17/16 15:58 09/17/16 15:10 09/17/16 15:10 09/17/16 15:10 Intake and Output: 09/17/16 09/17/16 06:59 18:59 Intake Total 2749.5 Output Total 350 Balance 2399.5 - Medications Medications: Current Medications Benzocaine/Menthol (Cepacol Sore Throat) 1 carlos MT Q2 PRN PRN Reason: Sore Throat Enoxaparin Sodium (Lovenox) 40 mg SC DAILY [facility] Last Admin: 09/17/16 10:35 Dose: 40 mg Ferrous Sulfate (Feosol) 325 mg PO DAILY [facility] Last Admin: 09/17/16 10:39 Dose: 325 mg Hydromorphone HCl (Dilaudid) 0.5 mg IVP Q3H PRN PRN Reason: Pain, severe (8-10) Last Admin: 09/17/16 03:31 Dose: 0.5 mg Piperacillin Sod/Tazobactam (Sod 3.375 gm/ Sodium Chloride) 100 mls @ 200 mls/ hr IVPB Q8H [facility] Last Admin: 09/17/16 15:31 Dose: 200 mls/hr Fluconazole (Diflucan Iv 100 Mg/50 Ml Ns) 50 mls @ 100 mls/hr IVPB Q24H [facility] Last Admin: 09/17/16 14:01 Dose: 100 mls/hr Potassium Chloride 60 meq/Magnesium Sulfate 16.24 meq/Multivitamins/Vitamin C 10 ml/Chromium/Copper/Manganese/Zinc 1 ml/ Heparin Sodium ( Porcine) 1,000 units / Amino Acids 1,046 mls @ 42 mls/hr IV .Q24H ONE Stop: 09/18/16 17:59 Last Admin: 09/17/16 17:43 Dose: 42 mls/hr Fat Emulsion Intravenous (Intralipid 20%) 500 mls @ 42 mls/hr IV DAILY@1800 [facility] Last Admin: 09/17/16 17:43 Dose: 42 mls/hr Potassium Chloride (Potassium Chloride 20 Meq/100 Ml) 20 meq in 100 mls @ 50 mls/hr IVPB Q2H [facility] Stop: 09/17/16 20:44 Last Admin: 09/17/16 17:43 Dose: 50 mls/hr Magnesium Oxide (Mag-Ox) 800 mg PO TID [facility] Last Admin: 09/17/16 17:44 Dose: 800 mg Metoprolol Tartrate (Lopressor) 12.5 mg PO BID [facility] Last Admin: 09/17/16 10:39 Dose: 12.5 mg Multivitamins (Hexavitamin) 1 tab PO DAILY [facility] Last Admin: 09/17/16 10:43 Dose: 1 tab Ondansetron HCl (Zofran Inj) 4 mg IVP Q4H PRN PRN Reason: Nausea/Vomiting Last Admin: 09/17/16 17:59 Dose: 4 mg Pantoprazole Sodium (Protonix Inj) 40 mg IVP DAILY [facility] Last Admin: 09/17/16 10:35 Dose: 40 mg Potassium Phos/Sodium Phos (Neutra-Phos) 1 pkt PO TID [facility] Last Admin: 09/17/16 17:44 Dose: 1 pkt Sodium Chloride (Sodium Chloride Tab) 1 gm PO DAILY [facility] Last Admin: 09/17/16 10:43 Dose: 1 gm - Labs Labs: 09/17/16 07:13 09/17/16 07:13 PT 12.2 SECONDS (9.7-12.2) 09/12/16 06:56 INR 1.1 09/12/16 06:56 APTT 27 SECONDS (21-34) 09/12/16 06:56 - Constitutional Appears: Non-toxic, No Acute Distress - Head Exam Head Exam: NORMAL INSPECTION - Eye Exam Eye Exam: absent: Scleral icterus - ENT Exam Additional comments: appears dry - Respiratory Exam Respiratory Exam: Clear to Ausculation Bilateral, NORMAL BREATHING PATTERN - Cardiovascular Exam Cardiovascular Exam: REGULAR RHYTHM, +S1, +S2 - GI/Abdominal Exam GI & Abdominal Exam: Distended, Soft - Extremities Exam Additional comments: Mild/moderate bilateral lower leg edema; - Psychiatric Exam Psychiatric exam: Normal Affect, Normal Mood - Skin Skin Exam: Normal Color, Warm Assessment and Plan (1) Electrolyte imbalance Assessment & Plan: Hypokalemia and hypomagnesemia persist, needs more aggressive replenishment in setting of diarrhea; Status: Acute (2) Pain Assessment & Plan: Controlled, continue current regimen; Status: Acute (3) Volume depletion Assessment & Plan: Is contributing overall electrolyte imbalances; needs to be kept on IVF especially with ongoing diarrhea; Status: Acute (4) Hyponatremia Assessment & Plan: Again, likely driven by volume depletion, continue IVF; Status: Acute
[2016-09-18] MEDS: Piperacillin/Tazobact 3.375 GM in Sodium Chloride 100 ML IVPB SCH ×3 (00:19→18:06)
--- NOTE | 2016-09-18 01:48 | CP.PCM.PN ---
<Rahul Mayberry - Last Filed: 09/18/16 01:59> Subjective - Date & Time of Evaluation Date of Evaluation: 09/18/16 Time of Evaluation: 01:45 - Subjective Subjective: Medicine Progress Note- Dr. Sage's service: Patient seen and examined at bedside this AM. Denies abdominal pain this AM. Patient is not eating or drinking. No complaints this AM. No acute events so far overnight. Objective - Vital Signs/Intake and Output Vital Signs (last 24 hours): Temp Pulse Resp BP Pulse Ox 98.5 F 98 H 20 126/88 95 09/17/16 23:00 09/17/16 23:00 09/17/16 23:00 09/17/16 23:00 09/17/16 23:00 - Medications Medications: Current Medications Benzocaine/Menthol (Cepacol Sore Throat) 1 carlos MT Q2 PRN PRN Reason: Sore Throat Enoxaparin Sodium (Lovenox) 40 mg SC DAILY [facility] Last Admin: 09/17/16 10:35 Dose: 40 mg Ferrous Sulfate (Feosol) 325 mg PO DAILY [facility] Last Admin: 09/17/16 10:39 Dose: 325 mg Hydromorphone HCl (Dilaudid) 0.5 mg IVP Q3H PRN PRN Reason: Pain, severe (8-10) Last Admin: 09/17/16 23:02 Dose: 0.5 mg Piperacillin Sod/Tazobactam (Sod 3.375 gm/ Sodium Chloride) 100 mls @ 200 mls/ hr IVPB Q8H [facility] Last Admin: 09/18/16 00:19 Dose: 200 mls/hr Fluconazole (Diflucan Iv 100 Mg/50 Ml Ns) 50 mls @ 100 mls/hr IVPB Q24H [facility] Last Admin: 09/17/16 14:01 Dose: 100 mls/hr Potassium Chloride 60 meq/Magnesium Sulfate 16.24 meq/Multivitamins/Vitamin C 10 ml/Chromium/Copper/Manganese/Zinc 1 ml/ Heparin Sodium ( Porcine) 1,000 units / Amino Acids 1,046 mls @ 42 mls/hr IV .Q24H ONE Stop: 09/18/16 17:59 Last Admin: 09/17/16 17:43 Dose: 42 mls/hr Fat Emulsion Intravenous (Intralipid 20%) 500 mls @ 42 mls/hr IV DAILY@1800 [facility] Last Admin: 09/17/16 17:43 Dose: 42 mls/hr Magnesium Oxide (Mag-Ox) 800 mg PO TID [facility] Last Admin: 09/17/16 17:44 Dose: 800 mg Metoprolol Tartrate (Lopressor) 12.5 mg PO BID [facility] Last Admin: 09/17/16 17:44 Dose: 12.5 mg Multivitamins (Hexavitamin) 1 tab PO DAILY [facility] Last Admin: 09/17/16 10:43 Dose: 1 tab Ondansetron HCl (Zofran Inj) 4 mg IVP Q4H PRN PRN Reason: Nausea/Vomiting Last Admin: 09/17/16 22:57 Dose: 4 mg Pantoprazole Sodium (Protonix Inj) 40 mg IVP DAILY [facility] Last Admin: 09/17/16 10:35 Dose: 40 mg Potassium Phos/Sodium Phos (Neutra-Phos) 1 pkt PO TID [facility] Last Admin: 09/17/16 17:44 Dose: 1 pkt Sodium Chloride (Sodium Chloride Tab) 1 gm PO DAILY [facility] Last Admin: 09/17/16 10:43 Dose: 1 gm - Labs Labs: 09/17/16 07:13 09/17/16 07:13 PT 12.2 SECONDS (9.7-12.2) 09/12/16 06:56 INR 1.1 09/12/16 06:56 APTT 27 SECONDS (21-34) 09/12/16 06:56 - Constitutional Appears: No Acute Distress, Chronically Ill - Head Exam Head Exam: ATRAUMATIC, NORMAL INSPECTION, NORMOCEPHALIC - Eye Exam Eye Exam: EOMI - ENT Exam ENT Exam: Mucous Membranes Dry - Neck Exam Neck Exam: Full ROM, Normal Inspection - Respiratory Exam Respiratory Exam: NORMAL BREATHING PATTERN. absent: Respiratory Distress - Cardiovascular Exam Cardiovascular Exam: +S1, +S2 - GI/Abdominal Exam GI & Abdominal Exam: Tenderness, Hypoactive Bowel Sounds - Extremities Exam Extremities Exam: Full ROM, Normal Inspection - Neurological Exam Neurological Exam: Alert, Awake - Psychiatric Exam Psychiatric exam: Agitated - Skin Skin Exam: Dry, Intact, Normal Color, Warm Assessment and Plan - Assessment and Plan (Free Text) Assessment: Gastric Cancer: Will need to have a family meeting about goals of care with the patient Heme/onc, Dr. Mckoy, consulted. Help appreciated. 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 Wang to assess GI, Dr. Mares, consulted. Help appreciated. s/p paracentesis with IR on 08/31, Dr. Wang. s/p EGD on 09/[address] Cobian, EGD findings reveal malignant tumor on the gastric body (please see full report) CT Chest/Abd/Pelvis - extensive mucosal thickening of the stomach; free fluid in the abdomen and pelvis; enapsulation of fluid in the pelvis which is worrisome for abscess; sclerotic lesion within left pelvis, metastatic disease not excluded; enlarged prostate gland, mediastinal and hilar adenopathy; mucosal thickening of the appendix (please see full report) General surgery, Dr. Ham, consulted. Help appreciated. S/P OR revision of J tube on 09/12 Zofran prn for nausea Electrolyte Imbalance: Dr. Hunter, nephrology, consulted, help appreciated - likely SIADH component Magnesium oxide 800 mg po tid - last given 5:44 PM Neutraphos 1 packet po tid TPN started 09/17/16 - added Mg (2gm) and K (60meq) Pt not tolerating oral medications Anemia: Hgb 8.8 morning of 09/17 s/p 2 Units PRBC on 09/12 FOBT + Iron, TIBC, %satuation, ferritin low Feosol 325 mg po daily s/p EGD on 09/[address] Cobian, EGD findings reveal malignant tumor on the gastric body (please see full report) SIRS: Last fever on 09/14 Bands -2 on 09.17 Blood Cx 09/14 negative x 3days UA negative chest X ray - negative for pneumonia Zosyn restarted>>> 3.375 g IV q 8 hrs WBC wnl Tachycardia: HR in 90s most recently EKG normal sinus rhythm asymptomatic Metoprolol 12.5 mg PO BID Yeast in Urine Diflucan 100mg IVPB daily Prophylactic Measures: DVT: SCDs, Lovenox 40mg SC daily (patient is hypercoagulable to cancer and immobility) GI: Protonix 40 mg IV qd PT/OT TPN started with added electrolytes One salt tab daily Palliative care requested. Asked the family to come to the hospital to have a family meeting to discuss further goals of care. Per Dr. Mckoy, prognosis is very poor. to be discussed with Dr. Sage <Beto Sage M - Last Filed: 09/18/16 13:33> Objective - Vital Signs/Intake and Output Vital Signs (last 24 hours): Temp Pulse Resp BP Pulse Ox 99.5 F 100 H 18 128/86 96 09/18/16 08:00 09/18/16 08:00 09/18/16 08:00 09/18/16 08:00 09/18/16 08:00 Intake and Output: 09/18/16 09/18/16 06:59 18:59 Intake Total 609 Output Total 400 Balance 209 - Medications Medications: Current Medications Benzocaine/Menthol (Cepacol Sore Throat) 1 carlos MT Q2 PRN PRN Reason: Sore Throat Enoxaparin Sodium (Lovenox) 40 mg SC DAILY [facility] Last Admin: 09/18/16 10:20 Dose: 40 mg Ferrous Sulfate (Feosol) 325 mg PO DAILY [facility] Last Admin: 09/17/16 10:39 Dose: 325 mg Hydromorphone HCl (Dilaudid) 0.5 mg IVP Q3H PRN PRN Reason: Pain, severe (8-10) Last Admin: 09/17/16 23:02 Dose: 0.5 mg Piperacillin Sod/Tazobactam (Sod 3.375 gm/ Sodium Chloride) 100 mls @ 200 mls/ hr IVPB Q8H [facility] Last Admin: 09/18/16 08:09 Dose: 200 mls/hr Fluconazole (Diflucan Iv 100 Mg/50 Ml Ns) 50 mls @ 100 mls/hr IVPB Q24H [facility] Last Admin: 09/17/16 14:01 Dose: 100 mls/hr Fat Emulsion Intravenous (Intralipid 20%) 500 mls @ 42 mls/hr IV DAILY@1800 [facility] Last Admin: 09/17/16 17:43 Dose: 42 mls/hr Potassium Chloride 40 meq/Magnesium Sulfate 16.24 meq/Heparin Sodium (Porcine) 1 ,000 units/ Amino Acids 1,025 mls @ 42 mls/hr IV .Q24H ONE Stop: 09/19/16 17:59 Potassium Chloride 40 meq/ (Sodium Chloride) 1,020 mls @ 125 mls/hr IV .Q8H10M [facility] Magnesium Oxide (Mag-Ox) 800 mg PO TID [facility] Last Admin: 09/17/16 17:44 Dose: 800 mg Metoprolol Tartrate (Lopressor) 12.5 mg PO BID [facility] Last Admin: 09/17/16 17:44 Dose: 12.5 mg Multivitamins (Hexavitamin) 1 tab PO DAILY [facility] Last Admin: 09/17/16 10:43 Dose: 1 tab Ondansetron HCl (Zofran Inj) 4 mg IVP Q4H PRN PRN Reason: Nausea/Vomiting Last Admin: 09/17/16 22:57 Dose: 4 mg Pantoprazole Sodium (Protonix Inj) 40 mg IVP DAILY [facility] Last Admin: 09/18/16 10:19 Dose: 40 mg Potassium Phos/Sodium Phos (Neutra-Phos) 1 pkt PO TID [facility] Last Admin: 09/17/16 17:44 Dose: 1 pkt Sodium Chloride (Sodium Chloride Tab) 1 gm PO DAILY [facility] Last Admin: 09/17/16 10:43 Dose: 1 gm - Labs Labs: 09/18/16 07:24 09/18/16 07:24 PT 12.2 SECONDS (9.7-12.2) 09/12/16 06:56 INR 1.1 09/12/16 06:56 APTT 27 SECONDS (21-34) 09/12/16 06:56 Attending/Attestation - Attestation I have personally seen and examined this patient.: Yes I have fully participated in the care of the patient.: Yes I have reviewed all pertinent clinical information, including history, physical exam and plan: Yes Notes (Text): 09/18/16 13:31 Patient was seen and examined at bedside. Breathing is stable Able to tolerate some liquid food TPN started. Replace electrolytes Family meeting held. Informed of the very poor prognosis Discharge planning to home early next week after revision of G Tube by IR if possible. I reviewed the chart, labs imaging studies and cosmetic consultant notes. I agree with above history and physical and assessment/pln by the resident.
[2016-09-18 08:00] LABS: CHLORIDE 93 mmol/L (98-107)
[2016-09-18 08:01] LABS: SODIUM 126 mmol/L (132-148)
[2016-09-18 08:02] LABS: BASO # 0.1 K/uL (0.0-0.2); BASO % 0.5 % (0.0-2.0); EOS # 0.1 K/uL (0.0-0.7); EOS % 0.6 % (0.0-4.0); HEMATOCRIT 27.5 % (35.0-51.0); LYMPH # 0.8 K/uL (1.0-4.3); LYMPH % 7.5 % (20.0-40.0); MEAN CORPUSCULAR HEMOGLOBIN 28.5 pg (27.0-31.0); MEAN CORPUSCULAR HGB CONC 34.3 g/dL (33.0-37.0); MEAN PLATELET VOLUME 7.6 fL (7.2-11.7); MONO # 0.5 K/uL (0.0-0.8); MONO % 4.4 % (0.0-10.0); PLATELET COUNT 193 K/uL (130-400); RED CELL DISTRIBUTION WIDTH 18.9 % (11.5-14.5); WHITE BLOOD COUNT 10.4 K/uL (4.8-10.8)
[2016-09-18 08:03] LABS: ALB/GLOB RATIO 0.7 (1.0-2.1); ALKALINE PHOSPHATASE 79 U/L (38-126); ALT/SGPT 19 U/L (21-72); AST/SGOT 41 U/L (17-59); BILIRUBIN,TOTAL 0.6 mg/dL (0.2-1.3); BLOOD UREA NITROGEN 16 mg/dL (9-20); CARBON DIOXIDE 26 mmol/L (22-30); GFR AFRICAN-AMERICAN > 60; TOTAL PROTEIN 5.3 g/dL (6.3-8.3)
[2016-09-18 08:04] LABS: CALCIUM 7.2 mg/dl (8.6-10.4); GLUCOSE,RANDOM 87 mg/dL (75-110); MAGNESIUM 1.8 mg/dL (1.6-2.3); PHOSPHOROUS 2.4 mg/dL (2.5-4.5)
[2016-09-18] MEDS: Magnesium Oxide 400 mg Tab UD PO SCH ×3 (10:15→18:06)
[2016-09-18] MEDS: Enoxaparin 40 mg Syringe SC SCH (10:20)
[2016-09-18 10:39] LABS: EOSINOPHIL 1 % (0-4); NEUTROPHIL 79 % (50-75); TOTAL CELLS COUNTED 100
[2016-09-18 10:43] LABS: LARGE PLATELETS PRESENT
[2016-09-18] MEDS: Multiple Vitamins Tab PO SCH (14:30)
[2016-09-18] MEDS: Potassium & Sodium Phosphate PO SCH ×3 (14:30→18:13)
[2016-09-18] MEDS: Fluconazole IV 100mg/50 ml NS 50 ML IVPB SCH (15:03)
--- NOTE | 2016-09-18 17:22 | PN ---
DATE: 09/18/2016 A 31-year-old male with past medical history of gastric cancer, admitted with abdominal pain, nausea, vomiting as well as failure to thrive. Nephrology service consulted for electrolyte imbalances. The patient reports having had 4 episodes of large volume of diarrhea today. Denies abdominal pain, denies nausea, is tolerating some p.o. intake. PHYSICAL EXAMINATION: VITAL SIGNS: This afternoon, blood pressure 128/89, heart rate 118, respirations 20, O2 sat 96%, tem perature 98.2. GENERAL: No distress. The patient lying comfortably in bed, only responding with gestures, but resp onding appropriately. HEENT: Moist mucous membranes. Nonicteric. CHEST: Clear to auscultation bilaterally. No rales, no rhonchi, no wheezes. HEART: S1, S2 normal, no murmurs, no gallops, no rubs. ABDOMEN: Soft, mildly distended. Mild tenderness to light palpation of upper quadrant. EXTREMITIES: Mild to moderate bilateral lower leg edema. SKIN: Warm. No cyanosis. PSYCHIATRIC: Normal mood, normal affect. LABORATORIES: This morning, WBC 10.4, hemoglobin 9.5, hematocrit 27.5, platelets 193. Chemistry underwood el: Sodium 126, potassium 3.0, chloride 93, bicarb 26, BUN 16, creatinine 0.7, calcium 7.2, phosphor us 2.4, magnesium 1.8, albumin 2.2. ASSESSMENT: 1. Hypokalemia, persistent despite getting replenishment. The patient likely has some degree of sec ondary hyperaldosteronism due to volume depletion and so should expect that potassium will remain low until volume depletion is corrected. This is besides the primary loss, which is from gastrointestin al losses from diarrhea. Will supplement IV fluids with potassium. 2. Hypomagnesemia, improved after getting supplementation yesterday and having magnesium added to to maricruz parenteral nutrition. Continue to monitor. 3. Hyponatremia, also likely secondary to volume depletion with elevated urine osmolality. May have underlying syndrome of inappropriate antidiuretic hormone secretion that is contributory. However, until volume depletion is corrected, cannot make this diagnosis. Increasing IV fluids to normal sali ne at 125 mL per hour with 40 mEq of potassium chloride per liter. 4. Pain. Again, this is a stimulus for syndrome of inappropriate antidiuretic hormone secretion, bu t patient is reporting getting adequate pain relief. 5. Anemia. The patient with iron deficiency as well as anemia due to chronic disease. Hemoglobin i s relatively stable. Continue to monitor. Continue with p.o. iron. Should not be given close to me als. Will add vitamin C to help absorption. Ye Hunter MD cc: [id number] TT: 09/18/2016 17:21:39 Confirmation # [id number] Dictation # [id number]
[2016-09-18] MEDS ORDERED: TPN IV ONE (18:00)
[2016-09-18] MEDS: Fat Emulsion 20% IV 500 ML IV SCH (18:59)
[2016-09-19] MEDS: Piperacillin/Tazobact 3.375 GM in Sodium Chloride 100 ML IVPB SCH ×3 (00:17→15:15)
--- NOTE | 2016-09-19 00:49 | CP.PCM.PN ---
<Miles Malik - Last Filed: 09/19/16 00:50> Subjective - Date & Time of Evaluation Date of Evaluation: 09/19/16 Time of Evaluation: 00:49 - Subjective Subjective: PGY-1 Medicine Progress Note for Dr. Montanez Patient seen and examined at bedside. No acute event overnight. Patient is resting in bed comfortably. Patient currently denies abdominal pain. Patient is not taking anything by mouth. He is receiving TPN since there is an issue with J tube. IR is to assess J tube tomorrow. No other complaints at this time. Objective - Vital Signs/Intake and Output Vital Signs (last 24 hours): Temp Pulse Resp BP Pulse Ox 99.7 F H 112 H 20 130/91 H 96 09/18/16 23:20 09/18/16 23:20 09/18/16 23:20 09/18/16 23:20 09/18/16 23:20 Intake and Output: 09/18/16 09/19/16 18:59 06:59 Intake Total 636 Balance 636 - Medications Medications: Current Medications Benzocaine/Menthol (Cepacol Sore Throat) 1 carlos MT Q2 PRN PRN Reason: Sore Throat Enoxaparin Sodium (Lovenox) 40 mg SC DAILY [facility] Last Admin: 09/18/16 10:20 Dose: 40 mg Ferrous Sulfate (Feosol) 325 mg PO Q12H [facility] Last Admin: 09/18/16 22:15 Dose: Not Given Hydromorphone HCl (Dilaudid) 0.5 mg IVP Q3H PRN PRN Reason: Pain, severe (8-10) Last Admin: 09/17/16 23:02 Dose: 0.5 mg Piperacillin Sod/Tazobactam (Sod 3.375 gm/ Sodium Chloride) 100 mls @ 200 mls/ hr IVPB Q8H [facility] Last Admin: 09/19/16 00:17 Dose: 200 mls/hr Fluconazole (Diflucan Iv 100 Mg/50 Ml Ns) 50 mls @ 100 mls/hr IVPB Q24H [facility] Last Admin: 09/18/16 15:03 Dose: 100 mls/hr Fat Emulsion Intravenous (Intralipid 20%) 500 mls @ 42 mls/hr IV DAILY@1800 [facility] Last Admin: 09/18/16 18:59 Dose: 42 mls/hr Potassium Chloride 40 meq/Magnesium Sulfate 16.24 meq/Heparin Sodium (Porcine) 1 ,000 units/ Amino Acids 1,025 mls @ 42 mls/hr IV .Q24H ONE Stop: 09/19/16 17:59 Last Admin: 09/18/16 18:58 Dose: 42 mls/hr Potassium Chloride 40 meq/ (Sodium Chloride) 1,020 mls @ 125 mls/hr IV .Q8H10M [facility] Last Admin: 09/18/16 20:29 Dose: Not Given Magnesium Oxide (Mag-Ox) 800 mg PO TID [facility] Last Admin: 09/18/16 18:06 Dose: 800 mg Metoprolol Tartrate (Lopressor) 12.5 mg PO BID [facility] Last Admin: 09/18/16 18:06 Dose: 12.5 mg Multivitamins (Hexavitamin) 1 tab PO DAILY [facility] Last Admin: 09/18/16 14:30 Dose: 1 tab Ondansetron HCl (Zofran Inj) 4 mg IVP Q4H PRN PRN Reason: Nausea/Vomiting Last Admin: 09/18/16 18:06 Dose: 4 mg Pantoprazole Sodium (Protonix Inj) 40 mg IVP DAILY [facility] Last Admin: 09/18/16 10:19 Dose: 40 mg Potassium Phos/Sodium Phos (Neutra-Phos) 1 pkt PO TID [facility] Last Admin: 09/18/16 18:13 Dose: 1 pkt Sodium Chloride (Sodium Chloride Tab) 1 gm PO DAILY [facility] Last Admin: 09/17/16 10:43 Dose: 1 gm - Labs Labs: 09/18/16 07:24 09/18/16 07:24 PT 12.2 SECONDS (9.7-12.2) 09/12/16 06:56 INR 1.1 09/12/16 06:56 APTT 27 SECONDS (21-34) 09/12/16 06:56 - Constitutional Appears: No Acute Distress - Eye Exam Eye Exam: EOMI, Normal appearance Pupil Exam: PERRL - ENT Exam ENT Exam: Mucous Membranes Moist - Neck Exam Neck Exam: Normal Inspection - Respiratory Exam Respiratory Exam: Clear to Ausculation Bilateral, NORMAL BREATHING PATTERN - Cardiovascular Exam Cardiovascular Exam: REGULAR RHYTHM, +S1, +S2 - GI/Abdominal Exam GI & Abdominal Exam: Soft, Normal Bowel Sounds. absent: Tenderness Additional comments: j tube in place but not functioning properly - Extremities Exam Extremities Exam: Normal Capillary Refill - Back Exam Back Exam: absent: CVA tenderness (L), CVA tenderness (R) - Neurological Exam Neurological Exam: Alert, Awake, CN II-XII Intact, Oriented x3 - Psychiatric Exam Psychiatric exam: Normal Affect, Normal Mood - Skin Skin Exam: Dry, Intact, Normal Color, Warm Assessment and Plan - Assessment and Plan (Free Text) Plan: 1. Gastric Cancer Will need to have a family meeting about goals of care with the patient Heme/onc, Dr. Mckoy, consulted. Help appreciated. 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 Wang to assess GI, Dr. Mares, consulted. Help appreciated. s/p paracentesis with IR on 08/31, Dr. Wang. s/p EGD on 09/[address] Cobian, EGD findings reveal malignant tumor on the gastric body (please see full report) CT Chest/Abd/Pelvis - extensive mucosal thickening of the stomach; free fluid in the abdomen and pelvis; enapsulation of fluid in the pelvis which is worrisome for abscess; sclerotic lesion within left pelvis, metastatic disease not excluded; enlarged prostate gland, mediastinal and hilar adenopathy; mucosal thickening of the appendix (please see full report) General surgery, Dr. Ham, consulted. Help appreciated. S/P OR revision of J tube on 09/12 Zofran prn for nausea 2. Electrolyte Imbalance Dr. Hunter, nephrology, consulted, help appreciated - likely SIADH component Magnesium oxide 800 mg po tid - last given 5:44 PM Neutraphos 1 packet po tid TPN started 09/17/16 - added Mg (2gm) and K (60meq) Pt not tolerating oral medications 3. Anemia s/p 2 Units PRBC on 09/12 FOBT + Iron, TIBC, %saturation, ferritin - low Feosol 325 mg po daily s/p EGD on 09/[address] Cobian, EGD findings reveal malignant tumor on the gastric body (please see full report) 4. SIRS Last fever on 09/14 Blood Cx 09/14 negative x 3days UA negative chest X ray - negative for pneumonia Zosyn 3.375 gm IV q 8 hrs WBC wnl 5. Tachycardia HR in 90s most recently EKG normal sinus rhythm asymptomatic Metoprolol 12.5 mg PO BID 6. UTI Yeast in Urine Diflucan 100mg IVPB daily 7. Prophylactic Measures DVT: SCDs, Lovenox 40mg SC daily (patient is hypercoagulable to cancer and immobility) GI: Protonix 40 mg IV qd PT/OT TPN started with added electrolytes One salt tab daily Palliative care requested -Asked the family to come to the hospital to have a family meeting to discuss further goals of care. Per Dr. Mckoy, prognosis is very poor. <Adalid Montanez H - Last Filed: 09/19/16 09:25> Objective - Vital Signs/Intake and Output Vital Signs (last 24 hours): Temp Pulse Resp BP Pulse Ox 98.5 F 111 H 20 129/90 95 09/19/16 08:20 09/19/16 08:20 09/19/16 08:20 09/19/16 08:20 09/19/16 08:20 Intake and Output: 09/19/16 09/19/16 06:59 18:59 Output Total 200 Balance -200 - Medications Medications: Current Medications Benzocaine/Menthol (Cepacol Sore Throat) 1 carlos MT Q2 PRN PRN Reason: Sore Throat Enoxaparin Sodium (Lovenox) 40 mg SC DAILY [facility] Last Admin: 09/18/16 10:20 Dose: 40 mg Ferrous Sulfate (Feosol) 325 mg PO Q12H [facility] Last Admin: 09/18/16 22:15 Dose: Not Given Hydromorphone HCl (Dilaudid) 0.5 mg IVP Q3H PRN PRN Reason: Pain, severe (8-10) Last Admin: 09/19/16 02:04 Dose: 0.5 mg Piperacillin Sod/Tazobactam (Sod 3.375 gm/ Sodium Chloride) 100 mls @ 200 mls/ hr IVPB Q8H [facility] Last Admin: 09/19/16 00:17 Dose: 200 mls/hr Fluconazole (Diflucan Iv 100 Mg/50 Ml Ns) 50 mls @ 100 mls/hr IVPB Q24H [facility] Last Admin: 09/18/16 15:03 Dose: 100 mls/hr Fat Emulsion Intravenous (Intralipid 20%) 500 mls @ 42 mls/hr IV DAILY@1800 [facility] Last Admin: 09/18/16 18:59 Dose: 42 mls/hr Potassium Chloride 40 meq/Magnesium Sulfate 16.24 meq/Heparin Sodium (Porcine) 1 ,000 units/ Amino Acids 1,025 mls @ 42 mls/hr IV .Q24H ONE Stop: 09/19/16 17:59 Last Admin: 09/18/16 18:58 Dose: 42 mls/hr Potassium Chloride 40 meq/ (Sodium Chloride) 1,020 mls @ 125 mls/hr IV .Q8H10M [facility] Last Admin: 09/19/16 03:35 Dose: Not Given Magnesium Oxide (Mag-Ox) 800 mg PO TID [facility] Last Admin: 09/18/16 18:06 Dose: 800 mg Metoprolol Tartrate (Lopressor) 12.5 mg PO BID [facility] Last Admin: 09/18/16 18:06 Dose: 12.5 mg Multivitamins (Hexavitamin) 1 tab PO DAILY [facility] Last Admin: 09/18/16 14:30 Dose: 1 tab Ondansetron HCl (Zofran Inj) 4 mg IVP Q4H PRN PRN Reason: Nausea/Vomiting Last Admin: 09/19/16 01:33 Dose: 4 mg Pantoprazole Sodium (Protonix Inj) 40 mg IVP DAILY [facility] Last Admin: 09/18/16 10:19 Dose: 40 mg Potassium Phos/Sodium Phos (Neutra-Phos) 1 pkt PO TID [facility] Last Admin: 09/18/16 18:13 Dose: 1 pkt Sodium Chloride (Sodium Chloride Tab) 1 gm PO DAILY [facility] Last Admin: 09/17/16 10:43 Dose: 1 gm - Labs Labs: 09/19/16 07:07 09/19/16 07:07 PT 12.2 SECONDS (9.7-12.2) 09/12/16 06:56 INR 1.1 09/12/16 06:56 APTT 27 SECONDS (21-34) 09/12/16 06:56 Attending/Attestation - Attestation I have personally seen and examined this patient.: Yes I have fully participated in the care of the patient.: Yes I have reviewed all pertinent clinical information, including history, physical exam and plan: Yes Notes (Text): 09/19/16 09:22 Medical Attending: Patient was seen and examined by me. Agree with the above note by the resident. The patient was not in acute distress. I reviewed the previous notes and discussed with staff. Currently patient is on TPN, the J tub is currently not functional at this time. The overall the prognosis/situation is very poor. Patient has gastric CA and he is having a lot of difficulty with PO food/liquid. Adalid Montanez
[2016-09-19] MEDS: HYDROmorphone 0.5 mg/0.5 ml ISec IVP PRN (02:04)
[2016-09-19 07:38] LABS: CHLORIDE 96 mmol/L (98-107); POTASSIUM 3.2 mmol/L (3.6-5.2); SODIUM 127 mmol/L (132-148)
[2016-09-19 07:40] LABS: ALB/GLOB RATIO 0.7 (1.0-2.1); ALKALINE PHOSPHATASE 85 U/L (38-126); AST/SGOT 44 U/L (17-59); BILIRUBIN,TOTAL 0.5 mg/dL (0.2-1.3); BLOOD UREA NITROGEN 12 mg/dL (9-20); CARBON DIOXIDE 23 mmol/L (22-30); GFR AFRICAN-AMERICAN > 60; GLUCOSE,RANDOM 91 mg/dL (75-110)
[2016-09-19 07:41] LABS: ALT/SGPT 17 U/L (21-72); CALCIUM 7.1 mg/dl (8.6-10.4); MAGNESIUM 1.2 mg/dL (1.6-2.3); PHOSPHOROUS 2.4 mg/dL (2.5-4.5)
[2016-09-19 07:44] LABS: BASO % 0.5 % (0.0-2.0); EOS # 0.1 K/uL (0.0-0.7); EOS % 1.2 % (0.0-4.0); HEMATOCRIT 26.7 % (35.0-51.0); LYMPH # 1.2 K/uL (1.0-4.3); LYMPH % 13.3 % (20.0-40.0); MEAN CELL VOLUME 83.5 fL (80.0-94.0); MEAN CORPUSCULAR HEMOGLOBIN 28.7 pg (27.0-31.0); MEAN CORPUSCULAR HGB CONC 34.4 g/dL (33.0-37.0); MEAN PLATELET VOLUME 7.8 fL (7.2-11.7); MONO # 0.6 K/uL (0.0-0.8); MONO % 6.9 % (0.0-10.0); NRBC % 0.1 % (0.0-2.0); RED CELL DISTRIBUTION WIDTH 18.6 % (11.5-14.5)
[2016-09-19] MEDS: Magnesium Oxide 400 mg Tab UD PO SCH ×3 (09:58→17:47)
[2016-09-19] MEDS: Enoxaparin 40 mg Syringe SC SCH (09:58)
[2016-09-19] MEDS: Benzocaine/Menthol (Cepacol) Lozenge MT PRN ×2 (10:00→14:00)
[2016-09-19] MEDS: Multiple Vitamins Tab PO SCH (10:00)
[2016-09-19] MEDS: Potassium & Sodium Phosphate PO SCH ×3 (10:00→17:48)
[2016-09-19] MEDS: Fluconazole IV 100mg/50 ml NS 50 ML IVPB SCH (14:00)
[2016-09-19] MEDS ORDERED: Magnesium Sulfate 1 gm in D5W 1 GM/100 ML BAG IVPB SCH (16:00)
--- NOTE | 2016-09-19 16:12 | PN ---
DATE: 09/19/2016 NEPHROLOGY FOLLOWUP NOTE HISTORY OF PRESENT ILLNESS: A 31-year-old male with past medical history of gastric cancer admitted with vomiting and failure to thrive. Nephrology service consulted for electrolyte imbalances. The patient continues to report profuse diarrhea. Says he had as much as 15 episodes yesterday with copious volume. Denies any abdominal pain or nausea, and is tolerating more p.o. intake. OBJECTIVE: VITAL SIGNS: Blood pressure this morning 129/90, heart rate 111, respirations 20s, temperature 98.5, O2 sat 95% on room air. GENERAL: No distress, conversing coherently in full sentences. HEENT: Moist mucous membranes. Nonicteric. RESPIRATORY: Lungs clear to auscultation bilaterally. No rales, no rhonchi, no wheezes. HEART: S1, S2 normal, no murmurs, no gallops, no rubs. ABDOMEN: Distended, nontender on soft palpation. EXTREMITIES: Mild to moderate bilateral lower leg edema. SKIN: Warm to touch. No cyanosis. PSYCHIATRIC: Normal mood, normal affect. LABORATORY DATA: This morning, WBC 9.0, hemoglobin 9.2, hematocrit 26.7, platelet count 202. Chemis try: Sodium 127, potassium 3.2, chloride 96, bicarb 23, BUN 12, creatinine 0.7, glucose 91, calcium 7.1, phosphorus 2.4, magnesium 1.2, albumin 2.1. ASSESSMENT AND PLAN: 1. Hypokalemia. Persistent, despite getting replenishment both in total parenteral nutrition and in IV fluids. The patient has profuse gastrointestinal losses from diarrhea. Also, likely has some de gree of secondary hyperaldosteronism due to volume depletion. Continue to supplement aggressively. Will increase IV fluids to normal saline at 160 mL an hour with 40 mEq of potassium per liter. Will add p.o. potassium chloride 20 mEq daily. 2. Hypomagnesemia. Again with markedly low level despite being supplemented previously and having m agnesium added to total parenteral nutrition. Will give another 4 g IV with slow infusion as transie ntly high magnesium plasma levels can lead to renal magnesium wasting. 3. Hyponatremia. Likely secondary to volume depletion, elevated urine osmolality. May have underly ing syndrome of inappropriate antidiuretic hormone that is contributory. However, until volume deple tion has corrected cannot make this diagnosis. Increasing IV fluids, as mentioned above. 4. Pain. The patient reports getting adequate relief. Continue current regimen. Adequate pain con trol may also help offset syndrome of inappropriate antidiuretic hormone. 5. Anemia secondary to iron deficiency, as well as chronic disease. Ferrous sulfate increased to b. i.d. Continue. Ye Hunter MD cc: [id number] TT: 09/19/2016 16:11:24 Confirmation # [id number] Dictation # [id number]
[2016-09-19] MEDS: Potassium Chloride 20 mEq ER Tab PO SCH (16:39)
[2016-09-19] MEDS: Magnesium Sulfate 1 gm in D5W 1 GM/100 ML BAG IVPB SCH ×4 (16:40→19:59)
[2016-09-19] MEDS: Fat Emulsion 20% IV 500 ML IV SCH (17:50)
[2016-09-19] MEDS ORDERED: TPN IV SCH (18:00)
[2016-09-20] MEDS: Piperacillin/Tazobact 3.375 GM in Sodium Chloride 100 ML IVPB SCH ×3 (00:20→17:00)
[2016-09-20] MEDS: HYDROmorphone 0.5 mg/0.5 ml ISec IVP PRN ×2 (00:41→22:21)
[2016-09-20 06:34] LABS: BASO % 0.5 % (0.0-2.0); EOS # 0.1 K/uL (0.0-0.7); EOS % 1.2 % (0.0-4.0); HEMATOCRIT 26.2 % (35.0-51.0); LYMPH # 1.1 K/uL (1.0-4.3); LYMPH % 12.4 % (20.0-40.0); MEAN CELL VOLUME 83.3 fL (80.0-94.0); MEAN CORPUSCULAR HEMOGLOBIN 28.7 pg (27.0-31.0); MEAN CORPUSCULAR HGB CONC 34.5 g/dL (33.0-37.0); MEAN PLATELET VOLUME 7.8 fL (7.2-11.7); MONO # 0.5 K/uL (0.0-0.8); RED CELL DISTRIBUTION WIDTH 18.5 % (11.5-14.5); WHITE BLOOD COUNT 9.2 K/uL (4.8-10.8)
[2016-09-20 06:54] LABS: CHLORIDE 99 mmol/L (98-107)
[2016-09-20 06:55] LABS: POTASSIUM 3.6 mmol/L (3.6-5.2); SODIUM 127 mmol/L (132-148)
[2016-09-20 06:57] LABS: ALB/GLOB RATIO 0.7 (1.0-2.1); ALKALINE PHOSPHATASE 87 U/L (38-126); AST/SGOT 45 U/L (17-59); BILIRUBIN,TOTAL 0.7 mg/dL (0.2-1.3); BLOOD UREA NITROGEN 11 mg/dL (9-20); CARBON DIOXIDE 20 mmol/L (22-30); GFR AFRICAN-AMERICAN > 60
[2016-09-20 06:58] LABS: ALT/SGPT 17 U/L (21-72); GLUCOSE,RANDOM 98 mg/dL (75-110); MAGNESIUM 1.7 mg/dL (1.6-2.3); PHOSPHOROUS 2.3 mg/dL (2.5-4.5)
--- NOTE | 2016-09-20 09:21 | CP.PCM.PN ---
Subjective - Date & Time of Evaluation Date of Evaluation: 09/20/16 Time of Evaluation: 09:18 - Subjective Subjective: Surgery: Dr. Ham Pt seen and examined. J-Tube continues to malfunction. Otherwise no complaints aside from intermittent nausea/vomiting. Objective - Vital Signs/Intake and Output Vital Signs (last 24 hours): Temp Pulse Resp BP Pulse Ox 99.1 F 20 L 95 H 130/90 95 09/20/16 07:36 09/20/16 07:36 09/20/16 07:36 09/20/16 07:36 09/20/16 04:15 Intake and Output: 09/20/16 09/20/16 06:59 18:59 Intake Total 3708 Output Total 950 Balance 2758 - Medications Medications: Current Medications Benzocaine/Menthol (Cepacol Sore Throat) 1 carlos MT Q2 PRN PRN Reason: Sore Throat Last Admin: 09/19/16 14:00 Dose: 1 carlos Enoxaparin Sodium (Lovenox) 40 mg SC DAILY [facility] Last Admin: 09/19/16 09:58 Dose: 40 mg Ferrous Sulfate (Feosol) 325 mg PO Q12H [facility] Last Admin: 09/19/16 21:56 Dose: Not Given Hydromorphone HCl (Dilaudid) 0.5 mg IVP Q3H PRN PRN Reason: Pain, severe (8-10) Last Admin: 09/20/16 00:41 Dose: 0.5 mg Piperacillin Sod/Tazobactam (Sod 3.375 gm/ Sodium Chloride) 100 mls @ 200 mls/ hr IVPB Q8H [facility] Last Admin: 09/20/16 00:20 Dose: 200 mls/hr Fluconazole (Diflucan Iv 100 Mg/50 Ml Ns) 50 mls @ 100 mls/hr IVPB Q24H [facility] Last Admin: 09/19/16 14:00 Dose: 100 mls/hr Potassium Chloride 40 meq/Magnesium Sulfate 16.24 meq/Heparin Sodium (Porcine) 1 ,000 units/ Multivitamins/Vitamin C 10 ml/ Amino Acids 1,035 mls @ 42 mls/hr IV .Q24H [facility] Last Admin: 09/19/16 17:53 Dose: 42 mls/hr Potassium Chloride 40 meq/ (Sodium Chloride) 1,020 mls @ 160 mls/hr IV .Q6H23M [facility] Last Admin: 09/20/16 05:00 Dose: 160 mls/hr Loperamide HCl (Imodium) 2 mg PO Q12H PRN PRN Reason: Diarrhea Last Admin: 09/19/16 20:04 Dose: 2 mg Magnesium Oxide (Mag-Ox) 800 mg PO TID [facility] Last Admin: 09/19/16 17:47 Dose: 800 mg Metoprolol Tartrate (Lopressor) 12.5 mg PO BID [facility] Last Admin: 09/19/16 17:47 Dose: 12.5 mg Multivitamins (Hexavitamin) 1 tab PO DAILY [facility] Last Admin: 09/19/16 10:00 Dose: 1 tab Ondansetron HCl (Zofran Inj) 4 mg IVP Q4H PRN PRN Reason: Nausea/Vomiting Last Admin: 09/19/16 18:51 Dose: 4 mg Pantoprazole Sodium (Protonix Inj) 40 mg IVP DAILY [facility] Last Admin: 09/19/16 09:58 Dose: 40 mg Potassium Chloride (K-Dur 20 Meq Er Tab) 20 meq PO DAILY [facility] Last Admin: 09/19/16 16:39 Dose: 20 meq Potassium Phos/Sodium Phos (Neutra-Phos) 1 pkt PO TID [facility] Last Admin: 09/19/16 17:48 Dose: 1 pkt Sodium Chloride (Sodium Chloride Tab) 2 gm PO Q8H [facility] - Labs Labs: 09/20/16 06:17 09/20/16 06:17 PT 12.2 SECONDS (9.7-12.2) 09/12/16 06:56 INR 1.1 09/12/16 06:56 APTT 27 SECONDS (21-34) 09/12/16 06:56 - Constitutional Appears: Non-toxic, No Acute Distress, Cachectic - Eye Exam Eye Exam: EOMI - ENT Exam ENT Exam: Mucous Membranes Moist - Respiratory Exam Respiratory Exam: NORMAL BREATHING PATTERN. absent: Accessory Muscle Use, Respiratory Distress - GI/Abdominal Exam GI & Abdominal Exam: Soft, Tenderness (mild porsche-incisional ). absent: Distended, Firm, Guarding, Rigid, Rebound Additional comments: midline incision, (+) serous drainage w. foul smell - Neurological Exam Neurological Exam: Alert, Awake, Oriented x3 - Psychiatric Exam Psychiatric exam: Normal Affect, Normal Mood Assessment and Plan - Assessment and Plan (Free Text) Plan: 31M w. gastric CA, s/p witzle J-tube on 09/07 w. revision on 09/12. J-tube is non- functioning -Pt to be seen by IR today for assessment of J-tube -pt is poor candidate for re-operation -half of radhika removed from incision -will remove remaining radhika at end of the week -daily dressing changes PRN -d/w attending Ulises PGY2
[2016-09-20] MEDS: Potassium Chloride 20 mEq ER Tab PO SCH (09:37)
[2016-09-20] MEDS: Potassium & Sodium Phosphate PO SCH ×3 (09:42→19:01)
[2016-09-20] MEDS: Enoxaparin 40 mg Syringe SC SCH (09:43)
[2016-09-20] MEDS: Multiple Vitamins Tab PO SCH (09:43)
[2016-09-20] MEDS: Magnesium Oxide 400 mg Tab UD PO SCH ×3 (10:02→18:57)
--- NOTE | 2016-09-20 10:27 | CP.PCM.PN ---
Subjective - Date & Time of Evaluation Date of Evaluation: 09/20/16 Time of Evaluation: 07:15 - Subjective Subjective: Patient seen and examined at bedside this AM. Denies abdominal pain this AM. Patient is not eating or drinking as he can't tolerate PO intake. He is current; y receiving TPN. No complaints this AM. No acute events so far overnight. No other complaints. Objective - Vital Signs/Intake and Output Vital Signs (last 24 hours): Temp Pulse Resp BP Pulse Ox 99.1 F 20 L 95 H 130/90 95 09/20/16 07:36 09/20/16 07:36 09/20/16 07:36 09/20/16 07:36 09/20/16 04:15 Intake and Output: 09/20/16 09/20/16 06:59 18:59 Intake Total 3708 Output Total 950 Balance 2758 - Medications Medications: Current Medications Benzocaine/Menthol (Cepacol Sore Throat) 1 carlos MT Q2 PRN PRN Reason: Sore Throat Last Admin: 09/19/16 14:00 Dose: 1 carlos Enoxaparin Sodium (Lovenox) 40 mg SC DAILY [facility] Last Admin: 09/20/16 09:43 Dose: 40 mg Ferrous Sulfate (Feosol) 325 mg PO Q12H [facility] Last Admin: 09/20/16 09:46 Dose: 325 mg Hydromorphone HCl (Dilaudid) 0.5 mg IVP Q3H PRN PRN Reason: Pain, severe (8-10) Last Admin: 09/20/16 00:41 Dose: 0.5 mg Piperacillin Sod/Tazobactam (Sod 3.375 gm/ Sodium Chloride) 100 mls @ 200 mls/ hr IVPB Q8H [facility] Last Admin: 09/20/16 08:00 Dose: 200 mls/hr Fluconazole (Diflucan Iv 100 Mg/50 Ml Ns) 50 mls @ 100 mls/hr IVPB Q24H [facility] Last Admin: 09/19/16 14:00 Dose: 100 mls/hr Potassium Chloride 40 meq/Magnesium Sulfate 16.24 meq/Heparin Sodium (Porcine) 1 ,000 units/ Multivitamins/Vitamin C 10 ml/ Amino Acids 1,035 mls @ 42 mls/hr IV .Q24H [facility] Last Admin: 09/19/16 17:53 Dose: 42 mls/hr Potassium Chloride 40 meq/ (Sodium Chloride) 1,020 mls @ 160 mls/hr IV .Q6H23M [facility] Last Admin: 09/20/16 05:00 Dose: 160 mls/hr Loperamide HCl (Imodium) 2 mg PO Q12H PRN PRN Reason: Diarrhea Last Admin: 09/20/16 09:37 Dose: 2 mg Magnesium Oxide (Mag-Ox) 800 mg PO TID [facility] Last Admin: 09/20/16 10:02 Dose: 800 mg Metoprolol Tartrate (Lopressor) 12.5 mg PO BID [facility] Last Admin: 09/20/16 09:47 Dose: 12.5 mg Multivitamins (Hexavitamin) 1 tab PO DAILY [facility] Last Admin: 09/20/16 09:43 Dose: 1 tab Ondansetron HCl (Zofran Inj) 4 mg IVP Q4H PRN PRN Reason: Nausea/Vomiting Last Admin: 09/19/16 18:51 Dose: 4 mg Pantoprazole Sodium (Protonix Inj) 40 mg IVP DAILY [facility] Last Admin: 09/20/16 10:02 Dose: 40 mg Potassium Chloride (K-Dur 20 Meq Er Tab) 20 meq PO DAILY [facility] Last Admin: 09/20/16 09:37 Dose: 20 meq Potassium Phos/Sodium Phos (Neutra-Phos) 1 pkt PO TID [facility] Last Admin: 09/20/16 09:42 Dose: 1 pkt Sodium Chloride (Sodium Chloride Tab) 2 gm PO Q8 [facility] Last Admin: 09/20/16 09:37 Dose: 2 gm - Labs Labs: 09/20/16 06:17 09/20/16 06:17 PT 12.2 SECONDS (9.7-12.2) 09/12/16 06:56 INR 1.1 09/12/16 06:56 APTT 27 SECONDS (21-34) 09/12/16 06:56 - Constitutional Appears: Non-toxic, No Acute Distress, Cachectic, Chronically Ill - Head Exam Head Exam: NORMAL INSPECTION - Eye Exam Eye Exam: EOMI, PERRL - ENT Exam ENT Exam: Mucous Membranes Moist - Respiratory Exam Respiratory Exam: Clear to Ausculation Bilateral, NORMAL BREATHING PATTERN. absent: Accessory Muscle Use, Rales, Wheezes, Respiratory Distress - Cardiovascular Exam Cardiovascular Exam: REGULAR RHYTHM, +S1, +S2 - GI/Abdominal Exam GI & Abdominal Exam: Soft, Normal Bowel Sounds. absent: Distended, Firm, Guarding, Tenderness Additional comments: + radhika and J tube, leakage from site, dressing changed - Extremities Exam Extremities Exam: Normal Inspection. absent: Calf Tenderness, Pedal Edema - Back Exam Back Exam: NORMAL INSPECTION. absent: CVA tenderness (L), CVA tenderness (R), paraspinal tenderness - Neurological Exam Neurological Exam: Alert, Awake, Oriented x3 - Psychiatric Exam Psychiatric exam: Normal Affect, Normal Mood - Skin Skin Exam: Dry, Normal Color, Warm Assessment and Plan - Assessment and Plan (Free Text) Assessment: 31 year old male with gastric cancer: Plan: 1. Gastric Cancer Family meeting held 09/16 patient would like to see if IR can fix the J tube, if not then he would like to go home, Dr. Wang to asses tube function today. Heme/onc, Dr. Mckoy, consulted. Help appreciated. 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 Wang to assess GI, Dr. Mares, consulted. Help appreciated. s/p paracentesis with IR on 08/31, Dr. Wang. s/p EGD on 09/[address] Cobian, EGD findings reveal malignant tumor on the gastric body (please see full report) CT Chest/Abd/Pelvis - extensive mucosal thickening of the stomach; free fluid in the abdomen and pelvis; enapsulation of fluid in the pelvis which is worrisome for abscess; sclerotic lesion within left pelvis, metastatic disease not excluded; enlarged prostate gland, mediastinal and hilar adenopathy; mucosal thickening of the appendix (please see full report) General surgery, Dr. Ham, consulted. Help appreciated. S/P OR revision of J tube on 09/12 Zofran prn for nausea 2. Electrolyte Imbalance Dr. Hunter, nephrology, consulted, help appreciated - likely SIADH component Magnesium oxide 800 mg po tid - last given 5:44 PM Neutraphos 1 packet po tid TPN started 09/17/16 - added Mg (2gm) and K (60meq) Pt not tolerating oral medications 3. Anemia hbg = 9, slowly decreasing s/p 2 Units PRBC on 09/12 FOBT + Iron, TIBC, %saturation, ferritin - low Feosol 325 mg po daily s/p EGD on 09/[address] Cobian, EGD findings reveal malignant tumor on the gastric body (please see full report) 4. SIRS Last fever on 09/14 Blood Cx 09/14 negative x 3days UA negative chest X ray - negative for pneumonia Zosyn 3.375 gm IV q 8 hrs WBC wnl 5. Tachycardia HR in 90s most recently EKG normal sinus rhythm asymptomatic Metoprolol 12.5 mg PO BID 6. UTI Yeast in Urine Diflucan 100mg IVPB daily 7. Prophylactic Measures DVT: SCDs, Lovenox 40mg SC daily (patient is hypercoagulable to cancer and immobility) GI: Protonix 40 mg IV qd PT/OT TPN with added electrolytes One salt tab daily Per Dr. Mckoy, prognosis is very poor.
[2016-09-20 13:08] LABS: URINE BACTERIA RARE (<OCC); URINE BILIRUBIN NEGATIVE (NEGATIVE); URINE BLOOD 1+ (NEGATIVE); URINE COLOR Yellow (YELLOW); URINE GLUCOSE (UA) NORMAL (Normal); URINE KETONE NEGATIVE (NEGATIVE); URINE LEUKOCYTE ESTERASE NEG Leu/uL (Negative); URINE PROTEIN NEGATIVE (NEGATIVE); URINE UROBILINOGEN NORMAL mg/dL (0.2-1.0); WBC URINE 3 /hpf (0-5)
[2016-09-20] MEDS: Fluconazole IV 100mg/50 ml NS 50 ML IVPB SCH (16:00)
[2016-09-20] MEDS ORDERED: Fat Emulsion 20% IV 250 ML IV ONE (18:00)
[2016-09-20] MEDS ORDERED: TPN #4 IV ONE (18:00)
--- NOTE | 2016-09-20 19:41 | CP.PCM.PN ---
Subjective - Date & Time of Evaluation Date of Evaluation: 09/20/16 Time of Evaluation: 19:30 - Subjective Subjective: Patient reports no more diarrhea today; having some trouble breathing; coughing up phlegm; Objective - Vital Signs/Intake and Output Vital Signs (last 24 hours): Temp Pulse Resp BP Pulse Ox 98.7 F 114 H 20 129/92 H 99 09/20/16 15:56 09/20/16 15:56 09/20/16 15:56 09/20/16 15:56 09/20/16 15:56 - Medications Medications: Current Medications Benzocaine/Menthol (Cepacol Sore Throat) 1 carlos MT Q2 PRN PRN Reason: Sore Throat Last Admin: 09/19/16 14:00 Dose: 1 carlos Enoxaparin Sodium (Lovenox) 40 mg SC DAILY [facility] Last Admin: 09/20/16 09:43 Dose: 40 mg Ferrous Sulfate (Feosol) 325 mg PO Q12H [facility] Last Admin: 09/20/16 09:46 Dose: 325 mg Hydromorphone HCl (Dilaudid) 0.5 mg IVP Q3H PRN PRN Reason: Pain, severe (8-10) Last Admin: 09/20/16 00:41 Dose: 0.5 mg Piperacillin Sod/Tazobactam (Sod 3.375 gm/ Sodium Chloride) 100 mls @ 200 mls/ hr IVPB Q8H [facility] Last Admin: 09/20/16 17:00 Dose: 200 mls/hr Fluconazole (Diflucan Iv 100 Mg/50 Ml Ns) 50 mls @ 100 mls/hr IVPB Q24H [facility] Last Admin: 09/20/16 16:00 Dose: 100 mls/hr Potassium Chloride 40 meq/Magnesium Sulfate 16.24 meq/Heparin Sodium (Porcine) 1 ,000 units/ Multivitamins/Vitamin C 10 ml/ Amino Acids 1,035 mls @ 42 mls/hr IV .Q24H [facility] Last Admin: 09/19/16 17:53 Dose: 42 mls/hr Potassium Chloride 40 meq/ (Sodium Chloride) 1,020 mls @ 160 mls/hr IV .Q6H23M [facility] Last Admin: 09/20/16 18:00 Dose: 160 mls/hr Multivitamins/Vitamin C 10 ml/Potassium Chloride 40 meq/Magnesium Sulfate 1 gm/ Heparin Sodium (Porcine) 1,000 units/ Amino Acids/Electrolytes/Dextrose 1,033 mls @ 42 mls/hr IV .Q24H [facility] Stop: 09/21/16 17:59 Last Admin: 09/20/16 18:55 Dose: 42 mls/hr Fat Emulsion Intravenous (Intralipid 20%) 250 mls @ 42 mls/hr IV DAILY [facility] Stop: 09/20/16 23:57 Last Admin: 09/20/16 18:53 Dose: 42 mls/hr Loperamide HCl (Imodium) 2 mg PO Q12H PRN PRN Reason: Diarrhea Last Admin: 09/20/16 09:37 Dose: 2 mg Magnesium Oxide (Mag-Ox) 800 mg PO TID [facility] Last Admin: 09/20/16 18:57 Dose: 800 mg Metoprolol Tartrate (Lopressor) 12.5 mg PO BID [facility] Last Admin: 09/20/16 18:57 Dose: 12.5 mg Multivitamins (Hexavitamin) 1 tab PO DAILY [facility] Last Admin: 09/20/16 09:43 Dose: 1 tab Ondansetron HCl (Zofran Inj) 4 mg IVP Q4H PRN PRN Reason: Nausea/Vomiting Last Admin: 09/19/16 18:51 Dose: 4 mg Pantoprazole Sodium (Protonix Inj) 40 mg IVP DAILY [facility] Last Admin: 09/20/16 10:02 Dose: 40 mg Potassium Chloride (K-Dur 20 Meq Er Tab) 20 meq PO DAILY [facility] Last Admin: 09/20/16 09:37 Dose: 20 meq Potassium Phos/Sodium Phos (Neutra-Phos) 1 pkt PO TID [facility] Last Admin: 09/20/16 19:01 Dose: 1 pkt Sodium Chloride (Sodium Chloride Tab) 2 gm PO Q8 [facility] Last Admin: 09/20/16 09:37 Dose: 2 gm - Labs Labs: 09/20/16 06:17 09/20/16 06:17 PT 12.2 SECONDS (9.7-12.2) 09/12/16 06:56 INR 1.1 09/12/16 06:56 APTT 27 SECONDS (21-34) 09/12/16 06:56 - Constitutional Appears: Non-toxic, No Acute Distress - Head Exam Head Exam: NORMOCEPHALIC - Eye Exam Eye Exam: Normal appearance. absent: Scleral icterus - ENT Exam ENT Exam: Mucous Membranes Moist - Respiratory Exam Respiratory Exam: NORMAL BREATHING PATTERN Additional comments: Decreased breath sounds on R; - Cardiovascular Exam Cardiovascular Exam: REGULAR RHYTHM, +S1, +S2 - GI/Abdominal Exam Additional comments: Mildly tender on soft palpation; mildly distended; - Extremities Exam Extremities Exam: Normal Capillary Refill Additional comments: mild/moderate bilateral lower leg edema; - Psychiatric Exam Psychiatric exam: Normal Affect, Normal Mood - Skin Skin Exam: Warm. absent: Cyanosis Assessment and Plan (1) Electrolyte imbalance Assessment & Plan: Hypokalemia and hypomagnesemia resolved after increasing amount of repletion and with diarrhea resolving; monitor; will decrease IVF; Status: Acute (2) Hyponatremia Assessment & Plan: Likely secondary to volume depletion and possibly SIADH from pain; IVF increased yesterday but no longer having diarrhea; cutting back on IVF to NS at 80 cc/hr; continue salt tabs; will repeat urine osm, Na; Status: Acute (3) Pain Assessment & Plan: Controlled; continue current regimen; Status: Acute (4) Anemia Assessment & Plan: Iron deficiency anemia along with anemia due to chronic disease; continue PO ferrous sulfate; Status: Acute
[2016-09-21] MEDS: Piperacillin/Tazobact 3.375 GM in Sodium Chloride 100 ML IVPB SCH ×3 (00:32→18:31)
[2016-09-21 07:10] LABS: BASO % 0.4 % (0.0-2.0); EOS # 0.1 K/uL (0.0-0.7); EOS % 1.1 % (0.0-4.0); HEMATOCRIT 26.1 % (35.0-51.0); LYMPH % 9.7 % (20.0-40.0); MEAN CELL VOLUME 83.7 fL (80.0-94.0); MEAN CORPUSCULAR HEMOGLOBIN 28.6 pg (27.0-31.0); MEAN CORPUSCULAR HGB CONC 34.1 g/dL (33.0-37.0); MEAN PLATELET VOLUME 7.8 fL (7.2-11.7); MONO # 0.5 K/uL (0.0-0.8); PLATELET COUNT 203 K/uL (130-400); RED CELL DISTRIBUTION WIDTH 18.6 % (11.5-14.5); WHITE BLOOD COUNT 10.5 K/uL (4.8-10.8)
[2016-09-21 07:15] LABS: CHLORIDE 101 mmol/L (98-107); POTASSIUM 4.1 mmol/L (3.6-5.2); SODIUM 130 mmol/L (132-148)
[2016-09-21 07:17] LABS: BILIRUBIN,TOTAL 0.6 mg/dL (0.2-1.3); GFR AFRICAN-AMERICAN > 60
[2016-09-21 07:18] LABS: ALKALINE PHOSPHATASE 108 U/L (38-126); ALT/SGPT 19 U/L (21-72); AST/SGOT 40 U/L (17-59); BLOOD UREA NITROGEN 13 mg/dL (9-20); CARBON DIOXIDE 21 mmol/L (22-30); GLUCOSE,RANDOM 96 mg/dL (75-110); PHOSPHOROUS 2.7 mg/dL (2.5-4.5); TOTAL PROTEIN 5.2 g/dL (6.3-8.3)
[2016-09-21 07:19] LABS: CALCIUM 7.2 mg/dl (8.6-10.4); MAGNESIUM 1.3 mg/dL (1.6-2.3)
[2016-09-21 07:32] LABS: ALB/GLOB RATIO 0.6 (1.0-2.1)
[2016-09-21 09:02] LABS: EOSINOPHIL 3 % (0-4); MYELOCYTE 1 % (0-0); TOTAL CELLS COUNTED 100
[2016-09-21 09:03] LABS: NEUTROPHIL 77 % (50-75)
[2016-09-21] MEDS: Magnesium Oxide 400 mg Tab UD PO SCH ×3 (09:07→17:48)
[2016-09-21] MEDS: Potassium Chloride 20 mEq ER Tab PO SCH (09:09)
[2016-09-21] MEDS: Enoxaparin 40 mg Syringe SC SCH (09:10)
[2016-09-21] MEDS: Potassium & Sodium Phosphate PO SCH ×3 (09:13→17:49)
--- NOTE | 2016-09-21 09:44 | RAD ---
HISTORY: dyspnea COMPARISON: 09/14/2016 FINDINGS: LUNGS: Worsening bilateral diffuse pulmonary infiltrate with perihilar distribution. Suspicious for pulmonary edema. PLEURA: Probable small bilateral pleural effusion. No pneumothorax. CARDIOVASCULAR: Congestive change. New left PICC catheter terminates in the region of the cavoatrial junction. OSSEOUS STRUCTURES: No significant abnormalities. VISUALIZED UPPER ABDOMEN: Normal. OTHER FINDINGS: None. IMPRESSION: Findings suspicious for acute pulmonary edema. New left PICC catheter.
[2016-09-21] MEDS: Multiple Vitamins Tab PO SCH (10:05)
[2016-09-21] MEDS: Magnesium Sulfate 1 gm in D5W 1 GM/100 ML BAG IVPB SCH ×4 (11:00→21:37)
[2016-09-21] MEDS: HYDROmorphone 0.5 mg/0.5 ml ISec IVP PRN ×2 (11:07→21:48)
--- NOTE | 2016-09-21 13:26 | CP.PCM.PN ---
Subjective - Date & Time of Evaluation Date of Evaluation: 09/21/16 Time of Evaluation: 07:30 - Subjective Subjective: Patient seen and examined at bedside this AM. Admits to some abdominal pain this morning with some nausea. Patient does not have good PO intake but he is trying to drink some liquids. He is currently receiving TPN. No acute events so far overnight per nursing. Patient denies chest pain or shortness of breath. Objective - Vital Signs/Intake and Output Vital Signs (last 24 hours): Temp Pulse Resp BP Pulse Ox 99.8 F H 120 H 20 120/69 96 09/21/16 07:12 09/21/16 07:12 09/21/16 07:12 09/21/16 13:21 09/21/16 07:12 Intake and Output: 09/21/16 09/21/16 06:59 18:59 Intake Total 1726 Output Total 825 Balance 901 - Medications Medications: Current Medications Benzocaine/Menthol (Cepacol Sore Throat) 1 carlos MT Q2 PRN PRN Reason: Sore Throat Last Admin: 09/19/16 14:00 Dose: 1 carlos Enoxaparin Sodium (Lovenox) 40 mg SC DAILY [facility] Last Admin: 09/21/16 09:10 Dose: 40 mg Ferrous Sulfate (Feosol) 325 mg PO Q12H [facility] Last Admin: 09/21/16 09:09 Dose: 325 mg Hydromorphone HCl (Dilaudid) 0.5 mg IVP Q3H PRN PRN Reason: Pain, severe (8-10) Last Admin: 09/21/16 11:07 Dose: 0.5 mg Piperacillin Sod/Tazobactam (Sod 3.375 gm/ Sodium Chloride) 100 mls @ 200 mls/ hr IVPB Q8H [facility] Last Admin: 09/21/16 08:00 Dose: 200 mls/hr Fluconazole (Diflucan Iv 100 Mg/50 Ml Ns) 50 mls @ 100 mls/hr IVPB Q24H [facility] Last Admin: 09/20/16 16:00 Dose: 100 mls/hr Potassium Chloride 40 meq/Magnesium Sulfate 16.24 meq/Heparin Sodium (Porcine) 1 ,000 units/ Multivitamins/Vitamin C 10 ml/ Amino Acids 1,035 mls @ 42 mls/hr IV .Q24H [facility] Last Admin: 09/19/16 17:53 Dose: 42 mls/hr Multivitamins/Vitamin C 10 ml/Potassium Chloride 40 meq/Magnesium Sulfate 1 gm/ Heparin Sodium (Porcine) 1,000 units/ Amino Acids/Electrolytes/Dextrose 1,033 mls @ 42 mls/hr IV .Q24H [facility] Stop: 09/21/16 17:59 Last Admin: 09/20/16 18:55 Dose: 42 mls/hr Potassium Chloride 40 meq/ (Sodium Chloride) 1,020 mls @ 80 mls/hr IV .[id number] [facility] Last Admin: 09/21/16 08:00 Dose: 80 mls/hr Multivitamins/Vitamin C 10 ml/Potassium Chloride 20 meq/Magnesium Sulfate 2 gm/ Heparin Sodium (Porcine) 1,000 units/ Amino Acids/Electrolytes/Dextrose 1,025 mls @ 42 mls/hr IV .Q24H [facility] Stop: 09/22/16 17:59 Loperamide HCl (Imodium) 2 mg PO Q12H PRN PRN Reason: Diarrhea Last Admin: 09/21/16 09:09 Dose: 2 mg Magnesium Oxide (Mag-Ox) 800 mg PO TID [facility] Last Admin: 09/21/16 09:07 Dose: 800 mg Metoprolol Tartrate (Lopressor) 12.5 mg PO BID [facility] Last Admin: 09/21/16 09:09 Dose: 12.5 mg Multivitamins (Hexavitamin) 1 tab PO DAILY [facility] Last Admin: 09/21/16 10:05 Dose: 1 tab Ondansetron HCl (Zofran Inj) 4 mg IVP Q4H PRN PRN Reason: Nausea/Vomiting Last Admin: 09/20/16 22:22 Dose: 4 mg Pantoprazole Sodium (Protonix Inj) 40 mg IVP DAILY [facility] Last Admin: 09/21/16 09:10 Dose: 40 mg Potassium Chloride (K-Dur 20 Meq Er Tab) 20 meq PO DAILY [facility] Last Admin: 09/21/16 09:09 Dose: 20 meq Potassium Phos/Sodium Phos (Neutra-Phos) 1 pkt PO TID [facility] Last Admin: 09/21/16 09:13 Dose: 1 pkt Sodium Chloride (Sodium Chloride Tab) 2 gm PO Q8 [facility] Last Admin: 09/21/16 06:26 Dose: Not Given - Labs Labs: 09/21/16 06:56 09/21/16 06:56 PT 12.2 SECONDS (9.7-12.2) 09/12/16 06:56 INR 1.1 09/12/16 06:56 APTT 27 SECONDS (21-34) 09/12/16 06:56 - Constitutional Appears: Non-toxic, No Acute Distress - Head Exam Head Exam: NORMAL INSPECTION - Eye Exam Eye Exam: EOMI, Normal appearance, PERRL Pupil Exam: NORMAL ACCOMODATION - ENT Exam ENT Exam: Mucous Membranes Dry - Respiratory Exam Respiratory Exam: Rales, NORMAL BREATHING PATTERN. absent: Accessory Muscle Use (mild at bases, poor inspiratory effort), Respiratory Distress - Cardiovascular Exam Cardiovascular Exam: Tachycardia, REGULAR RHYTHM, +S1, +S2 - GI/Abdominal Exam GI & Abdominal Exam: Soft, Tenderness, Normal Bowel Sounds (mild fluid leakage from abd incision. J tube in place not functioning). absent: Distended, Firm, Guarding - Extremities Exam Extremities Exam: Normal Inspection, Pedal Edema. absent: Calf Tenderness Additional comments: 1+ b/l - Back Exam Back Exam: NORMAL INSPECTION. absent: CVA tenderness (L), CVA tenderness (R), paraspinal tenderness - Neurological Exam Neurological Exam: Alert, Awake, Oriented x3 - Psychiatric Exam Psychiatric exam: Normal Affect, Normal Mood - Skin Skin Exam: Dry, Normal Color, Warm Assessment and Plan - Assessment and Plan (Free Text) Assessment: 1. Gastric Cancer Surgery to asses abdominal incisiontoday, is leaking fluid Family meeting held 09/16 patient would like to see if IR can fix the J tube, if not then he would like to go home. Heme/onc, Dr. Mckoy, consulted. Help appreciated. 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 Mares, consulted. Help appreciated. s/p paracentesis with IR on 08/31, Dr. Wang. s/p EGD on 09/[address] Cobian, EGD findings reveal malignant tumor on the gastric body (please see full report) CT Chest/Abd/Pelvis - extensive mucosal thickening of the stomach; free fluid in the abdomen and pelvis; enapsulation of fluid in the pelvis which is worrisome for abscess; sclerotic lesion within left pelvis, metastatic disease not excluded; enlarged prostate gland, mediastinal and hilar adenopathy; mucosal thickening of the appendix (please see full report) General surgery, Dr. Ham, consulted. Help appreciated. S/P OR revision of J tube on 09/12 Zofran prn for nausea with diarrhea - C.diff negative, improving - Loperaminde PRN f/u am labs 2. Electrolyte Imbalance Dr. Hunter, nephrology, consulted, help appreciated - likely SIADH component Na 130 - improving Replacing Mg daily with IVOB riders and through TPN Neutraphos 1 packet po tid TPN started 09/17/16 - added Mg/K Pt not tolerating oral medications 3. Anemia hbg = 8.9, slowly decreasing likely stomach cancer source of bleed s/p 2 Units PRBC on 09/12 FOBT + Iron, TIBC, %saturation, ferritin - low Feosol 325 mg po daily s/p EGD on 09/[address] Cobian, EGD findings reveal malignant tumor on the gastric body (please see full report) 4. SIRS Last fever on 09/14 Blood Cx 09/14 negative x 3days UA negative chest X ray - negative for pneumonia Zosyn 3.375 gm IV q 8 hrs WBC wnl 5. Tachycardia ~112, likely due to pain EKG normal sinus rhythm asymptomatic Metoprolol 12.5 mg PO BID 6. UTI Yeast in Urine Diflucan 100mg IVPB daily discontinued on 09/21 repeat UA and cx negative for growth 7. Prophylactic Measures DVT: SCDs, Lovenox 40mg SC daily (patient is hypercoagulable to cancer and immobility) GI: Protonix 40 mg IV qd PT/OT TPN with added electrolytes One salt tab daily Per Dr. Mckoy, prognosis is very poor. Palliative care consulted
--- NOTE | 2016-09-21 16:09 | CP.PCM.PN ---
Subjective - Date & Time of Evaluation Date of Evaluation: 09/21/16 Time of Evaluation: 15:56 - Subjective Subjective: I was called by Doctor Aubrey to fallow up on goals of care with this very sick patient. Patient admitts to poor food tolerance, abd pain and nausea. Objective - Vital Signs/Intake and Output Vital Signs (last 24 hours): Temp Pulse Resp BP Pulse Ox 98.3 F 136 H 20 134/103 H 98 09/21/16 15:40 09/21/16 15:40 09/21/16 15:40 09/21/16 15:40 09/21/16 15:40 Intake and Output: 09/21/16 09/21/16 06:59 18:59 Intake Total 1726 Output Total 825 Balance 901 - Medications Medications: Current Medications Benzocaine/Menthol (Cepacol Sore Throat) 1 carlos MT Q2 PRN PRN Reason: Sore Throat Last Admin: 09/19/16 14:00 Dose: 1 carlos Enoxaparin Sodium (Lovenox) 40 mg SC DAILY REPLACED BY [facility] Last Admin: 09/21/16 09:10 Dose: 40 mg Ferrous Sulfate (Feosol) 325 mg PO Q12H REPLACED BY [facility] Last Admin: 09/21/16 09:09 Dose: 325 mg Hydromorphone HCl (Dilaudid) 0.5 mg IVP Q3H PRN PRN Reason: Pain, severe (8-10) Last Admin: 09/21/16 11:07 Dose: 0.5 mg Piperacillin Sod/Tazobactam (Sod 3.375 gm/ Sodium Chloride) 100 mls @ 200 mls/ hr IVPB Q8H REPLACED BY [facility] Last Admin: 09/21/16 08:00 Dose: 200 mls/hr Potassium Chloride 40 meq/Magnesium Sulfate 16.24 meq/Heparin Sodium (Porcine) 1 ,000 units/ Multivitamins/Vitamin C 10 ml/ Amino Acids 1,035 mls @ 42 mls/hr IV .Q24H REPLACED BY [facility] Last Admin: 09/19/16 17:53 Dose: 42 mls/hr Multivitamins/Vitamin C 10 ml/Potassium Chloride 40 meq/Magnesium Sulfate 1 gm/ Heparin Sodium (Porcine) 1,000 units/ Amino Acids/Electrolytes/Dextrose 1,033 mls @ 42 mls/hr IV .Q24H ONE Stop: 09/21/16 17:59 Last Admin: 09/20/16 18:55 Dose: 42 mls/hr Potassium Chloride 40 meq/ (Sodium Chloride) 1,020 mls @ 80 mls/hr IV .[id number] REPLACED BY [facility] Last Admin: 09/21/16 12:50 Dose: Not Given Multivitamins/Vitamin C 10 ml/Potassium Chloride 20 meq/Magnesium Sulfate 2 gm/ Heparin Sodium (Porcine) 1,000 units/ Amino Acids/Electrolytes/Dextrose 1,025 mls @ 42 mls/hr IV .Q24H ONE Stop: 09/22/16 17:59 Fat Emulsion Intravenous (Intralipid 20%) 250 mls @ 42 mls/hr IV ONCE ONE Stop: 09/21/16 23:57 Loperamide HCl (Imodium) 2 mg PO Q12H PRN PRN Reason: Diarrhea Last Admin: 09/21/16 09:09 Dose: 2 mg Magnesium Oxide (Mag-Ox) 800 mg PO TID REPLACED BY [facility] Last Admin: 09/21/16 14:00 Dose: Not Given Metoprolol Tartrate (Lopressor) 12.5 mg PO BID REPLACED BY [facility] Last Admin: 09/21/16 09:09 Dose: 12.5 mg Multivitamins (Hexavitamin) 1 tab PO DAILY REPLACED BY [facility] Last Admin: 09/21/16 10:05 Dose: 1 tab Ondansetron HCl (Zofran Inj) 4 mg IVP Q4H PRN PRN Reason: Nausea/Vomiting Last Admin: 09/20/16 22:22 Dose: 4 mg Pantoprazole Sodium (Protonix Inj) 40 mg IVP DAILY REPLACED BY [facility] Last Admin: 09/21/16 09:10 Dose: 40 mg Potassium Chloride (K-Dur 20 Meq Er Tab) 20 meq PO DAILY REPLACED BY [facility] Last Admin: 09/21/16 09:09 Dose: 20 meq Potassium Phos/Sodium Phos (Neutra-Phos) 1 pkt PO TID REPLACED BY [facility] Last Admin: 09/21/16 13:25 Dose: 1 pkt Sodium Chloride (Sodium Chloride Tab) 2 gm PO Q8 REPLACED BY [facility] Last Admin: 09/21/16 14:00 Dose: Not Given - Labs Labs: 09/21/16 06:56 09/21/16 06:56 PT 12.2 SECONDS (9.7-12.2) 09/12/16 06:56 INR 1.1 09/12/16 06:56 APTT 27 SECONDS (21-34) 09/12/16 06:56 - Constitutional Appears: Chronically Ill - Head Exam Head Exam: ATRAUMATIC, NORMAL INSPECTION, NORMOCEPHALIC - Eye Exam Eye Exam: EOMI, Normal appearance, PERRL Pupil Exam: NORMAL ACCOMODATION, PERRL - ENT Exam ENT Exam: Mucous Membranes Moist, Normal Exam - Neck Exam Neck Exam: Full ROM - Respiratory Exam Respiratory Exam: NORMAL BREATHING PATTERN - Cardiovascular Exam Cardiovascular Exam: Tachycardia, REGULAR RHYTHM - GI/Abdominal Exam GI & Abdominal Exam: Distended, Guarding Additional comments: Non working G tube - Rectal Exam Rectal Exam: Deferred - Exam Exam: NORMAL INSPECTION - Extremities Exam Extremities Exam: Pedal Edema - Back Exam Back Exam: CVA tenderness (L) - Neurological Exam Neurological Exam: Alert, Oriented x3 Neuro motor strength exam: Left Upper Extremity: 3, Right Upper Extremity: 3, Left Lower Extremity: 3, Right Lower Extremity: 3 - Psychiatric Exam Psychiatric exam: Normal Affect, Normal Mood - Skin Skin Exam: Pallor Assessment and Plan - Assessment and Plan (Free Text) Assessment: This is very sick patient admitted on 08/31/2016 for abdominal pain. Patient came from [facility], diagnosed with gastric CA and S/P couple rounds of chemo [place]. Patient arrived with idea to find cure for his disease, here in [facility]. Over the hospital stay and all diagnostic studies and procedures being applied, it become clear that patient's cancer is not curable and comfort care was recommended. I discussed the goals of care with patient using the [employer], and patient's sister on the phone. At first I elicited patient's understanding of his disease and the expectations. Patient admitted being told by the Doctor that no chemo Tx was suggested and that we only could control his symptoms. I confirmed it and further discussed the discharge plan. Patient would want to return home and simple asked how much he had left to live, what I declined to answer. However, I reassured patient that assisting him with control of his symptoms will make the rest of his life more comfortable. I suggested more information on Hospice care at home. Patient declines it and his sister stated, they planned returning him back to [facility]. Patient requested his feeding tube to be removed prior to discharge. This was discussed with Doctor Aubrey Garnica and SHERRY Mclaughlin. Impression * Tis is very sick patient, with significantly declined health since the admission * Patient looks cachectic and pale * Patient understands the terminal nature of his disease * patient has accepted as the final outcome of his disease and prefers to go back to his home country and there Impression * Would arrange for speedy discharge home.
--- NOTE | 2016-09-21 16:12 | CP.PCM.PN ---
Subjective - Date & Time of Evaluation Date of Evaluation: 09/21/16 Time of Evaluation: 16:09 - Subjective Subjective: Surgery: Dr. Ham Pt seen and examined. Continues to have mild pain at incision site. J-tube is still not functioning. Large amount of ascites draining from incision site. Objective - Vital Signs/Intake and Output Vital Signs (last 24 hours): Temp Pulse Resp BP Pulse Ox 98.3 F 136 H 20 134/103 H 98 09/21/16 15:40 09/21/16 15:40 09/21/16 15:40 09/21/16 15:40 09/21/16 15:40 Intake and Output: 09/21/16 09/21/16 06:59 18:59 Intake Total 1726 Output Total 825 Balance 901 - Medications Medications: Current Medications Benzocaine/Menthol (Cepacol Sore Throat) 1 carlos MT Q2 PRN PRN Reason: Sore Throat Last Admin: 09/19/16 14:00 Dose: 1 carlos Enoxaparin Sodium (Lovenox) 40 mg SC DAILY [facility] Last Admin: 09/21/16 09:10 Dose: 40 mg Ferrous Sulfate (Feosol) 325 mg PO Q12H [facility] Last Admin: 09/21/16 09:09 Dose: 325 mg Hydromorphone HCl (Dilaudid) 0.5 mg IVP Q3H PRN PRN Reason: Pain, severe (8-10) Last Admin: 09/21/16 11:07 Dose: 0.5 mg Piperacillin Sod/Tazobactam (Sod 3.375 gm/ Sodium Chloride) 100 mls @ 200 mls/ hr IVPB Q8H [facility] Last Admin: 09/21/16 08:00 Dose: 200 mls/hr Potassium Chloride 40 meq/Magnesium Sulfate 16.24 meq/Heparin Sodium (Porcine) 1 ,000 units/ Multivitamins/Vitamin C 10 ml/ Amino Acids 1,035 mls @ 42 mls/hr IV .Q24H [facility] Last Admin: 09/19/16 17:53 Dose: 42 mls/hr Multivitamins/Vitamin C 10 ml/Potassium Chloride 40 meq/Magnesium Sulfate 1 gm/ Heparin Sodium (Porcine) 1,000 units/ Amino Acids/Electrolytes/Dextrose 1,033 mls @ 42 mls/hr IV .Q24H ONE Stop: 09/21/16 17:59 Last Admin: 09/20/16 18:55 Dose: 42 mls/hr Potassium Chloride 40 meq/ (Sodium Chloride) 1,020 mls @ 80 mls/hr IV .[id number] [facility] Last Admin: 09/21/16 12:50 Dose: Not Given Multivitamins/Vitamin C 10 ml/Potassium Chloride 20 meq/Magnesium Sulfate 2 gm/ Heparin Sodium (Porcine) 1,000 units/ Amino Acids/Electrolytes/Dextrose 1,025 mls @ 42 mls/hr IV .Q24H ONE Stop: 09/22/16 17:59 Fat Emulsion Intravenous (Intralipid 20%) 250 mls @ 42 mls/hr IV ONCE ONE Stop: 09/21/16 23:57 Loperamide HCl (Imodium) 2 mg PO Q12H PRN PRN Reason: Diarrhea Last Admin: 09/21/16 09:09 Dose: 2 mg Magnesium Oxide (Mag-Ox) 800 mg PO TID [facility] Last Admin: 09/21/16 14:00 Dose: Not Given Metoprolol Tartrate (Lopressor) 12.5 mg PO BID [facility] Last Admin: 09/21/16 09:09 Dose: 12.5 mg Multivitamins (Hexavitamin) 1 tab PO DAILY [facility] Last Admin: 09/21/16 10:05 Dose: 1 tab Ondansetron HCl (Zofran Inj) 4 mg IVP Q4H PRN PRN Reason: Nausea/Vomiting Last Admin: 09/20/16 22:22 Dose: 4 mg Pantoprazole Sodium (Protonix Inj) 40 mg IVP DAILY [facility] Last Admin: 09/21/16 09:10 Dose: 40 mg Potassium Chloride (K-Dur 20 Meq Er Tab) 20 meq PO DAILY [facility] Last Admin: 09/21/16 09:09 Dose: 20 meq Potassium Phos/Sodium Phos (Neutra-Phos) 1 pkt PO TID [facility] Last Admin: 09/21/16 13:25 Dose: 1 pkt Sodium Chloride (Sodium Chloride Tab) 2 gm PO Q8 [facility] Last Admin: 09/21/16 14:00 Dose: Not Given - Labs Labs: 09/21/16 06:56 09/21/16 06:56 PT 12.2 SECONDS (9.7-12.2) 09/12/16 06:56 INR 1.1 09/12/16 06:56 APTT 27 SECONDS (21-34) 09/12/16 06:56 - Constitutional Appears: Non-toxic, No Acute Distress, Cachectic - Head Exam Head Exam: ATRAUMATIC, NORMOCEPHALIC - Eye Exam Eye Exam: EOMI. absent: Scleral icterus - ENT Exam ENT Exam: Mucous Membranes Moist - Neck Exam Neck Exam: Full ROM - Respiratory Exam Respiratory Exam: NORMAL BREATHING PATTERN. absent: Accessory Muscle Use, Respiratory Distress - GI/Abdominal Exam GI & Abdominal Exam: Soft, Tenderness (porsche-incisional). absent: Distended, Firm, Guarding, Rigid Additional comments: midline incision, draining ascites - Extremities Exam Extremities Exam: absent: Calf Tenderness, Pedal Edema - Neurological Exam Neurological Exam: Alert, Awake, Oriented x3 Assessment and Plan - Assessment and Plan (Free Text) Assessment: 31M w. gastric CA, s/p J-tube placement, J-Tube non-functioning -AXR ordered, f/u results -Dressing is frequently saturated, change PRN -continue w. medical management -d/w attending Artemitis PGY2
[2016-09-21] MEDS ORDERED: TPN #5 IV ONE (18:00)
[2016-09-21] MEDS ORDERED: Fat Emulsion 20% IV 250 ML IV ONE (18:00)
--- NOTE | 2016-09-21 19:57 | CP.PCM.PN ---
Subjective - Date & Time of Evaluation Date of Evaluation: 09/21/16 Time of Evaluation: 19:30 - Subjective Subjective: Reports no more cough, no shortness of breath; no more diarrhea; has not been out of bed today; Objective - Vital Signs/Intake and Output Vital Signs (last 24 hours): Temp Pulse Resp BP Pulse Ox 98.3 F 136 H 20 134/103 H 98 09/21/16 15:40 09/21/16 15:40 09/21/16 15:40 09/21/16 15:40 09/21/16 15:40 - Medications Medications: Current Medications Benzocaine/Menthol (Cepacol Sore Throat) 1 carlos MT Q2 PRN PRN Reason: Sore Throat Last Admin: 09/19/16 14:00 Dose: 1 carlos Enoxaparin Sodium (Lovenox) 40 mg SC DAILY [facility] Last Admin: 09/21/16 09:10 Dose: 40 mg Ferrous Sulfate (Feosol) 325 mg PO Q12H [facility]CLUD[facility] Last Admin: 09/21/16 09:09 Dose: 325 mg Hydromorphone HCl (Dilaudid) 0.5 mg IVP Q3H PRN PRN Reason: Pain, severe (8-10) Last Admin: 09/21/16 11:07 Dose: 0.5 mg Piperacillin Sod/Tazobactam (Sod 3.375 gm/ Sodium Chloride) 100 mls @ 200 mls/ hr IVPB Q8H COUNT [facility]CLUD[facility] Last Admin: 09/21/16 18:31 Dose: 200 mls/hr Potassium Chloride 40 meq/Magnesium Sulfate 16.24 meq/Heparin Sodium (Porcine) 1 ,000 units/ Multivitamins/Vitamin C 10 ml/ Amino Acids 1,035 mls @ 42 mls/hr IV .Q24H COUNT [facility]CLUD[facility] Last Admin: 09/19/16 17:53 Dose: 42 mls/hr Potassium Chloride 40 meq/ (Sodium Chloride) 1,020 mls @ 80 mls/hr IV .[id number] COUNT [facility]CLUDES THE [facility] Last Admin: 09/21/16 12:50 Dose: Not Given Multivitamins/Vitamin C 10 ml/Potassium Chloride 20 meq/Magnesium Sulfate 2 gm/ Heparin Sodium (Porcine) 1,000 units/ Amino Acids/Electrolytes/Dextrose 1,025 mls @ 42 mls/hr IV .Q24H ONE Stop: 09/22/16 17:59 Last Admin: 09/21/16 17:47 Dose: 42 mls/hr Fat Emulsion Intravenous (Intralipid 20%) 250 mls @ 42 mls/hr IV ONCE ONE Stop: 09/21/16 23:57 Last Admin: 09/21/16 17:46 Dose: 42 mls/hr Magnesium Sulfate/Dextrose (Magnesium Sulfate 1 Gm/100 Ml D5w) 1 gm in 100 mls @ 100 mls/hr IVPB Q60M COUNT [facility]CLUD[facility] Stop: 09/21/16 21:59 Loperamide HCl (Imodium) 2 mg PO Q12H PRN PRN Reason: Diarrhea Last Admin: 09/21/16 09:09 Dose: 2 mg Magnesium Oxide (Mag-Ox) 800 mg PO TID COUNT [facility]CLUD[facility] Last Admin: 09/21/16 17:48 Dose: 800 mg Metoprolol Tartrate (Lopressor) 12.5 mg PO BID COUNT [facility]CLUD[facility] Last Admin: 09/21/16 17:49 Dose: 12.5 mg Multivitamins (Hexavitamin) 1 tab PO DAILY COUNT [facility] Last Admin: 09/21/16 10:05 Dose: 1 tab Ondansetron HCl (Zofran Inj) 4 mg IVP Q4H PRN PRN Reason: Nausea/Vomiting Last Admin: 09/20/16 22:22 Dose: 4 mg Pantoprazole Sodium (Protonix Inj) 40 mg IVP DAILY COUNT [facility] Last Admin: 09/21/16 09:10 Dose: 40 mg Potassium Chloride (K-Dur 20 Meq Er Tab) 20 meq PO DAILY COUNT [facility] Last Admin: 09/21/16 09:09 Dose: 20 meq Potassium Phos/Sodium Phos (Neutra-Phos) 1 pkt PO TID COUNT [facility]CLUD[facility] Last Admin: 09/21/16 17:49 Dose: 1 pkt Sodium Chloride (Sodium Chloride Tab) 2 gm PO Q8 COUNT [facility]CLUD[facility] Last Admin: 09/21/16 14:00 Dose: Not Given - Labs Labs: 09/21/16 06:56 09/21/16 06:56 PT 12.2 SECONDS (9.7-12.2) 09/12/16 06:56 INR 1.1 09/12/16 06:56 APTT 27 SECONDS (21-34) 09/12/16 06:56 - Constitutional Appears: Non-toxic, No Acute Distress - Eye Exam Eye Exam: Normal appearance. absent: Scleral icterus - ENT Exam ENT Exam: Mucous Membranes Moist - Respiratory Exam Respiratory Exam: Clear to Ausculation Bilateral, NORMAL BREATHING PATTERN - Cardiovascular Exam Cardiovascular Exam: REGULAR RHYTHM, +S1, +S2. absent: Murmur - GI/Abdominal Exam GI & Abdominal Exam: Distended Additional comments: Mildly tender; - Extremities Exam Additional comments: Moderately edematous legs; - Neurological Exam Neurological Exam: Alert, Awake - Psychiatric Exam Psychiatric exam: Normal Affect, Normal Mood - Skin Skin Exam: Warm. absent: Cyanosis Assessment and Plan (1) Electrolyte imbalance Assessment & Plan: Hypokalemia and hypomagnesemia resolved since diarrhea subsided; continue to monitor; Status: Acute (2) Hyponatremia Assessment & Plan: Improved with IVF and since diarrhea has subsided; monitor; continue salt tabs q8h (although patient is refusing); currently off IVF, need to monitor volume status regularly; Status: Acute (3) Pain Assessment & Plan: Controlled, may be stimulus for SIADH component of hyponatremia; continue current regimen; Status: Acute (4) Anemia Assessment & Plan: Iron deficiency and anemia of chronic disease; continue PO ferrous sulfate; Status: Acute
[2016-09-22] MEDS: Piperacillin/Tazobact 3.375 GM in Sodium Chloride 100 ML IVPB SCH ×3 (00:25→17:00)
[2016-09-22] MEDS ORDERED: HYDROmorphone 0.5 mg/0.5 ml ISec IVP STA (00:27)
[2016-09-22] MEDS ORDERED: Metoprolol 1 mg/ml Inj IVP ONE (00:58)
[2016-09-22] MEDS ORDERED: Metoprolol 1 mg/ml Inj IVP PRN (01:18)
[2016-09-22 04:37] LABS: BASO % 0.3 % (0.0-2.0); EOS % 0.2 % (0.0-4.0); HEMATOCRIT 32.2 % (35.0-51.0); LYMPH # 0.8 K/uL (1.0-4.3); LYMPH % 7.2 % (20.0-40.0); MEAN CELL VOLUME 84.2 fL (80.0-94.0); MEAN CORPUSCULAR HEMOGLOBIN 27.6 pg (27.0-31.0); MEAN CORPUSCULAR HGB CONC 32.8 g/dL (33.0-37.0); MEAN PLATELET VOLUME 8.3 fL (7.2-11.7); MONO # 0.3 K/uL (0.0-0.8); PLATELET COUNT 271 K/uL (130-400); RED CELL DISTRIBUTION WIDTH 18.8 % (11.5-14.5); WHITE BLOOD COUNT 11.4 K/uL (4.8-10.8)
[2016-09-22] MEDS ORDERED: Iodixanol 320 mg/ml 150 ml Bottle IV ONE (04:40)
[2016-09-22 04:53] LABS: CHLORIDE 99 mmol/L (98-107)
[2016-09-22 04:54] LABS: POTASSIUM 4.1 mmol/L (3.6-5.2); SODIUM 127 mmol/L (132-148)
[2016-09-22 04:56] LABS: ALB/GLOB RATIO 0.6 (1.0-2.1); ALKALINE PHOSPHATASE 173 U/L (38-126); ALT/SGPT 29 U/L (21-72); AST/SGOT 53 U/L (17-59); BILIRUBIN,TOTAL 0.6 mg/dL (0.2-1.3); BLOOD UREA NITROGEN 19 mg/dL (9-20); CARBON DIOXIDE 18 mmol/L (22-30); GFR AFRICAN-AMERICAN > 60; GLUCOSE,RANDOM 139 mg/dL (75-110); TOTAL PROTEIN 5.3 g/dL (6.3-8.3)
[2016-09-22 04:57] LABS: CALCIUM 7.5 mg/dl (8.6-10.4); PHOSPHOROUS 3.6 mg/dL (2.5-4.5)
[2016-09-22] MEDS ORDERED: Albumin Human 25% (12.5 gm/50 ml) IV ONE (05:49)
--- NOTE | 2016-09-22 06:16 | CT ---
EXAM: CT Angiography Chest With Intravenous Contrast CLINICAL HISTORY: 31 years old, male; Signs and symptoms; Tachypnea; Additional info: Persistent tachypnea, tachycardia; Malignancy TECHNIQUE: Axial computed tomographic angiography images of the chest with intravenous contrast using pulmonary embolism protocol. This CT exam was performed using one or more of the following dose reduction techniques: automated exposure control, adjustment of the mA and/or kV according to patient size, and/or use of iterative reconstruction technique. MIP reconstructed images were created and reviewed. Coronal and sagittal reformatted images were created and reviewed. CONTRAST: 75 mL of [id number] administered intravenously. EXAM DATE/TIME: 09/22/2016 3:30 AM COMPARISON: No relevant prior studies available. FINDINGS: No pulmonary embolism. No aortic dissection or aneurysm. There are moderate bilateral pleural effusions. There is bilateral lower lung consolidation. There is mediastinal and hilar lymphadenopathy. The esophagus is dilated with fluid. Round sclerotic lesion in the T5 vertebra, likely metastatic disease. IMPRESSION: Moderate bilateral pleural effusions with associated consolidation. Mediastinal and hilar lymphadenopathy. Sclerotic lesion T5. Esophageal dilation with fluid. Please note prior images were not provided.
--- NOTE | 2016-09-22 06:26 | CP.PCM.PN ---
Addendum entered and electronically signed by Miles Malik DO 09/22/16 06:56 : Official read for CT abd/pelvis: Evidence of recent surgery. Extensive ascites. Massive dilation of the proximal small bowel with fluid and stool. Moderate dilation of the mid small bowel. Nondilated very distal small bowel. Nondilated colon. This combination of findings could represent distal small bowel obstruction although the maximally dilated loops are proximal which would be somewhat unusual. Postoperative small bowel ileus would also be possible although it would be somewhat unusual to have nondilated colon. Enteritis could produce this picture as well. Pneumoperitoneum anterior abdomen. Although the bowel is markedly abnormal, I would favor postoperative etiology as discussed in detail above. Clinical correlation with the patient's symptoms and surgical history is recommended. Lymphadenopathy. Possible cystitis. Recommend correlation with urinalysis. Left iliac lesion. Please note prior images not provided. (see full report) Original Note: <Miles Malik - Last Filed: 09/22/16 06:55> Subjective - Date & Time of Evaluation Date of Evaluation: 09/22/16 Time of Evaluation: 01:00 - Subjective Subjective: House Resident Note Nurse paged for tachycardia 155 bpm. Patient was also tachnypeic. EKG was done and showed sinus tachycardia. Lopressor 5 was given. Rate went down to 125 but steadily increased back up to 145. Nurse paged again. Dr. Jerez went to evaluate the patient and decided to do CT chest/abd/pelvis with IV contrast due to clinical presentation. CT chest revealed No pulmonary embolism, No aortic dissection or aneurysm, There are moderate bilateral pleural effusions. There is bilateral lower lung consolidation. There is mediastinal and hilar lymphadenopathy, The esophagus is dilated with fluid and Round sclerotic lesion in the T5 vertebra, likely metastatic disease (see full report). The CT abd/ pelvis demonstrated sever ascites and suggestive of ileus in preliminary read by Dr. Jerez. As per Dr. Jerez, give Albumin 12.5 gm x 4 doses in order to replete intravascular space then diuresis to decrease edema/ascites/pleural effusions. Objective - Vital Signs/Intake and Output Vital Signs (last 24 hours): Temp Pulse Resp BP Pulse Ox 98.6 F 153 H 20 117/85 95 09/22/16 01:00 09/22/16 04:46 09/22/16 04:46 09/22/16 04:46 09/22/16 04:46 Intake and Output: 09/21/16 09/22/16 18:59 06:59 Intake Total 520 Output Total 450 Balance 70 - Medications Medications: Current Medications Benzocaine/Menthol (Cepacol Sore Throat) 1 carlos MT Q2 PRN PRN Reason: Sore Throat Last Admin: 09/19/16 14:00 Dose: 1 carlos Enoxaparin Sodium (Lovenox) 40 mg SC DAILY [facility] Last Admin: 09/21/16 09:10 Dose: 40 mg Ferrous Sulfate (Feosol) 325 mg PO Q12H [facility] Last Admin: 09/21/16 21:40 Dose: Not Given Hydromorphone HCl (Dilaudid) 0.5 mg IVP Q3H PRN PRN Reason: Pain, severe (8-10) Last Admin: 09/21/16 21:48 Dose: 0.5 mg Piperacillin Sod/Tazobactam (Sod 3.375 gm/ Sodium Chloride) 100 mls @ 200 mls/ hr IVPB Q8H [facility] Last Admin: 09/22/16 00:25 Dose: 200 mls/hr Potassium Chloride 40 meq/Magnesium Sulfate 16.24 meq/Heparin Sodium (Porcine) 1 ,000 units/ Multivitamins/Vitamin C 10 ml/ Amino Acids 1,035 mls @ 42 mls/hr IV .Q24H [facility] Last Admin: 09/19/16 17:53 Dose: 42 mls/hr Multivitamins/Vitamin C 10 ml/Potassium Chloride 20 meq/Magnesium Sulfate 2 gm/ Heparin Sodium (Porcine) 1,000 units/ Amino Acids/Electrolytes/Dextrose 1,025 mls @ 42 mls/hr IV .Q24H [facility] Stop: 09/22/16 17:59 Last Admin: 09/21/16 17:47 Dose: 42 mls/hr Loperamide HCl (Imodium) 2 mg PO Q12H PRN PRN Reason: Diarrhea Last Admin: 09/21/16 09:09 Dose: 2 mg Magnesium Oxide (Mag-Ox) 800 mg PO TID [facility] Last Admin: 09/21/16 17:48 Dose: 800 mg Metoprolol Tartrate (Lopressor) 12.5 mg PO BID [facility] Last Admin: 09/21/16 17:49 Dose: 12.5 mg Multivitamins (Hexavitamin) 1 tab PO DAILY [facility] Last Admin: 09/21/16 10:05 Dose: 1 tab Ondansetron HCl (Zofran Inj) 4 mg IVP Q4H PRN PRN Reason: Nausea/Vomiting Last Admin: 09/22/16 04:53 Dose: 4 mg Pantoprazole Sodium (Protonix Inj) 40 mg IVP DAILY [facility] Last Admin: 09/21/16 09:10 Dose: 40 mg Potassium Chloride (K-Dur 20 Meq Er Tab) 20 meq PO DAILY [facility] Last Admin: 09/21/16 09:09 Dose: 20 meq Potassium Phos/Sodium Phos (Neutra-Phos) 1 pkt PO TID [facility] Last Admin: 09/21/16 17:49 Dose: 1 pkt Sodium Chloride (Sodium Chloride Tab) 2 gm PO Q8 [facility] Last Admin: 09/21/16 21:39 Dose: Not Given - Labs Labs: 09/22/16 04:26 09/22/16 04:26 PT 12.2 SECONDS (9.7-12.2) 09/12/16 06:56 INR 1.1 09/12/16 06:56 APTT 27 SECONDS (21-34) 09/12/16 06:56 <Grey Jerez P - Last Filed: 09/22/16 07:24> Objective - Vital Signs/Intake and Output Vital Signs (last 24 hours): Temp Pulse Resp BP Pulse Ox 98.6 F 153 H 20 117/85 95 09/22/16 01:00 09/22/16 04:46 09/22/16 04:46 09/22/16 04:46 09/22/16 04:46 Intake and Output: 09/21/16 09/22/16 18:59 06:59 Intake Total 520 Output Total 450 Balance 70 - Medications Medications: Current Medications Albumin Human (Albumin Human 25% (12.5 Gm/50 Ml)) 12.5 gm IV Q1H [facility] Stop: 09/22/16 09:31 Last Admin: 09/22/16 06:34 Dose: 12.5 gm Benzocaine/Menthol (Cepacol Sore Throat) 1 carlos MT Q2 PRN PRN Reason: Sore Throat Last Admin: 09/19/16 14:00 Dose: 1 carlos Enoxaparin Sodium (Lovenox) 40 mg SC DAILY [facility] Last Admin: 09/21/16 09:10 Dose: 40 mg Ferrous Sulfate (Feosol) 325 mg PO Q12H [facility] Last Admin: 09/21/16 21:40 Dose: Not Given Furosemide (Lasix) 20 mg IVP STAT STA Stop: 09/22/16 06:55 Hydromorphone HCl (Dilaudid) 0.5 mg IVP Q3H PRN PRN Reason: Pain, severe (8-10) Last Admin: 09/21/16 21:48 Dose: 0.5 mg Piperacillin Sod/Tazobactam (Sod 3.375 gm/ Sodium Chloride) 100 mls @ 200 mls/ hr IVPB Q8H [facility] Last Admin: 09/22/16 00:25 Dose: 200 mls/hr Potassium Chloride 40 meq/Magnesium Sulfate 16.24 meq/Heparin Sodium (Porcine) 1 ,000 units/ Multivitamins/Vitamin C 10 ml/ Amino Acids 1,035 mls @ 42 mls/hr IV .Q24H [facility] Last Admin: 09/19/16 17:53 Dose: 42 mls/hr Multivitamins/Vitamin C 10 ml/Potassium Chloride 20 meq/Magnesium Sulfate 2 gm/ Heparin Sodium (Porcine) 1,000 units/ Amino Acids/Electrolytes/Dextrose 1,025 mls @ 42 mls/hr IV .Q24H [facility] Stop: 09/22/16 17:59 Last Admin: 09/21/16 17:47 Dose: 42 mls/hr Loperamide HCl (Imodium) 2 mg PO Q12H PRN PRN Reason: Diarrhea Last Admin: 09/21/16 09:09 Dose: 2 mg Magnesium Oxide (Mag-Ox) 800 mg PO TID [facility] Last Admin: 09/21/16 17:48 Dose: 800 mg Metoprolol Tartrate (Lopressor) 12.5 mg PO BID [facility] Last Admin: 09/21/16 17:49 Dose: 12.5 mg Multivitamins (Hexavitamin) 1 tab PO DAILY [facility] Last Admin: 09/21/16 10:05 Dose: 1 tab Ondansetron HCl (Zofran Inj) 4 mg IVP Q4H PRN PRN Reason: Nausea/Vomiting Last Admin: 09/22/16 04:53 Dose: 4 mg Pantoprazole Sodium (Protonix Inj) 40 mg IVP DAILY [facility] Last Admin: 09/21/16 09:10 Dose: 40 mg Potassium Chloride (K-Dur 20 Meq Er Tab) 20 meq PO DAILY [facility] Last Admin: 09/21/16 09:09 Dose: 20 meq Potassium Phos/Sodium Phos (Neutra-Phos) 1 pkt PO TID [facility] Last Admin: 09/21/16 17:49 Dose: 1 pkt Sodium Chloride (Sodium Chloride Tab) 2 gm PO Q8 [facility] Last Admin: 09/22/16 06:49 Dose: Not Given - Labs Labs: 09/22/16 04:26 09/22/16 04:26 PT 12.2 SECONDS (9.7-12.2) 09/12/16 06:56 INR 1.1 09/12/16 06:56 APTT 27 SECONDS (21-34) 09/12/16 06:56 Attending/Attestation - Attestation I have personally seen and examined this patient.: Yes I have fully participated in the care of the patient.: Yes I have reviewed all pertinent clinical information, including history, physical exam and plan: Yes Notes (Text): 09/22/16 06:59 Sinus tachycardia in the patient was from the tachypnea, related with b/l effusion, and ascitis on the clinical exam. Stat CTA chest pe study and abd pelvis ct ordered, report as above. Patient's albumin is low and has anasarca, with leg edema, b/l pleural effusions, ascitis, dilated small bowel, pneumoperitoneum probably form the jejunostomy. Informed surgery about pneumoperitoneum, will put jejunostomy tube on intermittent low suction, albumin and diuresis to help anasarca, hold ivf. Prognosis is poor due to incurable malignancy, the plan of care will be discussed with the patient/family/ rest of the faculties.
[2016-09-22] MEDS: Albumin Human 25% (12.5 gm/50 ml) IV SCH ×4 (06:34→09:30)
--- NOTE | 2016-09-22 06:44 | CT ---
EXAM: CT Abdomen and Pelvis With Intravenous Contrast CLINICAL HISTORY: 31 years old, male; Signs and symptoms; Bloating; Additional info: Ascites, distention TECHNIQUE: Axial computed tomography images of the abdomen and pelvis with intravenous contrast. This CT exam was performed using one or more of the following dose reduction techniques: automated exposure control, adjustment of the mA and/or kV according to patient size, and/or use of iterative reconstruction technique. Coronal and sagittal reformatted images were created and reviewed. CONTRAST: 75 mL of [id number] administered intravenously. EXAM DATE/TIME: 09/22/2016 3:30 AM COMPARISON: US - IR DRAIN ABD PARACENTESIS 08/31/2016 12:56:36 PM FINDINGS: Skin radhika along the anterior abdomen. There is stranding in the fat underlying the radhika. There is small amount of fluid underlying the radhika as well however a walled off drainable collection is not present. Feeding tube enters the left upper quadrant with tip in the loop of jejunum. There is extensive ascites. There is free air in the upper abdomen. Air-fluid level is present. This could be postoperative in etiology as the patient has presumably undergone recent surgery given the skin radhika. There is no surgical history provided. The other possibility for free air would be bowel perforation. While the bowel is markedly abnormal, there is not a focal segment that appears more thickened than the remainder of the bowel. Additionally, when perforation is is present, there is normally at least a small cluster of air foci at the perforation site as well as focal inflammatory changes. There is diffuse gastric wall thickening. There are markedly dilated fluid filled loops of small bowel in the abdomen measuring up to 4 cm in diameter with prominent wall and fold enhancement. There are dilated fluid and air filled small bowel loops in the upper pelvis that appear to have wall thickening. The colon is not dilated. Mesenteric and retroperitoneal lymphadenopathy is present. Evaluation of the urinary bladder is limited by extensive motion as well as underdistention. The wall appears thickened and indistinct. Sclerosis of the left iliac bone adjacent to the SI joint, possible metastatic disease The liver is normal. The spleen is normal. The pancreas is normal. No gallstones. No hydronephrosis or perinephric stranding. IMPRESSION: Evidence of recent surgery. Extensive ascites. Massive dilation of the proximal small bowel with fluid and stool. Moderate dilation of the mid small bowel. Nondilated very distal small bowel. Nondilated colon. This combination of findings could represent distal small bowel obstruction although the maximally dilated loops are proximal which would be somewhat unusual. Postoperative small bowel ileus would also be possible although it would be somewhat unusual to have nondilated colon. Enteritis could produce this picture as well. Pneumoperitoneum anterior abdomen. Although the bowel is markedly abnormal, I would favor postoperative etiology as discussed in detail above. Clinical correlation with the patient's symptoms and surgical history is recommended. Lymphadenopathy. Possible cystitis. Recommend correlation with urinalysis. Left iliac lesion. Please note prior images not provided.
[2016-09-22] MEDS: HYDROmorphone 0.5 mg/0.5 ml ISec IVP PRN ×3 (07:40→17:05)
--- NOTE | 2016-09-22 07:47 | CP.PCM.PN ---
<Eliseo Jensen Xavi - Last Filed: 09/22/16 07:44> Subjective - Date & Time of Evaluation Date of Evaluation: 09/22/16 Time of Evaluation: 07:44 - Subjective Subjective: Gen Sx: Dr Ham Pt S&E. Overnight having tachycardia HR 150+. Given 1 dose of Lopressor w/ no effect. Pt having nausea and single episode of emesis after CT scan contrast. CT chest r/o PE. CT abd shows dilated loops with pneumoperitoneum, likely 2/2 previous surgery. Pt denies abdominal pain at this time. Remains significantly distended. Medical note/plan noted. Prognosis guarded. Recommend continued hospice care counseling. Objective - Vital Signs/Intake and Output Vital Signs (last 24 hours): Temp Pulse Resp BP Pulse Ox 98.6 F 153 H 20 117/85 95 09/22/16 01:00 09/22/16 04:46 09/22/16 04:46 09/22/16 04:46 09/22/16 04:46 Intake and Output: 09/22/16 09/22/16 06:59 18:59 Intake Total 520 Output Total 450 Balance 70 - Medications Medications: Current Medications Albumin Human (Albumin Human 25% (12.5 Gm/50 Ml)) 12.5 gm IV Q1H [facility] Stop: 09/22/16 09:31 Last Admin: 09/22/16 07:22 Dose: 12.5 gm Benzocaine/Menthol (Cepacol Sore Throat) 1 carlos MT Q2 PRN PRN Reason: Sore Throat Last Admin: 09/19/16 14:00 Dose: 1 carlos Enoxaparin Sodium (Lovenox) 40 mg SC DAILY [facility] Last Admin: 09/21/16 09:10 Dose: 40 mg Ferrous Sulfate (Feosol) 325 mg PO Q12H [facility] Last Admin: 09/21/16 21:40 Dose: Not Given Hydromorphone HCl (Dilaudid) 0.5 mg IVP Q3H PRN PRN Reason: Pain, severe (8-10) Last Admin: 09/22/16 07:40 Dose: 0.5 mg Piperacillin Sod/Tazobactam (Sod 3.375 gm/ Sodium Chloride) 100 mls @ 200 mls/ hr IVPB Q8H [facility] Last Admin: 09/22/16 00:25 Dose: 200 mls/hr Potassium Chloride 40 meq/Magnesium Sulfate 16.24 meq/Heparin Sodium (Porcine) 1 ,000 units/ Multivitamins/Vitamin C 10 ml/ Amino Acids 1,035 mls @ 42 mls/hr IV .Q24H [facility] Last Admin: 09/19/16 17:53 Dose: 42 mls/hr Multivitamins/Vitamin C 10 ml/Potassium Chloride 20 meq/Magnesium Sulfate 2 gm/ Heparin Sodium (Porcine) 1,000 units/ Amino Acids/Electrolytes/Dextrose 1,025 mls @ 42 mls/hr IV .Q24H [facility] Stop: 09/22/16 17:59 Last Admin: 09/21/16 17:47 Dose: 42 mls/hr Loperamide HCl (Imodium) 2 mg PO Q12H PRN PRN Reason: Diarrhea Last Admin: 09/21/16 09:09 Dose: 2 mg Magnesium Oxide (Mag-Ox) 800 mg PO TID [facility] Last Admin: 09/21/16 17:48 Dose: 800 mg Metoprolol Tartrate (Lopressor) 12.5 mg PO BID [facility] Last Admin: 09/21/16 17:49 Dose: 12.5 mg Multivitamins (Hexavitamin) 1 tab PO DAILY [facility] Last Admin: 09/21/16 10:05 Dose: 1 tab Ondansetron HCl (Zofran Inj) 4 mg IVP Q4H PRN PRN Reason: Nausea/Vomiting Last Admin: 09/22/16 04:53 Dose: 4 mg Pantoprazole Sodium (Protonix Inj) 40 mg IVP DAILY [facility] Last Admin: 09/21/16 09:10 Dose: 40 mg Potassium Chloride (K-Dur 20 Meq Er Tab) 20 meq PO DAILY [facility] Last Admin: 09/21/16 09:09 Dose: 20 meq Potassium Phos/Sodium Phos (Neutra-Phos) 1 pkt PO TID [facility] Last Admin: 09/21/16 17:49 Dose: 1 pkt Sodium Chloride (Sodium Chloride Tab) 2 gm PO Q8 [facility] Last Admin: 09/22/16 06:49 Dose: Not Given - Labs Labs: 09/22/16 04:26 09/22/16 04:26 PT 12.2 SECONDS (9.7-12.2) 09/12/16 06:56 INR 1.1 09/12/16 06:56 APTT 27 SECONDS (21-34) 09/12/16 06:56 - Constitutional Appears: Chronically Ill - Head Exam Head Exam: NORMOCEPHALIC - ENT Exam ENT Exam: Mucous Membranes Dry - Respiratory Exam Respiratory Exam: Rhonchi (bilateral). absent: Accessory Muscle Use, Respiratory Distress - Cardiovascular Exam Cardiovascular Exam: Tachycardia, REGULAR RHYTHM - GI/Abdominal Exam GI & Abdominal Exam: Distended, Firm. absent: Guarding, Rigid, Soft, Tenderness , Mass, Rebound - Extremities Exam Extremities Exam: Pedal Edema. absent: Calf Tenderness - Neurological Exam Neurological Exam: Alert, Awake, Oriented x3 - Psychiatric Exam Psychiatric exam: Normal Affect, Normal Mood - Skin Skin Exam: Normal Color, Warm Assessment and Plan - Assessment and Plan (Free Text) Assessment: 31M with metastatic gastric cancer Plan: cont care per primary nothing further to offer surgically, pt has metastatic disease w/ extremely poor prognosis pneumoperitoneum likely 2/2 previous surgery and not perforation recommend hospice counseling cont abdominal dressing changes PRN will d/w Dr Jitendra Jensen, DO, PGY2 <Moisés Ham B - Last Filed: 09/25/16 18:37> Objective - Vital Signs/Intake and Output Vital Signs (last 24 hours): Temp Pulse Resp BP Pulse Ox 98.0 F 109 H 28 H 45/27 L 95 09/23/16 08:20 09/23/16 08:20 09/23/16 08:20 09/23/16 08:20 09/22/16 22:30 - Labs Labs: 09/23/16 07:11 09/23/16 07:11 PT 12.2 SECONDS (9.7-12.2) 09/12/16 06:56 INR 1.1 09/12/16 06:56 APTT 27 SECONDS (21-34) 09/12/16 06:56 Attending/Attestation - Attestation I have personally seen and examined this patient.: Yes I have fully participated in the care of the patient.: Yes I have reviewed all pertinent clinical information, including history, physical exam and plan: Yes Notes (Text): 09/25/16 18:36 Pt was seen and examined at bedside on 09/22/16 Agree with above note and assessment Pt with Stage 4 Gastric Cancer Poor prognosis Plan d/w family and Primary team. .
--- NOTE | 2016-09-22 08:20 | RAD ---
Abdomen single frontal view History: Evaluation of J-tube. Comparison: None available. Findings: J-tube in place with tip projecting over the mid left lisa abdomen. Gaseous distension/mildly dilated loops of small bowel noted throughout the abdomen. Impression: J-tube in place. Gaseous distension/dilatation of small bowel loops throughout the abdomen.
[2016-09-22 08:26] LABS: NEUTROPHIL 50 % (50-75); TOTAL CELLS COUNTED 100
[2016-09-22] MEDS: Magnesium Oxide 400 mg Tab UD PO SCH ×3 (10:00→18:30)
[2016-09-22] MEDS: Potassium & Sodium Phosphate PO SCH ×3 (10:00→22:50)
[2016-09-22] MEDS: Potassium Chloride 20 mEq ER Tab PO SCH (10:00)
[2016-09-22] MEDS: Multiple Vitamins Tab PO SCH (10:00)
[2016-09-22] MEDS ORDERED: Enoxaparin 40 mg Syringe SC SCH (11:00)
--- NOTE | 2016-09-22 11:43 | CP.PCM.CON ---
History of Present Illness - History of Present Illness History of Present Illness: 31yo M. With recent diagnosis of metastatic gastroadenocarcinoma. Called to discuss treatment options with patient, who now has an intestinal perforation seen on CT abdomen. Review of Systems - Review of Systems All systems: reviewed and no additional remarkable complaints except - Cardiovascular Cardiovascular: Palpitations - Gastrointestinal Gastrointestinal: Abdominal Pain, Vomiting Past Patient History - Past Medical History & Family History Past Medical History?: Yes - Past Social History Smoking Status: Never Smoked - CARDIAC Hx Cardiac Disorders: No - PULMONARY Hx Respiratory Disorders: No - NEUROLOGICAL Hx Neurological Disorder: No - HEENT Hx HEENT Problems: No - RENAL Hx Chronic Kidney Disease: No - ENDOCRINE/METABOLIC Hx Endocrine Disorders: No - HEMATOLOGICAL/ONCOLOGICAL Hx Cancer: Yes (Stomach) - INTEGUMENTARY Hx Dermatological Problems: No - MUSCULOSKELETAL/RHEUMATOLOGICAL Hx Musculoskeletal Disorders: Yes Hx Falls: Yes - GASTROINTESTINAL Hx Gastrointestinal Disorders: No - GENITOURINARY/GYNECOLOGICAL Hx Genitourinary Disorders: No - PSYCHIATRIC Hx Substance Use: No - SURGICAL HISTORY Hx Surgeries: Yes Other/Comment: L Knee surgery after a fall - ANESTHESIA Hx Anesthesia: Yes Hx Anesthesia Reactions: No Hx Malignant Hyperthermia: No Has any member of the family had a problem w/ anesthesia?: No Meds Allergies/Adverse Reactions: Allergies Allergy/AdvReac Type Severity Reaction Status Date / Time No Known Allergies Allergy Verified 08/29/16 19:45 - Medications Medications: Current Medications Benzocaine/Menthol (Cepacol Sore Throat) 1 carlos MT Q2 PRN PRN Reason: Sore Throat Last Admin: 09/19/16 14:00 Dose: 1 carlos Diltiazem HCl (Cardizem) 5 mg IVP Q15MIN PRN PRN Reason: Other Last Admin: 09/22/16 10:53 Dose: 5 mg Enoxaparin Sodium (Lovenox) 40 mg SC DAILY [facility] Ferrous Sulfate (Feosol) 325 mg PO Q12H [facility] Last Admin: 09/21/16 21:40 Dose: Not Given Furosemide (Lasix) 40 mg IVP DAILY [facility] Hydromorphone HCl (Dilaudid) 0.5 mg IVP Q3H PRN PRN Reason: Pain, severe (8-10) Last Admin: 09/22/16 07:40 Dose: 0.5 mg Piperacillin Sod/Tazobactam (Sod 3.375 gm/ Sodium Chloride) 100 mls @ 200 mls/ hr IVPB Q8H [facility] Last Admin: 09/22/16 00:25 Dose: 200 mls/hr Potassium Chloride 40 meq/Magnesium Sulfate 16.24 meq/Heparin Sodium (Porcine) 1 ,000 units/ Multivitamins/Vitamin C 10 ml/ Amino Acids 1,035 mls @ 42 mls/hr IV .Q24H [facility] Last Admin: 09/19/16 17:53 Dose: 42 mls/hr Multivitamins/Vitamin C 10 ml/Potassium Chloride 20 meq/Magnesium Sulfate 2 gm/ Heparin Sodium (Porcine) 1,000 units/ Amino Acids/Electrolytes/Dextrose 1,025 mls @ 42 mls/hr IV .Q24H ONE Stop: 09/22/16 17:59 Last Admin: 09/21/16 17:47 Dose: 42 mls/hr Multivitamins/Vitamin C 10 ml/Potassium Chloride 20 meq/Magnesium Sulfate 1 gm/ Heparin Sodium (Porcine) 1,000 units/ Amino Acids/Electrolytes/Dextrose 1,023 mls @ 42 mls/hr IV .Q24H ONE Stop: 09/23/16 17:59 Fat Emulsion Intravenous (Intralipid 20%) 250 mls @ 42 mls/hr IV 1800 ONE Stop: 09/22/16 23:57 Loperamide HCl (Imodium) 2 mg PO Q12H PRN PRN Reason: Diarrhea Last Admin: 09/21/16 09:09 Dose: 2 mg Magnesium Oxide (Mag-Ox) 800 mg PO TID [facility] Last Admin: 09/21/16 17:48 Dose: 800 mg Metoprolol Tartrate (Lopressor) 12.5 mg PO BID [facility] Last Admin: 09/21/16 17:49 Dose: 12.5 mg Multivitamins (Hexavitamin) 1 tab PO DAILY [facility] Last Admin: 09/21/16 10:05 Dose: 1 tab Ondansetron HCl (Zofran Inj) 4 mg IVP Q4H PRN PRN Reason: Nausea/Vomiting Last Admin: 09/22/16 04:53 Dose: 4 mg Pantoprazole Sodium (Protonix Inj) 40 mg IVP DAILY [facility] Last Admin: 09/22/16 10:58 Dose: 40 mg Potassium Chloride (K-Dur 20 Meq Er Tab) 20 meq PO DAILY [facility] Last Admin: 09/21/16 09:09 Dose: 20 meq Potassium Phos/Sodium Phos (Neutra-Phos) 1 pkt PO TID [facility] Last Admin: 09/21/16 17:49 Dose: 1 pkt Sodium Chloride (Sodium Chloride Tab) 2 gm PO Q8 [facility] Last Admin: 09/22/16 06:49 Dose: Not Given Physical Exam - Constitutional Appears: Toxic, Cachectic - Head Exam Head Exam: ATRAUMATIC, NORMAL INSPECTION, NORMOCEPHALIC - Eye Exam Eye Exam: Scleral icterus - Respiratory Exam Additional comments: tachypnea - Cardiovascular Exam Cardiovascular Exam: Tachycardia - GI/Abdominal Exam GI & Abdominal Exam: Diminished Bowel Sounds - Neurological Exam Neurological exam: Alert, CN II-XII Intact, Normal Gait, Oriented x3, Reflexes Normal - Psychiatric Exam Psychiatric exam: Anxious Results - Vital Signs Recent Vital Signs: Last Vital Signs Temp 97.6 F 09/22/16 08:42 Pulse 155 H 09/22/16 08:42 Resp 20 09/22/16 08:42 BP 111/79 09/22/16 08:42 Pulse Ox 97 09/22/16 08:42 - Labs Result Diagrams: 09/22/16 04:26 09/22/16 04:26 Labs: Laboratory Results - last 24 hr 09/21/16 09/22/16 09/22/16 19:00 04:26 04:26 WBC 11.4 H RBC 3.83 L Hgb 10.6 L Hct 32.2 L MCV 84.2 MCH 27.6 MCHC 32.8 L RDW 18.8 H Plt Count 271 MPV 8.3 Neut % (Auto) 89.3 H Lymph % (Auto) 7.2 L [place] % (Auto) 3.0 Eos % (Auto) 0.2 Baso % (Auto) 0.3 Neut # 10.2 H Lymph # 0.8 L [place] # 0.3 Eos # 0.0 Baso # 0.0 Neutrophils % (Manual) 50 Band Neutrophils % 40 H* Lymphocytes % (Manual) 7 L Monocytes % (Manual) 3 Platelet Estimate Normal Polychromasia Slight Hypochromasia (manual) Slight Anisocytosis (manual) Slight Sodium 127 L Potassium 4.1 Chloride 99 Carbon Dioxide 18 L Anion Gap 14 BUN 19 Creatinine 1.0 Est GFR ( Amer) > 60 Est GFR (Non-Af Amer) > 60 Random Glucose 139 H Calcium 7.5 L Phosphorus 3.6 Magnesium 2.0 Total Bilirubin 0.6 AST 53 ALT 29 Alkaline Phosphatase 173 H D Total Protein 5.3 L Albumin 1.9 L Globulin 3.4 Albumin/Globulin Ratio 0.6 L Urine Osmolality 350 Ur Random Sodium 88 Assessment & Plan (1) Late gastric cancer Assessment and Plan: Patient has intestinal perforation from metastatic gastric CA. He is not a surgical candidate and most likely will not survive this event. I have discussed options of comfort care if he gets worse. The patient agrees to this and also agrees to DNR/DNI. We used the translation service to explain his situation and what can be done for him. He completely understands. I will further speak to the family when they arrive. Critical Care time 35 minutes Status: Acute
[2016-09-22] MEDS: Albuterol-Ipratrop 3 mg / 0.5 (3 ml) UD INH PRN ×2 (13:16→21:35)
--- NOTE | 2016-09-22 15:46 | CP.PCM.PN ---
Subjective - Date & Time of Evaluation Date of Evaluation: 09/22/16 Time of Evaluation: 08:00 - Subjective Subjective: Patient seen and examined at bedside this AM. Admits to some abdominal pain this morning with some nausea. Patient does not have good PO intake but he is trying to drink some liquids. He is currently receiving TPN. Overnight the patient had an elevated HR into the 150s. Patient today is complaining of his heart beating fast but denied chest pain. Ct abd revealed intestinal perforation from metastatic gastric CA. He is not a surgical candidate and most likely will not survive this event. Dr. Mao in the ICU was consulted. Together we informed the patient of these CT findings. Patient stated that he understand and sarita just like to be kept comfortable. The patient also to DNR/DNI. We used the translation service to explain his situation and what can be done for him. He completely understands. His sisters were both notified to come to the hospital today. We will discuss with them when they arrive. Patient will be evaluated for home hospice care. He is pending acceptance. Objective - Vital Signs/Intake and Output Vital Signs (last 24 hours): Temp Pulse Resp BP Pulse Ox 97.6 F 155 H 20 120/71 97 09/22/16 08:42 09/22/16 08:42 09/22/16 08:42 09/22/16 10:15 09/22/16 08:42 Intake and Output: 09/22/16 09/22/16 06:59 18:59 Intake Total 1396 100 Output Total 850 Balance 546 100 - Medications Medications: Current Medications Albuterol/Ipratropium (Duoneb 3 Mg/0.5 Mg (3 Ml) Ud) 3 ml INH RQ4 PRN PRN Reason: Shortness of Breath Last Admin: 09/22/16 13:16 Dose: 3 ml Benzocaine/Menthol (Cepacol Sore Throat) 1 carlos MT Q2 PRN PRN Reason: Sore Throat Last Admin: 09/19/16 14:00 Dose: 1 carlos Diltiazem HCl (Cardizem) 5 mg IVP Q15MIN PRN PRN Reason: Other Last Admin: 09/22/16 10:53 Dose: 5 mg Enoxaparin Sodium (Lovenox) 40 mg SC DAILY [facility] Last Admin: 09/22/16 11:00 Dose: 40 mg Ferrous Sulfate (Feosol) 325 mg PO Q12H [facility] Last Admin: 09/22/16 10:00 Dose: Not Given Furosemide (Lasix) 40 mg IVP DAILY [facility] Last Admin: 09/22/16 10:15 Dose: 40 mg Hydromorphone HCl (Dilaudid) 0.5 mg IVP Q3H PRN PRN Reason: Pain, severe (8-10) Last Admin: 09/22/16 12:18 Dose: 0.5 mg Piperacillin Sod/Tazobactam (Sod 3.375 gm/ Sodium Chloride) 100 mls @ 200 mls/ hr IVPB Q8H [facility] Last Admin: 09/22/16 08:00 Dose: 200 mls/hr Potassium Chloride 40 meq/Magnesium Sulfate 16.24 meq/Heparin Sodium (Porcine) 1 ,000 units/ Multivitamins/Vitamin C 10 ml/ Amino Acids 1,035 mls @ 42 mls/hr IV .Q24H [facility] Last Admin: 09/19/16 17:53 Dose: 42 mls/hr Multivitamins/Vitamin C 10 ml/Potassium Chloride 20 meq/Magnesium Sulfate 2 gm/ Heparin Sodium (Porcine) 1,000 units/ Amino Acids/Electrolytes/Dextrose 1,025 mls @ 42 mls/hr IV .Q24H ONE Stop: 09/22/16 17:59 Last Admin: 09/21/16 17:47 Dose: 42 mls/hr Multivitamins/Vitamin C 10 ml/Potassium Chloride 20 meq/Magnesium Sulfate 1 gm/ Heparin Sodium (Porcine) 1,000 units/ Amino Acids/Electrolytes/Dextrose 1,023 mls @ 42 mls/hr IV .Q24H ONE Stop: 09/23/16 17:59 Fat Emulsion Intravenous (Intralipid 20%) 250 mls @ 42 mls/hr IV 1800 ONE Stop: 09/22/16 23:57 Loperamide HCl (Imodium) 2 mg PO Q12H PRN PRN Reason: Diarrhea Last Admin: 09/21/16 09:09 Dose: 2 mg Magnesium Oxide (Mag-Ox) 800 mg PO TID [facility] Last Admin: 09/22/16 14:00 Dose: Not Given Metoprolol Tartrate (Lopressor) 12.5 mg PO BID [facility] Last Admin: 09/22/16 12:00 Dose: Not Given Multivitamins (Hexavitamin) 1 tab PO DAILY [facility] Last Admin: 09/22/16 10:00 Dose: Not Given Ondansetron HCl (Zofran Inj) 4 mg IVP Q4H PRN PRN Reason: Nausea/Vomiting Last Admin: 09/22/16 12:15 Dose: 4 mg Pantoprazole Sodium (Protonix Inj) 40 mg IVP DAILY [facility] Last Admin: 09/22/16 10:58 Dose: 40 mg Potassium Chloride (K-Dur 20 Meq Er Tab) 20 meq PO DAILY [facility] Last Admin: 09/22/16 10:00 Dose: Not Given Potassium Phos/Sodium Phos (Neutra-Phos) 1 pkt PO TID [facility] Last Admin: 09/22/16 14:00 Dose: Not Given Sodium Chloride (Sodium Chloride Tab) 2 gm PO Q8 [facility] Last Admin: 09/22/16 14:00 Dose: Not Given - Labs Labs: 09/22/16 04:26 09/22/16 04:26 PT 12.2 SECONDS (9.7-12.2) 09/12/16 06:56 INR 1.1 09/12/16 06:56 APTT 27 SECONDS (21-34) 09/12/16 06:56 - Constitutional Appears: Non-toxic, In Acute Distress, Cachectic, Chronically Ill - Head Exam Head Exam: ATRAUMATIC, NORMAL INSPECTION - Eye Exam Eye Exam: EOMI, Normal appearance, PERRL Pupil Exam: NORMAL ACCOMODATION - ENT Exam ENT Exam: Mucous Membranes Dry - Respiratory Exam Respiratory Exam: Accessory Muscle Use, Decreased Breath Sounds, Rales. absent : Chest Wall Tenderness, Clear to Ausculation Bilateral, Respiratory Distress, NORMAL BREATHING PATTERN - Cardiovascular Exam Cardiovascular Exam: Tachycardia, REGULAR RHYTHM, +S1, +S2 - GI/Abdominal Exam GI & Abdominal Exam: Distended, Firm, Soft, Tenderness. absent: Guarding, Hypoactive Bowel Sounds - Extremities Exam Extremities Exam: Normal Inspection, Pedal Edema - Back Exam Back Exam: NORMAL INSPECTION. absent: CVA tenderness (L), CVA tenderness (R), paraspinal tenderness - Neurological Exam Neurological Exam: Alert, Awake, Oriented x3 - Psychiatric Exam Psychiatric exam: Normal Affect - Skin Skin Exam: Dry, Intact, Normal Color, Pallor, Warm Assessment and Plan - Assessment and Plan (Free Text) Assessment: 1. Gastric Cancer Patient to be evaluated for home hospice care as per his wishes DNR/DNI per the patients wishes, [employer] teacher used Patient has intestinal perforation per CT from metastatic gastric CA. He is not a surgical candidate and most likely will not survive this event. Heme/onc, Dr. Mckoy, consulted. Help appreciated. 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 Mares, consulted. Help appreciated. s/p paracentesis with IR on 08/31, Dr. Wang. s/p EGD on 09/[address] Cobian, EGD findings reveal malignant tumor on the gastric body (please see full report) CT Chest/Abd/Pelvis - extensive mucosal thickening of the stomach; free fluid in the abdomen and pelvis; enapsulation of fluid in the pelvis which is worrisome for abscess; sclerotic lesion within left pelvis, metastatic disease not excluded; enlarged prostate gland, mediastinal and hilar adenopathy; mucosal thickening of the appendix (please see full report) General surgery, Dr. Ham, consulted. Help appreciated. S/P OR revision of J tube on 09/12 Zofran prn for nausea with diarrhea - C.diff negative, improving - Loperaminde PRN f/u am labs 2. Electrolyte Imbalance Dr. Hunter, nephrology, consulted, help appreciated - likely SIADH component Na 130 - improving Replacing Mg daily with IVOB riders and through TPN Neutraphos 1 packet po tid TPN started 09/17/16 - added Mg/K Pt not tolerating oral medications 3. Anemia hbg = 10.6 likely stomach cancer source of bleed s/p 2 Units PRBC on 09/12 FOBT + Iron, TIBC, %saturation, ferritin - low Feosol 325 mg po daily s/p EGD on 09/[address] Cobian, EGD findings reveal malignant tumor on the gastric body (please see full report) 4. SIRS Last fever on 09/14 Blood Cx 09/14 negative x 3days UA negative chest X ray - negative for pneumonia Zosyn 3.375 gm IV q 8 hrs WBC wnl 5. Tachycardia ~150, likely due to pain EKG normal sinus rhythm asymptomatic Metoprolol 12.5 mg PO BID given stat doses of Cardizem which did not help 6. UTI Yeast in Urine Diflucan 100mg IVPB daily discontinued on 09/21 repeat UA and cx negative for growth 7. Prophylactic Measures DVT: SCDs, Lovenox 40mg SC daily (patient is hypercoagulable to cancer and immobility) GI: Protonix 40 mg IV qd PT/OT TPN with added electrolytes One salt tab daily Per Dr. Mckoy, prognosis is very poor. Palliative care consulted ICU consulted. Patient would like comfort care measures. For home hospice eval. Not a surgical candidate. DNR/DNI
[2016-09-22] MEDS ORDERED: Fat Emulsion 20% IV 250 ML IV ONE (18:00)
[2016-09-22] MEDS ORDERED: TPN #6 IV ONE (18:00)
--- NOTE | 2016-09-22 22:53 | PN ---
DATE: 09/22/2016 A 31-year-old male with metastatic gastric cancer admitted with nausea, vomiting and failure to thrive. Nephrology consulted for electrolyte abnormalities. The patient noted to have periods of marked tachycardia with heart rates in the 150s as well as tachypnea since yesterday. The patient has been vomiting repeatedly today. Urination has decreased significantly. Reports feeling anxious. PHYSICAL EXAMINATION: VITAL SIGNS: Late this afternoon, blood pressure 109/73, heart rate 93, respirations 20, temperature 96, O2 sat 96% on room air. GENERAL: Mild distress. The patient vomiting, otherwise able to converse coherently in full sentences. HEENT: Moist mucous membranes. Nonicteric. CHEST: Decreased breath sounds on right, otherwise lungs are clear to auscultation bilaterally. HEART: S1, S2 normal, no murmurs, no gallops, no rubs. Tachycardic. ABDOMEN: Markedly distended and firm. EXTREMITIES: Moderate to severe edema of legs extending to lower back and an abdominal wall, anasarca. SKIN: Warm, no cyanosis. PSYCHIATRIC: Normal mood, normal affect. LABORATORY DATA: This morning, WBC 11.4, hemoglobin 10.6, hematocrit 32.2, platelet 271, bands 40%. Chemistry panel: Sodium 127, potassium 4.1, chloride 99, bicarbonate 18, BUN 19, creatinine 1.0, glucose 139, calcium 7.5, phosphorus 3.6, magnesium 2.0. Albumin is 1.9. ASSESSMENT: 1. Anasarca secondary to marked hypoalbuminemia. The patient with periods of hypotension and tachycardia, likely with marked intravascular volume depletion, despite having been on adequate amount of fluids. Agree with the night hospitalist that we can try giving albumin and diuresing with Lasix if blood pressure tolerates but that this is likely a futile effort given patient's worsening clinical status; also, albumin may leak into interstitial space, which would worsen third spacing; Recommend to continue 25% albumin 12.5 grams q. 12 hours and Lasix at 20-40 mg q. 12 hours IV push (depending on the effective dose; also, need to hold off on diuretics if hypotensive). 2. Hyponatremia. Again, likely secondary to intravascular volume depletion. With patient vomiting again, it will be difficult to correct intravascular losses as patient is also third spacing. Continue albumin as mentioned above q. 12 hours. 3. Hypokalemia, currently resolved; however, with patient vomiting, can expect to recur. Need to replenish aggressively. 4. Acute kidney injury, renal function mildly worsened, but urine output appears to be dropping off and there is a concern for intraabdominal hypertension/compartment syndrome. As patient is likely not a surgical candidate, options are limited. Recommend to place a Frey catheter to accurately measure I's and O's. However, patient is not agreeable. 5. Small-bowel obstruction versus ileus. Can expect that patient will continue vomiting; therefore continue with Protonix in order to prevent metabolic alkalosis. 6. SIRS/Sepsis - Marked elevation in neutrophil bands today despite being on abx ; likely contributing to tachycardia and periods of hypotension; Overall short term prognosis very poor; made DNR/DNI today; agree with comfort care. Ye Hunter MD cc: [id number] TT: 09/22/2016 22:52:33 Confirmation # [id number] Dictation # [id number] MTDD
[2016-09-22] MEDS ORDERED: Morphine 4 MG/ML VIAL IV ONE (23:30)
--- NOTE | 2016-09-22 23:56 | CP.PCM.PN ---
<Abel Rodriguez - Last Filed: 09/24/16 18:28> Subjective - Date & Time of Evaluation Date of Evaluation: 09/22/16 Time of Evaluation: 23:42 - Subjective Subjective: HOUSE RESIDENT NOTE Resident paged for family meeting. Family was concerned over DNR/DNI status, and challenged its validity. Attending, Dr. Jerez, and this resident had long- discussion with family using interpretation services regarding pt prognosis. It was reiterated to family that pts Gastric Cancer is worsening, and untreatable in his current condition - i.e. he is not a candidate for surgery or chemotherapy. Family stated they were told "by hem/onc physician" he would have more time, and were hoping to [place]. It was explained to them that pt would not survive any such journey. Furthermore, family was made aware that life support would be temporary and not addressing problem of cancer. Pts family verbalized understanding that pts condition was grave, and reaffirmed the DNR/DNI status by signing a new POLST which was placed in the paper chart. A copy was given to the pts mother. They verbalized desire for his pain to be controlled, and for pt "not to suffer." Pt was tachypneic, tachycardic, and very anxious. He stated he was in "10/10 pain" and "struggling to breathe." Plan: Morphine 4mg IV STAT Morphine Drip 2mg/hr Ativan 0.5 mg Q3H PRN Objective - Vital Signs/Intake and Output Vital Signs (last 24 hours): Temp Pulse Resp BP Pulse Ox 96 F L 93 H 20 109/73 96 09/22/16 15:00 09/22/16 15:00 09/22/16 15:00 09/22/16 15:00 09/22/16 15:00 Intake and Output: 09/22/16 09/23/16 18:59 06:59 Intake Total 100 Balance 100 - Medications Medications: Current Medications Albuterol/Ipratropium (Duoneb 3 Mg/0.5 Mg (3 Ml) Ud) 3 ml INH RQ4 PRN PRN Reason: Shortness of Breath Last Admin: 09/22/16 21:35 Dose: 3 ml Benzocaine/Menthol (Cepacol Sore Throat) 1 carlos MT Q2 PRN PRN Reason: Sore Throat Last Admin: 09/19/16 14:00 Dose: 1 carlos Diltiazem HCl (Cardizem) 5 mg IVP Q15MIN PRN PRN Reason: Other Last Admin: 09/22/16 10:53 Dose: 5 mg Enoxaparin Sodium (Lovenox) 40 mg SC DAILY [facility] Last Admin: 09/22/16 11:00 Dose: 40 mg Ferrous Sulfate (Feosol) 325 mg PO Q12H [facility] Last Admin: 09/22/16 10:00 Dose: Not Given Furosemide (Lasix) 40 mg IVP DAILY [facility] Last Admin: 09/22/16 10:15 Dose: 40 mg Hydromorphone HCl (Dilaudid) 0.5 mg IVP Q3H PRN PRN Reason: Pain, severe (8-10) Last Admin: 09/22/16 17:05 Dose: 0.5 mg Piperacillin Sod/Tazobactam (Sod 3.375 gm/ Sodium Chloride) 100 mls @ 200 mls/ hr IVPB Q8H [facility] Last Admin: 09/22/16 17:00 Dose: 200 mls/hr Potassium Chloride 40 meq/Magnesium Sulfate 16.24 meq/Heparin Sodium (Porcine) 1 ,000 units/ Multivitamins/Vitamin C 10 ml/ Amino Acids 1,035 mls @ 42 mls/hr IV .Q24H [facility] Last Admin: 09/19/16 17:53 Dose: 42 mls/hr Multivitamins/Vitamin C 10 ml/Potassium Chloride 20 meq/Magnesium Sulfate 1 gm/ Heparin Sodium (Porcine) 1,000 units/ Amino Acids/Electrolytes/Dextrose 1,023 mls @ 42 mls/hr IV .Q24H ONE Stop: 09/23/16 17:59 Last Admin: 09/22/16 19:00 Dose: 42 mls/hr Fat Emulsion Intravenous (Intralipid 20%) 250 mls @ 42 mls/hr IV 1800 ONE Stop: 09/22/16 23:57 Last Admin: 09/22/16 20:55 Dose: 42 mls/hr Morphine Sulfate 250 mg/ (Sodium Chloride) 250 mls @ 2 mls/hr IV .Q24H ONE; 2 MG/HR PRN Reason: Protocol Stop: 09/23/16 23:44 Loperamide HCl (Imodium) 2 mg PO Q12H PRN PRN Reason: Diarrhea Last Admin: 09/21/16 09:09 Dose: 2 mg Lorazepam (Ativan) 0.5 mg IVP Q3H PRN PRN Reason: Anxiety Magnesium Oxide (Mag-Ox) 800 mg PO TID [facility] Last Admin: 09/22/16 18:30 Dose: Not Given Metoprolol Tartrate (Lopressor) 12.5 mg PO BID [facility] Last Admin: 09/22/16 19:00 Dose: 12.5 mg Multivitamins (Hexavitamin) 1 tab PO DAILY [facility] Last Admin: 09/22/16 10:00 Dose: Not Given Ondansetron HCl (Zofran Inj) 4 mg IVP Q4H PRN PRN Reason: Nausea/Vomiting Last Admin: 09/22/16 17:04 Dose: 4 mg Pantoprazole Sodium (Protonix Inj) 40 mg IVP DAILY [facility] Last Admin: 09/22/16 10:58 Dose: 40 mg Potassium Chloride (K-Dur 20 Meq Er Tab) 20 meq PO DAILY [facility] Last Admin: 09/22/16 10:00 Dose: Not Given Potassium Phos/Sodium Phos (Neutra-Phos) 1 pkt PO TID [facility] Last Admin: 09/22/16 14:00 Dose: Not Given Sodium Chloride (Sodium Chloride Tab) 2 gm PO Q8 [facility] Last Admin: 09/22/16 14:00 Dose: Not Given - Labs Labs: 09/22/16 04:26 09/22/16 04:26 PT 12.2 SECONDS (9.7-12.2) 09/12/16 06:56 INR 1.1 09/12/16 06:56 APTT 27 SECONDS (21-34) 09/12/16 06:56 <Grey Jerez P - Last Filed: 09/24/16 23:40> Objective - Vital Signs/Intake and Output Vital Signs (last 24 hours): Temp Pulse Resp BP Pulse Ox 98.0 F 109 H 28 H 45/27 L 95 09/23/16 08:20 09/23/16 08:20 09/23/16 08:20 09/23/16 08:20 09/22/16 22:30 - Labs Labs: 09/23/16 07:11 09/23/16 07:11 PT 12.2 SECONDS (9.7-12.2) 09/12/16 06:56 INR 1.1 09/12/16 06:56 APTT 27 SECONDS (21-34) 09/12/16 06:56 Attending/Attestation - Attestation I have personally seen and examined this patient.: Yes I have fully participated in the care of the patient.: Yes I have reviewed all pertinent clinical information, including history, physical exam and plan: Yes
[2016-09-23] MEDS: Piperacillin/Tazobact 3.375 GM in Sodium Chloride 100 ML IVPB SCH (00:50)
[2016-09-23 02:15] VITALS: O2SAT 95
[2016-09-23 07:24] LABS: BASO % 0.2 % (0.0-2.0); MONO # 0.4 K/uL (0.0-0.8); WHITE BLOOD COUNT 14.6 K/uL (4.8-10.8)
[2016-09-23 07:41] LABS: POTASSIUM 5.8 mmol/L (3.6-5.2)
[2016-09-23 07:43] LABS: BILIRUBIN,TOTAL 0.7 mg/dL (0.2-1.3)
[2016-09-23 07:44] LABS: ALB/GLOB RATIO 0.8 (1.0-2.1); CALCIUM 7.4 mg/dl (8.6-10.4); PHOSPHOROUS 9.2 mg/dL (2.5-4.5); TOTAL PROTEIN 4.7 g/dL (6.3-8.3)
[2016-09-23 07:45] LABS: MAGNESIUM 2.9 mg/dL (1.6-2.3)
[2016-09-23 07:46] LABS: EOS % 0.1 % (0.0-4.0); HEMATOCRIT 24.7 % (35.0-51.0); LYMPH # 1.3 K/uL (1.0-4.3); LYMPH % 9.2 % (20.0-40.0); MEAN CELL VOLUME 87.8 fL (80.0-94.0); MEAN PLATELET VOLUME 9.1 fL (7.2-11.7); MONO % 2.8 % (0.0-10.0); NRBC % 0.2 % (0.0-2.0); PLATELET COUNT 202 K/uL (130-400); RED CELL DISTRIBUTION WIDTH 19.4 % (11.5-14.5)
[2016-09-23 08:21] VITALS: BP 45/27; PULSE 109; RESP 28; TEMP 98
[2016-09-23 09:04] LABS: METAMYELOCYTE 1 % (0-0); NUCLEATED RED BLOOD CELL 1 % (0-0); TOTAL CELLS COUNTED 100
[2016-09-23 09:05] LABS: NEUTROPHIL 50 % (50-75)
--- NOTE | 2016-09-23 13:30 | CP.PCM.PRO ---
<Sharon Almaraz - Last Filed: 09/23/16 15:01> Pronouncement of Note - Clinical Findings Physical Exam: No Response Verbal/Painful Stimuli, Absent Peripheral Pulses{ Carotid & Femoral}, Absent Heart & Breath Sounds, No Pupillary Light Reflex, No Corneal Reflex, Pupils Fixed & Dilated, Absence of Vital Signs - Pronouncement Time Time of Pronouncement of : 11:02 - Notifications Pronouncement Notifications: Family Notified, Atending Notified Die Turner Notified: No - Autopsy Autopsy Requested: No - [place] [id number] <Aarti Khan V - Last Filed: 09/23/16 22:21> Pronouncement of Note - [place] Additional Comments: Patient seen and examined with the resident. Agree with physical exam above noted. Patient is not responsive to name, touch, painful stimuli, pupils are fixed and dilated, no appreciated breathe sounds, no palpable pulses, no heart sounds appreciated. Discussed with patient's family at bedside. EDRS completed; copy attached in chart.
--- NOTE | 2016-09-23 20:03 | CARD ---
APPROVED REPORT EKG Measurement Heart [id number] <Conclusion> Sinus tachycardia Otherwise normal ECG
--- NOTE | 2016-09-27 16:47 | CP.PCM.DIS ---
Provider - Provider Date of Admission: 08/29/16 23:46 Attending physician: Beto Sage MD Primary care physician: none Consults: Dr. Ham - general surgery Dr. Nickersongal - heme/onc Dr. Hunter - nephrology Dr. Wang - Palliative care Dr. Mao - ICU Time Spent in preparation of Discharge (in minutes): 35 Hospital Course - Lab Results Lab Results: Micro Results 09/20/16 12:20 Urine,Clean Catch Urine Culture - Final No Growth (<1,000 CFU/ML) 09/17/16 02:22 Stool Stool Culture - Final NO SALMONELLA, SHIGELLA OR CAMPYLOBACTER ISOLATED. 09/17/16 02:22 Stool Ova and Parasite Concentrate Exam - Final 09/14/16 11:04 Blood-Venous Blood Culture - Final NO GROWTH AFTER 5 DAYS 09/14/16 11:04 Blood-Venous Gram Stain - Final TEST NOT PERFORMED 09/11/16 10:50 Blood Blood Culture - Final NO GROWTH AFTER 5 DAYS 09/11/16 10:50 Blood Gram Stain - Final 09/11/16 10:35 Blood Blood Culture - Final NO GROWTH AFTER 5 DAYS 09/11/16 10:35 Blood Gram Stain - Final TEST NOT PERFORMED 09/11/16 17:30 Urine Urine Culture - Final Yeast Species Most Recent Lab Values WBC 14.6 K/uL (4.8-10.8) H 09/23/16 07:11 RBC 2.81 Mil/uL (4.40-5.90) L 09/23/16 07:11 Hgb 8.1 g/dL (12.0-18.0) L D 09/23/16 07:11 Hct 24.7 % (35.0-51.0) L 09/23/16 07:11 MCV 87.8 fL (80.0-94.0) D 09/23/16 07:11 MCH 29.0 pg (27.0-31.0) 09/23/16 07:11 MCHC 33.0 g/dL (33.0-37.0) 09/23/16 07:11 RDW 19.4 % (11.5-14.5) H 09/23/16 07:11 Plt Count 202 K/uL (130-400) 09/23/16 07:11 MPV 9.1 fL (7.2-11.7) 09/23/16 07:11 Neut % (Auto) 87.7 % (50.0-75.0) H 09/23/16 07:11 Lymph % (Auto) 9.2 % (20.0-40.0) L 09/23/16 07:11 Rush % (Auto) 2.8 % (0.0-10.0) 09/23/16 07:11 Eos % (Auto) 0.1 % (0.0-4.0) 09/23/16 07:11 Baso % (Auto) 0.2 % (0.0-2.0) 09/23/16 07:11 Neut # 12.8 K/uL (1.8-7.0) H 09/23/16 07:11 Lymph # 1.3 K/uL (1.0-4.3) 09/23/16 07:11 Rush # 0.4 K/uL (0.0-0.8) 09/23/16 07:11 Eos # 0.0 K/uL (0.0-0.7) 09/23/16 07:11 Baso # 0.0 K/uL (0.0-0.2) 09/23/16 07:11 Neutrophils % (Manual) 50 % (50-75) 09/23/16 07:11 Band Neutrophils % 38 % (0-2) H* 09/23/16 07:11 Lymphocytes % (Manual) 6 % (20-40) L 09/23/16 07:11 Monocytes % (Manual) 5 % (0-10) 09/23/16 07:11 Eosinophils % (Manual) 3 % (0-4) 09/21/16 06:56 Basophils % (Manual) 1 % (0-2) 09/15/16 06:14 Metamyelocytes % 1 % (0-0) H 09/23/16 07:11 Myelocytes % 1 % (0-0) H 09/21/16 06:56 Nucleated RBC % 1 % (0-0) H 09/23/16 07:11 Differential Comment 08/30/16 11:56 Toxic Granulation Present 09/23/16 07:11 Platelet Estimate Normal (NORMAL) 09/23/16 07:11 Large Platelets Present 09/18/16 07:24 Giant Platelets Present 09/17/16 07:13 Polychromasia Slight 09/22/16 04:26 Hypochromasia (manual) Slight 09/23/16 07:11 Poikilocytosis (manual Slight 09/23/16 07:11 Anisocytosis (manual) Slight 09/23/16 07:11 Target Cells Slight 09/15/16 06:14 Tear Drop Cells Slight 09/23/16 07:11 Ovalocytes Slight 09/17/16 07:13 Rowdy Cells Slight 09/23/16 07:11 Retic Count 2.0 % (0.5-1.5) H 08/30/16 11:56 PT 12.2 SECONDS (9.7-12.2) 09/12/16 06:56 INR 1.1 09/12/16 06:56 APTT 27 SECONDS (21-34) 09/12/16 06:56 Sodium 129 mmol/L (132-148) L 09/23/16 07:11 Potassium 5.8 mmol/L (3.6-5.2) H 09/23/16 07:11 Chloride 98 mmol/L (98-107) 09/23/16 07:11 Carbon Dioxide 14 mmol/L (22-30) L 09/23/16 07:11 Anion Gap 23 (10-20) H 09/23/16 07:11 BUN 34 mg/dL (9-20) H 09/23/16 07:11 Creatinine 2.4 MG/DL (0.8-1.5) H 09/23/16 07:11 Est GFR ( Amer) 38 09/23/16 07:11 Est GFR (Non-Af Amer) 32 09/23/16 07:11 POC Glucose (mg/dL) 147 mg/dL (65-110) H 09/22/16 12:10 Random Glucose 93 mg/dL (75-110) 09/23/16 07:11 Calcium 7.4 mg/dl (8.6-10.4) L 09/23/16 07:11 Phosphorus 9.2 mg/dL (2.5-4.5) H 09/23/16 07:11 Magnesium 2.9 mg/dL (1.6-2.3) H 09/23/16 07:11 Iron 39 ug/dL (49-181) L 08/31/16 06:25 TIBC 232 ug/dL (250-450) L 08/31/16 06:25 % Saturation 17 (20-55) L 08/31/16 06:25 Transferrin 172.14 mg/dL (206-381) L 08/31/16 06:25 Ferritin 181.0 ng/mL 08/31/16 06:25 Total Bilirubin 0.7 mg/dL (0.2-1.3) 09/23/16 07:11 AST 1511 U/L (17-59) H 09/23/16 07:11 ALT 271 U/L (21-72) H D 09/23/16 07:11 Alkaline Phosphatase 104 U/L (38-126) 09/23/16 07:11 Troponin I < 0.0120 ng/mL (0.00-0.120) 08/29/16 21:08 NT-Pro-B Natriuret Pep 83.9 pg/mL (0-450) 08/29/16 21:08 Total Protein 4.7 g/dL (6.3-8.3) L 09/23/16 07:11 Albumin 2.1 g/dL (3.5-5.0) L 09/23/16 07:11 Globulin 2.6 gm/dL (2.2-3.9) 09/23/16 07:11 Albumin/Globulin Ratio 0.8 (1.0-2.1) L 09/23/16 07:11 Carcinoembryonic Ag 0.9 ng/mL (0-3.0) 08/31/16 06:25 Vitamin B12 439 pg/mL (239-931) 08/31/16 06:25 Folate 8.8 ng/mL 08/31/16 06:25 Free T4 1.91 ng/dL (0.78-2.19) 09/13/16 06:15 TSH 3rd Generation 3.76 mIU/L (0.46-4.68) 09/13/16 06:15 Urine Color Yellow (YELLOW) 09/20/16 12:33 Urine Clarity Hazy (Clear) 09/20/16 12:33 Urine pH 5.0 (5.0-8.0) 09/20/16 12:33 Ur Specific [place] 1.012 (1.003-1.030) 09/20/16 12:33 Urine Protein Negative mg/dL (NEGATIVE) 09/20/16 12:33 Urine Glucose (UA) Normal mg/dL (Normal) 09/20/16 12:33 Urine Ketones Negative mg/dL (NEGATIVE) 09/20/16 12:33 Urine Blood 1+ (NEGATIVE) H 09/20/16 12:33 Urine Nitrate Negative (NEGATIVE) 09/20/16 12:33 Urine Bilirubin Negative (NEGATIVE) 09/20/16 12:33 Urine Urobilinogen Normal mg/dL (0.2-1.0) 09/20/16 12:33 Ur Leukocyte Esterase Neg [place]/uL (Negative) 09/20/16 12:33 Urine WBC (Auto) 3 /hpf (0-5) 09/20/16 12:33 Urine RBC (Auto) 5 /hpf (0-3) H 09/14/16 09:18 Ur Squamous Epith Cells < 1 /hpf (0-5) 08/29/16 20:11 Amorphous Sediment Moderate /ul (<OCC) H 09/20/16 12:33 Urine Bacteria Rare (<OCC) 09/20/16 12:33 Urine Osmolality 350 mosm/kg (300-1000) 09/21/16 19:00 Ur Random Creatinine 70.4 mg/dL 09/16/16 07:14 Ur Random Sodium 88 mmol/L 09/21/16 19:00 Ur Random Potassium 64.7 mmol/L 09/16/16 07:14 Ur Random Urea Nitrogn 1057 mg/dL 09/16/16 07:14 Urine Magnesium 57.1 mg/dL 09/16/16 07:14 Stool Occult Blood Positive (NEGATIVE) H 08/30/16 00:43 Stool Leukocytes, Qual Negative (NEGATIVE) 09/17/16 01:54 C. difficile Ag & Toxin Negative (NEGATIVE) 09/19/16 15:51 HIV 1&2 Ag/Ab, 4th Gen Nonreactive (Nonreactive) 08/30/16 11:56 Influenza Typ A,B (EIA) Negative for flu a/b (NEGATIVE) 08/30/16 09:20 Blood Type B POSITIVE 09/12/16 06:56 Blood Type Confirm B POSITIVE 08/30/16 00:24 Antibody Screen Negative 09/12/16 06:56 - Hospital Course Hospital Course: PMD: NONE PMH: Gastric CA Meds: chemotherapy Allergy: NKDA PSH: Left knee surgery Hosp: denies FH: denies Social: denies ETOH/tobacco/illicit drug use On admission: 31 M with PMH of gastric adenocarcinoma presents to [facility] ED for complaint of abdominal pain and nausea/vomiting. Patient was diagnosed with gastric CA in [facility], April 2016. He has been receiving chemotherapy every 21 days since the diagnosis. Patient states that he has had these symptoms intermittently throughout his treatment. The symptoms have been worse the last few days. He has been vomiting 4-5 times per day, normally non- bilious but occasionally are dark. He rates the abdominal pain as 4/10 in severity. He described it as constant and sharp, located on the left side of his abdomen without radiation. Patient denies any exacerbating or alleviating factors. During this same period, he admits to decreased appetite and weight loss. He is able to tolerate small amounts of liquid and bread at times. He also admits to having dark stool, numbness/tingling, weakness, and fatigue. Denies Headache, blurred vision, CP, SOB, palpitations, cough, incontinence, syncope, dizziness/lightheadedness, urinary symptoms. During Hospital Stay: CT Chest/Abd/Pelvis showed extensive mucosal thickening of the stomach; free fluid in the abdomen and pelvis; enapsulation of fluid in the pelvis which is worrisome for abscess; sclerotic lesion within left pelvis, metastatic disease not excluded; enlarged prostate gland, mediastinal and hilar adenopathy; mucosal thickening of the appendix (please see full report). EGD on 09/[address] Cobian, revealed malignant tumor on the gastric body (please see full report) Dr. Mckoy was consulted and spoke to the family extensively. She staterd that his prognosis is poor and that likely he would not benefit or surive from further intervention such a chemo or radioation. General surgery, Dr. Ham, was consulted j tube was placed for feeding since the patient was not tolerating PO. He had a revision of the tube on 09/12 due to malfunction. 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 He was given IV dilaudid for pain control. Patient was evaluated by hospice. At the end of his stay patient developemnt intestinal perforation. Surgery said that he would likeley not survive this surgery. Patient and family did not want surgery or furtehr intervention. Patient stated he would like for be DNR/DNI. Palliative care evaluated the patient and confirmed this information along with ICU evaluation. Patient was made DNR/DNI and morphine drip was added for pain control. Electrolytes were replaced as indicated. He given given multiple IV bags of MG and K daily. Electrolytes were also supplemented in the TPN. Patient was anemic likely from blood loos from the gastric tumor. He was FOBT+. He was given 2 units ob blood on 09/12. He was also given Feosol 325 mg po daily. Patient met SIRS crtieria and was given Zosyn 3.375 gm IV q 8 hrs. Blood cultures were negative. Patient then was febrile and leukocytosis resumed. Patient was tachycardic, likely from pain but was given Metoprolol 12.[address] scans were negative for PE. Patient was treated for UTI with IV Diflucan. Urine culture showed yeast. Repeat Urine culutre was negative for growth. Patient on 09/23 at 11:02 AM. [place] [id number] Discharge Exam - Head Exam Head Exam: ATRAUMATIC, NORMAL INSPECTION Additional comments: No Response Verbal/Painful Stimuli, Absent Peripheral Pulses{Carotid & Femoral} , Absent Heart & Breath Sounds, No Pupillary Light Reflex, No Corneal Reflex, Pupils Fixed & Dilated, Absence of Vital Signs Discharge Plan - Follow Up Plan Condition: FAIR Disposition: WITH WITHOUT AUTOPSY
== END 2016-09-23 14:30 | DRG 553 ==
LOC: C.ER 18:16 → C.9E 23:46 → C.6T 08-30 00:14
PROVIDERS: ADMIT Internal Medicine; ATTEND Internal Medicine
PROC: 3E0436Z Introduction of Nutritional Substance into Central Vein, Percutaneous Approach (ICD-10-PCS; 2016-08-29)
PROC: 30233N1 Transfusion of Nonautologous Red Blood Cells into Peripheral Vein, Percutaneous Approach (ICD-10-PCS; 2016-08-29)
PROC: 0W9G3ZZ Drainage of Peritoneal Cavity, Percutaneous Approach (ICD-10-PCS; 2016-08-31)
PROC: 0DB68ZX Excision of Stomach, Via Natural or Artificial Opening Endoscopic, Diagnostic (ICD-10-PCS; 2016-09-02)
PROC: 0WJG0ZZ Inspection of Peritoneal Cavity, Open Approach (ICD-10-PCS; 2016-09-07)
PROC: 0J9C0ZZ Drainage of Pelvic Region Subcutaneous Tissue and Fascia, Open Approach (ICD-10-PCS; 2016-09-07)
PROC: 0DHA3UZ Insertion of Feeding Device into Jejunum, Percutaneous Approach (ICD-10-PCS; principal; 2016-09-07 13:22)
PROC: 0D2DXUZ Change Feeding Device in Lower Intestinal Tract, External Approach (ICD-10-PCS; 2016-09-12)
PROC: 02HV33Z Insertion of Infusion Device into Superior Vena Cava, Percutaneous Approach (ICD-10-PCS; 2016-09-15)
PROC: B548ZZA Ultrasonography of Superior Vena Cava, Guidance (ICD-10-PCS; 2016-09-15)
DX: C16.2 Malignant neoplasm of body of stomach (principal); N17.9 Acute kidney failure, unspecified; R18.0 Malignant ascites; A41.9 Sepsis, unspecified organism; C78.1 Secondary malignant neoplasm of mediastinum; C78.6 Secondary malignant neoplasm of retroperitoneum and peritoneum; K94.13 Enterostomy malfunction; I95.9 Hypotension, unspecified; E86.0 Dehydration; E22.2 Syndrome of inappropriate secretion of antidiuretic hormone; B37.49 Other urogenital candidiasis; E87.6 Hypokalemia; D62 Acute posthemorrhagic anemia; D63.0 Anemia in neoplastic disease; R62.7 Adult failure to thrive; Y83.8 Other surgical procedures as the cause of abnormal reaction of the patient, or of later complication, without mention of misadventure at the time of the procedure; Y73.8 Miscellaneous gastroenterology and urology devices associated with adverse incidents, not elsewhere classified; Z66 Do not resuscitate; Z51.5 Encounter for palliative care